=== PATIENT | female | born 1985 | race Caucasian/White ===

== ENCOUNTER 2021-09-19 12:59 | Outpatient (CLI) | payer BC, SELFPAY ==
--- NOTE | 2021-09-19 13:00 | CRLHL7_ITS ---
For Patients: As a result of the Century Cures Act, medical imaging exams and procedure reports are released immediately into your electronic medical record. You may view this report before your referring provider. If you have questions, please contact your health care provider. INDICATION: FOLLOW UP EFW, NOSE/LIPS/FACE COMPARISON: 07/27/2021 TECHNIQUE: Real time degroot scale imaging of the fetus was performed. FINDINGS: Sonographic imaging demonstrates a single living intrauterine gestation. Fetus demonstrates a regular cardiac rate of 144 beats per minute. Fetus has a vertex position. The placenta lies anteriorly. Amniotic fluid volume appears normal and there is a single deepest vertical pocket: 6.7 cm. The estimated weight is 1017gm which lies at the 28th %. On the prior OB ultrasound exam dated 07/27/2021 the estimated weight was at the 42nd%. BPD 38th percentile. HC 26th percentile. AC 32nd percentile. FL 26th percentile. The HC/AC ratio measures 1.12 Range (1.05-1.22). Normal nose, lips, face and profile. IMPRESSION: Normal nose, lips, face and profile. Sonographic gestational age 27 weeks 1 day and sonographic due date 12/18/2021. Good correlation with dates. Estimated weight 28th percentile. Abdominal circumference 32nd percentile. Dictated by Chago Gallardo MD @ 09/20/2021 11:08:44 AM (Electronically Signed)
== END 2021-09-19 13:00 | disposition home or self-care (01) ==
LOC: US 13:00
PROVIDERS: Visit Provider Obstetrics & Gynecology
DX: O35.8XX0 Maternal care for other (suspected) fetal abnormality and damage, not applicable or unspecified (principal); Z3A.27 27 weeks gestation of pregnancy
CPT/HCPCS: 76816

== ENCOUNTER 2021-09-19 13:53 | Outpatient (CLI) | payer BC, SELFPAY ==
[2021-09-21 20:11] LABS: Rapid Plasma Reagin (RPR) Non Reactive (Non Reactive)
== END 2021-09-19 13:54 | disposition home or self-care (01) ==
LOC: NFLDREF 13:54
PROVIDERS: Visit Provider Obstetrics & Gynecology
DX: O35.8XX0 Maternal care for other (suspected) fetal abnormality and damage, not applicable or unspecified (principal); Z3A.27 27 weeks gestation of pregnancy
CPT/HCPCS: 86592

== ENCOUNTER 2021-10-28 10:57 | Outpatient (CLI) | payer BC, SELFPAY ==
--- NOTE | 2021-10-28 11:00 | CRLHL7_ITS ---
For Patients: As a result of the Century Cures Act, medical imaging exams and procedure reports are released immediately into your electronic medical record. You may view this report before your referring provider. If you have questions, please contact your health care provider. INDICATION: Third trimester scan, evaluate growth. Chronic hypertension. COMPARISON: 09/19/2021 TECHNIQUE: Real time degroot scale imaging of the fetus was performed. FINDINGS: Sonographic imaging demonstrates a single living intrauterine gestation. Fetus demonstrates a regular cardiac rate of 141 beats per minute. Fetus has a vertex position. The placenta lies anteriorly. Amniotic fluid volume appears normal and there is a single deepest vertical pocket: 4.9 cm. The estimated weight is 2121gm which lies at the 49th %. On the prior OB ultrasound exam dated 09/19/2021 the estimated weight was at the 28th%. BPD 74th percentile. HC 46th percentile. AC 73rd percentile. FL 10th percentile. The HC/AC ratio measures 1.03 range (0.96-1.11). IMPRESSION: Sonographic gestational age 33 weeks 2 days and sonographic due date 12/14/2021. Good correlation with dates. Normal interval growth. Estimated weight 49th percentile. Abdominal circumference 73rd percentile. Dictated by Chago Gallardo MD @ 10/28/2021 1:13:19 PM (Electronically Signed)
--- OUTSIDE RECORDS SUMMARY | 2021-10-28 11:00 | XMS_ITS | Encounter Summary ---
:1985 Author Organization [facility] Address [address] [place] [address] Care Team Providers Name Role Phone Unavailable Primary Care Provider Unavailable Reason for Referral Outpatient (Routine) - Closed Specialty Diagnoses / Procedures Referred By Contact Refer red To Contact Otorhinolaryngology Daphne Tatum [place] M.D. [address] [place] [address] Referral ID Status Reason Start Date Expiration Date Visits Requ ested Visits Authorized [id number] Closed 01/06/2021 01/06/2022 1 1 Scheduling Instructions Oral covid same day, 930 override Reason for Visit Appointment Request (Routine) - Closed Specialty Diagnoses / Procedures Referred By Contact Refer sheri To Contact Otorhinolaryngology Diagnoses Polyp Nasal Referral ID Status Reason Start Date Expiration Date Visits Requ ested Visits Authorized [id number] Closed 12/12/2020 12/12/2021 1 1 Encounter Details Date Type Department Care Team Description 01/06/2021 Comprehensive Visit Department of Rebecca Tatumosi nusitis Chronic (Primary Dx); Otorhinolaryngology in [place]aphne Blair, Polyp Nasal; [place], [place] Sung Aspirin Reaction Nasal Polyps Asthma [address] [facility] [address] [place] [address] [place] [phone] Social History Tobacco Use Types Packs/Day Years Used Date Smoking Tobacco: Unknown Alcohol Habits Answer Date Recorded How often do you have a drink containing alcohol? Never 02/18/2021 How many drinks containing alcohol do you have on a typical Not asked day when you are drinking? How often do you have six or more drinks on one occasion? No t asked Comment: Not asked Social Isolation Answer Date Recorded In a typical week, how many times do you talk on Patient ref used 02/18/2021 the phone with family, friends, or neighbors? How often do you get together with friends or Twice a week 02/18/2021 relatives? How often do you attend restorationism or methodist Never 02/18/2021 services? Do you belong to any clubs or organizations such as No 02/18/2021 restorationism groups, unions, fraternal or athletic groups, or school groups? How often do you attend meetings of the clubs or Patient ref used 02/18/2021 organizations you belong to? Are you now , , , , Living wi partner 02/18/2021 never or living with a partner? Physical Activity Answer Date Recorded On average, how many days per week do you engage in moderate to 5 days 02/18/2021 strenuous exercise (like walking fast, running, jogging, dancing, swimming, biking, or other activities that cause a light or heavy sweat)? On average, how many minutes do you engage in exercise at is 60 min 02/18/2021 level? Stress Answer Date Recorded Do you feel stress - tense, restless, nervous, or anxious, N ot at all 02/18/2021 or unable to sleep at night because your mind is troubled all the time - these days? Financial Resource Strain Answer Date Recorded How hard is it for you to pay for the very basics like Not h janie at all 02/18/2021 food, housing, medical care, and heating? Intimate Partner Violence Answer Date Recorded Within the last year, have you been afraid of your partner o r No 02/18/2021 ex-partner? Within the last year, have you been humiliated or emotionall y No 02/18/2021 abused in other ways by your partner or ex-partner? Within the last year, have you been kicked, hit, slapped, or No 02/18/2021 otherwise physically hurt by your partner or ex-partner? Within the last year, have you been raped or forced to have any No 02/18/2021 kind of sexual activity by your partner or ex-partner? Food Insecurity Answer Date Recorded Within the past 12 months, you worried that your food would Never true 02/18/2021 run out before you got money to buy more. Within the past 12 months, the food you bought just didn't N ever true 02/18/2021 last and you didn't have money to get more. Transportation Needs Answer Date Recorded In the past 12 months, has lack of transportation kept you f rom No 02/18/2021 medical appointments or from getting medications? In the past 12 months, has lack of transportation kept you f rom No 02/18/2021 meetings, work, or getting things needed for daily living? Housing Stability Answer Date Recorded In the last 12 months, was there a time when you were not ab le No 02/18/2021 to pay the mortgage or rent on time? In the last 12 months, how many places have you lived? 1 02/18/2021 In the last 12 months, was there a time when you did not hav e a No 02/18/[address] or slept in a residential (including now)? Education Answer Date Recorded What is the highest level of school Associate degree: yanna babb, 01/06/2021 you have completed or the highest technical, or vocational p luke degree you have received? Sex Assigned at Date Recorded Female 01/06/2021 8:49 AM CDT documented as of this encounter Progress Daphne Daily M.D. - 01/06/2021 9:00 AM CDT SUBJECTIVE CHIEF COMPLAINT / REASON FOR VISIT Krystal Odonnell is a 35 y.o. female who presents for evaluation of No chief complaint on file.. HISTORY OF PRESENT ILLNESS 1. Chronic rhinosinusitis with polyps. 2. Asthma with AERD. 3. Desensitized from aspirin currently on 325 mg once a day. 4. Revision endoscopic sinus surgery done by Dr. Tatum in October of 2015 - She became more congested on Singulair and also had itchiness and insomnia and had to stop it. Ms. Odonnell presents today for follow up. Overall she is doing poorly and she is currently has not been using saline rinses. After her last surgery in 2015 she did undergo aspirin desensitization and used b.i.d. budesonide irrigations for many years. We last saw her on 06/11/17 when she had stopped her ASA after not being able to keep it down secondary to n/v and influenza. She was treated at that time with 80mg of IM Kenalog in addition to BID budesonide irrigations. She did not have any improvement. She will have increased nasal airway and sense of smell after high does prednisone, but the obstruction returns shortly after stopping the steroids. Her current symptoms include facial pressure, nasal bud inage, decreased nasal airway, and inability to irrigate due to polyp recurrence. She has taken Augmentin 2-3 times in the last year for presumed exacerbations without much improvement in her symptoms.She has not had prednisone in the last year. She will take Claritin occasionally and this will help significantly with the clear anterior nasal dripping. She also reports a worsening of her symptoms when she had her IUD removed in October. She reports to us that she is trying to become and would like to discuss options for improving her symptoms with that in mind. OBJECTIVE PHYSICAL EXAM Constitutional: Appears alert and well Head: Normal inspection and palpation Nose: The external nose is without significant lesions or masses Neck: No stridor is present Pulmonary/Chest: Respirations have grossly normal rate and effort No stridor Neurological: She is alert Skin: No facial rash noted Psychiatric: Affect appears appropriate ASSESSMENT / PLAN #1 Rhinosinusitis Chronic #2 Polyp Nasal #3 Aspirin Reaction Nasal Polyps Asthma She has an updated CT scan today that we reviewed together in the office. It shows severe polypoid disease down the floor nasal cavity. She has otherwise had good prior surgery with open maxillary antrostomies, total ethmoidectomy, and sphenoid sinusotomies. We discussed many options for her. She would not be able to take Dupixent, an anti leukotriene medication, or high-dose aspirin while being . She also would not be able to undergo surgery while, but could undergo revision sinus surgery in the near future with middle turbinate resections and draft IIb's/possible Draf III. We also discussed that it would be important for her to continue topical steroids in the postop timeframe and throughout her to help keep her symptoms from recurring. After she delivers and completes breast feeding she would then need to come in and discuss medical therapy or repeat asa desensitization with an it systems engineer as I am not optimistic that surgery and topical budesonide will control her long-term. She is concerned about olfactory loss with middle turbinate resections, but she is agreeable to me using clinical judgment at the time of surgery to try to optimize her olfactory cleft to received topical steroids while limiting injury to olfactory neuroepithelium on the middle turbinates. She is currently not taking any anticoagulants and she reports her asthma has been well controlled. We should start her on a prednisone burst and taper today that she can continue throughout the postoptimeframe. We will plan a postop debridement at 1 week. Daphne Tatum M.D. documented in this encounter Plan of Treatment Scheduled Referrals Name Type Priority Associated Order Schedule Diagnoses Otorhinolaryngology Post Op Outpatient Routine Expected: (clinic) Referral 01/20/2021 (Approximate), Expires: 01/07/2024 documented as of this encounter Visit Diagnoses Diagnosis Rhinosinusitis Chronic - Primary Polyp Nasal Aspirin Reaction Nasal Polyps Asthma documented in this encounter Additional Health Concerns Infection Onset Date Last Indicated Resolved Time COVID19 Pending 01/06/2021 01/06/2021 01/06/2021 9:43 AM CDT COVID19 Pending 01/06/2021 01/06/2021 01/06/2021 10:29 AM CDT documented as of this encounter
--- OUTSIDE RECORDS SUMMARY | 2021-10-28 11:00 | XMS_ITS | Encounter Summary ---
:1985 Author Organization [facility] Address [address] [place] [address] Care Team Providers Name Role Phone Unavailable Primary Care Provider Unavailable Encounter Details Date Type Department Care Team Description 06/11/2017 Telemedicine Department of Otorhinolaryngology Social History Tobacco Use Types Packs/Day Years Used Date Smoking Tobacco: Never Alcohol Habits Answer Date Recorded How often [...] 02/18/2021 relatives? How often do you attend jehovah's witness or mandaeism Never 02/18/2021 services? Do you belong to any clubs or organizations such as No 02/18/2021 jehovah's witness groups, unions, fraternal or athletic groups, or school groups? How often do you attend meetings of the clubs or Patient ref used 02/18/2021 organizations you belong to? Are you now , , , , Living wi th partner 02/18/2021 never or living with a partner? Physical Activity Answer Date Recorded On average, how many days per week do you engage in moderate to 5 days 02/18/2021 strenuous exercise (like walking fast, running, jogging, dancing, swimming, biking, or other activities that cause a light or heavy sweat)? On average, how many minutes do you engage in exercise at th is 60 min 02/18/2021 level? Stress Answer [...] place to sleep or slept in a [place] [facility] (including now)? Sex Assigned at Date Recorded Female 01/06/2021 8:49 AM CDT documented as of this encounter Plan of Treatment Not on filedocumented as of this encounter Procedures Procedure Name Priority Date/Time Associated Comments Diagnosis OTORHINOLARYNGOLOGY IMAGE Routine 06/11/2017 4:48 Results for this EXAM PM CDT procedure are i n the results section. documented in this encounter Results OTORHINOLARYNGOLOGY IMAGE EXAM (06/11/2017 4:48 PM CDT) Specimen (Source) Anatomical Collection Method Collection Time Re ceived Time Location / / Volume Laterality 06/11/2017 4:47 PM CDT Narrative [facility] - 06/11/2017 4:48 PM CDT This order has been created and auto-finalized to support the import of images acquired without order. The clini stephanie documentation to support these images can be found on the encounter rosalind t produced images. Provider Not In System IMG NON RAD IMAGING PROCEDUR ES Performing Organization Address City/State/ZIP Code Phon e Number [facility] NA documented in this encounter Visit Diagnoses Not on filedocumented in this encounter
--- OUTSIDE RECORDS SUMMARY | 2021-10-28 11:00 | XMS_ITS | Encounter Summary ---
:1985 Author Organization [facility] Address [address] [place] [address] Care Team Providers Name Role Phone Unavailable Primary Care Provider Unavailable Encounter Details Date Type Department Care Team Description 06/22/2017 Orders Only Department of Ashley Victor, Otorhinolaryngology in [facility], [facility], [place] M.S.N. [address] [place] [address] [address] [place] [address] [place], [place] [phone] Social History Tobacco Use Types Packs/Day Years [...] 02/18/2021 relatives? How often do you attend orthodox or bahai Never 02/18/2021 services? Do you belong to any clubs or organizations such as No 02/18/2021 orthodox groups, unions, fraternal or athletic groups, or [...] place to sleep or slept in a assisted (including now)? Sex Assigned at Date Recorded Female 01/06/2021 8:49 AM CDT documented as of this encounter Plan of Treatment Not on filedocumented as of this encounter Visit Diagnoses Not on filedocumented in this encounter
--- OUTSIDE RECORDS SUMMARY | 2021-10-28 11:00 | XMS_ITS | Encounter Summary ---
:1985 Author Organization [facility] Address [address] [place] [address] Care Team Providers Name Role Phone Unavailable Primary Care Provider Unavailable Reason for Visit Outpatient (Routine) - Closed Specialty Diagnoses / Procedures Referred By Contact Refer red To Contact Otorhinolaryngology Daphne Tatum [place] M.D. [address] [place] [address] Referral ID Status Reason Start Date Expiration Date Visits Requ ested Visits Authorized [id number] Closed 01/21/2021 01/21/2022 1 1 Encounter Details Date Type Department Care Team Description 02/18/2021 Office Visit Department of Rc, Rhinosinusitis Chronic (Primary Dx); Otorhinolaryngology in [place]aphne Blair, Polyp Nasal; [place], [place] Sung Aspirin Reaction Nasal Polyps Asthma [address] [facility] [address] [place] [address] [place], [place] [phone] Social History Tobacco Use Types Packs/Day Years Used Date Smoking Tobacco: Never Smokeless Tobacco: Never Alcohol Use Standard Drinks/Week Comments Never 0 (1 standard drink = 0.6 oz pure alcoho l) Alcohol Habits Answer Date Recorded How often [...] 02/18/2021 relatives? How often do you attend shinto or latter day Never 02/18/2021 services? Do you belong to any clubs or organizations such as No 02/18/2021 shinto groups, unions, fraternal or athletic groups, or [...] CDT documented as of this encounter Progress Notes Sanjeev Thakur, DALTON, C.N.P., M.S.N. - 02/18/2021 11:15 AM CST SUBJECTIVE CHIEF COMPLAINT / REASON FOR VISIT Krystal Odonnell is a 35 y.o. female who presents for follow up of AERD HISTORY OF PRESENT ILLNESS 1. ??Chronic rhinosinusitis with polyps. 2. ??Asthma with AERD. 3. ??Desensitized from aspirin but stopped after a bout of n/v from a viral illness, previously tolerated and was maintained on 325 mg once a day. 4. ??Revision endoscopic sinus surgery done by Dr. Tatum in October of 2015 - She became more congested on Singulair and also had itchiness and insomnia and had to stop it. 5. Revision ESS - all 4 sinuses with excision of the middle turbinates & draf 2b bilaterally with JKS on 01/11/21 Ms. Odonnell is a very pleasant 35 year old female with AERD who is trying to get and thus notable to take systemic therapy. She underwent revision polypectomy and ESS (Middle turbinate resection and Draf 2b) on 01/11/21. Following her first post op visit, she had notable mild frontal sinus edema and was healing well. This is her second post operative visit. Today, she is feeling well. Unfortunately, since putting a real pine tree up for B[place] she has noticed increased nasal blockage and is worried her polyps have returned. She has continued to feel improvement in her smell. She has continued with her twice daily rinses. OBJECTIVE PHYSICAL EXAM Constitutional: Voice is normal Appears alert and well Head: Normal inspection and palpation Otoscopic: Hearing is grossly normal Nose: The external nose is without significant lesions or masses Pulmonary/Chest: Respirations have grossly normal rate and effort Neurological: She is alert Facial strength is grossly normal and symmetric Psychiatric: Affect appears appropriate PROCEDURE NOTE: Procedure: Indication: CRS, postop, remove crusting, prevent scarring Informed Consent obtained: The risks, benefits, alternatives, and expectations were discussed with patient verbally and the patient wishes to proceed. Findings: After anesthesia and decongestion with topical lidocaine and afrin spray, the nasal cavities were examined with a 30 degree endoscope. Her bilateral maxillary, ethmoid, frontal, and sphenoid sinuses are patent. Her bilateral MT are resected. She has mild edema and mild clear drainage throughout sinuses. No polyp recurrence. The patient tolerated the procedure well and there were no complications. Cloquet-Woody Endoscopic Scoring System Right Side Left Side Polyp Absent = 0 Absent = 0 Edema Mild = 1 Mild = 1 Discharge Absent = 0 Absent = 0 Scarring Absent = 0 Absent = 0 Crusting Absent = 0 Absent = 0 Carole-Woody Endoscopy Score = 2 ASSESSMENT / PLAN It was a pleasure to see Ms. Odonnell for follow up today. She has continued to do well with improvement of her smell. She reports recently putting a real tree up for [place] and has noticed increasing nasal congestion. On exam she has mild edema with minimal clear drainage throughout. We are suspicious this is an allergic reaction to the pine tree. We will prescribe Astelin spray for her to use as needed. She will continue with the twice daily budesonide rinses. We will follow up with her in 6 months or sooner if needed. We will have her see allergy for repeat ASA desensitization vs biologic after she is no longer trying to become . Sanjeev Thakur APRN, C.N.P., M.S.N. ANICAL RESEARCH ENGINEER Associated attestation - Daphne Tatum M.D. - 02/20/2021 5:37 PM MECHANICAL RESEARCH ENGINEER I saw the patient with Sanjeev Thakur C.N.P. and agree with her findings, assessment, and plan. Daphne Tatum M.D. documented in this encounter Plan of Treatment Not on filedocumented as of this encounter Visit Diagnoses Diagnosis Rhinosinusitis Chronic - Primary Polyp Nasal Aspirin Reaction Nasal Polyps Asthma documented in this encounter
--- OUTSIDE RECORDS SUMMARY | 2021-10-28 11:00 | XMS_ITS | Encounter Summary ---
:1985 Author Organization [facility] Address [address] [place] [address] Care Team Providers Name Role Phone Unavailable Primary Care Provider Unavailable Encounter Details Date Type Department Care Team Description 12/04/2017 Orders Only Department of Ashley Victor, Otorhinolaryngology in [facility], C.N[facility]P.[place], [place] M.S.N. [address] [place] [address] [address] [place] [address] [place], [place] [phone] Social History Tobacco Use Types Packs/Day Years [...] 02/18/2021 relatives? How often do you attend mosque or temple Never 02/18/2021 services? Do you belong to any clubs or organizations such as No 02/18/2021 mosque groups, unions, fraternal or athletic groups, or [...] place to sleep or slept in a skilled nursing (including now)? Sex Assigned at Date Recorded Female 01/06/2021 8:49 AM CDT documented as of this encounter Plan of Treatment Not on filedocumented as of this encounter Visit Diagnoses Not on filedocumented in this encounter
--- OUTSIDE RECORDS SUMMARY | 2021-10-28 11:00 | XMS_ITS | Encounter Summary ---
:1985 Author Organization [facility] Address [address] [place] [address] Care Team Providers Name Role Phone Unavailable Primary Care Provider Unavailable Encounter Details Date Type Department Care Team Description 01/21/2021 Ancillary Procedure Department of Otorhinolaryngology Social History Tobacco Use [...] 02/18/2021 relatives? How often do you attend confucianism or latter day Never 02/18/2021 services? Do you belong to any clubs or organizations such as No 02/18/2021 confucianism groups, unions, fraternal or athletic groups, or [...] place to sleep or slept in a longterm (including now)? Education Answer Date Recorded What is the highest level of school Associate degree: occupa tional, 01/06/2021 you have completed or the highest technical, or vocational p rogram degree you have received? Sex Assigned at Date Recorded Female 01/06/2021 8:49 AM CDT documented as of this encounter Plan of Treatment Not on filedocumented as of this encounter Procedures Procedure Name Priority Date/Time Associated Comments Diagnosis OTORHINOLARYNGOLOGY IMAGE Routine 01/21/2021 2:48 Results for this EXAM PM RN TESTING procedure are i n the results section. documented in this encounter Results NASAL-Otorhinolaryngology Image Exam (01/21/2021 2:48 PM RN TESTING) Specimen (Source) Anatomical Collection Method Collection Time Re ceived Time Location / / Volume Laterality 01/21/2021 4:08 PM RN TESTING Narrative [facility] - 01/21/2021 2:48 PM RN TESTING This order has been created and auto-finalized [...]
--- OUTSIDE RECORDS SUMMARY | 2021-10-28 11:00 | XMS_ITS | Encounter Summary ---
:1985 Author Organization [facility] Address [address] [place] [address] Care Team Providers Name Role Phone Unavailable Primary Care Provider Unavailable Reason for Referral Outpatient (Routine) - Closed Specialty Diagnoses / Procedures Referred By Contact Refer red To Contact Otorhinolaryngology Daphne Tatum [place] M.D. [address] [place] [phone] Referral ID Status Reason Start Date Expiration Date Visits Requ ested Visits Authorized [id number] Closed 01/21/2021 01/21/2022 1 1 Scheduling Instructions - in afternoon, or 02/22 v ideo slot. EL APPLIER Reason for Visit Outpatient (Routine) - Closed Specialty Diagnoses / Procedures Referred By Contact Refer red To Contact Otorhinolaryngology Daphne Tatum [place] M.D. [address] [place] [phone] Referral ID Status Reason Start Date Expiration Date Visits Requ ested Visits Authorized [id number] Closed 01/06/2021 01/06/2022 1 1 Encounter Details Date Type Department Care Team Description 01/21/2021 Office Visit Department of Paola Tatum on Otorhinolaryngology in Daphne Blair M.D. Nasal Polyps Asthma [place], [place] [address] [place] [address] (Primary Dx) [address] [place] [phone] Social History Tobacco Use Types Packs/Day Years [...] 02/18/2021 relatives? How often do you attend synagogue or hinduism Never 02/18/2021 services? Do you belong to any clubs or organizations such as No 02/18/2021 synagogue groups, unions, fraternal or athletic groups, or [...] place to sleep or slept in a fci (including now)? Education Answer Date Recorded What is the highest level of school Associate degree: yanna babb, 01/06/2021 you have completed or the highest technical, or vocational p rogram degree you have received? Sex Assigned at Date Recorded Female 01/06/2021 8:49 AM CDT documented as of this encounter Progress Notes Mary Lema M.D. - 01/21/2021 2:30 PM CST SUBJECTIVE CHIEF COMPLAINT / REASON FOR VISIT Krystal Odonnell is a 35 y.o. female who presents for an evaluation of HISTORY OF PRESENT ILLNESS 1. ??Chronic rhinosinusitis with polyps. 2. ??Asthma with AERD. 3. ??Desensitized from aspirin currently on 325 mg once a day. 4. ??Revision endoscopic sinus surgery done by Dr. Tatum in October of 2015 - She became more congested on Singulair and also had itchiness and insomnia and had to stop it. 5. Revision FESS - all 4 sinuses with excision of the middle turbinates bilaterally with JKS on 01/11/21 Ms. Odonnell is a very pleasant 35 year old female with AERD who is trying to get and thus notable to tolerate systemic therapy. She underwent revision polypectomy and FESS for all 4 sinuses on 01/11/21. This is her first post- operative visit. She is feeling well. Last night she was actually able to smell something. She has had significant pain after surgery which has required another round of narcotic, but she is refraining from taking too many of these. The following portions of the patient's history were reviewed and updated as appropriate: allergies,current medications, family history, medical history, social history, surgical history and problem list. REVIEW OF SYSTEMS ENT: Positive for sinus congestion. Psychiatric/Behavioral: Positive for snores loudly. The following systems were negative: Constitutional, Skin, Eyes, CV, Respiratory, GI, , Hematologic, Musculoskeletal, Neuro OBJECTIVE PHYSICAL EXAM Constitutional: Voice is normal Appears alert and well Head: Normal inspection and palpation Otoscopic: Hearing is grossly normal Nose: The external nose is without significant lesions or masses Eyes: External ocular movements are symmetric and full Cardiovascular: Upper extremity displays normal capillary refill Upper extremities are well perfused Neurological: She is alert and oriented to person, place, and time III, IV, : EOM symmetric and full Facial strength is grossly normal and symmetric Psychiatric: Affect appears appropriate Behavior is oriented to person, place and time PROCEDURE NOTE: Procedure: POSTOP DEBRIDEMENT Indication: CRS, postop, remove crusting, prevent scarring Informed Consent obtained: The risks, benefits, alternatives, and expectations were discussed with patient verbally and the patient wishes to proceed. Findings: After anesthesia and decongestion with topical lidocaine and afrin spray, the nasal cavities were exmained and debrided with a 30 degree endoscope. Large crusts were taken down from the anterior nasal chambers with a suction and alligator forceps. The middle turbinates were resected. Crusts and dissolvable packing materials were removed from the middle meatus, maxillary sinus, sphenoid sinus, frontal recess, and ethmoid cavities bilaterally. A small crust was left on the middle turbinate stump on the left to prevent scarring.The maxillary and sphenoid sinuses are widely patent. The frontal recess is patent bilaterally as well. Minimal polypoid edema. There is no CSF leak. Things are healing well. The patient tolerated the procedure well and there were no complications. Right Side Left Side Polyp Absent = 0 Absent = 0 Edema Mild/moderate = 1 Mild/moderate = 1 Discharge Thin and clear = 1 Thin and clear = 1 Scarring Absent = 0 Absent = 0 Crusting Mild = 1 Mild = 1 [place] Endoscopy Score = 6 ASSESSMENT / PLAN #1 Aspirin Reaction Nasal Polyps Asthma It was a pleasure to see Ms. Odonnell back in clinic today. She looks really excellent from a healing perspective. She has mild edema and her frontals are very patent. We were glad to hear she is getting her sense of smell back. We will see her back in 3-4 weeks for another postoperative visit. She should continue to use her budesonide rinses but she can stop the mupirocin. Procedures EL APPLIER Associated attestation - Daphne Tatum M.D. - 01/21/2021 2:57 PM ENAMEL APPLIER I saw and evaluated the patient, participating in the brody portions of the service. I reviewed the resident/fellow???s note. I agree with the resident/fellow???s findings and plan. Daphne Tatum M.D. documented in this encounter Plan of Treatment Scheduled Referrals Name Type Priority Associated Order Schedule Diagnoses Otorhinolaryngology office Outpatient Routine E xpected: visit (clinic) Referral 02/18/2021, Expires: 04/23/2022 documented as of this encounter Visit Diagnoses Diagnosis Aspirin Reaction Nasal Polyps Asthma - P rimary documented in this encounter
--- OUTSIDE RECORDS SUMMARY | 2021-10-28 11:00 | XMS_ITS | Clinical Summary ---
:[address] [facility] Address [address] [place] [address] Care Team Providers Name Role Phone Unavailable Primary Care Provider Unavailable Source Comments Patient records contain information from all sites at [facility]. For routine questions regarding patient records, call [phone] during business hours, M-F 8:00 AM - 5:00 PM Central Time. Record requests for emergency care only can be directed to [phone] at any time.[facility] Allergies Active Allergy Reactions Severity Noted Date Comments Ibuprofen Other (see comments) Low 04/01/2010 Nsaids (Non-Steroidal Other (see comments) 01/06/2021 Anti-Inflammatory Drug) Montelukast Hives 01/06/2021 Medications Medication Sig Dispensed Refills Start Date End Date Status albuterol 90 0 10/19/2020 Active mcg/actuation inhaler Arnuity Ellipta 200 0 10/19/2020 Active mcg/actuation diskus inhaler labetaloL (NORMODYNE) 0 10/21/2020 Active 100 mg tablet NIFEdipine (ADALAT 0 10/21/2020 Active CC) 30 mg ER tablet budesonide Add 1 respule to 8 360 mL 3 01/06/2021 Active (PULMICORT) 0.5 mg/2 ounces saline and mL nebulizer solution irrigate each side of nose twice daily as directed. predniSONE Take 4 tabs for 3 30 tablet 0 01/06/2021 Active (DELTASONE) 10 mg days, then take 3 tablet tabs for 3 days, then take 2 tabs for 3 days. Continue to take 1 tab daily until gone. oxyCODONE Take 1 tablet (5 mg 10 tablet 0 01/17/2021 Active (ROXICODONE) 5 mg total) by mouth immediate release every 6 (six) hours tabletIndications: as needed for Acute Pain Exception severe pain or score 7-10 of 10 Indication: Acute Pain Exception. Additional Information Patient not taking. Reported on 02/18/2021 azelastine (ASTELIN) 137 Administer 2 sprays 30 mL 11 02/1802/18/2022 Active mcg/spray (0.1 %) nasal into each nostril 2 spray (two) times a day. Use in each nostril as directed Active Problems Problem Noted Date Rhinosinusitis Chronic 01/06/2021 Overview: Added automatically from request for chandler haskins [id number] Aspirin Reaction Nasal Polyps Asthma 09/24/2015 Asthma NOS 09/24/2015 Social History Tobacco Use Types Packs/Day Years [...] 02/18/2021 relatives? How often do you attend mandaeism or spiritism Never 02/18/2021 services? Do you belong to any clubs or organizations such as No 02/18/2021 mandaeism groups, unions, fraternal or athletic groups, or [...] place to sleep or slept in a snf (including now)? Education Answer Date Recorded What is the highest level of school Associate degree: yanna babb, 01/06/2021 you have completed or the highest technical, or vocational p rogram degree you have received? Sex Assigned at Date Recorded Female 01/06/2021 8:49 AM CDT Last Filed Vital Signs Vital Sign Reading Time Taken Comments Blood Pressure 130/89 01/11/2021 5:00 PM FAST FOOD SERVER Pulse 77 01/11/2021 5:05 PM FAST FOOD SERVER Temperature 36.8 ??C (98.2 ??F) 01/11/2021 5:00 PM FAST FOOD SERVER Respiratory Rate 16 01/11/2021 5:00 PM FAST FOOD SERVER Oxygen Saturation 95% 01/11/2021 5:05 PM FAST FOOD SERVER Inhaled Oxygen Concentration - - Weight 113 kg (248 lb 14.4 oz) 01/11/2021 10:10 AM FAST FOOD SERVER Height 167.6 cm (5' 6) 01/11/2021 10:10 AM FAST FOOD SERVER Body Mass Index 40.17 01/11/2021 10:10 AM FAST FOOD SERVER Plan of Treatment Health Maintenance Due Date Last Done Comments Cervical Cancer Screening 1985 HIV Screening 1985 Hepatitis B Vaccines (1 of 3 - 3-dose 1986 series) Hepatitis C Screening 1985 Lipid (Cholesterol) Screening 1985 Pneumococcal vaccine (0-64 years) (1 1992 - PCV) DTaP,Tdap,and Td Vaccines (1 - Tdap) 04/22/2012 04/21/2012 Asthma Action Plan 05/04/2017 Asthma Control Test Questionnaire 05/04/2017 Depression Screening (Annual PHQ-2) 03/05/2021 Influenza Vaccine (#1) 2022 COVID-19 Vaccine Completed 02/11/2021, 04/13/2020, 03/23/2020 Medical Devices Implanted Type Area Correspondence Analyst Device Shelf Model / Identifier Expiration Serial / Date Lot Stent Sinus Propel Regular - [id number] Stent Other/Legacy - Int ersect Ent Implanted: Qty: 1 on 10/14/2015 Other [employer] Description Description: Device Correspondence Analyst - Inter sect Ent. Body Location - Other. Left. Device Status Text - [id number]. Insurance Payer Benefit Plan Subscriber ID Effective Phone Address Typ e / Group Dates BLUE CROSS BCBS BLUE [id number] 2018-Prese ATTN: William gallardo HMO BLUE SHIELD PLUS HMO nt [facility] [address] [address] [place] [address]
--- OUTSIDE RECORDS SUMMARY | 2021-10-28 11:00 | XMS_ITS | Encounter Summary ---
:1985 Author Organization [facility] Address [address] [place] [address] Care Team Providers Name Role Phone Unavailable Primary Care Provider Unavailable Reason for Referral MRI/CAT/PET Scan (Routine) - Closed Specialty Diagnoses / Procedures Referred By Contact Refer red To Contact Radiology Diagnoses Aspirin Reaction Nasal Polyps Asthma Mary Lema M.D. [facility] Procedures CT Sinuses without IV Contrast [address] [place] [phone] Referral ID Status Reason Start Date Expiration Date Visits Requ ested Visits Authorized [id number] Closed 12/13/2020 12/13/2021 1 1 Reason for Visit MRI/CAT/PET Scan (Routine) - Closed Specialty Diagnoses / Procedures Referred By Contact Refer red To Contact Radiology Diagnoses Aspirin Reaction Nasal Polyps Asthma Mary Lema M.D. [facility] Procedures CT Sinuses without IV Contrast 200 [place] [phone] Referral ID Status Reason Start Date Expiration Date Visits Requ ested Visits Authorized [id number] Closed 12/13/2020 12/13/2021 1 1 Encounter Details Date Type Department Care Team Description 12/21/2020 Hospital Encounter Department of Mary Lema Aspirin Reaction RadiologyAndrade M.D. Nasal Polyps Asthma [facility], in [address] [place] [address] [place] [phone] [place], [place] [phone] (Work) [phone] Social History Tobacco Use Types Packs/Day Years [...] 02/18/2021 relatives? How often do you attend hoahaoism or church Never 02/18/2021 services? Do you belong to any clubs or organizations such as No 02/18/2021 hoahaoism groups, unions, fraternal or athletic groups, or [...] place to sleep or slept in a care home (including now)? Sex Assigned at Date Recorded Female 01/06/2021 8:49 AM CDT documented as of this encounter Medications at Time of Discharge Medication Sig Dispensed Refills Start Date End Date albuterol 90 mcg/actuation inhaler 0 0 10/19/2020 Arnuity Ellipta 200 mcg/actuation 0 diskus inhaler labetaloL (NORMODYNE) 100 mg tablet 0 10/21/2020 NIFEdipine (ADALAT CC) 30 mg ER tablet 0 10/21/2020 lisinopriL (PRINIVIL,ZESTRIL) 20 mg 0 10/02/2020 01/06/2021 tablet prednisoLONE acetate (PRED FORTE) 1 % Daily 0 11/14/2016 01/06/2021 ophthalmic suspension documented as of this encounter Plan of Treatment Not on filedocumented as of this encounter Procedures Procedure Name Priority Date/Time Associated Comments Diagnosis CT SINUSES RAD - Routine 12/21/2020 12:59 Aspirin Reaction Result s for this WITHOUT IV (most inpatients PM CDT Nasal Polyps procedure a re in CONTRAST and all Asthma the results outpatients) section. documented in this encounter Results CT Sinuses without IV Contrast (12/21/2020 12:59 PM CDT) Anatomical Region Laterality Modality Head, Neuroradiology RST LOS, N/A Computed T omography, Computed Neuroradiology ARZ LOS, Neuroradiology T omography FLA LOS Specimen (Source) Anatomical Collection Method Collection Time Re ceived Time Location / / Volume Laterality 12/21/2020 1:08 PM CDT Impressions 12/21/2020 1:15 PM CDT 1. Interval postoperative changes of repeat functional endoscopic sinus surgery, as described. 2. Overall mixed interval changes in par anasal sinus disease with progression of mucosal thickening within the bilateral maxillary sinuses and right frontal sinus but slightly improved aeration wit hin the left sphenoid sinus and bilateral ethmoid cavities. Narrative 12/21/2020 1:15 PM CDT EXAM: CT SINUSES WITHOUT IV CONTRAST COMPARISON: CT of the sinuses without IV contrast dated 09/24/2015. FINDINGS: Since the prior exam, interval postoperative changes of repeat bilateral maxillary antrostomies, total ethmoidectomies, as well as bilateral sphenoid and frontal sinusotomies. Inter hal progression of bilateral maxillary sinus mucosal thickening, now moderate b ilaterally with scattered bubbly secretions. Slight progression of right sphenoid sinus mucosal thickening. Slightly improved aeration of the left s phenoid sinus with persistent marked mucosal thickening. Slightly improved of the bilateral ethmoid cavities with persistent marked mucosal thickening. Pr ogression of mucosal thickening involving the right frontal sinus which is now completely opacified. Unchanged opacification of the left frontal sinus. Small amount of high attenuation material within the left maxillary sinus may represent inspissated secretions, however fungal sinus colonization can weaver ve a similar appearance. Similar wall thickening involving the bilateral maxil chemo and sphenoid sinuses, compatible with chronic osteitis. Rightward nasal s eptal deviation. Procedure Note Charan Murguia M.D. - 1 EXAM: CT SINUSES WITHOUT IV CONTRAST COMPARISON: CT of the sinuses without IV contrast dated 09/24/2015. FINDINGS: Since the prior exam, interval postoperative changes of repeat bilateral maxillary antrostomies, total ethmoidectomies, as well as bilateral sphenoid and frontal sinusotomies. Inter hal progression of bilateral maxillary sinus mucosal thickening, now moderate b ilaterally with scattered bubbly secretions. Slight progression of right sphenoid sinus mucosal thickening. Slightly improved aeration of the left s phenoid sinus with persistent marked mucosal thickening. Slightly improved of the bilateral ethmoid cavities with persistent marked mucosal thickening. Pr ogression of mucosal thickening involving the right frontal sinus which is now completely opacified. Unchanged opacification of the left frontal sinus. Small amount of high attenuation material within the left maxillary sinus may represent inspissated secretions, however fungal sinus colonization can weaver ve a similar appearance. Similar wall thickening involving the bilateral maxil chemo and sphenoid sinuses, compatible with chronic osteitis. Rightward nasal s eptal deviation. IMPRESSION: 1. Interval postoperative changes of rep eat functional endoscopic sinus surgery, as described. 2. Overall mixed interval changes in par anasal sinus disease with progression of mucosal thickening within the bilateral maxillary sinuses and right frontal sinus but slightly improved aeration wit hin the left sphenoid sinus and bilateral ethmoid cavities. Mary LAGUNA CT PROCEDURES documented in this encounter Visit Diagnoses Diagnosis Aspirin Reaction Nasal Polyps Asthma documented in this encounter
--- OUTSIDE RECORDS SUMMARY | 2021-10-28 11:00 | XMS_ITS | Encounter Summary ---
:1985 Author Organization [facility] Address [address] [place] [address] Care Team Providers Name Role Phone Unavailable Primary Care Provider Unavailable Reason for Visit Reason Comments Med Refill Encounter Details Date Type Department Care Team Description 12/03/2017 Refill Department of Otorhinolaryngology Ashley Victor, Med Refill in [facility] jorge HOFFMAN C.N.P., M.S.N. [address] [place] [address] [address] [place] [address] [place], [place] [phone] (Wo rk) Social History Tobacco Use Types Packs/Day Years [...] 02/18/2021 relatives? How often do you attend caodaism or adventist Never 02/18/2021 services? Do you belong to any clubs or organizations such as No 02/18/2021 caodaism groups, unions, fraternal or athletic groups, or [...] place to sleep or slept in a long-term (including now)? Sex Assigned at Date Recorded Female 01/06/2021 8:49 AM CDT documented as of this encounter Miscellaneous Notes Telephone Encounter - Janay San - 12/03/2017 4:00 PM CDT Last seen 06/11/17 #1 Chronic rhinosinusitis with polyps #2 Aspirin-exacerbated respiratory disease documented in this encounter Plan of Treatment Not on filedocumented as of this encounter Visit Diagnoses Not on filedocumented in this encounter
--- OUTSIDE RECORDS SUMMARY | 2021-10-28 11:00 | XMS_ITS | Encounter Summary ---
:1985 Author Organization [facility] Address [address] [place] [address] Care Team Providers Name Role Phone Unavailable Primary Care Provider Unavailable Reason for Visit Reason Comments Reschedule Post Op Appointment Encounter Details Date Type Department Care Team Description 01/19/2021 Clinical Department of Bety Tatum Pos t Communication Otorhinolaryngology in [place], [place] [address] [facility] [address] [place] [address] [place], [place] [phone] Social History Tobacco Use Types Packs/Day Years [...] 02/18/2021 relatives? How often do you attend nondenominational or mormonism Never 02/18/2021 services? Do you belong to any clubs or organizations such as No 02/18/2021 nondenominational groups, unions, fraternal or athletic groups, or [...] place to sleep or slept in a detention (including now)? Education Answer Date Recorded What is the highest level of school Associate degree: yanna babb, 01/06/2021 you have completed or the highest technical, or vocational p luke degree you have received? Sex Assigned at Date Recorded Female 01/06/2021 8:49 AM CDT documented as of this encounter Miscellaneous Notes Telephone Encounter - Maciel Watts - 01/19/2021 1:13 PM CST I had Esha call patient. She is checking with her dad for Sunday afternoon as he is driving her. SINE MACHINE TENDER Telephone Encounter - Xiomy Horner - 01/19/2021 12:22 PM CST Ms. Odonnell returned your call. You can reach her this afternoon at [phone]. SINE MACHINE TENDER Telephone Encounter - Maciel Watts - 01/19/2021 10:37 AM CST I called Ms. Odonnell today because Dr. Tatum has been called away unexpectedly. Dr. Tatum would like to see her on January 21 in the afternoon at the [facility] procedure room. Ms. Odonnell did not answer so I left a message for her to call me back. Thank you, Maciel SINE MACHINE TENDER documented in this encounter Plan of Treatment Not on filedocumented as of this encounter Visit Diagnoses Not on filedocumented in this encounter
--- OUTSIDE RECORDS SUMMARY | 2021-10-28 11:00 | XMS_ITS | Encounter Summary ---
:1985 Author Organization [facility] Address [address] [place] [address] Care Team Providers Name Role Phone Unavailable Primary Care Provider Unavailable Encounter Details Date Type Department Care Team Description 01/11/2021 Ancillary Procedure Department of Otorhinolaryngology Social History [...] 02/18/2021 relatives? How often do you attend yazidism or presybeterian Never 02/18/2021 services? Do you belong to any clubs or organizations such as No 02/18/2021 yazidism groups, unions, fraternal or athletic groups, or [...] place to sleep or slept in a group home (including now)? Education Answer Date Recorded What [...] Date/Time Associated Comments Diagnosis OTORHINOLARYNGOLOGY IMAGE Routine 01/11/2021 12:10 Results for this EXAM AM CADD DRAFTER procedure are i n the results section. documented in this encounter Results AIRWAY-Otorhinolaryngology Image Exam (01/11/2021 12:10 AM CADD DRAFTER) Specimen (Source) Anatomical Location Collection Method / Collectio n Time Received Time / Laterality Volume Narrative IIMS - 01/11/2021 2:55 PM CADD DRAFTER This order has been created and auto-finalized [...]
--- OUTSIDE RECORDS SUMMARY | 2021-10-28 11:00 | XMS_ITS | Encounter Summary ---
:1985 Author Organization [facility] Address [address] [place] [address] Care Team Providers Name Role Phone Unavailable Primary Care Provider Unavailable Reason for Referral MRI/CAT/PET Scan (Routine) - Closed Specialty Diagnoses / Procedures Referred By Contact Refer red To Contact Radiology Diagnoses Aspirin Reaction Nasal Polyps Asthma Mary Lema M.D. [facility] Procedures CT Sinuses without IV Contrast [address] [place] [address] Referral ID Status Reason Start Date Expiration Date Visits Requ ested Visits Authorized [id number] Closed 12/13/2020 12/13/2021 1 1 Encounter Details Date Type Department Care Team Description 12/13/2020 Orders Only Department of Mary Lema Aspirin React ion Otorhinolaryngology in [place] Nasal Polyps Asthma [place], [place] [address] [facility] (Primary Dx) [address] [place] [phone] Social History Tobacco Use Types Packs/Day Years [...] often do you attend jehovah's witness or sikhism Never 02/18/2021 services? Do you belong to [...] place to sleep or slept in a nursing home (including now)? Sex Assigned at Date Recorded Female 01/06/2021 8:49 AM CDT documented as of this encounter Plan of Treatment Not on filedocumented as of this encounter Results CT Sinuses without IV [...] Reaction Nasal Polyps Asthma - P rimary Aspirin Reaction Nasal Polyps Asthma documented in this encounter
--- OUTSIDE RECORDS SUMMARY | 2021-10-28 11:00 | XMS_ITS | Encounter Summary ---
:1985 Author Organization [facility] Address [address] [place] [id number] Care Team Providers Name Role Phone Unavailable Primary Care Provider Unavailable Encounter Details Date Type Department Care Team Description 10/06/2016 Telemedicine Department of Otorhinolaryngology Social History Tobacco Use Types Packs/Day Years Used Date Smoking Tobacco: Never Assessed Alcohol Habits Answer Date Recorded How often [...] 02/18/2021 relatives? How often do you attend hinduism or muslim Never 02/18/2021 services? Do you belong to any clubs or organizations such as No 02/18/2021 hinduism groups, unions, fraternal or athletic groups, or [...] place to sleep or slept in a [facility] (including now)? Sex Assigned at Date Recorded Female 01/06/2021 8:49 AM CDT documented as of this encounter Plan of Treatment Not on filedocumented as of this encounter Procedures Procedure Name Priority Date/Time Associated Comments Diagnosis OTORHINOLARYNGOLOGY IMAGE Routine 10/06/2016 2:20 Results for this EXAM PM CDT procedure are i n the results section. documented in this encounter Results OTORHINOLARYNGOLOGY IMAGE EXAM (10/06/2016 2:20 PM CDT) Specimen (Source) Anatomical Collection Method Collection Time Re ceived Time Location / / Volume Laterality 10/06/2016 2:19 PM CDT Narrative [facility] - 10/06/2016 2:23 PM CDT This order has been created [...]
--- OUTSIDE RECORDS SUMMARY | 2021-10-28 11:00 | XMS_ITS | Encounter Summary ---
:1985 Author Organization [facility] Address [address] [place] [id number] Care Team Providers Name Role Phone Unavailable Primary Care Provider Unavailable Encounter Details Date Type Department Care Team Description 02/18/2021 Ancillary Procedure Department of Otorhinolaryngology Social History [...] 02/18/2021 relatives? How often do you attend cheondoism or moravian Never 02/18/2021 services? Do you belong to any clubs or organizations such as No 02/18/2021 cheondoism groups, unions, fraternal or athletic groups, or [...] place to sleep or slept in a retirement (including now)? Education Answer Date Recorded What [...] Date/Time Associated Comments Diagnosis OTORHINOLARYNGOLOGY IMAGE Routine 02/18/2021 11:40 Results for this EXAM AM LDR RN procedure are i n the results section. documented in this encounter Results NOSE-Otorhinolaryngology Image Exam (02/18/2021 11:40 AM LDR RN) Specimen (Source) Anatomical Collection Method Collection Time Re ceived Time Location / / Volume Laterality 02/18/2021 11:36 AM LDR RN Narrative [facility] - 02/18/2021 11:40 AM LDR RN This order has been created and auto-finalized [...]
--- OUTSIDE RECORDS SUMMARY | 2021-10-28 11:00 | XMS_ITS | Encounter Summary ---
:1985 Author Organization [facility] Address [address] [place] [address] Care Team Providers Name Role Phone Unavailable Primary Care Provider Unavailable Encounter Details Date Type Department Care Team Description 12/13/2020 Clinical Department of Lázaro Sebastian Otorhinolaryngology in [place], [place] [phone] [address] [facility] (Work) [place] [phone] Social History Tobacco Use Types Packs/Day Years [...] 02/18/2021 relatives? How often do you attend religious or shinto Never 02/18/2021 services? Do you belong to any clubs or organizations such as No 02/18/2021 religious groups, unions, fraternal or athletic groups, or [...] place to sleep or slept in a prison (including now)? Sex Assigned at Date Recorded Female 01/06/2021 8:49 AM CDT documented as of this encounter Miscellaneous Notes Telephone Encounter - Mary Lema M.D. - 12/13/2020 9:45 PM CDT Ordered. New slot. Thank you Telephone Encounter - Setlla Sebastian - 12/13/2020 4:54 PM CDT This patient has been seen by Dr. Tatum and Zoë - although the last time was 06/2017 Krystal has had 3 sinus surgeries the last being 2016 ASPIRIN-EXACERBATED RESPIRATORY DISEASE. CHRONIC RHINOSINUSITIS WITH NASAL POLYPOSIS. She says she can get no air through her nose can not do rinses or anything. Atleast the last [address] Do you want this patient coming back as a return or a new case?? documented in this encounter Plan of Treatment Not on filedocumented as of this encounter Visit Diagnoses Not on filedocumented in this encounter
--- OUTSIDE RECORDS SUMMARY | 2021-10-28 11:00 | XMS_ITS | Encounter Summary ---
:1985 Author Organization [facility] Address [address] [place] [address] Care Team Providers Name Role Phone Unavailable Primary Care Provider Unavailable Reason for Visit Auth/Cert Specialty Diagnoses / Procedures Referred By Contact Refer red To Contact Diagnoses Rhinosinusitis Chronic Rhinosinusitis Chronic [J32.8] Procedures UT ENDO NSL MAX ANTROST W RMV TIS UT NSL/SINS NDSC SPHN TISS RMVL UT NSL/SINS NDSC TOTAL UT ENDO NSL/SNS W ETHMDCTOMY PRTL UT STRTCTC COMP-ASSIST CRNL EXTRA UT SUBMUC RSECT TURB PRTL/COMPLT ENDOSCOPIC MAXILLARY ANTROST CHARLIE WITH TISSUE REMOVAL ENDOSCOPIC SPHENOIDOTOMY WITHOUT TISSUE REMOVAL SINUSOTOMY ENDOSCOPY FRONTAL -draft iib, possible draft iii ETHMOIDECTOMY ENDOSCOPY EXTRADURAL COMPUTER NAVIGATION - Proceed as indicated REDUCTION TURBINATE - middle turbinates , procee d as indicated Referral ID Status Reason Start Date Expiration Date Visits Requ ested Visits Authorized [id number] 1 1 Encounter Details Date Type Department Care Team Description 01/11/2021 Surgery RST ROMB MAIN OR Daphne Tatum, ENDOSCOPIC MAXILLARY [address] [facility] M.DXavier ANTROSTOMY, TISSUE [place], [place] [address] [facility] REMOVAL. [address] [place], [place] [phone] (Wo rk) Social History Tobacco Use Types [...] 02/18/2021 relatives? How often do you attend restoration or rastafari Never 02/18/2021 services? Do you belong to any clubs or organizations such as No 02/18/2021 restoration groups, unions, fraternal or athletic groups, or [...] place to sleep or slept in a usp (including now)? Education Answer Date Recorded What is the highest level of school Associate degree: yanna babb, 01/06/2021 you have completed or the highest technical, or vocational [place] [facility] [place] degree you have received? Sex Assigned at Date Recorded Female 01/06/2021 8:49 AM CDT documented as of this encounter Last Filed Vital Signs Vital Sign Reading Time Taken Comments Blood Pressure 124/85 01/11/2021 3:30 PM [employer] Pulse 78 01/11/2021 3:55 PM [employer] Temperature 36.8 ??C (98.2 ??F) 01/11/2021 3:20 PM [employer] Respiratory Rate 14 01/11/2021 3:40 PM [employer] Oxygen Saturation 95% 01/11/2021 3:55 PM [employer] Inhaled Oxygen Concentration - - Weight 113 kg (248 lb 14.4 oz) 01/11/2021 10:10 AM [employer] Height 167.6 cm (5' 6) 01/11/2021 10:10 AM [employer] Body Mass Index 40.17 01/11/2021 10:10 AM [employer] documented in this encounter Discharge Instructions Discharge InstructionsTiffany Villalobos RXavierN. - 01/11/2021 3:33 PM CST Instructions After Sedation or Anesthesia After you have sedation or anesthesia, it is common to have lapses of memory, slowed reaction time and impaired judgment. Do not drive or operate motorized vehicles or equipment for the rest of the day. This is for your safety and the safety of others. Air travel by yourself on the day of your procedure is not advised. For the rest of the day: ??? Rest. ??? Do not return to work or school. ??? Do not take on responsibility for children or anyone who depends on your care. ??? Do not use exercise equipment or take part in rough play or sports. ??? Do not drink alcoholic beverages. Sedation or anesthesia medication also may increase your risk of falling. Use caution and ask for help when you walk or move around. You may want to have someone help you for the rest of the day. You may resume your usual diet when you feel able to do so, unless you are told otherwise. Contact your health care provider if you have: ??? The following side effects longer than 24 hours: - Ongoing dizziness. - Persistent nausea or repeated vomiting. ??? Signs of infection, which may include: - Temperature of 100.4 degrees Fahrenheit (38 degrees Celsius) or higher. - Chills. - Increase swelling, tenderness or redness at the IV insertion site. - Increased pain or pain not relieved by pain medication. [employer] documented in this encounter Medications at Time of Discharge Medication Sig Dispensed Refills Start Date End Date labetaloL (NORMODYNE) 0 10/21/2020 100 mg tablet NIFEdipine (ADALAT CC) 0 10/21/2020 30 mg ER tablet albuterol 90 0 10/19/2020 mcg/actuation inhaler Arnuity Ellipta 200 0 10/19/2020 mcg/actuation diskus inhaler budesonide (PULMICORT) Add 1 respule to 8 360 mL 3 01/06 0.5 mg/2 mL nebulizer ounces saline and solution irrigate each side of nose twice daily as directed. predniSONE (DELTASONE) Take 4 tabs for 3 30 tablet 0 2020 10 mg tablet days, then take 3 tabs for 3 days, then take 2 tabs for 3 days. Continue to take 1 tab daily until gone. oxyCODONE (ROXICODONE) 5 Take 1 tablet (5 mg 20 tablet 0 01/17/2021 mg immediate release total) by mouth every tabletIndications: Acute 6 (six) hours as Pain Exception needed for severe pain or score 7-10 of 10 Indication: Acute Pain Exception. documented as of this encounter OR Notes Op Note - Mary Lema M.D. 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 Complications None Description of Procedure The patient was brought into the operating room and laid in a supine position on the operating room table. The surgical team verified the patient and the procedure to be performed. General anesthesia was induced and the patient's airway was secured with an ET tube. A surgical pause was called. The nasal cavities were sprayed with 0.5% Afrin. The right and left nasal cavities were then injected with lidocaine 1% with 1:100,000 epinephrine. 4% cocaine pledgets were then placed into the nasal cavity. Next, CT image guidance was registered using skin surface matching. Electromagnetic trackers were attached to various surgical instruments. Once the image guidance was calibrated within 1-2 mm of known landmarks, the pledgets were removed and the nasal cavities were examined with a 0 degree endoscope. We started 1st with the left nasal cavity. Using a micro debrider, polyps along the nasal floor and within the middle meatus were clear. Working within the middle meatus, polyps were cleared off of thelateral surface of the middle turbinate. It became clear that the middle turbinate was in a very lateral position and that there were a significant amount of polyps in the olfactory cleft. Therefore, the microdebrider was also used to clear polyps in this area up to the skull base. We then turned our attention to the posterior ethmoids. The basal lamella was previously taken down. Polyps were clearedout of the posterior ethmoids. We then identified the sphenoid ostium, which was completely filled with polyps. Polyps were cleared out of the sphenoid sinus and out of the sphenoid ethmoid recess as well. At this point, it became clear that the middle turbinate was extremely degenerate with only a thin piece of bone left and therefore the decision was made to cut out the middle turbinate. Using turbi tereza scissors, the turbinate was severed below the axilla, ensuring preservation of the posterior superior portion of the vertical middle turbinate for maintenance of of action. The turbinate was then taken posteriorly to its attachment at the sphenoid. This stump was then cauterized using suction caut raquel. Next, we took down any residual septations along the skull base in the posterior ethmoids. The sphenoid antrostomy was further widened using a combination of Kerrison and Hosemann rongeurs. Any additional septations along the lamina were taken down using a Kerrison rongeur. Pledgets were then placed on this side for hemostasis. Of note, the case was very bloody and challenging given the distorted anatomy from previous surgeries as well as the high polyp burden. We then moved toward the right nasal cavity. Similarly, a microdebrider was used to clear polyps along the nasal floor as well as the middle meatus. On this side, polypoid disease had degenerated the middle turbinate at the horizontal portion of the basal lamella. There was only a small amount of turbinate left attached superiorly along the axilla. This was taken down, again preserving the more posterior superior portions of the turbinate for olfaction. There was some scarring in the posterior ethmoids here this was all taken down up to the skull base. The sphenoid ostium was also identified on this side was noted still to be quite small. We therefore widen the sphenoid antrostomy using a combination of Kerrison and Hosemann. Polyps were cleared out of the sphenoid sinus. The sphenoid was quite laterally pneumatized in this case and we thus took down the sphenoid face all the way laterally, withcare taken not to violate the posterior septal artery. We then took down additional septations alongthe skull base in the posterior and anterior ethmoids as well as any residual septations along the lamina. With pledgets on the right side for hemostasis, we turned our attention back to the left side. A 30 degree endoscope was used. The maxillary antrostomy was visualized. There were some polyps and scar bands covering the antrostomy, and all of this was cleared. The antrostomy was widened slightly posteriorly. We then turned our attention to the frontal outflow tract. We elected to perform a draft 2B procedure. The superior portion of the middle turbinate attachment to the axilla was taken down as far back posteriorly as the cribriform. The previously established frontal outflow tract was identified using a curved navigated suction. Polyps were cleared out of this area. The tract was then widened medially, laterally, anteriorly with a combination of frontal Kerrison, frontal Hosemann and side-cutting and front to back cutting instruments. The contents of the left frontal and ethmoid sinuses were then irrigated copiously, and again pledges were placed for hemostasis. We then turned our attention back to the right side. The maxillary antrostomy was examined. Again, there was some scarring anteriorly at the natural os that was taken down. Some polyps coming out of the posterior portion the sinus were taken down using a microdebrider. We then turned our attention to the frontal outflow tract on this side. Similarly, the middle turbinate superior attachment to the axilla were resected, thus completing a draft 2B procedure. All septations within the lamina and the septum were taken down in the anterior ethmoids. The frontal outflow tract was cannulated using a curved navigated suction. This was noted to be very narrow. Using combination of frontal Kerrison, Hosemann, and front to back and side to side cutting instruments, the frontal outflow tract was widened anteriorly, medially to the septum, and laterally to the lamina. We were also able to identify interseptal cell on this side. At this point, both nasal cavities were irrigated copiously. Hemostasis was achieved using suction cautery. PosiSept X was placed in the anterior ethmoids bilaterally. The contents of the nasal cavity,nasopharynx, esophagus, and stomach were suctioned. The patient was then turned over back to the care of anesthesia service. She was extubated without difficulty and transferred to the PACU in stable condition. Mary Lema M.D. [employer] documented in this encounter Miscellaneous Notes Result Encounter Note - Daphne Tatum M.D. - 01/21/2021 8:27 AM [employer] I have reviewed the final pathology report and the identified diagnosis is consistent with the patient's clinical presentation. [employer] Result Encounter Note - Mary Lema M.D. - 01/19/2021 10:38 PM CST I have reviewed the final pathology report and the identified diagnosis is consistent with the patient's clinical presentation. [employer] documented in this encounter Plan of Treatment Not on filedocumented as of this encounter Procedures Procedure Name Priority Date/Time Associated Diagnosis Comme nts SURGICAL PATHOLOGY, Routine 01/11/2021 12:45 Rhinosinusitis Ch ronic Results for this [facility] PM [employer] procedure are i n the results section. EXTRADURAL COMPUTER 01/11/2021 11:15 Rhinosinusitis Ch ronic NAVIGATION AM [employer] Case Notes [employer] 958 ETHMOIDECTOMY ENDOSCOPY 01/11/2021 11:15 AM [employer] Rhinos inusitis Chronic Case Notes [employer] 958 SINUSOTOMY ENDOSCOPY FRONTAL 01/11/2021 11:15 AM [employer] R hinosinusitis Chronic Case Notes [employer] 958 ENDOSCOPIC SPHENOIDOTOMY WITHOUT 01/11/2021 11:1 5 AM [employer] Rhinosinusitis Chronic TISSUE REMOVAL Case Notes [employer] 958 ENDOSCOPIC MAXILLARY ANTROSTOMY 01/11/2021 11:15 AM CS T Rhinosinusitis Chronic WITH TISSUE REMOVAL Case Notes [employer] 958 documented in this encounter Results Surgical Pathology, Frozen Lab (01/11/2021 12:45 PM [employer]) Component Value Ref Test Analysis Performed Pathologis t Range Method [facility] At [facility] Lavinia in [facility] [place] 01/18/2021 [facility] the M.D. -Pathology 5:37 AM [employer] Interpretation Resident Report Daniel Cuevas M.D. [id number] [facility] electronically 5:37 AM [employer] signed by I verify that I have examined all relevant slides/materials for the specimen(s) and rendered or confirmed the diagnosis. Gross Description A. ??Received fresh labeled left sinonasal vin nts is a 01/18/2021 [facility] 7.4 x 5.1 x 0.9 cm aggregate of rede-red soft tissue. ??All 5:37 AM [employer] submitted for permanent sections. ??Grossed by SSF. B. ??Received fresh labeled right sinonasal contents is a 3 x 2.3 x 1.2 cm aggregate of reed soft tissue fragments. ??All submitted for permanent sections. ??Grossed by PXB. C. ??Received fresh labeled bilateral sinonasal contents is a 3.1 x 2.1 x 1.8 cm fragment of red-reed soft tissue, bone and polypoid fragments. ??All submitted for permanent sections. ??Grossed by RXN. Block Summary A Left sinonasal contents 01/18/2021 [facility] A1 Left sinonasal contents 1 5:37 AM [employer] A2 Left sinonasal contents 2 A3 Left sinonasal contents 3 A4 Left sinonasal contents 4 A5 Left sinonasal contents 5 A6 Left sinonasal contents 6 A7 Left sinonasal contents 7 A8 Left sinonasal contents 8 B Right sinonasal contents B1 Right sinonasal contents-1 B2 Right sinonasal contents-2 C Bilateral sinonasal contents C1 Bilateral sinonasal contents-1 C2 Bilateral sinonasal contents-2 C3 Bilateral sinonasal contents-3 C4 Bilateral sinonasal contents-4 C5 Bilateral sinonasal contents-5 Addendum A histochemical stain for fungus (GMS) is negative (Block 01/19/2021 [facility] A3). 10:02 PM [employer] Signed by Daniel Cuevas M.D. [id number] 01/19/2021 10:02 PM Comment: REVISED RESULTS Interpretation FINAL DIAGNOSIS 01/19/2021 10:02 PM [employer] [facility] A. ??Sinonasal contents, left, excision: ??Sinonasal inflammatory polyps with acute and chronic inflammation, including severe eosinophils. ??Allergic mucin identified. B. ??Sinonasal contents, right, excision: ??Sinonasal inflammatory polyps with acute and chronic inflammation, including severe eosinophils. ??Allergic mucin identified. C. ??Sinonasal contents, bilateral, excision: ??Sinonasal inflammatory polyps with acute and chronic inflammation, including severe eosinophils. ??Allergic mucin identified. Specimen (Source) Anatomical Collection Method Collection Time Re ceived Time Location / / Volume Laterality Tissue (Nose) 01/11/2021 12:45 PM [employer] Tissue (Nose) 01/11/2021 12:53 PM [employer] Tissue (Nose) 01/11/2021 2:38 PM [employer] Narrative This result has an attachment that is no t available. Daphne Tatum M.D. LAB SURG PATH ORDERABLES Performing Organization Address City/State/ZIP Code Phon e Number [facility] - [address] [place], [place] [address] [place] [address] [facility] [address] documented in this encounter Visit Diagnoses Diagnosis Rhinosinusitis Chronic - Primary Rhinosinusitis Chronic documented in this encounter Admitting Diagnoses Diagnosis Rhinosinusitis Chronic documented in this encounter Administered Medications Inactive Administered Medications - up to 3 most recent administrations Medication Order MAR Action Action Date Dose Rate Site cocaine 4 % nasal Given 01/11/2021 12:25 1 application Bilateral Nares solution PM [employer] As needed, Starting on Sun01/11/21 at 1225, Intra-Op fentaNYL injection 25 mcg (SUBLIMAZE) Given 01/11/2021 3:28 PM [employer] 25 mcg 25 mcg, intravenous, Every 2 min PRN, moderate pain or score 4-6 of 10, severe pain or score 7-10 of 10, Starting on Sun01/11/21 at 1031, PACU (only), Up to maximum total dose of 100 mcg Given 01/11/2021 3:22 PM [employer] 25 mcg lidocaine-EPINEPHrine 1 Given 01/11/2021 12:24 PM 4 mL Bilateral Nares %-1:100,000 injection (XYLOCAINE [employer] W/EPI) As needed, Starting on Sun01/11/21 at 1224, Intra-Op metoprolol tablet 12.5 mg (LOPRESSOR) 12.5 mg, oral, Once as needed, if patien t did not take their last scheduled dose of beta oksana prior to arrival, Starting on Sun01/11/21 at 1034, For 1 dose, Pre-Op, Do not give if patient does not take scheduled beta bl ockers, if patient is receiving intravenous vasopressors or inotropes, if he art rate is less than 50 beats per minute, if systolic blood pres sure is less than 90 mmHg or if diastolic blood pressure is less than 40 mmHg, or if patient has an allergy to metoprolol. oxyCODONE IR tablet 10 mg (ROXICODONE) Given 01/11/2021 3:37 PM [employer] 10 mg 10 mg, oral, Every 4 hours PRN, severe pain or score 7-10 of 10, or pain greater than comfort goal, Starting on Sun01/11/21 at 1518 oxyCODONE IR tablet 5 mg (ROXICODONE) 5 mg, oral, Every 4 hours PRN, moderate pain or score 4-6 of 10, Starting on Sun01/11/21 at 1518 oxymetazoline 0.05 % Given 01/11/2021 12:10 PM 1 application Bilateral Nares nasal spray (AFRIN) [employer] As needed, Starting on Sun01/11/21 at 1210, Intra-Op sodium chloride 0.9 % injection 10 mL 10 mL, intravenous, As needed, line care , Starting on Sun01/11/21 at 1034, Pre-Op, Peripheral Intravenous Catheter and Rapid Infusion Cat heter, prior to blood sampling, post blood transfusion or post blood samplin g sodium chloride 0.9 % injection 3 mL 3 mL, intravenous, As needed, line care, Starting on Sun01/11/21 at 1034, Pre-Op, Prior to and following infusion and betw een multiple consecutive infusions: sodium chloride 0.9 % injection sodium chloride 0.9 % injection 3 mL 3 mL, intravenous, Every 12 hours scheduled, First dos e on Sun01/11/21 at 2100, Pre-Op, Peripheral Intravenous Catheter and Rapid Infu juliana Catheter, when no infusion to maintain patency documented in this encounter Active and Recently Administered Medications Due to Daylight Saving Time, this section may contain times in both CDT and [employer]. Scheduled Medication Order 01/09/2021 01/10/2021 01/11/2021 acetaminophen injection 1,000 mg 1045 (Due) 1,000 mg, intravenous, at 400 mL/hr, Adm inister over 15 Minutes, Once, On Sun01/11/21 at 1045, For 1 dose, PACU (only), Oral unless RASS less than -1 or nausea/vomiting. Do not use if given in last 6 ho urs, Restriction Criteria (Pharmacy will review and approve if criteria met): Unable to take or tolerate medications administered via the enteral route or orally (not just NPO) acetaminophen tablet 1,000 mg (TYLENOL) 1045 (Due) 1,000 mg, oral, Once, On Sun01/11/21 at 1045, For 1 dose, PACU (only), Oral unless RASS less than -1 or nausea/vomiting. Do not use if given in last 6 hours acetaminophen tablet 1,000 mg (TYLENOL) 1045 (Due) 1,000 mg, oral, Once, On Sun01/11/21 at 1045, For 1 dose, Pre-Op acetaminophen tablet 1,000 mg (TYLENOL) 1530 (Due) 1,000 mg, oral, Every 6 hours, First dos e on Sun01/11/21 at 1530, Orally or per feeding tube. lidocaine 10 mg/mL (1 %) injection 1 mL (XYLOCAINE) 1045 (Due) 1 mL, infiltration, Once, On Sun01/11/21 at 1045, For 1 dose, Pre-Op, May admin up to 1 mL at the site of IV site if not allergic to lidocaine sodium chloride 0.9 % injection 3 mL 3 mL, intravenous, Every 12 hours schedu led, First dose on Sun01/11/21 at 2100, Pre-Op, Peripheral Intravenous Catheter and Rapid Infusion Catheter, when no infusion to maintain patency Continuous Medication Order 01/09/2021 01/10/2021 01/11/2021 lactated ringers 1315 (Due) 20 mL/hr, intravenous, Continuous, Start ing on Sun01/11/21 at 1315, PACU & Post-Op PRN Medication Order 01/09/2021 01/10/2021 01/11/2021 cocaine 4 % nasal solution (CANCELED) 1225 (Given - Provider: Mary Lema M.D.) As needed, Starting on Sun01/11/21 at 1225, Intra-Op dexAMETHasone injection 4 mg (DECADRON) 4 mg, intravenous, Once as needed, nause a, vomiting, Starting on Sun01/11/21 at 1518, For 1 dose, Give only if NOT given during the pre or intraoperative period. If ondansetron ordered, give dexamethasone with first dose of ondansetron. fentaNYL injection 25 mcg (SUBLIMAZE) 1522 (Given - Provider: Tiffany Villalobos RZander)1528 (Given - Provider: Tiffany Villalobos R.N.) 25 mcg, intravenous, Every 2 min PRN, mo derate pain or score 4-6 of 10, severe pain or score 7-10 of 10, Starting on Sun01/11/21 at 1031, PACU (only), Up to maximum total dose of 100 mcg haloperidol lactate injection 1 mg (HALDOL) 1 mg, intravenous, Every 6 hours PRN, na usea, vomiting, Starting on Sun01/11/21 at 1032, For 48 hours, PACU (only), Total of 3 doses in 24 hour period. RASS must be -2 or higher to administer. If nausea and vomiting persists, move to jose chavez (order of antiemetic administration - ondansetron then haloperidol then granisetron) lidocaine-EPINEPHrine 1 %-1:100,000 injection (XYLOCAINE W/EPI) (CANCELED) 1224 (Given - Provider: Mary Leam M.D.) As needed, Starting on Sun01/11/21 at 1224, Intra-Op metoprolol tablet 12.5 mg (LOPRESSOR) 12.5 mg, oral, Once as needed, if patien t did not take their last scheduled dose of beta oksana prior to arrival, Starting on Sun01/11/21 at 1034, For 1 dose, Pre-Op, Do not give if patient does not ta ke scheduled beta blockers, if patient i s receiving intravenous vasopressors or inotropes, if heart rate is less than 50 beats per minute, if systolic blood pressure is less than 90 mmHg or if diastolic blood pressure is less than 40 mmHg, or if patient has an allergy to metoprolol. naloxone injection 0.2 mg (NARCAN) 0.2 mg, intravenous, Once as needed, res piratory depression, Starting on Sun01/11/21 at 1518, For 1 dose, For RASS Score -4 or less, respiratory rate of less than 8 breaths/min. Notify provider/service and rapid response team (if available at institution). ondansetron (PF) injection 4 mg (ZOFRAN) 4 mg, intravenous, Once as needed, nause a, vomiting, (check to see if given intra-op), Starting on Sun01/11/21 at 1032, For 1 dose, PACU (only), Administer first. If nausea and vomiting persists, move t o droperidol. (order of antiemetic admin istration - ondansetron then droperidol then granisetron) ondansetron (PF) injection 4 mg (ZOFRAN) 4 mg, intravenous, Every 6 hours PRN, na usea, vomiting, Starting on Sun01/11/21 at 1518, For 48 hours, Reassess for nausea or vomiting after at least 10 minutes. If nausea or vomiting persists administe r next ordered antiemetic medications (o rder for antiemetic medication administration ondansetron then haloperidol then promethazine). oxyCODONE IR tablet 10 mg (ROXICODONE)(Linked Group 1) 1537 (Given - Provider: Tiffany Villalobos RZander) 10 mg, oral, Every 4 hours PRN, severe p ain or score 7-10 of 10, or pain greater than comfort goal, Starting on Sun01/11/21 at 1518 oxyCODONE IR tablet 5 mg (ROXICODONE)(Linked Group 1) 1537 (See Alternative - Provider: Tiffany Villalobos R.N.) 5 mg, oral, Every 4 hours PRN, moderate pain or score 4-6 of 10, Starting on Sun01/11/21 at 1518 oxymetazoline 0.05 % nasal spray (AFRIN) (CANCELED) 1210 (Given - Provider: Mary Lema M.D.) As needed, Starting on Sun01/11/21 at 1210, Intra-Op promethazine injection 6.25 mg (PHENERGAN) 6.25 mg, intravenous, Every 6 hours PRN, nausea, vomiting, Starting on Sun01/11/21 at 1518, For 48 hours, RASS must be -2 or higher to administer. Reassess for nausea or vomiting after at least 10 minut es. If nausea or vomiting persists admin ister next ordered antiemetic medications (order for antiemetic medication administration ondansetron then haloperidol then promethazine) sodium chloride 0.9 % injection 10 mL 10 mL, intravenous, As needed, line care , Starting on Sun01/11/21 at 1034, Pre- Op, Peripheral Intravenous Catheter and Rapid Infusion Catheter, prior to blood sampling, post blood transfusion or post blood sampling sodium chloride 0.9 % injection 3 mL 3 mL, intravenous, As needed, line care, Starting on Sun01/11/21 at 1034, Pre- Op, Prior to and following infusion and between multiple consecutive infusions: sodium chloride 0.9 % injection Linked Groups Order Group 1: oxyCODONE IR tablet 5 mg (ROXICODONE)Jump to med 5 mg, oral, Every 4 hours PRN, moderate pain or score 4-6 of 10, Starting on Sun01/11/21 at 1518 Or oxyCODONE IR tablet 10 mg (ROXICODONE)Jump to med 10 mg, oral, Every 4 hours PRN, severe p ain or score 7-10 of 10, or pain greater than comfort goal, Starting on Sun01/11/21 at 1518 documented in this encounter
--- OUTSIDE RECORDS SUMMARY | 2021-10-28 11:00 | XMS_ITS | Encounter Summary ---
:1985 Author Organization [facility] Address [address] [place] [address] Care Team Providers Name Role Phone Unavailable Primary Care Provider Unavailable Encounter Details Date Type Department Care Team Description 01/17/2021 Orders Only Department of [facility], Teresita Tena Otorhinolaryngology in [address] [place] [address] [place] [phone] [place] [address] [phone] Social History Tobacco Use Types Packs/Day Years [...] 02/18/2021 relatives? How often do you attend protestant or jainism Never 02/18/2021 services? Do you belong to any clubs or organizations such as No 02/18/2021 protestant groups, unions, fraternal or athletic groups, or [...] place to sleep or slept in a halfway (including now)? Education Answer Date Recorded What is the highest level of school Associate degree: yanna babb, 01/06/2021 you have completed or the highest technical, or vocational ingris butler degree you have received? Sex Assigned at Date Recorded Female 01/06/2021 8:49 AM CDT documented as of this encounter Plan of Treatment Not on filedocumented as of this encounter Visit Diagnoses Not on filedocumented in this encounter
--- OUTSIDE RECORDS SUMMARY | 2021-10-28 11:00 | XMS_ITS | Encounter Summary ---
:1985 Author Organization [facility] Address [address] [place] [address] Care Team Providers Name Role Phone Unavailable Primary Care Provider Unavailable Encounter Details Date Type Department Care Team Description 06/28/2017 Orders Only Department of Ashley Victor Otorhinolaryngology in [place], ROENTGENOLOGY TEACHER, Nasal Polyps Asthma [place], [place] C.N.P., M.S.N. (Primary Dx) [address] [place] [address] [place] [phone] [place], [place] [phone] Social History Tobacco Use Types Packs/Day Years [...] 02/18/2021 relatives? How often do you attend lutheran or confucianist Never 02/18/2021 services? Do you belong to any clubs or organizations such as No 02/18/2021 lutheran groups, unions, fraternal or athletic groups, or [...]
--- OUTSIDE RECORDS SUMMARY | 2021-10-28 11:00 | XMS_ITS | Encounter Summary ---
:1985 Author Organization [facility] Address [address] [place] [address] Care Team Providers Name Role Phone Unavailable Primary Care Provider Unavailable Reason for Visit Auth/Cert Specialty Diagnoses / Procedures Referred By Contact Refer red To Contact Diagnoses Rhinosinusitis Chronic Rhinosinusitis Chronic [J32.8] Procedures [place] ENDO NSL MAX ANTROST W RMV TIS [place] NSL/SINS NDSC SPHN TISS RMVL [place] NSL/SINS NDSC TOTAL [place] ENDO NSL/SNS W ETHMDCTOMY PRTL [place] STRTCTC COMP-ASSIST CRNL EXTRA [place] SUBMUC RSECT TURB PRTL/COMPLT ENDOSCOPIC MAXILLARY ANTROST CHARLIE WITH TISSUE REMOVAL ENDOSCOPIC SPHENOIDOTOMY WITHOUT TISSUE REMOVAL SINUSOTOMY ENDOSCOPY FRONTAL -draft iib, possible draft iii ETHMOIDECTOMY ENDOSCOPY EXTRADURAL COMPUTER NAVIGATION - Proceed as indicated REDUCTION TURBINATE - middle turbinates , procee d as indicated Referral ID Status Reason Start Date Expiration Date Visits Requ ested Visits Authorized [id number] 1 1 Encounter Details Date Type Department Care Team Description 01/11/2021 Anesthesia Event RST ROMB MAIN OR Laz Young, [address] [place] [address] Sung [phone] [place] [address] [place] [address] (Wo rk) Anesthesia Record Procedure Summary Procedure Name Responsible Anesthesia Start Anesthesia Stop Anesthesiologist Time Time ENDOSCOPIC MAXILLARY Laz Young M.D. 01/11/21 1137 11/23 1520 ANTROSTOMY, TISSUE REMOVAL. (Bilateral) Events Date Time Event Comment 01/11/2021 1112 1137 An Start Machine/Equipmen t Checked Infection Precautions Foll owed Procedure/Site Verified NPO Sta tus Verified Supine Standard ASA Mon itors Applied 1144 An Induction 1145 An Intubation 1201 Turnover to Proceduralist 1222 Proc Start 1452 Proc Fin 1457 Turnover to ANE Staff 1503 Airway Removal Criteria Met 1503 Extubation/Airway Removed 1505 an stop data 1520 An End I completed my h andoff to the receiving staff during [facility] we 1. Identified the patient 2. Ident ified the responsible provider 3. Revi ewed the pertinent medical history 4. Discussed the surgical course 5. Review ed intra-op anesthesia management and i ssues during anesthesia 6. Set expectati ons for post-procedure period 7. Allowe d opportunity for questions and ac knowledgement of understanding. Name Total fentanyl injection 50 mcg/mL 200 mcg lidocaine 2% (mg) injection 60 mg propofol 10 mg/mL 250 mg propofol 10 mg/mL infusion 3,284.83 mg succinylcholine 20 mg/mL injection 100 mg ondansetron 4 mg/2 mL injection 4 mg remifentaniL 20 mcg/mL in NaCl 0.9% 100 mL infusion (U LTIVA) 3.57 mg dexamethasone 4 mg/mL injection 10 mg ceFAZolin 2 g scopolamine 1.5mg (1 mg/72) hr patch 1 patch labetalol 5 mg/mL injection 15 mg acetaminophen 1,000 mg/100 mL injection 1,000 mg Lactated Ringers Free Drip 700 mL lactated ringers free drip 700 mL Agents No agents on file. Blood No blood administrations on file. Lines, Drains, and Airways Type Details Placement Removal Peripheral IV Placement Date: 01/11/21; 01/11/21 1047 by 01/11 1706 by Placement Time: 1047; Avtar Barrett Mikaela A, Catheter Size: 20 G; R.N. Orientation: Anterior, Lower, Proximal, Right; Location: Forearm; Site Prep: Chlorhexidine (Preferred); Technique: (vcb); Inserted by: natalio; Insertion Attempts: 1; Removal Date: 01/11/21; Removal Time: 1706; Removal Reason: Patient discharged ETT Placement Date: 01/11/21; 01/11/21 1145 by 01/11 1503 by Placement Time: 1145 Sirena Montejo APRN, Schaffer, Jordan A, (created via procedure EFFICIENCY MANAGER R.N. documentation); Mask Ventilation: Easy mask; Type: Standard ETT; Single Lumen Tube Size: 7 mm; Cuffed: Yes; Blade Size: MAC 3; Location: Oral; Grade View: Grade 1; Placement Verification: Bilateral breath sounds, Positive ETCO2, Symmetrical chest wall movement; Removal Date: 01/11/21; Removal Time: 1503 Peripheral IV Placement Date: 01/11/21; 01/11/21 1147 by 01/11 1705 by Placement Time: 1147; Sirena Montejo APRN, Norton, M ikaela A, Catheter Size: 20 G; EFFICIENCY MANAGER R.NXavier Orientation: Left; Location: Hand; Technique: Transillumination; Removal Date: 01/11/21; Removal Time: 1705; Removal Reason: Patient discharged (RETIRED) Incision 01/11/21; 1446; No; Nose; 01/11/21 1446 by 1223 by Bilateral; FESS; 02/04/21 Rula Bradley, [facility] (removed by background R.N. d, Edwige ling process); 1223 (removed Automate d Batch Job by background process) documented in this encounter Social History Tobacco Use Types Packs/Day Years [...] 02/18/2021 relatives? How often do you attend oriental orthodox or denominational Never 02/18/2021 services? Do you belong to any clubs or organizations such as No 02/18/2021 oriental orthodox groups, unions, fraternal or athletic groups, [...] AM CDT documented as of this encounter OR Notes Anesthesia Postprocedure Evaluation - David Barbosa, DALTON, COCO, DNAP - 01/11/2021 3:22 PM CST Patient: Krystal Odonnell Procedure Summary Date: 01/11/21 Room / Location: [place] [address] / [facility] in [place], [place] Anesthesia Start: 1137 Anesthesia Stop: 1520 Procedures: ENDOSCOPIC MAXILLARY ANTROSTOMY, TISSUE REMOVAL. (Bilateral ) ENDOSCOPIC SPHENOIDOTOMY WITHOUT TISSUE REMOVAL. (Bilateral Nose) SINUSOTOMY ENDOSCOPY FRONTAL Draf IIb (Bilateral Nose) ETHMOIDECTOMY ENDOSCOPY. (Bilateral Nose) EXTRADURAL COMPUTER NAVIGATION, Proceed as indicated. (N/A ) Diagnosis: Rhinosinusitis Chronic (Rhinosinusitis Chronic [J32.8].) Providers: Daphne Tatum M.D. Responsible Provider: Laz Young M.D. Anesthesia Type: general ASA Status: 2 Anesthesia Type: general Last vitals Vitals Value Taken Time BP Temp Pulse 86 01/11/21 1522 Resp 12 01/11/21 1522 SpO2 91 % 01/11/21 1522 Vitals shown include unvalidated device data. Please reference Vitals flowsheet for most recent vital signs. Anesthesia Post Evaluation Patient Disposition: dismissal Cardiovascular status: hemodynamics (HR & BP) acceptable Respiratory status: patent airway with spontaneous effort Temperature: normothermic Oxygen requirements: room air Level of consciousness: awake Pain score: pain adequately controlled and/or at baseline Post Op nausea/vomiting: none Hydration status: euvolemic UP OPERATOR Anesthesia Procedure Notes - Sirena Montejo APRN, CRNA - 01/11/2021 12:30 PM TAKE UP OPERATOR Associated Order(s): Airway Airway Date/Time: 01/11/2021 11:45 AM Performed by: Sirena Montejo APRN, CRNA Authorized by: Laz Young M.D. Patient location during procedure: OR / Procedure Area PROCEDURE DETAILS: Mask difficulty assessment: easy mask Final airway type: direct laryngoscopy with intubation stylet Laryngeal Manipulation: no Final airway difficulty of direct laryngoscopy (DL): 0-easy Final best view of glottic structures - Cormack/Lehane Score: grade 1 ETT location: oral Adult blade type: MAC 3 Adult tube size: 7 Adult ETT distance at teeth/gum: 22 Oral tube type: standard ETT Cuffed: yes Airway confirmation: bilateral breath sounds, positive ETCO2 and bilateral chest rise Other previous techniques attempted: none PRE PROCEDURE DETAILS: Pre evaluation for airway management: procedure Urgency: elective Preoxygenation: bag valve mask SEDATION / ANESTHESIA Anesthesia method: anesthesia POST PROCEDURE DETAILS: Procedure outcome: successful Airway event: no complications ATTESTATION STATEMENT UP OPERATOR Anesthesia Preprocedure Evaluation - Laz Young M.D. - 01/11/2021 11:12 AM CST Preprocedure Anesthesia & H&P Assessment Procedure Summary Date/Time: 01/11/21 1216 Procedures: ENDOSCOPIC MAXILLARY ANTROSTOMY, TISSUE REMOVAL. (Bilateral ) ENDOSCOPIC SPHENOIDOTOMY WITHOUT TISSUE REMOVAL. (Bilateral Nose) SINUSOTOMY ENDOSCOPY FRONTAL draft iib, possible draft iii. (Bilateral Nose) ETHMOIDECTOMY ENDOSCOPY. (Bilateral Nose) EXTRADURAL COMPUTER NAVIGATION, Proceed as indicated. (N/A ) REDUCTION TURBINATE middle turbinates, proceed as indicated. (Bilateral ) Diagnosis: Rhinosinusitis Chronic [J32.8] Pre-op diagnosis: Rhinosinusitis Chronic [J32.8]. Location: [address] / [facility] in [place], [place] Providers: Daphne Tatum M.D. Pertinent components of the patient's history including current problem list, medical history, surgical history, family history, social history, medications and allergies were reviewed. Present illnessand pre-op diagnosis were confirmed. The planned surgery / procedure was verified with the patient /legal guardian. The patient's general health condition remains unchanged RELEVANT COMORBID CONDITIONS RESP (+) Aspirin Reaction Nasal Polyps Asthma (+) Asthma NOS Other (+) Aspirin Reaction Nasal Polyps Asthma OBJECTIVE PHYSICAL EXAMINATION Airway (HEENT) Mallampati: II TM Distance: >3 FB Neck ROM: Full Mouth Opening: >3 cm Upper Lip Bite Test Class: I Cardiovascular Rhythm: Regular Rate: Normal Cardiovascular Assessment: cardiovascular normal Functional Capacity: >4 METS Pulmonary Pulmonary Assessment: Clear General / Constitutional Constitutional Assessment: Normal General State of Health:: healthy appearing and calm ASSESSMENT / PLAN ANESTHESIA PLAN ASA: 2 Anesthesia Plan: general Patient seen and allergies reviewed, anesthesia plan and risks discussed directly with patient /legal guardian or through an diplomatic interpreter/translator. The use of blood products not discussed Approval to Proceed: approved for anesthesia UP OPERATOR documented in this encounter Plan of Treatment Not on filedocumented as of this encounter Procedures Procedure Name Priority Date/Time Associated Comments Diagnosis LDA ANE ENDOTRACHEAL Routine 01/11/2021 11:45 Res ults for this AIRWAY AM TAKE UP OPERATOR procedure are i n the results section. documented in this encounter Results LDA ANE ENDOTRACHEAL AIRWAY (01/11/2021 11:45 AM TAKE UP OPERATOR) Narrative Sirena Montejo APRN, CRNA - 01/11/2021 11:45 AM TAKE UP OPERATOR Sirena Montejo APRN, CRNA ? 01/11/2021 12:31 PM Airway Date/Time: 01/11/2021 11:45 AM Performed by: Sirena Montejo APRN, CRNA Authorized by: Laz Young M.D. Patient location during procedure: OR / Procedure Area PROCEDURE DETAILS: Mask difficulty assessment: easy mask Final airway type: direct laryngoscopy w ith intubation stylet Laryngeal Manipulation: no ?? Final airway difficulty of direct laryng oscopy (DL): 0-easy Final best view of glottic structures - Cormack/Lehane Score: grade 1 ETT location: oral Adult blade type: MAC 3 Adult tube size: 7 Adult ETT distance at teeth/gum: 22 Oral tube type: standard ETT Cuffed: yes Airway confirmation: bilateral breath so unds, positive ETCO2 and bilateral chest rise Other previous techniques attempted: non e PRE PROCEDURE DETAILS: Pre evaluation for airway management: pr ocedure Urgency: elective Preoxygenation: bag valve mask SEDATION / ANESTHESIA Anesthesia method: anesthesia POST PROCEDURE DETAILS: ? Procedure outcome: successful ?? Airway event: no complications ATTESTATION STATEMENT Laz Young M.D. ANESTHESIA ORDERABLES documented in this encounter Visit Diagnoses Not on filedocumented in this encounter Administered Medications Inactive Administered Medications - up to 3 most recent administrations Medication Order MAR Action Action Date Dose Rate Site acetaminophen injection Given 01/11/2021 2:16 PM TAKE UP OPERATOR 1,000 mg intravenous, Administer over 15 Minutes, As needed, Starting on Sun01/11/21 at 1416, Anesthesia Intra-op ceFAZolin injection (ANCEF) Given 01/11/2021 12:21 PM TAKE UP OPERATOR 2 g intravenous, As needed, Starting on Sun01/11/21 at 1221, Anesthesia Intra-op dexAMETHasone injection (DECADRON) Given 01/11/2021 11:49 AM TAKE UP OPERATOR 10 mg intravenous, As needed, Starting on Sun01/11/21 at 1149, Anesthesia Intra-op fentaNYL injection (SUBLIMAZE) Given 01/11/2021 1:56 PM TAKE UP OPERATOR 50 mcg intravenous, As needed, Starting on Sun01/11/21 at 1144, Anesthesia Intra-op Given 01/11/2021 1:41 PM TAKE UP OPERATOR 50 mcg Given 01/11/2021 1:01 PM TAKE UP OPERATOR 50 mcg labetalol injection (NORMODYNE,TRANDATE) Given 01/11/2021 2:27 PM TAKE UP OPERATOR 5 mg intravenous, As needed, Starting on Sun01/11/21 at 1359, Anesthesia Intra-op Given 01/11/2021 2:02 PM TAKE UP OPERATOR 5 mg Given 01/11/2021 1:59 PM TAKE UP OPERATOR 5 mg lactated ringers New Bag 01/11/2021 11:37 AM TAKE UP OPERATOR intravenous, Continuous Infusion: Per Instructions PRN, Starting on Sun01/11/21 at 1137, Anesthesia Intra-op lactated ringers New Bag 01/11/2021 11:47 AM TAKE UP OPERATOR intravenous, Continuous Infusion: Per Instructions PRN, Starting on Sun01/11/21 at 1147, Anesthesia Intra-op lidocaine (PF) (cardiac) injection Given 01/11/2021 11:44 AM TAKE UP OPERATOR 60 mg intravenous, As needed, Starting on Sun01/11/21 at 1144, Anesthesia Intra-op ondansetron (PF) injection (ZOFRAN) Given 01/11/2021 2:40 PM TAKE UP OPERATOR 4 mg intravenous, As needed, Starting on Sun01/11/21 at 1440, Anesthesia Intra-op propofol 10 mg/mL infusion Rate/Dose 01/11/2021 2:43 110 mcg/kg/min 74.514 (DIPRIVAN) Change PM TAKE UP OPERATOR mL/hr intravenous, Continuous Infusion: Per Instructions PRN, Starting on Sun01/11/21 at 1144, Anesthesia Intra-op Rate/Dose Change 01/11/2021 2:39 PM TAKE UP OPERATOR 125 mcg/kg/min 84.675 mL/hr New Bag 01/11/2021 2:27 PM TAKE UP OPERATOR 150 mcg/kg/min 101.61 mL/hr propofoL injection (DIPRIVAN) Given 01/11/2021 11:56 AM TAKE UP OPERATOR 50 mg intravenous, As needed, Starting on Sun01/11/21 at 1144, Anesthesia Intra-op Given 01/11/2021 11:44 AM TAKE UP OPERATOR 200 mg remifentaniL 20 mcg/mL in Rate/Dose 01/11/2021 2:10 0.1 mcg/kg/min 3 3.87 NaCl 0.9% 100 mL infusion Change PM TAKE UP OPERATOR mL/hr (ULTIVA) intravenous, Continuous Infusion: Per Instructions PRN, Starting on Sun01/11/21 at 1144, Anesthesia Intra-op Rate/Dose Change 01/11/2021 1:53 PM TAKE UP OPERATOR 0.1 mcg/kg/min 33.87 mL/hr Rate/Dose Change 01/11/2021 12:03 PM TAKE UP OPERATOR 0.2 mcg/kg/min 67.74 mL/hr scopolamine base 1 mg over 3 days Given 01/11/2021 12:00 PM TAKE UP OPERATOR 1 patch (TRANSDERM SCOP) transdermal, Administer over 72 Hours, As needed, Starting on Sun01/11/21 at 1200, Anesthesia Intra-op succinylcholine (PF) injection (ANECTINE ) Given 01/11/2021 11:44 AM TAKE UP OPERATOR 100 mg intravenous, As needed, Starting on Sun01/11/21 at 1144, Anesthesia Intra-op documented in this encounter
--- OUTSIDE RECORDS SUMMARY | 2021-10-28 11:00 | XMS_ITS | Encounter Summary ---
:1985 Author Organization [facility] Address [address] [place] [address] Care Team Providers Name Role Phone Unavailable Primary Care Provider Unavailable Encounter Details Date Type Department Care Team Description 01/06/2021 Ancillary Procedure Department of Otorhinolaryngology Social History [...] 02/18/2021 relatives? How often do you attend tenriism or amish Never 02/18/2021 services? Do you belong to any clubs or organizations such as No 02/18/2021 tenriism groups, unions, fraternal or athletic groups, or [...] Diagnoses Not on filedocumented in this encounter Additional Health Concerns Infection Onset Date Last Indicated Resolved Time COVID19 Pending 01/06/2021 01/06/2021 01/06/2021 10:29 AM CDT documented as of this encounter
--- OUTSIDE RECORDS SUMMARY | 2021-10-28 11:00 | XMS_ITS | Encounter Summary ---
:1985 Author Organization [facility] Address [address] [place] [address] Care Team Providers Name Role Phone Unavailable Primary Care Provider Unavailable Encounter Details Date Type Department Care Team Description 01/08/2021 Hospital Encounter Department of Daphne Tatum Cont act With And (Suspected) Exposure To COVID-19; Laboratory Medicine [facility] Preprocedural Lab Exam in [place], [address] [place] [address] [place] [address] [place], [place] [phone] (Work) [phone] Social History Tobacco Use Types Packs/Day Years [...] 02/18/2021 relatives? How often do you attend jain or christian Never 02/18/2021 services? Do you belong to any clubs or organizations such as No 02/18/2021 jain groups, unions, fraternal or athletic groups, or [...] Refills Start Date End Date albuterol 90 0 10/19/2020 mcg/actuation inhaler Arnuity Ellipta 200 0 10/19/2020 mcg/actuation diskus inhaler budesonide (PULMICORT) Add 1 respule to 8 360 mL 3 01/06 0.5 mg/2 mL nebulizer ounces saline and solution irrigate each side of nose twice daily as directed. labetaloL (NORMODYNE) 0 10/21/2020 100 mg tablet NIFEdipine (ADALAT CC) 0 10/21/2020 30 mg ER tablet predniSONE (DELTASONE) Take 4 tabs for 3 [...] Pain Exception. documented as of this encounter Plan of Treatment Not on filedocumented as of this encounter Procedures Procedure Name Priority Date/Time Associated Diagnosis Comme nts SARS CORONAVIRUS-2 Routine 01/08/2021 10:58 AM Contact With An d Results for this RNA, V CDT (Suspected) Exposure procedu re are in To COVID-19 the results Preprocedural Lab section. Exam documented in this encounter Results SARS Coronavirus-2 RNA, V Asymptomatic (01/08/2021 10:58 AM CDT) [facility] Method Time Signature SARS-CoV-2 Swab, 01/08/2021 MKTO Specimen Nasopharynx 11:18 PM Source CDT SARS CoV-2 Undetected Undetected 01/08/2021 MKTO RNA, TMA 11:18 PM CDT Comment: SARS-CoV-2 RNA absent. This result does not rule out COVID-19 in the patient, as the sensitivity of the test depends o n the timing of the specimen collection and the quality of the specim en. Result should be correlated with patient's history and clinical presentat ion. ----ADDITIONAL INFORMATION---- This molecular amplification test was pe rformed using the Aptima SARS-CoV-2 assay ([employer] on the [employer] tem under emergency use authorization (EUA) by the U.S. Food and Drug Administ ration. Fact sheets for this EUA assay can be fo und at the following links: For Healthcare Providers: https://www.fd a.gov/media/143945/download For Patients: https://www.fda.gov/media/ 278242/download Specimen Anatomical Collection Method Collection Time Receive d Time (Source) Location / / Volume Laterality Varies 01/08/2021 10:58 01/08/2021 5:03 (Nasopharynx) AM CDT PM CDT Daphne Tatum M.D. LAB MICROBIOLOGY - GENERAL O RDERABLES Performing Organization Address City/State/ZIP Code Phon e Number [facility]- [address] [place] [id number] [place] [address] [place] [address] System [address] documented in this encounter Visit Diagnoses Diagnosis Contact With And (Suspected) Exposure To COVID-19 Preprocedural Lab Exam documented in this encounter Additional Health Concerns Infection Onset Date Last Indicated Resolved Time COVID19 Pending 01/08/2021 01/08/2021 01/08/2021 11:18 PM CDT documented as of this encounter
--- OUTSIDE RECORDS SUMMARY | 2021-10-28 11:00 | XMS_ITS | Encounter Summary ---
:1985 Author Organization [facility] Address [address] [place] [address] Care Team Providers Name Role Phone Unavailable Primary Care Provider Unavailable Reason for Visit Auth/Cert Specialty Diagnoses / Procedures Referred By Contact Refer red To Contact Diagnoses Rhinosinusitis Chronic Rhinosinusitis Chronic [J32.8] Procedures MI ENDO NSL MAX ANTROST W RMV TIS MI NSL/SINS NDSC SPHN TISS RMVL MI NSL/SINS NDSC TOTAL MI ENDO NSL/SNS W ETHMDCTOMY PRTL MI STRTCTC COMP-ASSIST CRNL EXTRA MI SUBMUC RSECT TURB PRTL/COMPLT ENDOSCOPIC MAXILLARY ANTROST CHARLIE WITH TISSUE REMOVAL ENDOSCOPIC SPHENOIDOTOMY WITHOUT TISSUE REMOVAL SINUSOTOMY ENDOSCOPY FRONTAL -draft iib, possible draft iii ETHMOIDECTOMY ENDOSCOPY EXTRADURAL COMPUTER NAVIGATION - Proceed as indicated REDUCTION TURBINATE - middle turbinates , procee d as indicated Referral ID Status Reason Start Date Expiration Date Visits Requ ested Visits Authorized [id number] 1 1 Encounter Details Date Type Department Care Team Description 01/11/2021 Hospital Encounter RST ROMB MAIN OR Rc, Rhinosinusitis Chronic [address] [facility] Daphne Blair M.D. [place], [place] [address] [place] [phone] [place], [place] [phone] Social History Tobacco Use Types Packs/Day Years [...] 02/18/2021 relatives? How often do you attend scientologist or yazdanism Never 02/18/2021 services? Do you belong to any clubs or organizations such as No 02/18/2021 scientologist groups, unions, fraternal or athletic groups, or [...] slept in a nursing home (including now)? Education Answer Date Recorded [...] Comments Blood Pressure 130/89 01/11/2021 5:00 PM SENIOR PYTHON DEVELOPER Pulse 77 01/11/2021 5:05 PM SENIOR PYTHON DEVELOPER Temperature 36.8 ??C (98.2 ??F) 01/11/2021 5:00 PM SENIOR PYTHON DEVELOPER Respiratory Rate 16 01/11/2021 5:00 PM SENIOR PYTHON DEVELOPER Oxygen Saturation 95% 01/11/2021 5:05 PM SENIOR PYTHON DEVELOPER Inhaled Oxygen Concentration - - Weight 113 kg (248 lb 14.4 oz) 01/11/2021 10:10 AM SENIOR PYTHON DEVELOPER Height 167.6 cm (5' 6) 01/11/2021 10:10 AM SENIOR PYTHON DEVELOPER Body Mass Index 40.17 01/11/2021 10:10 AM SENIOR PYTHON DEVELOPER documented in this encounter Discharge Instructions Discharge InstructionsNoTiffany skinner RXavierN. - 01/11/2021 3:33 PM CST Instructions [...] or pain not relieved by pain medication. OR PYTHON DEVELOPER documented in this encounter Medications at Time [...] PACU in stable condition. Mary Lema M.D. OR PYTHON DEVELOPER documented in this encounter Miscellaneous Notes Result Encounter Note - Daphne Tatum M.D. - 01/21/2021 8:27 AM SENIOR PYTHON DEVELOPER I have reviewed the final pathology report and the identified diagnosis is consistent with the patient's clinical presentation. OR PYTHON DEVELOPER Result Encounter Note - Mary Lema M.D. - 01/19/2021 10:38 PM CST I have reviewed the final pathology report and the identified diagnosis is consistent with the patient's clinical presentation. OR PYTHON DEVELOPER documented in this encounter Plan of Treatment Not on filedocumented as of this encounter Procedures Procedure Name Priority Date/Time Associated Diagnosis Comme nts SURGICAL PATHOLOGY, Routine 01/11/2021 12:45 Rhinosinusitis Ch ronic Results for this [facility] LAB PM SENIOR PYTHON DEVELOPER procedure are i n the results section. EXTRADURAL COMPUTER 01/11/2021 11:15 Rhinosinusitis Ch ronic NAVIGATION AM SENIOR PYTHON DEVELOPER Case Notes LEGAL ASSISTANT 958 ETHMOIDECTOMY ENDOSCOPY 01/11/2021 11:15 AM SENIOR PYTHON DEVELOPER Rhinos inusitis Chronic Case Notes LEGAL ASSISTANT 958 SINUSOTOMY ENDOSCOPY FRONTAL 01/11/2021 11:15 AM SENIOR PYTHON DEVELOPER R hinosinusitis Chronic Case Notes LEGAL ASSISTANT 958 ENDOSCOPIC SPHENOIDOTOMY WITHOUT 01/11/2021 11:1 5 AM SENIOR PYTHON DEVELOPER Rhinosinusitis Chronic TISSUE REMOVAL Case Notes LEGAL ASSISTANT 958 ENDOSCOPIC MAXILLARY ANTROSTOMY 01/11/2021 11:15 AM CS T Rhinosinusitis Chronic WITH TISSUE REMOVAL Case Notes LEGAL ASSISTANT 958 documented in this encounter Results Surgical Pathology, Frozen Lab (01/11/2021 12:45 PM SENIOR PYTHON DEVELOPER) Component Value Ref Test Analysis Performed Pathologis t Range Method Time At Signature 01/18/2021 STMA 5:37 AM SENIOR PYTHON DEVELOPER Participated in Grant Jones 01/18/2021 Jen -Pathology 5:37 AM SENIOR PYTHON DEVELOPER Interpretation Resident Report Daniel Cuevas M.D. [id number] STMA electronically 5:37 AM SENIOR PYTHON DEVELOPER signed by I verify that I have examined all relevant slides/materials for the specimen(s) and rendered or confirmed the diagnosis. Gross Description A. ??Received fresh labeled left sinonasal ivn nts is a 01/18/2021 STMA 7.4 x 5.1 x 0.9 cm aggregate of reed-red soft tissue. ??All 5:37 AM SENIOR PYTHON DEVELOPER submitted for permanent sections. ??Grossed by SSF. [...] A1 Left sinonasal contents 1 5:37 AM SENIOR PYTHON DEVELOPER A2 Left sinonasal contents 2 A3 Left [...] negative (Block 01/19/2021 STMA A3). 10:02 PM SENIOR PYTHON DEVELOPER Signed by Daniel Cuevas M.D. [id number] 01/19/2021 10:02 PM Comment: REVISED RESULTS Interpretation FINAL DIAGNOSIS 01/19/2021 10:02 PM SENIOR PYTHON DEVELOPER STMA A. ??Sinonasal contents, left, excision: ??Sinonasal [...] Volume Laterality Tissue (Nose) 01/11/2021 12:45 PM SENIOR PYTHON DEVELOPER Tissue (Nose) 01/11/2021 12:53 PM SENIOR PYTHON DEVELOPER Tissue (Nose) 01/11/2021 2:38 PM SENIOR PYTHON DEVELOPER Narrative This result has an attachment that is no t available. Daphne Tatum M.D. LAB SURG PATH ORDERABLES Performing Organization Address City/State/ZIP Code Phon e Number [facility] - [address] [place], [place] [address] [place] [address] [facility] [address] documented in this encounter Visit Diagnoses Diagnosis Rhinosinusitis Chronic - Primary documented in this encounter Admitting Diagnoses Diagnosis Rhinosinusitis Chronic documented in this encounter Administered Medications Inactive Administered Medications - up to 3 most recent administrations Medication Order MAR Action Action Date Dose Rate Site fentaNYL injection 25 mcg Given 01/11/2021 3:28 PM SENIOR PYTHON DEVELOPER 25 mcg (SUBLIMAZE) 25 mcg, intravenous, Every 2 min PRN, moderate pain or score 4-6 of 10, severe pain or score 7-10 of 10, Starting on Sun01/11/21 at 1031, PACU (only), Up to maximum total dose of 100 mcg Given 01/11/2021 3:22 PM SENIOR PYTHON DEVELOPER 25 mcg metoprolol tablet 12.5 mg (LOPRESSOR) 12.5 mg, [...] 10 mg (ROXICODONE) Given 01/11/2021 3:37 PM SENIOR PYTHON DEVELOPER 10 mg 10 mg, oral, Every 4 hours PRN, severe pain or score 7-10 of 10, or pain greater than comfort goal, Starting on Sun01/11/21 at 1518 oxyCODONE IR tablet 5 mg (ROXICODONE) 5 mg, oral, Every 4 hours PRN, moderate pain or score 4-6 of 10, Starting on Sun01/11/21 at 1518 sodium chloride 0.9 % injection 10 mL [...] may contain times in both CDT and SENIOR PYTHON DEVELOPER. Scheduled Medication Order 01/09/2021 01/10/2021 01/11/2021 acetaminophen [...] (SUBLIMAZE) 1522 (Given - Provider: Tiffany Villalobos R.N.)1528 (Given - Provider: Tiffany Villalobos R.N.) 25 [...] If nausea and vomiting persists, move to rejie alicia. (order of antiemetic administration - ondansetron then haloperidol then granisetron) lidocaine-EPINEPHrine 1 %-1:100,000 injection (XYLOCAINE W/EPI) (CANCELED) 1224 (Given - Provider: Mary Lema M.D.) As [...] 1) 1537 (Given - Provider: Tiffany Villalobos R.N.) 10 mg, oral, Every 4 hours PRN, [...]
--- OUTSIDE RECORDS SUMMARY | 2021-10-28 11:01 | XMS_ITS | Encounter Summary ---
:1985 Author Organization [facility] Address [address] [place] [address] Care Team Providers Name Role Phone Unavailable Primary Care Provider Unavailable Encounter Details Date Type Department Care Team Description 10/14/2015 Hospital Encounter HX NO MAPPING Social History Tobacco Use Types Packs/Day Years [...] How often do you attend religious or druze Never 02/18/2021 services? Do you belong to [...]
--- OUTSIDE RECORDS SUMMARY | 2021-10-28 11:01 | XMS_ITS | Encounter Summary ---
:1985 Author Organization [facility] Address [address] [place] [address] Care Team Providers Name Role Phone Unavailable Primary Care Provider Unavailable Encounter Details Date Type Department Care Team Description 04/05/2010 Hospital Encounter HX NO MAPPING Social History [...] 02/18/2021 relatives? How often do you attend taoism or confucianist Never 02/18/2021 services? Do you belong to any clubs or organizations such as No 02/18/2021 taoism groups, unions, fraternal or athletic groups, or [...] place to sleep or slept in a senior care (including now)? Sex Assigned at Date Recorded Female 01/06/2021 8:49 AM CDT documented as of this encounter Plan of Treatment Not on filedocumented as of this encounter Visit Diagnoses Not on filedocumented in this encounter
--- OUTSIDE RECORDS SUMMARY | 2021-10-28 11:01 | XMS_ITS | Encounter Summary ---
:[address] [facility] Address [address] [place] [address] Care Team Providers Name Role Phone Unavailable Primary Care Provider Unavailable Encounter Details Date Type Department Care Team Description 10/14/2015 - 10/15/2015 Hospital Encounter HX RST MEGHANN 6C Social History Tobacco Use Types Packs/Day Years [...] How often do you attend nondenominational or buddhist Never 02/18/2021 services? Do you belong to [...] place to sleep or slept in a long term (including now)? Sex Assigned at Date Recorded Female 01/06/2021 8:49 AM CDT documented as of this encounter Last Filed Vital Signs Vital Sign Reading Time Taken Comments Blood Pressure 129/87 10/15/2015 10:30 NIBP - Value fr om AM CDT [employer]. Pulse 65 10/15/2015 10:30 Value from Joselyn tplus. AM CDT Temperature - - Respiratory Rate 16 10/15/2015 10:30 Value from Cathleen rtplus. AM CDT Oxygen Saturation - - Inhaled Oxygen - - Concentration Weight 124 kg (272 lb 7.8 10/15/2015 9:07 AM oz) CDT Height - - Body Mass Index 44.05 10/14/2015 4:52 PM CDT documented in this encounter Plan of Treatment Not on filedocumented as of this encounter Procedures Procedure Name Priority Date/Time Associated Comments Diagnosis TRYPTASE, S Routine 10/15/2015 4:26 AM Results f or this CDT procedure are i n the results section. HXGENERAL PATHOLOGY Routine 10/14/2015 8:06 PM Re sults for this REPORT CDT procedure are i n the results section. LEUKOTRIENE E4, U Routine 10/14/2015 10:00 Result s for this AM CDT procedure are i n the results section. documented in this encounter Results Tryptase (10/15/2015 4:26 AM CDT) P athologist Signature Tryptase, S 3.0 <11.5 [facility] NG/ML [facility] Specimen Anatomical Collection Method Collection Time Receive d Time (Source) Location / / Volume Laterality 10/15/2015 4:26 AM 6 4:26 CDT AM CDT Onofre Brown M.D. LAB BLOOD ADD-ON Performing Organization Address City/State/ZIP Code Phon e Number [facility] - [address] [place], [place] [address] [facility] Hx general Pathology Report (10/14/2015 8:06 PM CDT) Specimen Anatomical Collection Method Collection Time Receive d Time (Source) Location / / Volume Laterality 10/14/2015 8:06 PM 6 8:06 CDT PM CDT Narrative [facility] - 10/14/2015 8:06 PM CDT ??10/14/2015 General Biopsy ? ([id number]) ? Requested By: Daphne Tatum M.D. ??[phone] ? SLIDE DISPOSITION: ? DIAGNOSIS: ?? A. Sinonasal cavity, bilateral contents , excision: Respiratory mucosa with chronic inflammation and nu merous eosinophils. ?? Participated in interpretation: Dr. Newberry. Pager: [phone]. ?? As the signing pathologist, I verify th at I have examined all relevant slides/materials for the speci men(s) and rendered or confirmed the diagnosis. ? 10/19/2015 11:59 Interpreted by: Darcy Steen M.D. [id number] Report electronically signed by Darcy Steen M.D. Transcribed by: [facility] 10/18/2015 16:09:23 ? TISSUE DESCRIPTION: [id number] A. ??Received fresh labeled bilateral sinus contents is an 8 x 7 x 2.5 cm aggregate of red soft tissue and cartilage. ??All soft tissue is submitted. ??Chef De Partie sections are submitted for permanent sections only. ??Grossed by CDP. ? Part A: ??Bilateral sinus contents ?1 Bilateral sinus contents 1 ?2 Bilateral sinus contents 2 ?3 Bilateral sinus contents 3 ?4 Bilateral sinus contents 4 ?5 Bilateral sinus contents 5 ?6 Bilateral sinus contents 6 ?? XRSR Path ? Procedure Note 05/26/2017 10/14/2015 General Biopsy ([id number]) Requested By: Daphne Tatum M.D. [phone] SLIDE DISPOSITION: DIAGNOSIS: A. Sinonasal cavity, bilateral contents , excision: Respiratory mucosa with chronic inflammation and nu merous eosinophils. Participated in interpretation: Dr. Newberry. Pager: [phone]. As the signing pathologist, I verify th at I have examined all relevant slides/materials for the speci men(s) and rendered or confirmed the diagnosis. 10/19/2015 11:59 Interpreted by: Darcy Steen M.D. [id number] Report electronically signed by Darcy Steen M.D. Transcribed by: latricia 10/18/2015 16:09:23 TISSUE DESCRIPTION: [id number] A. Received fresh labeled bilateral si nus contents is an 8 x 7 x 2.5 cm aggregate of red soft tissue and cartilage. All soft tissue is submitted. Chef De Partie sections a re submitted for permanent sections only. Grossed by CDP. Part A: Bilateral sinus contents 1 Bilateral sinus contents 1 2 Bilateral sinus contents 2 3 Bilateral sinus contents 3 4 Bilateral sinus contents 4 5 Bilateral sinus contents 5 6 Bilateral sinus contents 6 XRSR Path Daphne Tatum M.D. LAB PATHOLOGY/CYTOLOGY ORDER MIGUEL Performing Organization Address City/State/ZIP Code Phon e Number [facility] - [address] [place], [place] [address] [facility] (ABNORMAL) Leukotriene E4, Urine (10/14/2015 10:00 AM CDT) [facility] gist Method Time Signature Leukotriene E4, 281 (H) <=104 [facility] U PG/MG CR [facility] - [facility] Comment: Mailed In Specimen ? Leukotriene E(4) (LTE4) > 104 pg/mg crea tinine is consistent with the ? diagnosis of systemic mast cell disease, in adults. ??The clinical sensitivity ? of LTE4 is 48% in patients with systemic mastocytosis. ??When LTE4 ? concentrations are combined with other b iochemical markers of mast cell ? activation, N-methyl histamine (NMH) and 2,3-dinor 11-Beta Prostaglandin F(2) ? Alpha (2,3BPG), the clinical sensitivity increases to 92%. ??Results should be ? interpreted in the context of the patien t's clinical condition. ? Specimen Anatomical Collection Method Collection Time Receive d Time (Source) Location / / Volume Laterality 10/14/2015 10:00 10/14/2015 AM CDT 10:00 AM CDT Narrative [facility] - [facility] - 10/20/2015 9:04 AM CDT Mailed In Specimen Alber Chapa M.D., Ph.D. LAB URINE ORDERABLES Performing Organization Address City/State/ZIP Code Phon e Number [facility] - [address] [place], [place] [address] [facility] documented in this encounter Visit Diagnoses Not on filedocumented in this encounter
== END 2021-10-28 10:58 | disposition home or self-care (01) ==
LOC: US 10:58
PROVIDERS: Visit Provider Obstetrics & Gynecology
DX: O10.913 Unspecified pre-existing hypertension complicating pregnancy, third trimester (principal); Z3A.33 33 weeks gestation of pregnancy
CPT/HCPCS: 76816; 76819

== ENCOUNTER 2021-11-02 10:51 | Outpatient (CLI) | payer BC, SELFPAY ==
--- OUTSIDE RECORDS SUMMARY | 2021-11-02 10:54 | XMS_ITS | Encounter Summary ---
:1985 Author Organization [facility] Address [address] [place] [address] Care Team Providers Name Role Phone Unavailable [...] 02/18/2021 relatives? How often do you attend restorationist or jain Never 02/18/2021 services? Do you belong to any clubs or organizations such as No 02/18/2021 restorationist groups, unions, fraternal or athletic groups, or [...] or slept in a assisted (including now)? Education Answer Date Recorded What [...]
--- OUTSIDE RECORDS SUMMARY | 2021-11-02 10:54 | XMS_ITS | Encounter Summary ---
:1985 Author Organization [facility] Address [address] [place] [address] Care Team Providers Name Role Phone Unavailable [...] How often do you attend restoration or taoist Never 02/18/2021 services? Do you belong to [...] 01/11/2021 12:10 Results for this EXAM AM INSTRUCTOR EXTENSION WORK procedure are i n the results section. documented in this encounter Results AIRWAY-Otorhinolaryngology Image Exam (01/11/2021 12:10 AM INSTRUCTOR EXTENSION WORK) Specimen (Source) Anatomical Location Collection Method / Collectio n Time Received Time / Laterality Volume Narrative [facility] - 01/11/2021 2:55 PM INSTRUCTOR EXTENSION WORK This order has been created and auto-finalized [...]
--- OUTSIDE RECORDS SUMMARY | 2021-11-02 10:54 | XMS_ITS | Encounter Summary ---
:[address] [facility] Address [address] [place] [address] Care Team Providers Name Role Phone Unavailable Primary Care Provider Unavailable Reason for Referral Outpatient (Routine) - Closed Specialty Diagnoses / Procedures Referred By Contact Refer red To Contact Otorhinolaryngology Daphne Tatum [place] M.D. [address] [place] [phone] Referral ID Status Reason Start Date Expiration Date Visits Requ ested Visits Authorized [id number] Closed 01/21/2021 01/21/2022 1 1 Scheduling Instructions - in afternoon, or 02/22 v ideo slot. WORKER Reason for Visit Outpatient (Routine) - Closed Specialty Diagnoses / Procedures Referred By Contact Refer red To Contact Otorhinolaryngology Daphne Tatum [place] M.D. [address] [place] [phone] Referral ID Status Reason Start Date Expiration Date Visits Requ ested Visits Authorized [id number] Closed 01/06/2021 01/06/2022 1 1 Encounter Details Date Type Department Care Team Description 01/21/2021 Office Visit Department of Paola Tatum on Otorhinolaryngology in Daphne Blair M.D. Nasal Polyps Asthma [place], [place] [address] [place] [address] (Primary Dx) [address] [place] [phone] Social History Tobacco Use Types Packs/Day Years [...] 02/18/2021 relatives? How often do you attend latter day or restorationist Never 02/18/2021 services? Do you belong to any clubs or organizations such as No 02/18/2021 latter day groups, unions, fraternal or athletic groups, or [...] Crusting Mild = 1 Mild = 1 Remington-Woody Endoscopy Score = 6 ASSESSMENT / PLAN [...] but she can stop the mupirocin. Procedures WORKER Associated attestation - Daphne Tatum M.D. - 01/21/2021 2:57 PM KEY WORKER I saw and evaluated the patient, participating [...]
--- OUTSIDE RECORDS SUMMARY | 2021-11-02 10:54 | XMS_ITS | Clinical Summary ---
:1985 Author Organization [facility] Address [address] [place] [address] Care Team Providers Name Role Phone Unavailable Primary Care Provider Unavailable Source Comments Patient records contain information from all sites at [facility]. For routine questions regarding patient records, call [phone] during business hours, M-F 8:00 AM - 5:00 PM Central Time. Record requests for emergency care only can be directed to [phone] at any time.[facility] Allergies Active Allergy Reactions Severity Noted Date [...] Added automatically from request for chandler haskins [id number] Aspirin Reaction Nasal Polyps Asthma 09/24/2015 Asthma [...] 02/18/2021 relatives? How often do you attend denominational or scientology Never 02/18/2021 services? Do you belong to any clubs or organizations such as No 02/18/2021 denominational groups, unions, fraternal or athletic groups, or [...] highest level of school Associate degree: yanna bbab, 01/06/2021 you have completed or the highest technical, or vocational p rogram degree you have received? Sex Assigned at Date Recorded Female 01/06/2021 8:49 AM CDT Last Filed Vital Signs Vital Sign Reading Time Taken Comments Blood Pressure 130/89 01/11/2021 5:00 PM CAMERA MACHINIST Pulse 77 01/11/2021 5:05 PM CAMERA MACHINIST Temperature 36.8 ??C (98.2 ??F) 01/11/2021 5:00 PM CAMERA MACHINIST Respiratory Rate 16 01/11/2021 5:00 PM CAMERA MACHINIST Oxygen Saturation 95% 01/11/2021 5:05 PM CAMERA MACHINIST Inhaled Oxygen Concentration - - Weight 113 kg (248 lb 14.4 oz) 01/11/2021 10:10 AM CAMERA MACHINIST Height 167.6 cm (5' 6) 01/11/2021 10:10 AM CAMERA MACHINIST Body Mass Index 40.17 01/11/2021 10:10 AM CAMERA MACHINIST Plan of Treatment Health Maintenance Due Date [...] 04/13/2020, 03/23/2020 Medical Devices Implanted Type Area Wellness Spa Manager Device Shelf Model / Identifier Expiration Serial / Date Lot Stent Sinus Propel Regular - [id number] Stent Other/Legacy - Int ersect Ent Implanted: Qty: 1 on 10/14/2015 Other [employer] Description Description: Device Wellness Spa Manager - Inter sect Ent. Body Location - Other. Left. Device Status Text - [id number]. Insurance Payer Benefit Plan Subscriber ID Effective Phone Address Typ e / Group Dates BLUE CROSS BCBS BLUE [id number] 2018-Prese ATTN: William gallardo HMO BLUE SHIELD PLUS HMO nt [facility] [address] [address] [place] [address]
--- OUTSIDE RECORDS SUMMARY | 2021-11-02 10:54 | XMS_ITS | Encounter Summary ---
:1985 Author Organization [facility] Address [address] [place] [address] Care Team Providers Name Role Phone Unavailable Primary Care Provider Unavailable Reason for Visit Reason Comments Reschedule Post Op Appointment Encounter Details Date Type Department Care Team Description 01/19/2021 Clinical Department of Bety Tatum Pos t Communication Otorhinolaryngology in [place], [place] Sung [address] [facility] [address] [place] [address] [place], [place] [phone] Social History Tobacco Use Types Packs/Day Years [...] 02/18/2021 relatives? How often do you attend bahai or advent Never 02/18/2021 services? Do you belong to any clubs or organizations such as No 02/18/2021 bahai groups, unions, fraternal or athletic groups, or [...] Sunday afternoon as he is driving her. XML DEVELOPER Telephone Encounter - Xiomy Horner - 01/19/2021 12:22 PM CST Ms. Odonnell returned your call. You can reach her this afternoon at [phone]. XML DEVELOPER Telephone Encounter - Maciel Watts - 01/19/2021 10:37 AM CST I called Ms. Odonnell today because Dr. Tatum has been called away unexpectedly. Dr. Tatum would like to see her on January 21 in the afternoon at the [facility] procedure room. Ms. Odonnell did not answer so I left a message for her to call me back. Thank you, Maciel XML DEVELOPER documented in this encounter Plan of Treatment Not on filedocumented as of this encounter Visit Diagnoses Not on filedocumented in this encounter
--- OUTSIDE RECORDS SUMMARY | 2021-11-02 10:54 | XMS_ITS | Encounter Summary ---
:1985 Author Organization [facility] Address [address] [place] [address] Care Team Providers Name Role Phone Unavailable Primary Care Provider Unavailable Reason for Visit Outpatient (Routine) - Closed Specialty Diagnoses / Procedures Referred By Contact Refer red To Contact Otorhinolaryngology Daphne Tatum [place] M.D. [address] [place] [address] Referral ID Status Reason Start Date Expiration Date Visits Requ ested Visits Authorized [id number] Closed 01/21/2021 01/21/2022 1 1 Encounter Details Date Type Department Care Team Description 02/18/2021 Office Visit Department of Rc, Rhinosinusitis Chronic (Primary Dx); Otorhinolaryngology in Daphne Blair, Polyp Nasal; [place], [place] Sung Aspirin Reaction Nasal Polyps Asthma [address] [facility] [address] [place] [address] [place], [place] [phone] Social History Tobacco Use Types Packs/Day Years [...] 02/18/2021 relatives? How often do you attend episcopal or orthodoxy Never 02/18/2021 services? Do you belong to any clubs or organizations such as No 02/18/2021 episcopal groups, unions, fraternal or athletic groups, or [...] procedure well and there were no complications. [place] Endoscopic Scoring System Right Side Left Side [...] recently putting a real tree up for [place] and has noticed increasing nasal congestion. On [...] become . Sanjeev Thakur APRN, C.N.P., M.S.N. ESTATE LEASING MANAGER Associated attestation - Daphne Tatum M.D. - 02/20/2021 5:37 PM REAL ESTATE LEASING MANAGER I saw the patient with Sanjeev Thakur C.N.P. and agree with her findings, assessment, and plan. Daphne Tatum M.D. documented in this encounter Plan of Treatment Not on filedocumented as of this encounter Visit Diagnoses Diagnosis Rhinosinusitis Chronic - Primary Polyp Nasal Aspirin Reaction Nasal Polyps Asthma documented in this encounter
--- OUTSIDE RECORDS SUMMARY | 2021-11-02 10:54 | XMS_ITS | Encounter Summary ---
:1985 Author Organization [facility] Address [address] [place] [address] Care Team Providers Name Role Phone Unavailable Primary Care Provider Unavailable Encounter Details Date Type Department Care Team Description 01/17/2021 Orders Only Department of [facility], Teresita Tena Otorhinolaryngology in [address] [place] [address] [place] [phone] [place] [address] [phone] Social History Tobacco Use Types Packs/Day Years [...] 02/18/2021 relatives? How often do you attend faith or tenriism Never 02/18/2021 services? Do you belong to any clubs or organizations such as No 02/18/2021 faith groups, unions, fraternal or athletic groups, or [...]
--- OUTSIDE RECORDS SUMMARY | 2021-11-02 10:54 | XMS_ITS | Encounter Summary ---
:1985 Author Organization [facility] Address [address] [place] [address] Care Team Providers Name Role Phone Unavailable Primary Care Provider Unavailable Reason for Visit Auth/Cert Specialty Diagnoses / Procedures Referred By Contact Refer red To Contact Diagnoses Rhinosinusitis Chronic Rhinosinusitis Chronic [J32.8] Procedures [place] ENDO NSL MAX ANTROST W RMV TIS [place] NSL/SINS NDSC SPHN TISS RMVL [place] NSL/SINS NDSC TOTAL [place] ENDO NSL/SNS W ETHMDCTOMY PRTL [place] STRTCTC COMP-ASSIST CRNL EXTRA [place] SUBMUC RSECT TURB PRTL/COMPLT ENDOSCOPIC MAXILLARY ANTROST CHARLIE WITH TISSUE REMOVAL ENDOSCOPIC SPHENOIDOTOMY WITHOUT TISSUE REMOVAL SINUSOTOMY ENDOSCOPY FRONTAL -draft iib, possible draft iii ETHMOIDECTOMY ENDOSCOPY EXTRADURAL COMPUTER NAVIGATION - Proceed as indicated REDUCTION TURBINATE - middle turbinates , procee d as indicated Referral ID Status Reason Start Date Expiration Date Visits Requ ested Visits Authorized [id number] 1 1 Encounter Details Date Type Department Care Team Description 01/11/2021 Hospital Encounter RST ROMB MAIN OR Rc, Rhinosinusitis Chronic [address] [facility] Daphne Blair M.D. [place], [place] [address] [place] [phone] [place], [place] [phone] Social History Tobacco Use Types Packs/Day Years [...] How often do you attend tenriism or tenriism Never 02/18/2021 services? Do you [...] place to sleep or slept in a jail (including now)? Education Answer Date Recorded What [...] Comments Blood Pressure 130/89 01/11/2021 5:00 PM CORPORATE SECURITY OFFICER Pulse 77 01/11/2021 5:05 PM CORPORATE SECURITY OFFICER Temperature 36.8 ??C (98.2 ??F) 01/11/2021 5:00 PM CORPORATE SECURITY OFFICER Respiratory Rate 16 01/11/2021 5:00 PM CORPORATE SECURITY OFFICER Oxygen Saturation 95% 01/11/2021 5:05 PM CORPORATE SECURITY OFFICER Inhaled Oxygen Concentration - - Weight 113 kg (248 lb 14.4 oz) 01/11/2021 10:10 AM CORPORATE SECURITY OFFICER Height 167.6 cm (5' 6) 01/11/2021 10:10 AM CORPORATE SECURITY OFFICER Body Mass Index 40.17 01/11/2021 10:10 AM CORPORATE SECURITY OFFICER documented in this encounter Discharge Instructions Discharge [...] or pain not relieved by pain medication. ORATE SECURITY OFFICER documented in this encounter Medications at Time [...] PACU in stable condition. Mary Lema M.D. ORATE SECURITY OFFICER documented in this encounter Miscellaneous Notes Result Encounter Note - Daphne Tatum M.D. - 01/21/2021 8:27 AM CORPORATE SECURITY OFFICER I have reviewed the final pathology report and the identified diagnosis is consistent with the patient's clinical presentation. ORATE SECURITY OFFICER Result Encounter Note - Mary Lema M.D. - 01/19/2021 10:38 PM CST I have reviewed the final pathology report and the identified diagnosis is consistent with the patient's clinical presentation. ORATE SECURITY OFFICER documented in this encounter Plan of Treatment Not on filedocumented as of this encounter Procedures Procedure Name Priority Date/Time Associated Diagnosis Comme nts SURGICAL PATHOLOGY, Routine 01/11/2021 12:45 Rhinosinusitis Ch ronic Results for this [facility]OZEN LAB PM CORPORATE SECURITY OFFICER procedure are i n the results section. EXTRADURAL COMPUTER 01/11/2021 11:15 Rhinosinusitis Ch ronic NAVIGATION AM CORPORATE SECURITY OFFICER Case Notes CASING FINISHER AND STUFFER 958 ETHMOIDECTOMY ENDOSCOPY 01/11/2021 11:15 AM CORPORATE SECURITY OFFICER Rhinos inusitis Chronic Case Notes CASING FINISHER AND STUFFER 958 SINUSOTOMY ENDOSCOPY FRONTAL 01/11/2021 11:15 AM CORPORATE SECURITY OFFICER R hinosinusitis Chronic Case Notes CASING FINISHER AND STUFFER 958 ENDOSCOPIC SPHENOIDOTOMY WITHOUT 01/11/2021 11:1 5 AM CORPORATE SECURITY OFFICER Rhinosinusitis Chronic TISSUE REMOVAL Case Notes CASING FINISHER AND STUFFER 958 ENDOSCOPIC MAXILLARY ANTROSTOMY 01/11/2021 11:15 AM CS T Rhinosinusitis Chronic WITH TISSUE REMOVAL Case Notes CASING FINISHER AND STUFFER 958 documented in this encounter Results Surgical Pathology, Frozen Lab (01/11/2021 12:45 PM CORPORATE SECURITY OFFICER) Component Value Ref Test Analysis Performed Pathologis t Range Method Time At Signature 01/18/2021 [facility] 5:37 AM CORPORATE SECURITY OFFICER Participated in [facility] Jones 01/18/2021 Jen -Pathology 5:37 AM CORPORATE SECURITY OFFICER Interpretation Resident Report Daniel Cuevas M.D. [id number] ST[facility] electronically 5:37 AM CORPORATE SECURITY OFFICER signed by I verify that I have examined all relevant slides/materials for the specimen(s) and rendered or confirmed the diagnosis. Gross Description A. ??Received fresh labeled left sinonasal vin nts is a 01/18/2021 ST[facility] 7.4 x 5.1 x 0.9 cm aggregate of reed-red soft tissue. ??All 5:37 AM CORPORATE SECURITY OFFICER submitted for permanent sections. ??Grossed by SSF. [...] A1 Left sinonasal contents 1 5:37 AM CORPORATE SECURITY OFFICER A2 Left sinonasal contents 2 A3 Left [...] negative (Block 01/19/2021 ST[facility] A3). 10:02 PM CORPORATE SECURITY OFFICER Signed by Daniel Cuevas M.D. [id number] 01/19/2021 10:02 PM Comment: REVISED RESULTS Interpretation FINAL DIAGNOSIS 01/19/2021 10:02 PM CORPORATE SECURITY OFFICER ST[facility] A. ??Sinonasal contents, left, excision: ??Sinonasal [...] Volume Laterality Tissue (Nose) 01/11/2021 12:45 PM CORPORATE SECURITY OFFICER Tissue (Nose) 01/11/2021 12:53 PM CORPORATE SECURITY OFFICER Tissue (Nose) 01/11/2021 2:38 PM CORPORATE SECURITY OFFICER Narrative This result has an attachment that is no t available. Daphne Tatum M.D. LAB SURG PATH ORDERABLES Performing Organization Address City/State/ZIP Code Phon e Number [facility] - [address] [place], [place] [address] [place] [address] [facility] [address] documented in this encounter Visit Diagnoses Diagnosis Rhinosinusitis Chronic - Primary documented in this encounter Admitting Diagnoses Diagnosis Rhinosinusitis Chronic documented in this encounter Administered Medications Inactive Administered Medications - up to 3 most recent administrations Medication Order MAR Action Action Date Dose Rate Site fentaNYL injection 25 mcg Given 01/11/2021 3:28 PM CORPORATE SECURITY OFFICER 25 mcg (SUBLIMAZE) 25 mcg, intravenous, Every 2 min PRN, moderate pain or score 4-6 of 10, severe pain or score 7-10 of 10, Starting on Sun01/11/21 at 1031, PACU (only), Up to maximum total dose of 100 mcg Given 01/11/2021 3:22 PM CORPORATE SECURITY OFFICER 25 mcg metoprolol tablet 12.5 mg (LOPRESSOR) [...] 10 mg (ROXICODONE) Given 01/11/2021 3:37 PM CORPORATE SECURITY OFFICER 10 mg 10 mg, oral, Every 4 [...] may contain times in both CDT and CORPORATE SECURITY OFFICER. Scheduled Medication Order 01/09/2021 01/10/2021 01/11/2021 acetaminophen [...]
--- OUTSIDE RECORDS SUMMARY | 2021-11-02 10:54 | XMS_ITS | Encounter Summary ---
:1985 Author Organization [facility] Address [address] [place] [address] Care Team Providers Name Role Phone Unavailable [...] 02/18/2021 relatives? How often do you attend congregation or yarsanism Never 02/18/2021 services? Do you belong to any clubs or organizations such as No 02/18/2021 congregation groups, unions, fraternal or athletic groups, or [...] or slept in a chcf (including now)? Education Answer Date Recorded What [...] 01/21/2021 2:48 Results for this EXAM PM DELIVERY MOTORCYCLE DRIVER procedure are i n the results section. documented in this encounter Results NASAL-Otorhinolaryngology Image Exam (01/21/2021 2:48 PM DELIVERY MOTORCYCLE DRIVER) Specimen (Source) Anatomical Collection Method Collection Time Re ceived Time Location / / Volume Laterality 01/21/2021 4:08 PM DELIVERY MOTORCYCLE DRIVER Narrative IIMS - 01/21/2021 2:48 PM DELIVERY MOTORCYCLE DRIVER This order has been created and auto-finalized [...]
--- OUTSIDE RECORDS SUMMARY | 2021-11-02 10:54 | XMS_ITS | Encounter Summary ---
:1985 Author Organization [facility] Address 200 [place] [address] Care Team Providers Name Role Phone Unavailable Primary Care Provider Unavailable Reason for Visit Auth/Cert Specialty Diagnoses / Procedures Referred By Contact Refer red To Contact Diagnoses Rhinosinusitis Chronic Rhinosinusitis Chronic [J32.8] Procedures [place] ENDO NSL MAX ANTROST W RMV TIS RI NSL/SINS NDSC SPHN TISS RMVL RI NSL/SINS NDSC TOTAL RI ENDO NSL/SNS W ETHMDCTOMY PRTL RI STRTCTC COMP-ASSIST CRNL EXTRA RI SUBMUC RSECT TURB PRTL/COMPLT ENDOSCOPIC MAXILLARY ANTROST CHARLIE WITH TISSUE REMOVAL ENDOSCOPIC SPHENOIDOTOMY WITHOUT TISSUE REMOVAL SINUSOTOMY ENDOSCOPY FRONTAL -draft iib, possible draft iii ETHMOIDECTOMY ENDOSCOPY EXTRADURAL COMPUTER NAVIGATION - Proceed as indicated REDUCTION TURBINATE - middle turbinates , procee d as indicated Referral ID Status Reason Start Date Expiration Date Visits Requ ested Visits Authorized [id number] 1 1 Encounter Details Date Type Department Care Team Description 01/11/2021 Surgery RST ROMB MAIN OR Daphne Tatum, ENDOSCOPIC MAXILLARY 1216 [facility] M.DXavier ANTROSTOMY, TISS[place], [place] [address] [facility] REMOVAL. [address] [place], [place] [phone] (Wo rk) Social History Tobacco Use Types [...] 02/18/2021 relatives? How often do you attend scientology or sikh Never 02/18/2021 services? Do you belong to any clubs or organizations such as No 02/18/2021 scientology groups, unions, fraternal or athletic groups, or [...] or the highest technical, or vocational p [facility] degree you have received? Sex Assigned at Date Recorded Female 01/06/2021 8:49 AM CDT documented as of this encounter Last Filed Vital Signs Vital Sign Reading Time Taken Comments Blood Pressure 124/85 01/11/2021 3:30 PM DISPUTE COORDINATOR Pulse 78 01/11/2021 3:55 PM DISPUTE COORDINATOR Temperature 36.8 ??C (98.2 ??F) 01/11/2021 3:20 PM DISPUTE COORDINATOR Respiratory Rate 14 01/11/2021 3:40 PM DISPUTE COORDINATOR Oxygen Saturation 95% 01/11/2021 3:55 PM DISPUTE COORDINATOR Inhaled Oxygen Concentration - - Weight 113 kg (248 lb 14.4 oz) 01/11/2021 10:10 AM DISPUTE COORDINATOR Height 167.6 cm (5' 6) 01/11/2021 10:10 AM DISPUTE COORDINATOR Body Mass Index 40.17 01/11/2021 10:10 AM DISPUTE COORDINATOR documented in this encounter Discharge Instructions Discharge [...] or pain not relieved by pain medication. UTE COORDINATOR documented in this encounter Medications at Time [...] PACU in stable condition. Mary Lema M.D. UTE COORDINATOR documented in this encounter Miscellaneous Notes Result Encounter Note - Daphne Tatum M.D. - 01/21/2021 8:27 AM DISPUTE COORDINATOR I have reviewed the final pathology report and the identified diagnosis is consistent with the patient's clinical presentation. UTE COORDINATOR Result Encounter Note - Mary Lema M.D. - 01/19/2021 10:38 PM CST I have reviewed the final pathology report and the identified diagnosis is consistent with the patient's clinical presentation. UTE COORDINATOR documented in this encounter Plan of Treatment Not on filedocumented as of this encounter Procedures Procedure Name Priority Date/Time Associated Diagnosis Comme nts SURGICAL PATHOLOGY, Routine 01/11/2021 12:45 Rhinosinusitis Ch ronic Results for this [facility]EN LAB PM DISPUTE COORDINATOR procedure are i n the results section. EXTRADURAL COMPUTER 01/11/2021 11:15 Rhinosinusitis Ch ronic NAVIGATION AM DISPUTE COORDINATOR Case Notes SENIOR REVENUE ACCOUNTANT 958 ETHMOIDECTOMY ENDOSCOPY 01/11/2021 11:15 AM DISPUTE COORDINATOR Rhinos inusitis Chronic Case Notes SENIOR REVENUE ACCOUNTANT 958 SINUSOTOMY ENDOSCOPY FRONTAL 01/11/2021 11:15 AM DISPUTE COORDINATOR R hinosinusitis Chronic Case Notes SENIOR REVENUE ACCOUNTANT 958 ENDOSCOPIC SPHENOIDOTOMY WITHOUT 01/11/2021 11:1 5 AM DISPUTE COORDINATOR Rhinosinusitis Chronic TISSUE REMOVAL Case Notes SENIOR REVENUE ACCOUNTANT 958 ENDOSCOPIC MAXILLARY ANTROSTOMY 01/11/2021 11:15 AM CS T Rhinosinusitis Chronic WITH TISSUE REMOVAL Case Notes SENIOR REVENUE ACCOUNTANT 958 documented in this encounter Results Surgical Pathology, Frozen Lab (01/11/2021 12:45 PM DISPUTE COORDINATOR) Component Value Ref Test Analysis Performed Pathologis t Range Method Time At [facility] DISPUTE COORDINATOR Lavinia in [facility] Jones 01/18/2021 [facility] the M.D. -Pathology 5:37 AM DISPUTE COORDINATOR Interpretation Resident Report Daniel Cuevas M.D. [id number] [facility] electronically 5:37 AM DISPUTE COORDINATOR signed by I verify that I have examined all relevant slides/materials for the specimen(s) and rendered or confirmed the diagnosis. Gross Description A. ??Received fresh labeled left sinonasal vin nts is a 01/18/2021 [facility] 7.4 x 5.1 x 0.9 cm aggregate of reed-red soft tissue. ??All 5:37 AM DISPUTE COORDINATOR submitted for permanent sections. ??Grossed by SSF. [...] A1 Left sinonasal contents 1 5:37 AM DISPUTE COORDINATOR A2 Left sinonasal contents 2 A3 Left [...] negative (Block 01/19/2021 [facility] A3). 10:02 PM DISPUTE COORDINATOR Signed by Daniel Cuevas M.D. [id number] 01/19/2021 10:02 PM Comment: REVISED RESULTS Interpretation FINAL DIAGNOSIS 01/19/2021 10:02 PM DISPUTE COORDINATOR STMA A. ??Sinonasal contents, left, excision: ??Sinonasal [...] Volume Laterality Tissue (Nose) 01/11/2021 12:45 PM DISPUTE COORDINATOR Tissue (Nose) 01/11/2021 12:53 PM DISPUTE COORDINATOR Tissue (Nose) 01/11/2021 2:38 PM DISPUTE COORDINATOR Narrative This result has an attachment that is no t available. Daphne Tatum M.D. LAB SURG PATH ORDERABLES Performing Organization Address City/State/ZIP Code Phon e Number [facility] - [address] [place], [place] [address] [place] [address] [facility] [address] documented in this encounter Visit Diagnoses Diagnosis Rhinosinusitis Chronic - Primary Rhinosinusitis Chronic documented in this encounter Admitting Diagnoses Diagnosis Rhinosinusitis Chronic documented in this encounter Administered Medications Inactive Administered Medications - up to 3 most recent administrations Medication Order MAR Action Action Date Dose Rate Site cocaine 4 % nasal Given 01/11/2021 12:25 1 application Bilateral Nares solution PM DISPUTE COORDINATOR As needed, Starting on Sun01/11/21 at 1225, Intra-Op fentaNYL injection 25 mcg (SUBLIMAZE) Given 01/11/2021 3:28 PM DISPUTE COORDINATOR 25 mcg 25 mcg, intravenous, Every 2 min PRN, moderate pain or score 4-6 of 10, severe pain or score 7-10 of 10, Starting on Sun01/11/21 at 1031, PACU (only), Up to maximum total dose of 100 mcg Given 01/11/2021 3:22 PM DISPUTE COORDINATOR 25 mcg lidocaine-EPINEPHrine 1 Given 01/11/2021 12:24 PM 4 mL Bilateral Nares %-1:100,000 injection (XYLOCAINE DISPUTE COORDINATOR W/EPI) As needed, Starting on Sun01/11/21 at [...] 10 mg (ROXICODONE) Given 01/11/2021 3:37 PM DISPUTE COORDINATOR 10 mg 10 mg, oral, Every 4 [...] 1 application Bilateral Nares nasal spray (AFRIN) DISPUTE COORDINATOR As needed, Starting on Sun01/11/21 at 1210, [...] may contain times in both CDT and DISPUTE COORDINATOR. Scheduled Medication Order 01/09/2021 01/10/2021 01/11/2021 acetaminophen [...]
--- OUTSIDE RECORDS SUMMARY | 2021-11-02 10:54 | XMS_ITS | Encounter Summary ---
:1985 Author Organization [facility] Address [address] [place] [address] Care Team Providers Name Role Phone Unavailable Primary Care Provider Unavailable Encounter Details Date Type Department Care Team Description 01/08/2021 Hospital Encounter Department of Daphne Tatum Cont act With And (Suspected) Exposure To COVID-19; Laboratory Medicine Sung Blair Preprocedural Lab Exam in [place], [address] [place] [address] [place] [address] [place], [place] [phone] (Work) [phone] Social History Tobacco Use Types Packs/Day Years [...] 02/18/2021 relatives? How often do you attend pentecostal or restorationism Never 02/18/2021 services? Do you belong to any clubs or organizations such as No 02/18/2021 pentecostal groups, unions, fraternal or athletic groups, or [...] RNA, V Asymptomatic (01/08/2021 10:58 AM CDT) [facility] Method Time Signature SARS-CoV-2 Swab, 01/08/2021 MKTO [...] pe rformed using the Aptima SARS-CoV-2 assay ([employer] system[employer] on the [employer] tem under emergency use authorization (EUA) by the U.S. Food and Drug Administ ration. Fact sheets for this EUA assay can be fo und at the following links: For Healthcare Providers: https://www.fd a.gov/media/919237/download For Patients: https://www.fda.gov/media/ 683257/download Specimen Anatomical Collection Method Collection Time Receive d Time (Source) Location / / Volume Laterality Varies 01/08/2021 10:58 01/08/2021 5:03 (Nasopharynx) AM CDT PM CDT Daphne Tatum M.D. LAB MICROBIOLOGY - GENERAL O RDERABLES Performing Organization Address City/State/ZIP Code Phon e Number [facility]- [address] [place] [phone] [place] [address] [place] [address] [address] documented in this encounter Visit Diagnoses Diagnosis Contact With And (Suspected) Exposure To COVID-19 Preprocedural Lab Exam documented in this encounter Additional Health Concerns Infection Onset Date Last Indicated Resolved Time COVID19 Pending 01/08/2021 01/08/2021 01/08/2021 11:18 PM CDT documented as of this encounter
--- OUTSIDE RECORDS SUMMARY | 2021-11-02 10:54 | XMS_ITS | Encounter Summary ---
:1985 Author Organization [facility] Address [address] [place] [address] Care Team Providers Name Role Phone Unavailable Primary Care Provider Unavailable Reason for Visit Auth/Cert Specialty Diagnoses / Procedures Referred By Contact Refer red To Contact Diagnoses Rhinosinusitis Chronic Rhinosinusitis Chronic [J32.8] Procedures CA ENDO NSL MAX ANTROST W RMV TIS CA NSL/SINS NDSC SPHN TISS RMVL CA NSL/SINS NDSC TOTAL CA ENDO NSL/SNS W ETHMDCTOMY PRTL CA STRTCTC COMP-ASSIST CRNL EXTRA CA SUBMUC RSECT TURB PRTL/COMPLT ENDOSCOPIC MAXILLARY ANTROST CHARLIE WITH TISSUE REMOVAL ENDOSCOPIC SPHENOIDOTOMY WITHOUT TISSUE REMOVAL SINUSOTOMY ENDOSCOPY FRONTAL -draft iib, possible draft iii ETHMOIDECTOMY ENDOSCOPY EXTRADURAL COMPUTER NAVIGATION - Proceed as indicated REDUCTION TURBINATE - middle turbinates , procee d as indicated Referral ID Status Reason Start Date Expiration Date Visits Requ ested Visits Authorized [id number] 1 1 Encounter Details Date Type Department Care Team Description 01/11/2021 Anesthesia Event RST ROMB MAIN OR Laz Young, [address] [place] [address] [place], [place] [phone] [place] [address] [place] [address] (Wo rk) Anesthesia Record Procedure Summary Procedure [...] h andoff to the receiving staff during [facility] we 1. Identified the patient 2. [...] APRN, Schaffer, Jordan A, (created via procedure AUTOMOBILE MECHANIC RADIATOR R.N. documentation); Mask Ventilation: Easy mask; Type: [...] M ikaela A, Catheter Size: 20 G; AUTOMOBILE MECHANIC RADIATOR R.NXavier Orientation: Left; Location: Hand; Technique: Transillumination; Removal Date: 01/11/21; Removal Time: 1705; Removal Reason: Patient discharged (RETIRED) Incision 01/11/21; 1446; No; Nose; 01/11/21 1446 by 1223 by Bilateral; FESS; 02/04/21 Rula Bradley, [facility] (removed by background R.N. d, Edwige [...] 02/18/2021 relatives? How often do you attend yazidi or taoism Never 02/18/2021 services? Do you belong to any clubs or organizations such as No 02/18/2021 yazidi groups, unions, fraternal or athletic groups, or [...] place to sleep or slept in a correction (including now)? Education Answer Date Recorded What [...] Procedure Summary Date: 01/11/21 Room / Location: [place] [address] / [facility] in [place], [place] Anesthesia Start: 1137 Anesthesia Stop: 1520 [...] Post Op nausea/vomiting: none Hydration status: euvolemic TRONIC DATA PROCESSING AUDITOR Anesthesia Procedure Notes - Sirena Montejo APRN, CRNA - 01/11/2021 12:30 PM ELECTRONIC DATA PROCESSING AUDITOR Associated Order(s): Airway Airway Date/Time: 01/11/2021 11:45 [...] successful Airway event: no complications ATTESTATION STATEMENT TRONIC DATA PROCESSING AUDITOR Anesthesia Preprocedure Evaluation - Laz Young M.D. [...] [J32.8] Pre-op diagnosis: Rhinosinusitis Chronic [J32.8]. Location: [address] / [facility] in [place], [place] Providers: Daphne Tatum M.D. Pertinent components [...] with patient /legal guardian or through an lang interpreter. The use of blood products not discussed Approval to Proceed: approved for anesthesia TRONIC DATA PROCESSING AUDITOR documented in this encounter Plan of Treatment Not on filedocumented as of this encounter Procedures Procedure Name Priority Date/Time Associated Comments Diagnosis LDA ANE ENDOTRACHEAL Routine 01/11/2021 11:45 Res ults for this AIRWAY AM ELECTRONIC DATA PROCESSING AUDITOR procedure are i n the results section. documented in this encounter Results LDA ANE ENDOTRACHEAL AIRWAY (01/11/2021 11:45 AM ELECTRONIC DATA PROCESSING AUDITOR) Narrative Sirena Montejo APRN, CRNA - 01/11/2021 11:45 AM ELECTRONIC DATA PROCESSING AUDITOR Sirena Montejo APRN, CRNA ? 01/11/2021 12:31 [...] Airway event: no complications ATTESTATION STATEMENT Laz Yuong M.D. ANESTHESIA ORDERABLES documented in this encounter Visit Diagnoses Not on filedocumented in this encounter Administered Medications Inactive Administered Medications - up to 3 most recent administrations Medication Order MAR Action Action Date Dose Rate Site acetaminophen injection Given 01/11/2021 2:16 PM ELECTRONIC DATA PROCESSING AUDITOR 1,000 mg intravenous, Administer over 15 Minutes, As needed, Starting on Sun01/11/21 at 1416, Anesthesia Intra-op ceFAZolin injection (ANCEF) Given 01/11/2021 12:21 PM ELECTRONIC DATA PROCESSING AUDITOR 2 g intravenous, As needed, Starting on Sun01/11/21 at 1221, Anesthesia Intra-op dexAMETHasone injection (DECADRON) Given 01/11/2021 11:49 AM ELECTRONIC DATA PROCESSING AUDITOR 10 mg intravenous, As needed, Starting on Sun01/11/21 at 1149, Anesthesia Intra-op fentaNYL injection (SUBLIMAZE) Given 01/11/2021 1:56 PM ELECTRONIC DATA PROCESSING AUDITOR 50 mcg intravenous, As needed, Starting on Sun01/11/21 at 1144, Anesthesia Intra-op Given 01/11/2021 1:41 PM ELECTRONIC DATA PROCESSING AUDITOR 50 mcg Given 01/11/2021 1:01 PM ELECTRONIC DATA PROCESSING AUDITOR 50 mcg labetalol injection (NORMODYNE,TRANDATE) Given 01/11/2021 2:27 PM ELECTRONIC DATA PROCESSING AUDITOR 5 mg intravenous, As needed, Starting on Sun01/11/21 at 1359, Anesthesia Intra-op Given 01/11/2021 2:02 PM ELECTRONIC DATA PROCESSING AUDITOR 5 mg Given 01/11/2021 1:59 PM ELECTRONIC DATA PROCESSING AUDITOR 5 mg lactated ringers New Bag 01/11/2021 11:37 AM ELECTRONIC DATA PROCESSING AUDITOR intravenous, Continuous Infusion: Per Instructions PRN, Starting on Sun01/11/21 at 1137, Anesthesia Intra-op lactated ringers New Bag 01/11/2021 11:47 AM ELECTRONIC DATA PROCESSING AUDITOR intravenous, Continuous Infusion: Per Instructions PRN, Starting on Sun01/11/21 at 1147, Anesthesia Intra-op lidocaine (PF) (cardiac) injection Given 01/11/2021 11:44 AM ELECTRONIC DATA PROCESSING AUDITOR 60 mg intravenous, As needed, Starting on Sun01/11/21 at 1144, Anesthesia Intra-op ondansetron (PF) injection (ZOFRAN) Given 01/11/2021 2:40 PM ELECTRONIC DATA PROCESSING AUDITOR 4 mg intravenous, As needed, Starting on Sun01/11/21 at 1440, Anesthesia Intra-op propofol 10 mg/mL infusion Rate/Dose 01/11/2021 2:43 110 mcg/kg/min 74.514 (DIPRIVAN) Change PM ELECTRONIC DATA PROCESSING AUDITOR mL/hr intravenous, Continuous Infusion: Per Instructions PRN, Starting on Sun01/11/21 at 1144, Anesthesia Intra-op Rate/Dose Change 01/11/2021 2:39 PM ELECTRONIC DATA PROCESSING AUDITOR 125 mcg/kg/min 84.675 mL/hr New Bag 01/11/2021 2:27 PM ELECTRONIC DATA PROCESSING AUDITOR 150 mcg/kg/min 101.61 mL/hr propofoL injection (DIPRIVAN) Given 01/11/2021 11:56 AM ELECTRONIC DATA PROCESSING AUDITOR 50 mg intravenous, As needed, Starting on Sun01/11/21 at 1144, Anesthesia Intra-op Given 01/11/2021 11:44 AM ELECTRONIC DATA PROCESSING AUDITOR 200 mg remifentaniL 20 mcg/mL in Rate/Dose 01/11/2021 2:10 0.1 mcg/kg/min 3 3.87 NaCl 0.9% 100 mL infusion Change PM ELECTRONIC DATA PROCESSING AUDITOR mL/hr (ULTIVA) intravenous, Continuous Infusion: Per Instructions PRN, Starting on Sun01/11/21 at 1144, Anesthesia Intra-op Rate/Dose Change 01/11/2021 1:53 PM ELECTRONIC DATA PROCESSING AUDITOR 0.1 mcg/kg/min 33.87 mL/hr Rate/Dose Change 01/11/2021 12:03 PM ELECTRONIC DATA PROCESSING AUDITOR 0.2 mcg/kg/min 67.74 mL/hr scopolamine base 1 mg over 3 days Given 01/11/2021 12:00 PM ELECTRONIC DATA PROCESSING AUDITOR 1 patch (TRANSDERM SCOP) transdermal, Administer over 72 Hours, As needed, Starting on Sun01/11/21 at 1200, Anesthesia Intra-op succinylcholine (PF) injection (ANECTINE ) Given 01/11/2021 11:44 AM ELECTRONIC DATA PROCESSING AUDITOR 100 mg intravenous, As needed, Starting on Sun01/11/21 at 1144, Anesthesia Intra-op documented in this encounter
--- OUTSIDE RECORDS SUMMARY | 2021-11-02 10:54 | XMS_ITS | Encounter Summary ---
:1985 Author Organization [facility] Address [address] [place] [address] Care Team Providers Name Role Phone Unavailable [...] 02/18/2021 relatives? How often do you attend mormonism or hindu Never 02/18/2021 services? Do you belong to any clubs or organizations such as No 02/18/2021 mormonism groups, unions, fraternal or athletic groups, or [...] place to sleep or slept in a intermediate (including now)? Education Answer Date Recorded What [...] 02/18/2021 11:40 Results for this EXAM AM STAFFING MANAGER procedure are i n the results section. documented in this encounter Results NOSE-Otorhinolaryngology Image Exam (02/18/2021 11:40 AM STAFFING MANAGER) Specimen (Source) Anatomical Collection Method Collection Time Re ceived Time Location / / Volume Laterality 02/18/2021 11:36 AM STAFFING MANAGER Narrative [facility] - 02/18/2021 11:40 AM STAFFING MANAGER This order has been created and auto-finalized [...]
--- OUTSIDE RECORDS SUMMARY | 2021-11-02 10:54 | XMS_ITS | Encounter Summary ---
:1985 Author Organization [facility] Address [address] [place] [address] Care Team Providers Name Role Phone Unavailable Primary Care Provider Unavailable Reason for Referral Outpatient (Routine) - Closed Specialty Diagnoses / Procedures Referred By Contact Refer red To Contact Otorhinolaryngology Daphne Tatum [place] M.D. [address] [place] [address] Referral ID Status Reason Start Date Expiration Date Visits Requ ested Visits Authorized [id number] Closed 01/06/2021 01/06/2022 1 1 Scheduling Instructions Oral covid same day, 930 override Reason for Visit Appointment Request (Routine) - Closed Specialty Diagnoses / Procedures Referred By Contact Refer sheri To Contact Otorhinolaryngology Diagnoses Polyp Nasal Referral ID Status Reason Start Date Expiration Date Visits Requ ested Visits Authorized [id number] Closed 12/12/2020 12/12/2021 1 1 Encounter Details Date Type Department Care Team Description 01/06/2021 Comprehensive Visit Department of Rebecca Tatumosi nusitis Chronic (Primary Dx); Otorhinolaryngology in Daphne Blair, Polyp Nasal; [place], [place] Sung Aspirin Reaction Nasal Polyps Asthma [address] [facility] [address] [place] [address] [place] [phone] Social History Tobacco Use Types Packs/Day Years [...] 02/18/2021 relatives? How often do you attend pentecostalism or episcopalian Never 02/18/2021 services? Do you belong to any clubs or organizations such as No 02/18/2021 pentecostalism groups, unions, fraternal or athletic groups, or [...] place to sleep or slept in a custodial (including now)? Education Answer Date Recorded What [...] therapy or repeat asa desensitization with an bale tie machine operator as I am not optimistic that surgery [...]
--- OUTSIDE RECORDS SUMMARY | 2021-11-02 10:55 | XMS_ITS | Encounter Summary ---
:1985 Author Organization [facility] Address [address] [place] [address] Care Team Providers Name Role Phone Unavailable Primary Care Provider Unavailable Encounter Details Date Type Department Care Team Description 06/28/2017 Orders Only Department of Ashley Victor Otorhinolaryngology in [place], TRAINING AND DEVELOPMENT PROFESSIONAL, Nasal Polyps Asthma [place], [place] C.N.P., M.S.N. (Primary Dx) [address] [place] [address] [place] [phone] [place], [place] [phone] Social History Tobacco Use Types Packs/Day Years [...] 02/18/2021 relatives? How often do you attend christian or yazdanism Never 02/18/2021 services? Do you belong to any clubs or organizations such as No 02/18/2021 christian groups, unions, fraternal or athletic groups, or [...]
--- OUTSIDE RECORDS SUMMARY | 2021-11-02 10:55 | XMS_ITS | Encounter Summary ---
:1985 Author Organization [facility] Address [address] [place] [address] Care Team Providers Name Role Phone Unavailable Primary Care Provider Unavailable Reason for Visit Reason Comments Med Refill Encounter Details Date Type Department Care Team Description 12/03/2017 Refill Department of Otorhinolaryngology Ashley Victor, Med Refill in [facility] jorge HOFFMAN C.N.P., M.S.N. [address] [place] [address] [address] [place] [address] [place], [place] [phone] (Wo rk) Social History Tobacco Use Types [...] 02/18/2021 relatives? How often do you attend islam or anglican Never 02/18/2021 services? Do you belong to any clubs or organizations such as No 02/18/2021 islam groups, unions, fraternal or athletic groups, or [...] place to sleep or slept in a mcc (including now)? Sex Assigned at Date Recorded [...]
--- OUTSIDE RECORDS SUMMARY | 2021-11-02 10:55 | XMS_ITS | Encounter Summary ---
:1985 Author Organization [facility] Address [address] [place] [address] Care Team Providers Name Role Phone Unavailable [...] 02/18/2021 relatives? How often do you attend worship or jainism Never 02/18/2021 services? Do you belong to any clubs or organizations such as No 02/18/2021 worship groups, unions, fraternal or athletic groups, or [...] or slept in a jail (including now)? Sex Assigned at Date Recorded [...]
--- OUTSIDE RECORDS SUMMARY | 2021-11-02 10:55 | XMS_ITS | Encounter Summary ---
:1985 Author Organization [facility] Address [address] [place] [address] Care Team Providers Name Role Phone Unavailable Primary Care Provider Unavailable Encounter Details Date Type Department Care Team Description 12/04/2017 Orders Only Department of Ashley Victor, Otorhinolaryngology in [facility], C.N.P.[place], [place] M.S.N. [address] [place] [address] [address] [place] [address] [place], [place] [phone] Social History Tobacco Use Types Packs/Day Years [...] How often do you attend confucianism or bahai Never 02/18/2021 services? Do you [...] to sleep or slept in a senior living (including now)? Sex Assigned at Date Recorded Female 01/06/2021 8:49 AM CDT documented as of this encounter Plan of Treatment Not on filedocumented as of this encounter Visit Diagnoses Not on filedocumented in this encounter
--- OUTSIDE RECORDS SUMMARY | 2021-11-02 10:55 | XMS_ITS | Encounter Summary ---
:1985 Author Organization [facility] Address [address] [place] [address] Care Team Providers Name Role Phone Unavailable Primary Care Provider Unavailable Encounter Details Date Type Department Care Team Description 06/22/2017 Orders Only Department of Ashley Victor, Otorhinolaryngology in [facility], C.N.P.[place], [place] M.S.N. [address] [place] [address] [address] [place] [address] [place], [place] [phone] Social History Tobacco Use Types Packs/Day Years [...] How often do you attend worship or zoroastrianism Never 02/18/2021 services? Do you belong to [...]
--- OUTSIDE RECORDS SUMMARY | 2021-11-02 10:55 | XMS_ITS | Encounter Summary ---
:1985 Author Organization [facility] Address [address] [place] [address] Care Team Providers Name Role Phone Unavailable Primary Care Provider Unavailable Reason for Referral MRI/CAT/PET Scan (Routine) - Closed Specialty Diagnoses / Procedures Referred By Contact Refer red To Contact Radiology Diagnoses Aspirin Reaction Nasal Polyps Asthma Mary Lema M.D. [facility] Procedures CT Sinuses without IV Contrast [address] [place] [phone] Referral ID Status Reason Start Date Expiration Date Visits Requ ested Visits Authorized [id number] Closed 12/13/2020 12/13/2021 1 1 Reason for Visit MRI/CAT/PET Scan (Routine) - Closed Specialty Diagnoses / Procedures Referred By Contact Refer red To Contact Radiology Diagnoses Aspirin Reaction Nasal Polyps Asthma Mary Lema M.D. [facility] Procedures CT Sinuses without IV Contrast 200 [place] [address] Referral ID Status Reason Start Date Expiration Date Visits Requ ested Visits Authorized [id number] Closed 12/13/2020 12/13/2021 1 1 Encounter Details Date Type Department Care Team Description 12/21/2020 Hospital Encounter Department of Mary Lema Aspirin Reaction RadiologyAndrade M.D. Nasal Polyps Asthma [facility], in [address] [place] [address] [place] [address] [place], [place] [phone] (Work) [phone] Social History Tobacco Use Types Packs/Day Years [...] 02/18/2021 relatives? How often do you attend advent or spiritism Never 02/18/2021 services? Do you belong to any clubs or organizations such as No 02/18/2021 advent groups, unions, fraternal or athletic groups, or [...]
--- OUTSIDE RECORDS SUMMARY | 2021-11-02 10:55 | XMS_ITS | Encounter Summary ---
:1985 Author Organization [facility] Address [address] [place] [address] Care Team Providers Name Role Phone Unavailable Primary Care Provider Unavailable Reason for Referral MRI/CAT/PET Scan (Routine) - Closed Specialty Diagnoses / Procedures Referred By Contact Refer red To Contact Radiology Diagnoses Aspirin Reaction Nasal Polyps Asthma Mary Lema M.D. [facility] Procedures CT Sinuses without IV Contrast [address] [place] [address] Referral ID Status Reason Start Date Expiration Date Visits Requ ested Visits Authorized [id number] Closed 12/13/2020 12/13/2021 1 1 Encounter Details Date Type Department Care Team Description 12/13/2020 Orders Only Department of Mary Lema Aspirin React ion Otorhinolaryngology in [place] Nasal Polyps Asthma [place], [place] [address] [facility] (Primary Dx) [address] [place] [phone] Social History Tobacco Use Types Packs/Day Years [...] 02/18/2021 relatives? How often do you attend sikh or latter-day Never 02/18/2021 services? Do you belong to any clubs or organizations such as No 02/18/2021 sikh groups, unions, fraternal or athletic groups, or [...]
--- OUTSIDE RECORDS SUMMARY | 2021-11-02 10:55 | XMS_ITS | Encounter Summary ---
:[address] [facility] Address [address] [place] [address] Care Team Providers Name Role Phone Unavailable [...] How often do you attend worship or christianity Never 02/18/2021 services? Do you belong to [...] or slept in a custodial (including now)? Sex Assigned at Date Recorded [...]
--- OUTSIDE RECORDS SUMMARY | 2021-11-02 10:55 | XMS_ITS | Encounter Summary ---
:1985 Author Organization [facility] Address [address] [place] [address] Care Team Providers Name Role Phone Unavailable [...] 02/18/2021 relatives? How often do you attend adventist or samaritan Never 02/18/2021 services? Do you belong to any clubs or organizations such as No 02/18/2021 adventist groups, unions, fraternal or athletic groups, or [...] or slept in a fci (including now)? Sex Assigned at Date Recorded Female 01/06/2021 8:49 AM CDT documented as of this encounter Plan of Treatment Not on filedocumented as of this encounter Visit Diagnoses Not on filedocumented in this encounter
--- OUTSIDE RECORDS SUMMARY | 2021-11-02 10:55 | XMS_ITS | Encounter Summary ---
:1985 Author Organization [facility] Address [address] [place] [address] Care Team Providers Name Role Phone Unavailable [...] often do you attend jehovah's witness or moravian Never 02/18/2021 services? Do you [...]
--- OUTSIDE RECORDS SUMMARY | 2021-11-02 10:55 | XMS_ITS | Encounter Summary ---
:1985 Author Organization [facility] Address [address] [place] [address] Care Team Providers Name Role Phone Unavailable [...] How often do you attend scientologist or restorationist Never 02/18/2021 services? Do you [...] place to sleep or slept in a fdc (including now)? Sex Assigned at Date Recorded [...] P athologist Signature Tryptase, S 3.0 <11.5 [facility] NG/ML [facility] Specimen Anatomical Collection Method Collection Time Receive d Time (Source) Location / / Volume Laterality 10/15/2015 4:26 AM 6 4:26 CDT AM CDT Onofre Brown M.D. LAB BLOOD ADD-ON Performing Organization Address City/State/ZIP Code Phon e Number [facility] - 200 [place], [place] [address] [facility] Hx general Pathology Report (10/14/2015 8:06 PM CDT) Specimen Anatomical Collection Method Collection Time Receive d Time (Source) Location / / Volume Laterality 10/14/2015 8:06 PM 6 8:06 CDT PM CDT Narrative [facility] - 10/14/2015 8:06 PM CDT ??10/14/2015 General Biopsy ? ([id number]) ? Requested By: Daphne Tatum M.D. ??[phone] ? SLIDE DISPOSITION: ? DIAGNOSIS: ?? A. Sinonasal cavity, bilateral contents , excision: Respiratory mucosa with chronic inflammation and nu merous eosinophils. ?? Participated in interpretation: Dr. Newberry. Pager: [phone]. ?? As the signing pathologist, I verify th at I have examined all relevant slides/materials for the speci men(s) and rendered or confirmed the diagnosis. ? 10/19/2015 11:59 Interpreted by: Darcy Steen M.D. [id number] Report electronically signed by Darcy Steen M.D. Transcribed by: [facility] 10/18/2015 16:09:23 ? TISSUE DESCRIPTION: [id number] A. ??Received fresh labeled bilateral sinus contents is an 8 x 7 x 2.5 cm aggregate of red soft tissue and cartilage. ??All soft tissue is submitted. ??Founder / Ceo sections are submitted for permanent sections only. ??Grossed by CDP. ? Part A: ??Bilateral sinus contents ?1 Bilateral sinus contents 1 ?2 Bilateral sinus contents 2 ?3 Bilateral sinus contents 3 ?4 Bilateral sinus contents 4 ?5 Bilateral sinus contents 5 ?6 Bilateral sinus contents 6 ?? XRSR Path ? Procedure Note 05/26/2017 10/14/2015 General Biopsy ([id number]) Requested By: Daphne Tatum M.D. [phone] SLIDE DISPOSITION: DIAGNOSIS: A. Sinonasal cavity, bilateral contents , excision: Respiratory mucosa with chronic inflammation and nu merous eosinophils. Participated in interpretation: Dr. Newberry. Pager: [phone]. As the signing pathologist, I verify th at I have examined all relevant slides/materials for the speci men(s) and rendered or confirmed the diagnosis. 10/19/2015 11:59 Interpreted by: Darcy Steen M.D. [id number] Report electronically signed by Darcy Steen M.D. Transcribed by: latricia 10/18/2015 16:09:23 TISSUE DESCRIPTION: [id number] A. Received fresh labeled bilateral si nus contents is an 8 x 7 x 2.5 cm aggregate of red soft tissue and cartilage. All soft tissue is submitted. Founder / Ceo sections a re submitted for permanent sections only. Grossed by CDP. Part A: Bilateral sinus contents 1 Bilateral sinus contents 1 2 Bilateral sinus contents 2 3 Bilateral sinus contents 3 4 Bilateral sinus contents 4 5 Bilateral sinus contents 5 6 Bilateral sinus contents 6 XRSR Path Daphne Tatum M.D. LAB PATHOLOGY/CYTOLOGY ORDER MIGUEL Performing Organization Address City/State/ZIP Code Phon e Number [facility] - [address] [place], [place] [address] [facility] (ABNORMAL) Leukotriene E4, Urine (10/14/2015 10:00 AM CDT) [facility] gist Method Time Signature Leukotriene E4, 281 (H) <=104 [facility] U PG/MG CR [facility] - [facility] Comment: Mailed In Specimen ? Leukotriene E(4) [...] CDT 10:00 AM CDT Narrative [facility] - [facility] - 10/20/2015 9:04 AM CDT Mailed In Specimen Alber Chapa M.D., Ph.D. LAB URINE ORDERABLES Performing Organization Address City/State/ZIP Code Phon e Number [facility] - [address] [place], [place] [address] [facility] documented in this encounter Visit Diagnoses Not on filedocumented in this encounter
--- OUTSIDE RECORDS SUMMARY | 2021-11-02 10:55 | XMS_ITS | Encounter Summary ---
:1985 Author Organization [facility] Address [address] [place] [address] Care Team Providers Name Role Phone Unavailable Primary Care Provider Unavailable Encounter Details Date Type Department Care Team Description 12/13/2020 Clinical Department of Lázaro Sebastian Otorhinolaryngology in [place], [place] [phone] [address] [facility] (Work) [place] [address] Social History Tobacco Use Types Packs/Day [...] 02/18/2021 relatives? How often do you attend episcopalian or anabaptism Never 02/18/2021 services? Do you belong to any clubs or organizations such as No 02/18/2021 episcopalian groups, unions, fraternal or athletic groups, or [...] New slot. Thank you Telephone Encounter - Stella Sebastian - 12/13/2020 4:54 PM CDT This [...]
--- NOTE | 2021-11-02 11:00 | CRLHL7_ITS ---
For Patients: As a result of the Century Cures Act, medical imaging exams and procedure reports are released immediately into your electronic medical record. You may view this report before your referring provider. If you have questions, please contact your health care provider. INDICATION: Chronic hypertension. COMPARISON: OB ultrasound 10/28/2021. TECHNIQUE: Real time degroot scale imaging of the fetus was performed without non-stress testing. FINDINGS: Sonographic imaging demonstrates a single living intrauterine gestation. The fetus demonstrates a regular cardiac rate of 163 beats per minute. The fetus has a cephalic orientation. The placenta lies anteriorly. Amniotic fluid volume appears normal with single deepest pocket measuring 6.3 cm (2/2). The fetus was active (2/2). The fetus demonstrated normal breathing movements (2/2). There was normal flexion and extension of the trunk and extremities (2/2). IMPRESSION: Normal biophysical profile score 8 out of 8. Dictated by Florida Arellano MD @ 11/03/2021 1:42:13 AM (Electronically Signed)
== END 2021-11-02 10:52 | disposition home or self-care (01) ==
PROVIDERS: Visit Provider Obstetrics & Gynecology
DX: O10.919 Unspecified pre-existing hypertension complicating pregnancy, unspecified trimester (principal)
CPT/HCPCS: 76819

== ENCOUNTER 2021-11-09 12:13 | Outpatient (CLI) | payer BC, SELFPAY ==
--- NOTE | 2021-11-09 12:15 | CRLHL7_ITS ---
For Patients: As a result of the Century Cures Act, medical imaging exams and procedure reports are released immediately into your electronic medical record. You may view this report before your referring provider. If you have questions, please contact your health care provider. INDICATION: CHRONIC HYPERTENSION COMPARISON: 11/02/2021 TECHNIQUE: Real time degroot scale imaging of the fetus was performed. Without non-stress testing. FINDINGS: Sonographic imaging demonstrates a single living intrauterine gestation. Fetus demonstrates a regular cardiac rate of 131 beats per minute. Fetus has a vertex position. The amniotic fluid volume appears normal and there is a single deepest pocket measurement of 7.1 cm. The fetus was active and demonstrated normal breathing movements. There was normal flexion and extension of the trunk and extremities. IMPRESSION: Normal biophysical profile score of 8 out of 8. Dictated by Chago Gallardo MD @ 11/09/2021 1:30:31 PM (Electronically Signed)
--- OUTSIDE RECORDS SUMMARY | 2021-11-09 12:15 | XMS_ITS | Encounter Summary ---
:1985 Author Organization [facility] Address [address] [place] [address] Care Team Providers Name Role Phone Unavailable Primary Care Provider Unavailable Encounter Details Date Type Department Care Team Description 01/17/2021 Orders Only Department of [facility], Teresita Tena Otorhinolaryngology in [address] [place] [address] [place] [address] [place] [address] [phone] Social History Tobacco Use Types Packs/Day Years [...] How often do you attend cheondoism or cheondoism Never 02/18/2021 services? Do you belong to [...] or slept in a [facility] (including now)? Education Answer Date Recorded What is the highest level of school Associate degree: yanna abbb, 01/06/2021 you have completed or the highest technical, or vocational ingris butler degree you have received? Sex Assigned at Date Recorded Female 01/06/2021 8:49 AM CDT documented as of this encounter Plan of Treatment Not on filedocumented as of this encounter Visit Diagnoses Not on filedocumented in this encounter
--- OUTSIDE RECORDS SUMMARY | 2021-11-09 12:15 | XMS_ITS | Encounter Summary ---
:1985 Author Organization [facility] Address [address] [place] [address] Care Team Providers Name Role Phone Unavailable [...] How often do you attend taoism or sabianism Never 02/18/2021 services? Do you belong to [...]
--- OUTSIDE RECORDS SUMMARY | 2021-11-09 12:15 | XMS_ITS | Encounter Summary ---
:1985 Author Organization [facility] Address [address] [place] [address] Care Team Providers Name Role Phone Unavailable Primary Care Provider Unavailable Reason for Visit Auth/Cert Specialty Diagnoses / Procedures Referred By Contact Refer red To Contact Diagnoses Rhinosinusitis Chronic Rhinosinusitis Chronic [J32.8] Procedures PA ENDO NSL MAX ANTROST W RMV TIS PA NSL/SINS NDSC SPHN TISS RMVL PA NSL/SINS NDSC TOTAL PA ENDO NSL/SNS W ETHMDCTOMY PRTL PA STRTCTC COMP-ASSIST CRNL EXTRA PA SUBMUC RSECT TURB PRTL/COMPLT ENDOSCOPIC MAXILLARY ANTROST CHARLIE WITH TISSUE REMOVAL ENDOSCOPIC SPHENOIDOTOMY WITHOUT TISSUE REMOVAL SINUSOTOMY ENDOSCOPY FRONTAL -draft iib, possible draft iii ETHMOIDECTOMY ENDOSCOPY EXTRADURAL COMPUTER NAVIGATION - Proceed as indicated REDUCTION TURBINATE - middle turbinates , procee d as indicated Referral ID Status Reason Start Date Expiration Date Visits Requ ested Visits Authorized [id number] 1 1 Encounter Details Date Type Department Care Team Description 01/11/2021 Anesthesia Event RST ROMB MAIN OR Laz Young, [address] [place] [address] S[place], [place] [address] [address] [place] [address] [place] [address] (Wo rk) Anesthesia Record Procedure Summary Procedure [...] h andoff to the receiving staff during [facility] we 1. Identified the patient 2. [...] APRN, Schaffer, Jordan A, (created via procedure PIPE BUFFER R.N. documentation); Mask Ventilation: Easy mask; Type: [...] M ikaela A, Catheter Size: 20 G; PIPE BUFFER R.NXavier Orientation: Left; Location: Hand; Technique: Transillumination; Removal Date: 01/11/21; Removal Time: 1705; Removal Reason: Patient discharged (RETIRED) Incision 01/11/21; 1446; No; Nose; 01/11/21 1446 by 1223 by Bilateral; FESS; 02/04/21 Rula Bradley, [facility] (removed by background R.N. d, Edwige [...] How often do you attend protestant or confucianism Never 02/18/2021 services? Do you belong to [...] Procedure Summary Date: 01/11/21 Room / Location: [place] [address] / [facility] in [place], [place] Anesthesia Start: 1137 Anesthesia Stop: 1520 Procedures: ENDOSCOPIC MAXILLARY ANTROSTOMY, TISSUE REMOVAL. (Bilateral ) ENDOSCOPIC SPHENOIDOTOMY WITHOUT TISSUE REMOVAL. (Bilateral Nose) SINUSOTOMY ENDOSCOPY FRONTAL Draf IIb (Bilateral Nose) ETHMOIDECTOMY ENDOSCOPY. (Bilateral Nose) EXTRADURAL COMPUTER NAVIGATION, Proceed as indicated. (N/A ) Diagnosis: Rhinosinusitis Chronic (Rhinosinusitis Chronic [J32.8].) Providers: Dpahne Tatum M.D. Responsible Provider: Laz Young M.D. [...] Post Op nausea/vomiting: none Hydration status: euvolemic OR FINANCIAL REPORTING ANALYST Anesthesia Procedure Notes - Sirena Montejo APRN, CRNA - 01/11/2021 12:30 PM SENIOR FINANCIAL REPORTING ANALYST Associated Order(s): Airway Airway Date/Time: 01/11/2021 11:45 [...] successful Airway event: no complications ATTESTATION STATEMENT OR FINANCIAL REPORTING ANALYST Anesthesia Preprocedure Evaluation - Laz Young M.D. [...] [J32.8] Pre-op diagnosis: Rhinosinusitis Chronic [J32.8]. Location: [address] / [facility] in [place], [place] Providers: Daphne Tatum M.D. Pertinent components [...] with patient /legal guardian or through an rail car maintenance mechanic. The use of blood products not discussed Approval to Proceed: approved for anesthesia OR FINANCIAL REPORTING ANALYST documented in this encounter Plan of Treatment Not on filedocumented as of this encounter Procedures Procedure Name Priority Date/Time Associated Comments Diagnosis LDA ANE ENDOTRACHEAL Routine 01/11/2021 11:45 Res ults for this AIRWAY AM SENIOR FINANCIAL REPORTING ANALYST procedure are i n the results section. documented in this encounter Results LDA ANE ENDOTRACHEAL AIRWAY (01/11/2021 11:45 AM SENIOR FINANCIAL REPORTING ANALYST) Narrative Sirena Montejo APRN, CRNA - 01/11/2021 11:45 AM SENIOR FINANCIAL REPORTING ANALYST Sirena Montejo APRN, CRNA ? 01/11/2021 12:31 [...] Site acetaminophen injection Given 01/11/2021 2:16 PM SENIOR FINANCIAL REPORTING ANALYST 1,000 mg intravenous, Administer over 15 Minutes, As needed, Starting on Sun01/11/21 at 1416, Anesthesia Intra-op ceFAZolin injection (ANCEF) Given 01/11/2021 12:21 PM SENIOR FINANCIAL REPORTING ANALYST 2 g intravenous, As needed, Starting on Sun01/11/21 at 1221, Anesthesia Intra-op dexAMETHasone injection (DECADRON) Given 01/11/2021 11:49 AM SENIOR FINANCIAL REPORTING ANALYST 10 mg intravenous, As needed, Starting on Sun01/11/21 at 1149, Anesthesia Intra-op fentaNYL injection (SUBLIMAZE) Given 01/11/2021 1:56 PM SENIOR FINANCIAL REPORTING ANALYST 50 mcg intravenous, As needed, Starting on Sun01/11/21 at 1144, Anesthesia Intra-op Given 01/11/2021 1:41 PM SENIOR FINANCIAL REPORTING ANALYST 50 mcg Given 01/11/2021 1:01 PM SENIOR FINANCIAL REPORTING ANALYST 50 mcg labetalol injection (NORMODYNE,TRANDATE) Given 01/11/2021 2:27 PM SENIOR FINANCIAL REPORTING ANALYST 5 mg intravenous, As needed, Starting on Sun01/11/21 at 1359, Anesthesia Intra-op Given 01/11/2021 2:02 PM SENIOR FINANCIAL REPORTING ANALYST 5 mg Given 01/11/2021 1:59 PM SENIOR FINANCIAL REPORTING ANALYST 5 mg lactated ringers New Bag 01/11/2021 11:37 AM SENIOR FINANCIAL REPORTING ANALYST intravenous, Continuous Infusion: Per Instructions PRN, Starting on Sun01/11/21 at 1137, Anesthesia Intra-op lactated ringers New Bag 01/11/2021 11:47 AM SENIOR FINANCIAL REPORTING ANALYST intravenous, Continuous Infusion: Per Instructions PRN, Starting on Sun01/11/21 at 1147, Anesthesia Intra-op lidocaine (PF) (cardiac) injection Given 01/11/2021 11:44 AM SENIOR FINANCIAL REPORTING ANALYST 60 mg intravenous, As needed, Starting on Sun01/11/21 at 1144, Anesthesia Intra-op ondansetron (PF) injection (ZOFRAN) Given 01/11/2021 2:40 PM SENIOR FINANCIAL REPORTING ANALYST 4 mg intravenous, As needed, Starting on Sun01/11/21 at 1440, Anesthesia Intra-op propofol 10 mg/mL infusion Rate/Dose 01/11/2021 2:43 110 mcg/kg/min 74.514 (DIPRIVAN) Change PM SENIOR FINANCIAL REPORTING ANALYST mL/hr intravenous, Continuous Infusion: Per Instructions PRN, Starting on Sun01/11/21 at 1144, Anesthesia Intra-op Rate/Dose Change 01/11/2021 2:39 PM SENIOR FINANCIAL REPORTING ANALYST 125 mcg/kg/min 84.675 mL/hr New Bag 01/11/2021 2:27 PM SENIOR FINANCIAL REPORTING ANALYST 150 mcg/kg/min 101.61 mL/hr propofoL injection (DIPRIVAN) Given 01/11/2021 11:56 AM SENIOR FINANCIAL REPORTING ANALYST 50 mg intravenous, As needed, Starting on Sun01/11/21 at 1144, Anesthesia Intra-op Given 01/11/2021 11:44 AM SENIOR FINANCIAL REPORTING ANALYST 200 mg remifentaniL 20 mcg/mL in Rate/Dose 01/11/2021 2:10 0.1 mcg/kg/min 3 3.87 NaCl 0.9% 100 mL infusion Change PM SENIOR FINANCIAL REPORTING ANALYST mL/hr (ULTIVA) intravenous, Continuous Infusion: Per Instructions PRN, Starting on Sun01/11/21 at 1144, Anesthesia Intra-op Rate/Dose Change 01/11/2021 1:53 PM SENIOR FINANCIAL REPORTING ANALYST 0.1 mcg/kg/min 33.87 mL/hr Rate/Dose Change 01/11/2021 12:03 PM SENIOR FINANCIAL REPORTING ANALYST 0.2 mcg/kg/min 67.74 mL/hr scopolamine base 1 mg over 3 days Given 01/11/2021 12:00 PM SENIOR FINANCIAL REPORTING ANALYST 1 patch (TRANSDERM SCOP) transdermal, Administer over 72 Hours, As needed, Starting on Sun01/11/21 at 1200, Anesthesia Intra-op succinylcholine (PF) injection (ANECTINE ) Given 01/11/2021 11:44 AM SENIOR FINANCIAL REPORTING ANALYST 100 mg intravenous, As needed, Starting on Sun01/11/21 at 1144, Anesthesia Intra-op documented in this encounter
--- OUTSIDE RECORDS SUMMARY | 2021-11-09 12:15 | XMS_ITS | Encounter Summary ---
:1985 Author Organization [facility] Address [address] [place] [address] Care Team Providers Name Role Phone Unavailable [...] How often do you attend mormonism or religion Never 02/18/2021 services? Do you belong to [...] or slept in a long-term (including now)? Education Answer Date Recorded What [...] 02/18/2021 11:40 Results for this EXAM AM COMPUTER FORWARDING SYSTEM MARKUP CLERK procedure are i n the results section. documented in this encounter Results NOSE-Otorhinolaryngology Image Exam (02/18/2021 11:40 AM COMPUTER FORWARDING SYSTEM MARKUP CLERK) Specimen (Source) Anatomical Collection Method Collection Time Re ceived Time Location / / Volume Laterality 02/18/2021 11:36 AM COMPUTER FORWARDING SYSTEM MARKUP CLERK Narrative [facility] - 02/18/2021 11:40 AM COMPUTER FORWARDING SYSTEM MARKUP CLERK This order has been created and auto-finalized [...]
--- OUTSIDE RECORDS SUMMARY | 2021-11-09 12:15 | XMS_ITS | Encounter Summary ---
:1985 Author Organization [facility] Address [address] [place] [address] Care Team Providers Name Role Phone Unavailable Primary Care Provider Unavailable Reason for Visit Outpatient (Routine) - Closed Specialty Diagnoses / Procedures Referred By Contact Refer red To Contact Otorhinolaryngology Daphne Tatum [place] M.D. [address] [place] [address] Referral ID Status Reason Start Date Expiration Date Visits Requ ested Visits Authorized [id number] Closed 01/21/2021 01/21/2022 1 1 Encounter Details Date Type Department Care Team Description 02/18/2021 Office Visit Department of Rc, Rhinosinusitis Chronic (Primary Dx); Otorhinolaryngology in [place]aphne Blair, Polyp Nasal; [place], [place] Sung Aspirin Reaction Nasal Polyps Asthma [address] [facility] [address] [place] [address] [place], [place] [phone] [address] Social History Tobacco Use Types Packs/Day Years [...] How often do you attend islam or mu-ism Never 02/18/2021 services? Do you belong to [...] a [place] [facility] (including now)? Education Answer Date Recorded What [...] procedure well and there were no complications. [place]-[facility] Endoscopic Scoring System Right Side Left Side [...] recently putting a real tree up for [place] and has noticed increasing nasal congestion. On [...] become . Sanjeev Thakur APRN, C.N.P., M.S.N. O ADMINISTRATOR Associated attestation - Daphne Tatum M.D. - 02/20/2021 5:37 PM CISCO ADMINISTRATOR I saw the patient with Sanjeev Thakur C.N.P. and agree with her findings, assessment, and plan. Daphne Tatum M.D. documented in this encounter Plan of Treatment Not on filedocumented as of this encounter Visit Diagnoses Diagnosis Rhinosinusitis Chronic - Primary Polyp Nasal Aspirin Reaction Nasal Polyps Asthma documented in this encounter
--- OUTSIDE RECORDS SUMMARY | 2021-11-09 12:15 | XMS_ITS | Encounter Summary ---
:1985 Author Organization [facility] Address [address] [place] [address] Care Team Providers Name Role Phone Unavailable [...] How often do you attend religious or advent Never 02/18/2021 services? Do you [...] place to sleep or slept in a [facility] (including now)? Education Answer Date Recorded What [...] 01/11/2021 12:10 Results for this EXAM AM HARDWARE TECHNICIAN procedure are i n the results section. documented in this encounter Results AIRWAY-Otorhinolaryngology Image Exam (01/11/2021 12:10 AM HARDWARE TECHNICIAN) Specimen (Source) Anatomical Location Collection Method / Collectio n Time Received Time / Laterality Volume Narrative [facility]IMS - 01/11/2021 2:55 PM HARDWARE TECHNICIAN This order has been created and auto-finalized [...]
--- OUTSIDE RECORDS SUMMARY | 2021-11-09 12:15 | XMS_ITS | Encounter Summary ---
:1985 Author Organization [facility] Address [address] [place] [address] Care Team Providers Name Role Phone Unavailable Primary Care Provider Unavailable Reason for Visit Auth/Cert Specialty Diagnoses / Procedures Referred By Contact Refer red To Contact Diagnoses Rhinosinusitis Chronic Rhinosinusitis Chronic [J32.8] Procedures AZ ENDO NSL MAX ANTROST W RMV TIS AZ NSL/SINS NDSC SPHN TISS RMVL AZ NSL/SINS NDSC TOTAL AZ ENDO NSL/SNS W ETHMDCTOMY PRTL AZ STRTCTC COMP-ASSIST CRNL EXTRA AZ SUBMUC RSECT TURB PRTL/COMPLT ENDOSCOPIC MAXILLARY ANTROST CHARLIE WITH TISSUE REMOVAL ENDOSCOPIC SPHENOIDOTOMY WITHOUT TISSUE REMOVAL SINUSOTOMY ENDOSCOPY FRONTAL -draft iib, possible draft iii ETHMOIDECTOMY ENDOSCOPY EXTRADURAL COMPUTER NAVIGATION - Proceed as indicated REDUCTION TURBINATE - middle turbinates , procee d as indicated Referral ID Status Reason Start Date Expiration Date Visits Requ ested Visits Authorized [id number] 1 1 Encounter Details Date Type Department Care Team Description 01/11/2021 Hospital Encounter RST ROMB MAIN OR Rc, Rhinosinusitis Chronic [address] [facility] Daphne Blair M.D. [place], [place] [address] [place] [address] [place], [place] [phone] Social History Tobacco Use Types Packs/Day Years [...] 02/18/2021 relatives? How often do you attend baptism or mormon Never 02/18/2021 services? Do you belong to any clubs or organizations such as No 02/18/2021 baptism groups, unions, fraternal or athletic groups, or [...] Comments Blood Pressure 130/89 01/11/2021 5:00 PM MAGAZINE SUPERVISOR Pulse 77 01/11/2021 5:05 PM MAGAZINE SUPERVISOR Temperature 36.8 ??C (98.2 ??F) 01/11/2021 5:00 PM MAGAZINE SUPERVISOR Respiratory Rate 16 01/11/2021 5:00 PM MAGAZINE SUPERVISOR Oxygen Saturation 95% 01/11/2021 5:05 PM MAGAZINE SUPERVISOR Inhaled Oxygen Concentration - - Weight 113 kg (248 lb 14.4 oz) 01/11/2021 10:10 AM MAGAZINE SUPERVISOR Height 167.6 cm (5' 6) 01/11/2021 10:10 AM MAGAZINE SUPERVISOR Body Mass Index 40.17 01/11/2021 10:10 AM MAGAZINE SUPERVISOR documented in this encounter Discharge Instructions Discharge [...] or pain not relieved by pain medication. ZINE SUPERVISOR documented in this encounter Medications at Time [...] PACU in stable condition. Mary Lema M.D. ZINE SUPERVISOR documented in this encounter Miscellaneous Notes Result Encounter Note - Daphne Tatum M.D. - 01/21/2021 8:27 AM MAGAZINE SUPERVISOR I have reviewed the final pathology report and the identified diagnosis is consistent with the patient's clinical presentation. ZINE SUPERVISOR Result Encounter Note - Mary Lema M.D. - 01/19/2021 10:38 PM CST I have reviewed the final pathology report and the identified diagnosis is consistent with the patient's clinical presentation. ZINE SUPERVISOR documented in this encounter Plan of Treatment Not on filedocumented as of this encounter Procedures Procedure Name Priority Date/Time Associated Diagnosis Comme nts SURGICAL PATHOLOGY, Routine 01/11/2021 12:45 Rhinosinusitis Ch ronic Results for this [facility] PM MAGAZINE SUPERVISOR procedure are i n the results section. EXTRADURAL COMPUTER 01/11/2021 11:15 Rhinosinusitis Ch ronic NAVIGATION AM MAGAZINE SUPERVISOR Case Notes VETERINARY SURGEON 958 ETHMOIDECTOMY ENDOSCOPY 01/11/2021 11:15 AM MAGAZINE SUPERVISOR Rhinos inusitis Chronic Case Notes VETERINARY SURGEON 958 SINUSOTOMY ENDOSCOPY FRONTAL 01/11/2021 11:15 AM MAGAZINE SUPERVISOR R hinosinusitis Chronic Case Notes VETERINARY SURGEON 958 ENDOSCOPIC SPHENOIDOTOMY WITHOUT 01/11/2021 11:1 5 AM MAGAZINE SUPERVISOR Rhinosinusitis Chronic TISSUE REMOVAL Case Notes VETERINARY SURGEON 958 ENDOSCOPIC MAXILLARY ANTROSTOMY 01/11/2021 11:15 AM CS T Rhinosinusitis Chronic WITH TISSUE REMOVAL Case Notes VETERINARY SURGEON 958 documented in this encounter Results Surgical Pathology, Frozen Lab (01/11/2021 12:45 PM MAGAZINE SUPERVISOR) Component Value Ref Test Analysis Performed Pathologis t Range Method Time At Signature 01/18/2021 STMA 5:37 AM MAGAZINE SUPERVISOR Participated in Grant Jones 01/18/2021 Jen -Pathology 5:37 AM MAGAZINE SUPERVISOR Interpretation Resident Report Daniel Cuevas M.D. [id number] STMA electronically 5:37 AM MAGAZINE SUPERVISOR signed by I verify that I have examined all relevant slides/materials for the specimen(s) and rendered or confirmed the diagnosis. Gross Description A. ??Received fresh labeled left sinonasal vin nts is a 01/18/2021 STMA 7.4 x 5.1 x 0.9 cm aggregate of reed-red soft tissue. ??All 5:37 AM MAGAZINE SUPERVISOR submitted for permanent sections. ??Grossed by SSF. [...] A1 Left sinonasal contents 1 5:37 AM MAGAZINE SUPERVISOR A2 Left sinonasal contents 2 A3 Left [...] negative (Block 01/19/2021 STMA A3). 10:02 PM MAGAZINE SUPERVISOR Signed by Daniel Cuevas M.D. [id number] 01/19/2021 10:02 PM Comment: REVISED RESULTS Interpretation FINAL DIAGNOSIS 01/19/2021 10:02 PM MAGAZINE SUPERVISOR STMA A. ??Sinonasal contents, left, excision: ??Sinonasal [...] Volume Laterality Tissue (Nose) 01/11/2021 12:45 PM MAGAZINE SUPERVISOR Tissue (Nose) 01/11/2021 12:53 PM MAGAZINE SUPERVISOR Tissue (Nose) 01/11/2021 2:38 PM MAGAZINE SUPERVISOR Narrative This result has an attachment that is no t available. Daphne Tatum M.D. LAB SURG PATH ORDERABLES Performing Organization Address City/State/ZIP Code Phon e Number [facility] [address] [place], [place] [address] [place] [address] [facility] [address] documented in this encounter Visit Diagnoses Diagnosis Rhinosinusitis Chronic - Primary documented in this encounter Admitting Diagnoses Diagnosis Rhinosinusitis Chronic documented in this encounter Administered Medications Inactive Administered Medications - up to 3 most recent administrations Medication Order MAR Action Action Date Dose Rate Site fentaNYL injection 25 mcg Given 01/11/2021 3:28 PM MAGAZINE SUPERVISOR 25 mcg (SUBLIMAZE) 25 mcg, intravenous, Every 2 min PRN, moderate pain or score 4-6 of 10, severe pain or score 7-10 of 10, Starting on Sun01/11/21 at 1031, PACU (only), Up to maximum total dose of 100 mcg Given 01/11/2021 3:22 PM MAGAZINE SUPERVISOR 25 mcg metoprolol tablet 12.5 mg (LOPRESSOR) [...] 10 mg (ROXICODONE) Given 01/11/2021 3:37 PM MAGAZINE SUPERVISOR 10 mg 10 mg, oral, Every 4 [...] may contain times in both CDT and MAGAZINE SUPERVISOR. Scheduled Medication Order 01/09/2021 01/10/2021 01/11/2021 acetaminophen [...]
--- OUTSIDE RECORDS SUMMARY | 2021-11-09 12:15 | XMS_ITS | Encounter Summary ---
:1985 Author Organization [facility] Address [address] [place] [address] Care Team Providers Name Role Phone Unavailable Primary Care Provider Unavailable Encounter Details Date Type Department Care Team Description 01/08/2021 Hospital Encounter Department of Daphne Tatum Cont act With And (Suspected) Exposure To COVID-19; Laboratory Medicine Sung Blair Preprocedural Lab Exam in [place], [address] [place] [address] [place] [address] [place], [place] [phone] (Work) [phone] Social History Tobacco Use Types Packs/Day Years [...] 02/18/2021 relatives? How often do you attend orthodoxy or amish Never 02/18/2021 services? Do you belong to any clubs or organizations such as No 02/18/2021 orthodoxy groups, unions, fraternal or athletic groups, or [...] or the highest technical, or vocational p luek degree you have received? Sex Assigned at [...] RNA, V Asymptomatic (01/08/2021 10:58 AM CDT) [facility] Method Time Signature SARS-CoV-2 Swab, 01/08/2021 MKTO [...] pe rformed using the Aptima SARS-CoV-2 assay ([employer] on the Benesights tem under emergency use authorization (EUA) by the U.S. Food and Drug Administ ration. Fact sheets for this EUA assay can be fo und at the following links: For Healthcare Providers: https://www.fd a.gov/media/589351/download For Patients: https://www.fda.gov/media/ 277219/download Specimen Anatomical Collection Method Collection Time Receive d Time (Source) Location / / Volume Laterality Varies 01/08/2021 10:58 01/08/2021 5:03 (Nasopharynx) AM CDT PM CDT Daphne Tatum M.D. LAB MICROBIOLOGY - GENERAL O RDERABLES Performing Organization Address City/State/ZIP Code Phon e Number [facility]- [address] [place] [phone] [place] [address] [place] [address] System [address] documented in this encounter Visit Diagnoses Diagnosis Contact With And (Suspected) Exposure To COVID-19 Preprocedural Lab Exam documented in this encounter Additional Health Concerns Infection Onset Date Last Indicated Resolved Time COVID19 Pending 01/08/2021 01/08/2021 01/08/2021 11:18 PM CDT documented as of this encounter
--- OUTSIDE RECORDS SUMMARY | 2021-11-09 12:15 | XMS_ITS | Encounter Summary ---
:1985 Author Organization [facility] Address [address] [place] [address] Care Team Providers Name Role Phone Unavailable Primary Care Provider Unavailable Reason for Visit Auth/Cert Specialty Diagnoses / Procedures Referred By Contact Refer red To Contact Diagnoses Rhinosinusitis Chronic Rhinosinusitis Chronic [J32.8] Procedures NC ENDO NSL MAX ANTROST W RMV TIS NC NSL/SINS NDSC SPHN TISS RMVL NC NSL/SINS NDSC TOTAL NC ENDO NSL/SNS W ETHMDCTOMY PRTL NC STRTCTC COMP-ASSIST CRNL EXTRA NC SUBMUC RSECT TURB PRTL/COMPLT ENDOSCOPIC MAXILLARY ANTROST CHARLIE WITH TISSUE REMOVAL ENDOSCOPIC SPHENOIDOTOMY WITHOUT TISSUE REMOVAL SINUSOTOMY ENDOSCOPY FRONTAL -draft iib, possible draft iii ETHMOIDECTOMY ENDOSCOPY EXTRADURAL COMPUTER NAVIGATION - Proceed as indicated REDUCTION TURBINATE - middle turbinates , procee d as indicated Referral ID Status Reason Start Date Expiration Date Visits Requ ested Visits Authorized [id number] 1 1 Encounter Details Date Type Department Care Team Description 01/11/2021 Surgery RST ROMB MAIN OR Daphne Tatum, ENDOSCOPIC MAXILLARY 1216 [facility] M.DXavier ANTROSTOMY, TISSUE [place], [place] 200 [facility] REMOVAL. [address] [place], [place] [phone] (Wo rk) Social History Tobacco Use Types [...] How often do you attend denominational or mosque Never 02/18/2021 services? Do you belong to [...] or the highest technical, or vocational p [facility] degree you have received? Sex Assigned at Date Recorded Female 01/06/2021 8:49 AM CDT documented as of this encounter Last Filed Vital Signs Vital Sign Reading Time Taken Comments Blood Pressure 124/85 01/11/2021 3:30 PM PROCESS SAFETY ENGINEERING TECHNOLOGIST Pulse 78 01/11/2021 3:55 PM PROCESS SAFETY ENGINEERING TECHNOLOGIST Temperature 36.8 ??C (98.2 ??F) 01/11/2021 3:20 PM PROCESS SAFETY ENGINEERING TECHNOLOGIST Respiratory Rate 14 01/11/2021 3:40 PM PROCESS SAFETY ENGINEERING TECHNOLOGIST Oxygen Saturation 95% 01/11/2021 3:55 PM PROCESS SAFETY ENGINEERING TECHNOLOGIST Inhaled Oxygen Concentration - - Weight 113 kg (248 lb 14.4 oz) 01/11/2021 10:10 AM PROCESS SAFETY ENGINEERING TECHNOLOGIST Height 167.6 cm (5' 6) 01/11/2021 10:10 AM PROCESS SAFETY ENGINEERING TECHNOLOGIST Body Mass Index 40.17 01/11/2021 10:10 AM PROCESS SAFETY ENGINEERING TECHNOLOGIST documented in this encounter Discharge Instructions Discharge [...] or pain not relieved by pain medication. ESS SAFETY ENGINEERING TECHNOLOGIST documented in this encounter Medications at Time [...] PACU in stable condition. Mary Lema M.D. ESS SAFETY ENGINEERING TECHNOLOGIST documented in this encounter Miscellaneous Notes Result Encounter Note - Daphne Tatum M.D. - 01/21/2021 8:27 AM PROCESS SAFETY ENGINEERING TECHNOLOGIST I have reviewed the final pathology report and the identified diagnosis is consistent with the patient's clinical presentation. ESS SAFETY ENGINEERING TECHNOLOGIST Result Encounter Note - Mary Lema M.D. - 01/19/2021 10:38 PM CST I have reviewed the final pathology report and the identified diagnosis is consistent with the patient's clinical presentation. ESS SAFETY ENGINEERING TECHNOLOGIST documented in this encounter Plan of Treatment Not on filedocumented as of this encounter Procedures Procedure Name Priority Date/Time Associated Diagnosis Comme nts SURGICAL PATHOLOGY, Routine 01/11/2021 12:45 Rhinosinusitis Ch ronic Results for this [facility] PM PROCESS SAFETY ENGINEERING TECHNOLOGIST procedure are i n the results section. EXTRADURAL COMPUTER 01/11/2021 11:15 Rhinosinusitis Ch ronic NAVIGATION AM PROCESS SAFETY ENGINEERING TECHNOLOGIST Case Notes GLASS BLOCK BENDER 958 ETHMOIDECTOMY ENDOSCOPY 01/11/2021 11:15 AM PROCESS SAFETY ENGINEERING TECHNOLOGIST Rhinos inusitis Chronic Case Notes GLASS BLOCK BENDER 958 SINUSOTOMY ENDOSCOPY FRONTAL 01/11/2021 11:15 AM PROCESS SAFETY ENGINEERING TECHNOLOGIST R hinosinusitis Chronic Case Notes GLASS BLOCK BENDER 958 ENDOSCOPIC SPHENOIDOTOMY WITHOUT 01/11/2021 11:1 5 AM PROCESS SAFETY ENGINEERING TECHNOLOGIST Rhinosinusitis Chronic TISSUE REMOVAL Case Notes GLASS BLOCK BENDER 958 ENDOSCOPIC MAXILLARY ANTROSTOMY 01/11/2021 11:15 AM CS T Rhinosinusitis Chronic WITH TISSUE REMOVAL Case Notes GLASS BLOCK BENDER 958 documented in this encounter Results Surgical Pathology, Frozen Lab (01/11/2021 12:45 PM PROCESS SAFETY ENGINEERING TECHNOLOGIST) Component Value Ref Test Analysis Performed Pathologis t Range Method Time At [facility] PROCESS SAFETY ENGINEERING TECHNOLOGIST Lavinia in [place] 01/18/2021 [facility] the M.D. -Pathology 5:37 AM PROCESS SAFETY ENGINEERING TECHNOLOGIST Interpretation Resident Report Daniel Cuevas M.D. [id number] [facility] electronically 5:37 AM PROCESS SAFETY ENGINEERING TECHNOLOGIST signed by I verify that I have examined all relevant slides/materials for the specimen(s) and rendered or confirmed the diagnosis. Gross Description A. ??Received fresh labeled left sinonasal vin nts is a 01/18/2021 [facility] 7.4 x 5.1 x 0.9 cm aggregate of reed-red soft tissue. ??All 5:37 AM PROCESS SAFETY ENGINEERING TECHNOLOGIST submitted for permanent sections. ??Grossed by SSF. [...] A1 Left sinonasal contents 1 5:37 AM PROCESS SAFETY ENGINEERING TECHNOLOGIST A2 Left sinonasal contents 2 A3 Left [...] negative (Block 01/19/2021 [facility] A3). 10:02 PM PROCESS SAFETY ENGINEERING TECHNOLOGIST Signed by Daniel Cuevas M.D. [id number] 01/19/2021 10:02 PM Comment: REVISED RESULTS Interpretation FINAL DIAGNOSIS 01/19/2021 10:02 PM PROCESS SAFETY ENGINEERING TECHNOLOGIST [facility] A. ??Sinonasal contents, left, excision: ??Sinonasal [...] Volume Laterality Tissue (Nose) 01/11/2021 12:45 PM PROCESS SAFETY ENGINEERING TECHNOLOGIST Tissue (Nose) 01/11/2021 12:53 PM PROCESS SAFETY ENGINEERING TECHNOLOGIST Tissue (Nose) 01/11/2021 2:38 PM PROCESS SAFETY ENGINEERING TECHNOLOGIST Narrative This result has an attachment that is no t available. Daphne Tatum M.D. LAB SURG PATH ORDERABLES Performing Organization Address City/State/ZIP Code Phon e Number [facility] - [address] [place], [place] [address] [place] [address] [facility] [address] documented in [...] 12:25 1 application Bilateral Nares solution PM PROCESS SAFETY ENGINEERING TECHNOLOGIST As needed, Starting on Sun01/11/21 at 1225, Intra-Op fentaNYL injection 25 mcg (SUBLIMAZE) Given 01/11/2021 3:28 PM PROCESS SAFETY ENGINEERING TECHNOLOGIST 25 mcg 25 mcg, intravenous, Every 2 min PRN, moderate pain or score 4-6 of 10, severe pain or score 7-10 of 10, Starting on Sun01/11/21 at 1031, PACU (only), Up to maximum total dose of 100 mcg Given 01/11/2021 3:22 PM PROCESS SAFETY ENGINEERING TECHNOLOGIST 25 mcg lidocaine-EPINEPHrine 1 Given 01/11/2021 12:24 PM 4 mL Bilateral Nares %-1:100,000 injection (XYLOCAINE PROCESS SAFETY ENGINEERING TECHNOLOGIST W/EPI) As needed, Starting on Sun01/11/21 at [...] 10 mg (ROXICODONE) Given 01/11/2021 3:37 PM PROCESS SAFETY ENGINEERING TECHNOLOGIST 10 mg 10 mg, oral, Every 4 [...] 1 application Bilateral Nares nasal spray (AFRIN) PROCESS SAFETY ENGINEERING TECHNOLOGIST As needed, Starting on Sun01/11/21 at 1210, [...] may contain times in both CDT and PROCESS SAFETY ENGINEERING TECHNOLOGIST. Scheduled Medication Order 01/09/2021 01/10/2021 01/11/2021 acetaminophen [...]
--- OUTSIDE RECORDS SUMMARY | 2021-11-09 12:15 | XMS_ITS | Clinical Summary ---
:1985 Author Organization [facility] Address [address] [place] [address] Care Team Providers Name Role Phone Unavailable Primary Care Provider Unavailable Source Comments Patient records contain information from all sites at [facility]. For routine questions regarding patient records, call [phone] during business hours, M-F 8:00 AM - 5:00 PM Central Time. Record requests for emergency care only can be directed to [phone] at any time.[facility] Allergies Active Allergy Reactions Severity Noted [...] Added automatically from request for chandler haskins [id number] Aspirin Reaction Nasal Polyps Asthma 09/24/2015 Asthma [...] How often do you attend scientology or zoroastrianism Never 02/18/2021 services? Do you [...] or slept in a fdc (including now)? Education Answer Date Recorded What is the highest level of school Associate degree: yanna babb, 01/06/2021 you have completed or the highest technical, or vocational p rogram degree you have received? Sex Assigned at Date Recorded Female 01/06/2021 8:49 AM CDT Last Filed Vital Signs Vital Sign Reading Time Taken Comments Blood Pressure 130/89 01/11/2021 5:00 PM WORKERS COMPENSATION ADMINISTRATOR Pulse 77 01/11/2021 5:05 PM WORKERS COMPENSATION ADMINISTRATOR Temperature 36.8 ??C (98.2 ??F) 01/11/2021 5:00 PM WORKERS COMPENSATION ADMINISTRATOR Respiratory Rate 16 01/11/2021 5:00 PM WORKERS COMPENSATION ADMINISTRATOR Oxygen Saturation 95% 01/11/2021 5:05 PM WORKERS COMPENSATION ADMINISTRATOR Inhaled Oxygen Concentration - - Weight 113 kg (248 lb 14.4 oz) 01/11/2021 10:10 AM WORKERS COMPENSATION ADMINISTRATOR Height 167.6 cm (5' 6) 01/11/2021 10:10 AM WORKERS COMPENSATION ADMINISTRATOR Body Mass Index 40.17 01/11/2021 10:10 AM WORKERS COMPENSATION ADMINISTRATOR Plan of Treatment Health Maintenance Due Date [...] 04/13/2020, 03/23/2020 Medical Devices Implanted Type Area Sign Language Instructor Device Shelf Model / Identifier Expiration Serial / Date Lot Stent Sinus Propel Regular - [id number] Stent Other/Legacy - Int ersect Ent Implanted: Qty: 1 on 10/14/2015 Other [employer] Description Description: Device Sign Language Instructor - Inter sect Ent. Body Location - Other. Left. Device Status Text - [id number]. Insurance Payer Benefit Plan Subscriber ID Effective Phone Address Typ e / Group Dates BLUE CROSS BCBS BLUE [id number] 2018-Prese ATTN: William gallardo HMO BLUE SHIELD PLUS HMO nt [facility] [address] [address] [place] [address]
--- OUTSIDE RECORDS SUMMARY | 2021-11-09 12:15 | XMS_ITS | Encounter Summary ---
:1985 Author Organization [facility] Address [address] [place] [address] Care Team Providers Name Role Phone Unavailable Primary Care Provider Unavailable Reason for Referral Outpatient (Routine) - Closed Specialty Diagnoses / Procedures Referred By Contact Refer red To Contact Otorhinolaryngology Daphne Tatum [place] M.D. [address] [place] [phone] Referral ID Status Reason Start Date Expiration Date Visits Requ ested Visits Authorized [id number] Closed 01/21/2021 01/21/2022 1 1 Scheduling Instructions - in afternoon, or 02/22 v ideo slot. ER TRIMMER HAND Reason for Visit Outpatient (Routine) - Closed Specialty Diagnoses / Procedures Referred By Contact Refer red To Contact Otorhinolaryngology Daphne Tatum [place] M.D. [address] [place] [phone] Referral ID Status Reason Start Date Expiration Date Visits Requ ested Visits Authorized [id number] Closed 01/06/2021 01/06/2022 1 1 Encounter Details Date Type Department Care Team Description 01/21/2021 Office Visit Department of Paola Tatum on Otorhinolaryngology in Daphne Blair M.D. Nasal Polyps Asthma [place], [place] [address] [place] [address] (Primary Dx) [address] [place] [phone] Social History Tobacco Use Types Packs/Day Years [...] 02/18/2021 relatives? How often do you attend uatsdin or latter day Never 02/18/2021 services? Do you belong to any clubs or organizations such as No 02/18/2021 uatsdin groups, unions, fraternal or athletic groups, or [...] slept in a skilled nursing (including now)? Education Answer Date Recorded What [...] Crusting Mild = 1 Mild = 1 Wall-Woody Endoscopy Score = 6 ASSESSMENT / PLAN [...] but she can stop the mupirocin. Procedures ER TRIMMER HAND Associated attestation - Daphne Tatum M.D. - 01/21/2021 2:57 PM ZIPPER TRIMMER HAND I saw and evaluated the patient, participating [...]
--- OUTSIDE RECORDS SUMMARY | 2021-11-09 12:15 | XMS_ITS | Encounter Summary ---
:1985 Author Organization [facility] Address [address] [place] [address] Care Team Providers Name Role Phone Unavailable Primary Care Provider Unavailable Reason for Visit Reason Comments Reschedule Post Op Appointment Encounter Details Date Type Department Care Team Description 01/19/2021 Clinical Department of Bety Tatum Pos t Communication Otorhinolaryngology in [place], [place] [address] [facility] [address] [place] [address] [place], [place] [phone] Social History Tobacco Use Types Packs/Day Years [...] How often do you attend scientology or mandaen Never 02/18/2021 services? Do you belong to [...] Sunday afternoon as he is driving her. AND LINK SHOP SUPERVISOR Telephone Encounter - Xiomy Horner - 01/19/2021 12:22 PM CST Ms. Odonnell returned your call. You can reach her this afternoon at [phone]. AND LINK SHOP SUPERVISOR Telephone Encounter - Maciel Watts - 01/19/2021 10:37 AM CST I called Ms. Odonnell today because Dr. Tatum has been called away unexpectedly. Dr. Tatum would like to see her on January 21 in the afternoon at the [facility] procedure room. Ms. Odonnell did not answer so I left a message for her to call me back. Thank you, Maciel AND LINK SHOP SUPERVISOR documented in this encounter Plan of Treatment Not on filedocumented as of this encounter Visit Diagnoses Not on filedocumented in this encounter
--- OUTSIDE RECORDS SUMMARY | 2021-11-09 12:15 | XMS_ITS | Encounter Summary ---
:1985 Author Organization [facility] Address [address] [place] [address] Care Team Providers Name Role Phone Unavailable [...] How often do you attend episcopal or latter day Never 02/18/2021 services? Do [...] slept in a senior living (including now)? Education Answer Date Recorded What [...] 01/21/2021 2:48 Results for this EXAM PM MEDIATION COMMISSIONER procedure are i n the results section. documented in this encounter Results NASAL-Otorhinolaryngology Image Exam (01/21/2021 2:48 PM MEDIATION COMMISSIONER) Specimen (Source) Anatomical Collection Method Collection Time Re ceived Time Location / / Volume Laterality 01/21/2021 4:08 PM MEDIATION COMMISSIONER Narrative [facility] - 01/21/2021 2:48 PM MEDIATION COMMISSIONER This order has been created and auto-finalized [...]
--- OUTSIDE RECORDS SUMMARY | 2021-11-09 12:16 | XMS_ITS | Encounter Summary ---
:1985 Author Organization [facility] Address [address] [place] [address] Care Team Providers Name Role Phone Unavailable Primary Care Provider Unavailable Reason for Visit Reason Comments Med Refill Encounter Details Date Type Department Care Team Description 12/03/2017 Refill Department of Otorhinolaryngology Ashley Victor, Med Refill in [facility] jorge HOFFMAN C.N.P., M.S.N. [address] [place] [address] [address] [place] [address] [place], [place] [phone] (Wo rk) Social History Tobacco Use Types [...] 02/18/2021 relatives? How often do you attend spiritism or congregation Never 02/18/2021 services? Do you belong to any clubs or organizations such as No 02/18/2021 spiritism groups, unions, fraternal or athletic groups, or [...] or slept in a retirement (including now)? Sex Assigned at Date Recorded [...]
--- OUTSIDE RECORDS SUMMARY | 2021-11-09 12:16 | XMS_ITS | Encounter Summary ---
:1985 Author Organization [facility] Address [address] [place] [address] Care Team Providers Name Role Phone Unavailable Primary Care Provider Unavailable Reason for Referral MRI/CAT/PET Scan (Routine) - Closed Specialty Diagnoses / Procedures Referred By Contact Refer red To Contact Radiology Diagnoses Aspirin Reaction Nasal Polyps Asthma Mary Lema M.D. [facility] Procedures CT Sinuses without IV Contrast [address] [place] [address] Referral ID Status Reason Start Date Expiration Date Visits Requ ested Visits Authorized [id number] Closed 12/13/2020 12/13/2021 1 1 Encounter Details Date Type Department Care Team Description 12/13/2020 Orders Only Department of Mary Lema Aspirin React ion Otorhinolaryngology in [place] Nasal Polyps Asthma [place], [place] [address] [facility] (Primary Dx) [address] [place] [phone] Social History Tobacco Use Types Packs/Day Years [...] How often do you attend mosque or yazidism Never 02/18/2021 services? Do you belong to [...] or slept in a intermediate (including now)? Sex Assigned at Date Recorded [...]
--- OUTSIDE RECORDS SUMMARY | 2021-11-09 12:16 | XMS_ITS | Encounter Summary ---
:1985 Author Organization [facility] Address [address] [place] [address] Care Team Providers Name Role Phone Unavailable [...] 02/18/2021 relatives? How often do you attend quaker or adventism Never 02/18/2021 services? Do you belong to any clubs or organizations such as No 02/18/2021 quaker groups, unions, fraternal or athletic groups, or [...]
--- OUTSIDE RECORDS SUMMARY | 2021-11-09 12:16 | XMS_ITS | Encounter Summary ---
:1985 Author Organization [facility] Address [address] [place] [address] Care Team Providers Name Role Phone Unavailable [...] 02/18/2021 relatives? How often do you attend holiness or mandaeism Never 02/18/2021 services? Do you belong to any clubs or organizations such as No 02/18/2021 holiness groups, unions, fraternal or athletic groups, or [...]
--- OUTSIDE RECORDS SUMMARY | 2021-11-09 12:16 | XMS_ITS | Encounter Summary ---
:1985 Author Organization [facility] Address [address] [place] [address] Care Team Providers Name Role Phone Unavailable [...] 02/18/2021 relatives? How often do you attend anabaptism or christianity Never 02/18/2021 services? Do you belong to any clubs or organizations such as No 02/18/2021 anabaptism groups, unions, fraternal or athletic groups, or [...] P athologist Signature Tryptase, S 3.0 <11.5 [facility] NG/ML [facility] Specimen Anatomical Collection Method Collection Time Receive d Time (Source) Location / / Volume Laterality 10/15/2015 4:26 AM 6 4:26 CDT AM CDT Onofre Brown M.D. LAB BLOOD ADD-ON Performing Organization Address City/State/ZIP Code Phon e Number [facility] - 200 [place], [place] [address] [facility] Hx general Pathology Report (10/14/2015 8:06 PM CDT) Specimen Anatomical Collection Method Collection Time Receive d Time (Source) Location / / Volume Laterality 10/14/2015 8:06 PM 6 8:06 CDT PM CDT Narrative [facility] - 10/14/2015 8:06 PM CDT ??10/14/2015 General Biopsy ? ([id number]) ? Requested By: Daphne Tatum M.D. ??[phone] ? SLIDE DISPOSITION: ? DIAGNOSIS: ?? A. Sinonasal cavity, bilateral contents , excision: Respiratory mucosa with chronic inflammation and nu merous eosinophils. ?? Participated in interpretation: Dr. Newberry. Pager: [phone]. ?? As the signing pathologist, I verify th at I have examined all relevant slides/materials for the speci men(s) and rendered or confirmed the diagnosis. ? 10/19/2015 11:59 Interpreted by: Darcy Steen M.D. [id number] Report electronically signed by Darcy Steen M.D. Transcribed by: [facility] 10/18/2015 16:09:23 ? TISSUE DESCRIPTION: [id number] A. ??Received fresh labeled bilateral sinus contents is an 8 x 7 x 2.5 cm aggregate of red soft tissue and cartilage. ??All soft tissue is submitted. ??Live Truck Operator sections are submitted for permanent sections only. ??Grossed by CDP. ? Part A: ??Bilateral sinus contents ?1 Bilateral sinus contents 1 ?2 Bilateral sinus contents 2 ?3 Bilateral sinus contents 3 ?4 Bilateral sinus contents 4 ?5 Bilateral sinus contents 5 ?6 Bilateral sinus contents 6 ?? XRSR Path ? Procedure Note 05/26/2017 10/14/2015 General Biopsy ([id number]) Requested By: Daphne Tatum M.D. [phone] SLIDE DISPOSITION: DIAGNOSIS: A. Sinonasal cavity, bilateral contents , excision: Respiratory mucosa with chronic inflammation and nu merous eosinophils. Participated in interpretation: Dr. Newberry. Pager: [phone]. As the signing pathologist, I verify th at I have examined all relevant slides/materials for the speci men(s) and rendered or confirmed the diagnosis. 10/19/2015 11:59 Interpreted by: Darcy Steen M.D. [phone] Report electronically signed by Darcy Steen M.D. Transcribed by: latricia 10/18/2015 16:09:23 TISSUE DESCRIPTION: [id number] A. Received fresh labeled bilateral si nus contents is an 8 x 7 x 2.5 cm aggregate of red soft tissue and cartilage. All soft tissue is submitted. Live Truck Operator sections a re submitted for permanent sections only. Grossed by CDP. Part A: Bilateral sinus contents 1 Bilateral sinus contents 1 2 Bilateral sinus contents 2 3 Bilateral sinus contents 3 4 Bilateral sinus contents 4 5 Bilateral sinus contents 5 6 Bilateral sinus contents 6 XRSR Path Daphne Tatum M.D. LAB PATHOLOGY/CYTOLOGY ORDER MIGUEL Performing Organization Address City/State/ZIP Code Phon e Number [facility] - [address] [place], [place] [address] [facility] (ABNORMAL) Leukotriene E4, Urine (10/14/2015 10:00 AM CDT) [facility] gist Method Time Signature Leukotriene E4, 281 (H) <=104 [facility] U PG/MG CR [facility] - [facility] Comment: Mailed In Specimen ? Leukotriene [...] 10/14/2015 AM CDT 10:00 AM CDT Narrative [facility] - 10/20/2015 9:04 AM CDT Mailed In Specimen Alber Chapa M.D., Ph.D. LAB URINE ORDERABLES Performing Organization Address City/State/ZIP Code Phon e Number [facility] - [address] [place], [place] [address] [facility] documented in this encounter Visit Diagnoses Not on filedocumented in this encounter
--- OUTSIDE RECORDS SUMMARY | 2021-11-09 12:16 | XMS_ITS | Encounter Summary ---
:1985 Author Organization [facility] Address [address] [place] [address] Care Team Providers Name Role Phone Unavailable [...] 02/18/2021 relatives? How often do you attend moravian or religion Never 02/18/2021 services? Do you belong to any clubs or organizations such as No 02/18/2021 moravian groups, unions, fraternal or athletic groups, or [...]
--- OUTSIDE RECORDS SUMMARY | 2021-11-09 12:16 | XMS_ITS | Encounter Summary ---
:1985 Author Organization [facility] Address [address] [place] [address] Care Team Providers Name Role Phone Unavailable Primary Care Provider Unavailable Reason for Referral MRI/CAT/PET Scan (Routine) - Closed Specialty Diagnoses / Procedures Referred By Contact Refer red To Contact Radiology Diagnoses Aspirin Reaction Nasal Polyps Asthma Mary Lema M.D. [facility] Procedures CT Sinuses without IV Contrast [address] [place] [phone] Referral ID Status Reason Start Date Expiration Date Visits Requ ested Visits Authorized [id number] Closed 12/13/2020 12/13/2021 1 1 Reason for Visit MRI/CAT/PET Scan (Routine) - Closed Specialty Diagnoses / Procedures Referred By Contact Refer red To Contact Radiology Diagnoses Aspirin Reaction Nasal Polyps Asthma Mary Lema M.D. [facility] Procedures CT Sinuses without IV Contrast 200 [place] [address] Referral ID Status Reason Start Date Expiration Date Visits Requ ested Visits Authorized [id number] Closed 12/13/2020 12/13/2021 1 1 Encounter Details Date Type Department Care Team Description 12/21/2020 Hospital Encounter Department of Mary Lema Aspirin Reaction RadiologyAndrade M.D. Nasal Polyps Asthma [facility], in [address] [place] [address] [place] [address] [place], [place] [phone] (Work) [phone] Social History Tobacco Use Types Packs/Day Years [...] How often do you attend mandaeism or baptism Never 02/18/2021 services? Do you belong to [...]
--- OUTSIDE RECORDS SUMMARY | 2021-11-09 12:16 | XMS_ITS | Encounter Summary ---
:1985 Author Organization [facility] Address [address] [place] [address] Care Team Providers Name Role Phone Unavailable Primary Care Provider Unavailable Encounter Details Date Type Department Care Team Description 12/04/2017 Orders Only Department of Ashley Victor, Otorhinolaryngology in [facility], C.N.P.[place], [place] M.S.N. [address] [place] [address] [address] [place] [address] [place], [place] [phone] Social History Tobacco Use Types Packs/Day Years [...] How often do you attend mandaeism or temple Never 02/18/2021 services? Do you [...]
--- OUTSIDE RECORDS SUMMARY | 2021-11-09 12:16 | XMS_ITS | Encounter Summary ---
:1985 Author Organization [facility] Address [address] [place] [address] Care Team Providers Name Role Phone Unavailable Primary Care Provider Unavailable Encounter Details Date Type Department Care Team Description 12/13/2020 Clinical Department of Lázaro Sebastian Otorhinolaryngology in [place], [place] [phone] [address] [facility] (Work) [place] [phone] Social History Tobacco Use Types Packs/Day [...] 02/18/2021 relatives? How often do you attend amish or samaritan Never 02/18/2021 services? Do you belong to any clubs or organizations such as No 02/18/2021 amish groups, unions, fraternal or athletic groups, or [...] or slept in a halfway (including now)? Sex Assigned at Date Recorded [...]
--- OUTSIDE RECORDS SUMMARY | 2021-11-09 12:16 | XMS_ITS | Encounter Summary ---
:1985 Author Organization [facility] Address [address] [place] [address] Care Team Providers Name Role Phone Unavailable [...] 02/18/2021 relatives? How often do you attend congregational or adventist Never 02/18/2021 services? Do you belong to any clubs or organizations such as No 02/18/2021 congregational groups, unions, fraternal or athletic groups, or [...]
--- OUTSIDE RECORDS SUMMARY | 2021-11-09 12:16 | XMS_ITS | Encounter Summary ---
:1985 Author Organization [facility] Address [address] [place] [address] Care Team Providers Name Role Phone Unavailable Primary Care Provider Unavailable Reason for Referral Outpatient (Routine) - Closed Specialty Diagnoses / Procedures Referred By Contact Refer red To Contact Otorhinolaryngology Daphne Tatum [place] M.D. [address] [place] [address] Referral ID Status Reason Start Date Expiration Date Visits Requ ested Visits Authorized [id number] Closed 01/06/2021 01/06/2022 1 1 Scheduling Instructions Oral covid same day, 930 override Reason for Visit Appointment Request (Routine) - Closed Specialty Diagnoses / Procedures Referred By Contact Refer sheri To Contact Otorhinolaryngology Diagnoses Polyp Nasal Referral ID Status Reason Start Date Expiration Date Visits Requ ested Visits Authorized [id number] Closed 12/12/2020 12/12/2021 1 1 Encounter Details Date Type Department Care Team Description 01/06/2021 Comprehensive Visit Department of Rebecca Tatumosi nusitis Chronic (Primary Dx); Otorhinolaryngology in [place] Blair, Polyp Nasal; [place], [place] Sung Aspirin Reaction Nasal Polyps Asthma [address] [facility] [address] [place] [address] [place] [phone] Social History Tobacco Use Types Packs/Day Years [...] How often do you attend scientology or mormonism Never 02/18/2021 services? Do you [...] place to sleep or slept in a half-way (including now)? Education Answer Date Recorded What [...] therapy or repeat asa desensitization with an mobile sales assistant as I am not optimistic that surgery [...]
--- OUTSIDE RECORDS SUMMARY | 2021-11-09 12:16 | XMS_ITS | Encounter Summary ---
:[address] [facility] Address [address] [place] [address] Care Team Providers Name Role Phone Unavailable Primary Care Provider Unavailable Encounter Details Date Type Department Care Team Description 06/22/2017 Orders Only Department of Ashley Victor, Otorhinolaryngology in [facility], C.N.P.[place], [place] M.S.N. [address] [place] [address] [address] [place] [address] [place], [place] [phone] Social History Tobacco Use Types Packs/Day Years [...] 02/18/2021 relatives? How often do you attend muslim or bahai Never 02/18/2021 services? Do you belong to any clubs or organizations such as No 02/18/2021 muslim groups, unions, fraternal or athletic groups, or [...] or slept in a detention (including now)? Sex Assigned at Date Recorded Female 01/06/2021 8:49 AM CDT documented as of this encounter Plan of Treatment Not on filedocumented as of this encounter Visit Diagnoses Not on filedocumented in this encounter
--- OUTSIDE RECORDS SUMMARY | 2021-11-09 12:16 | XMS_ITS | Encounter Summary ---
:1985 Author Organization [facility] Address [address] [place] [address] Care Team Providers Name Role Phone Unavailable Primary Care Provider Unavailable Encounter Details Date Type Department Care Team Description 06/28/2017 Orders Only Department of Ashley Victor Otorhinolaryngology in [place], MONEY COUNTER, Nasal Polyps Asthma [place], [place] C.N.P., M.S.N. (Primary Dx) [address] [place] [address] [place] [phone] [place], [place] [phone] Social History Tobacco Use Types Packs/Day Years [...] 02/18/2021 relatives? How often do you attend jainism or sabianist Never 02/18/2021 services? Do you belong to any clubs or organizations such as No 02/18/2021 jainism groups, unions, fraternal or athletic groups, or [...] place to sleep or slept in a penitentiary (including now)? Sex Assigned at Date Recorded Female 01/06/2021 8:49 AM CDT documented as of this encounter Plan of Treatment Not on filedocumented as of this encounter Visit Diagnoses Diagnosis Aspirin Reaction Nasal Polyps Asthma - P rimary documented in this encounter
== END 2021-11-09 12:14 | disposition home or self-care (01) ==
LOC: US 12:14
PROVIDERS: Visit Provider Obstetrics & Gynecology
DX: O10.919 Unspecified pre-existing hypertension complicating pregnancy, unspecified trimester (principal)
CPT/HCPCS: 76819

== ENCOUNTER 2021-11-17 12:11 | Outpatient (CLI) | payer BC, SELFPAY ==
--- OUTSIDE RECORDS SUMMARY | 2021-11-17 12:13 | XMS_ITS | Encounter Summary ---
:1985 Author Organization [facility] Address [address] [place] [address] Care Team Providers Name Role Phone Unavailable [...] 02/18/2021 relatives? How often do you attend anabaptist or druze Never 02/18/2021 services? Do you belong to any clubs or organizations such as No 02/18/2021 anabaptist groups, unions, fraternal or athletic groups, or [...] place to sleep or slept in a fpc (including now)? Education Answer Date Recorded What [...] 02/18/2021 11:40 Results for this EXAM AM OUTPATIENT CASE MANAGER procedure are i n the results section. documented in this encounter Results NOSE-Otorhinolaryngology Image Exam (02/18/2021 11:40 AM OUTPATIENT CASE MANAGER) Specimen (Source) Anatomical Collection Method Collection Time Re ceived Time Location / / Volume Laterality 02/18/2021 11:36 AM OUTPATIENT CASE MANAGER Narrative [facility]IM[facility] - 02/18/2021 11:40 AM OUTPATIENT CASE MANAGER This order has been created and [...]
--- OUTSIDE RECORDS SUMMARY | 2021-11-17 12:13 | XMS_ITS | Clinical Summary ---
:1985 Author Organization [facility] Address [address] [place] [address] Care Team Providers Name Role Phone Unavailable Primary Care Provider Unavailable Source Comments Patient records contain information from all sites at [facility]. For routine questions regarding patient records, call [phone] during business hours, M-F 8:00 AM - 5:00 PM Central Time. Record requests for emergency care only can be directed to [phone] at any time.[facility] Allergies Active Allergy Reactions Severity Noted [...] Added automatically from request for chandler haskins [id number] Aspirin Reaction Nasal Polyps Asthma 09/24/2015 Asthma [...] 02/18/2021 relatives? How often do you attend baptist or latter-day Never 02/18/2021 services? Do you belong to any clubs or organizations such as No 02/18/2021 baptist groups, unions, fraternal or athletic groups, or [...] Comments Blood Pressure 130/89 01/11/2021 5:00 PM ENGRAVING PRESS OPERATOR Pulse 77 01/11/2021 5:05 PM ENGRAVING PRESS OPERATOR Temperature 36.8 ??C (98.2 ??F) 01/11/2021 5:00 PM ENGRAVING PRESS OPERATOR Respiratory Rate 16 01/11/2021 5:00 PM ENGRAVING PRESS OPERATOR Oxygen Saturation 95% 01/11/2021 5:05 PM ENGRAVING PRESS OPERATOR Inhaled Oxygen Concentration - - Weight 113 kg (248 lb 14.4 oz) 01/11/2021 10:10 AM ENGRAVING PRESS OPERATOR Height 167.6 cm (5' 6) 01/11/2021 10:10 AM ENGRAVING PRESS OPERATOR Body Mass Index 40.17 01/11/2021 10:10 AM ENGRAVING PRESS OPERATOR Plan of Treatment Health Maintenance Due Date [...] Screening (Annual PHQ-2) 03/05/2021 Influenza Vaccine (#1) 2021 COVID-19 Vaccine Completed 02/11/2021, 04/13/2020, 03/23/2020 Medical Devices Implanted Type Area Car Stereo Installer Device Shelf Model / Identifier Expiration Serial / Date Lot Stent Sinus Propel Regular - [id number] Stent Other/Legacy - Int ersect Ent Implanted: Qty: 1 on 10/14/2015 Other [employer] Description Description: Device Car Stereo Installer - Inter sect Ent. Body Location - Other. Left. Device Status Text - [id number]. Insurance Payer Benefit Plan Subscriber ID Effective Phone Address Typ e / Group Dates BLUE CROSS BCBS BLUE [id number] 2018-Prese ATTN: William gallardo HMO BLUE SHIELD PLUS HMO nt [facility] [address] [address] [place] [address]
--- OUTSIDE RECORDS SUMMARY | 2021-11-17 12:13 | XMS_ITS | Encounter Summary ---
:1985 Author Organization [facility] Address [address] [place] [address] Care Team Providers Name Role Phone Unavailable [...] How often do you attend spiritism or synagogue Never 02/18/2021 services? Do you belong to [...] 01/21/2021 2:48 Results for this EXAM PM CUSTOMER ACQUISITION SPECIALIST procedure are i n the results section. documented in this encounter Results NASAL-Otorhinolaryngology Image Exam (01/21/2021 2:48 PM CUSTOMER ACQUISITION SPECIALIST) Specimen (Source) Anatomical Collection Method Collection Time Re ceived Time Location / / Volume Laterality 01/21/2021 4:08 PM CUSTOMER ACQUISITION SPECIALIST Narrative IIMS - 01/21/2021 2:48 PM CUSTOMER ACQUISITION SPECIALIST This order has been created and auto-finalized [...]
--- OUTSIDE RECORDS SUMMARY | 2021-11-17 12:13 | XMS_ITS | Encounter Summary ---
:1985 Author Organization [facility] Address [address] [place] [address] Care Team Providers Name Role Phone Unavailable Primary Care Provider Unavailable Reason for Visit Outpatient (Routine) - Closed Specialty Diagnoses / Procedures Referred By Contact Refer red To Contact Otorhinolaryngology Daphne T[place] M.D. [address] [place] [address] Referral ID Status Reason Start Date Expiration Date Visits Requ ested Visits Authorized [id number] Closed 01/21/2021 01/21/2022 1 1 Encounter Details Date Type Department Care Team Description 02/18/2021 Office Visit Department of Rc, Rhinosinusitis Chronic (Primary Dx); Otorhinolaryngology in [place] Blair, Polyp Nasal; [place], [place] Sung Aspirin Reaction Nasal Polyps Asthma [address] [facility] [address] [place] [address] [place], [place] [phone] Social History Tobacco Use Types Packs/Day Years [...] 02/18/2021 relatives? How often do you attend yazdanism or islam Never 02/18/2021 services? Do you belong to any clubs or organizations such as No 02/18/2021 yazdanism groups, unions, fraternal or athletic groups, or [...] procedure well and there were no complications. [place]-Woody Endoscopic Scoring System Right Side Left Side [...] recently putting a real tree up for [place] and has noticed increasing nasal congestion. On [...] become . Sanjeev Thakur APRN, C.N.P., M.S.N. [employer] [facility] Associated attestation - Daphne Tatum M.D. - 02/20/2021 5:37 PM TRANSPORT MEDIC I saw the patient with Sanjeev Thakur C.N.P. and agree with her findings, assessment, and plan. Daphne Tatum M.D. documented in this encounter Plan of Treatment Not on filedocumented as of this encounter Visit Diagnoses Diagnosis Rhinosinusitis Chronic - Primary Polyp Nasal Aspirin Reaction Nasal Polyps Asthma documented in this encounter
--- OUTSIDE RECORDS SUMMARY | 2021-11-17 12:13 | XMS_ITS | Encounter Summary ---
:1985 Author Organization [facility] Address [address] [place] [address] Care Team Providers Name Role Phone Unavailable Primary Care Provider Unavailable Reason for Referral Outpatient (Routine) - Closed Specialty Diagnoses / Procedures Referred By Contact Refer red To Contact Otorhinolaryngology Daphne Tatum [facility] M.D. [address] [place] [phone] Referral ID Status Reason Start Date Expiration Date Visits Requ ested Visits Authorized [id number] Closed 01/21/2021 01/21/2022 1 1 Scheduling Instructions - in afternoon, or 02/22 v ideo slot. K RODEO RIDER Reason for Visit Outpatient (Routine) - Closed Specialty Diagnoses / Procedures Referred By Contact Refer red To Contact Otorhinolaryngology Daphne Tatum [facility] M.D. [address] [place] [phone] Referral ID Status Reason Start Date Expiration Date Visits Requ ested Visits Authorized [id number] Closed 01/06/2021 01/06/2022 1 1 Encounter Details Date Type Department Care Team Description 01/21/2021 Office Visit Department of Paola Tatum on Otorhinolaryngology in Daphne Blair M.D. Nasal Polyps Asthma [place], [place] [address] [place] [address] (Primary Dx) [address] [place] [phone] Social History Tobacco Use Types Packs/Day Years [...] 02/18/2021 relatives? How often do you attend rastafarian or protestant Never 02/18/2021 services? Do you belong to any clubs or organizations such as No 02/18/2021 rastafarian groups, unions, fraternal or athletic groups, or [...] Crusting Mild = 1 Mild = 1 [place]y Endoscopy Score = 6 ASSESSMENT / PLAN [...] but she can stop the mupirocin. Procedures K RODEO RIDER Associated attestation - Daphne Tatum M.D. - 01/21/2021 2:57 PM TRICK RODEO RIDER I saw and evaluated the patient, participating [...]
--- OUTSIDE RECORDS SUMMARY | 2021-11-17 12:14 | XMS_ITS | Encounter Summary ---
:1985 Author Organization [facility] Address [address] [place] [address] Care Team Providers Name Role Phone Unavailable Primary Care Provider Unavailable Reason for Visit Reason Comments Med Refill Encounter Details Date Type Department Care Team Description 12/03/2017 Refill Department of Otorhinolaryngology Ashley Victor, Med Refill in [facility] jorge HOFFMAN C.N.P., M.S.N. [address] [place] [address] [address] [place] [address] [place], [place] [phone] (Wo rk) Social History Tobacco Use Types [...] How often do you attend faith or mormon Never 02/18/2021 services? Do you [...]
--- OUTSIDE RECORDS SUMMARY | 2021-11-17 12:14 | XMS_ITS | Encounter Summary ---
:1985 Author Organization [facility] Address [address] [place] [address] Care Team Providers Name Role Phone Unavailable [...] 02/18/2021 relatives? How often do you attend judaism or orthodoxy Never 02/18/2021 services? Do you belong to any clubs or organizations such as No 02/18/2021 judaism groups, unions, fraternal or athletic groups, or [...]
--- OUTSIDE RECORDS SUMMARY | 2021-11-17 12:14 | XMS_ITS | Encounter Summary ---
:1985 Author Organization [facility] Address [address] [place] [address] Care Team Providers Name Role Phone Unavailable [...] 02/18/2021 relatives? How often do you attend presybeterian or yazidi Never 02/18/2021 services? Do you belong to any clubs or organizations such as No 02/18/2021 presybeterian groups, unions, fraternal or athletic groups, or [...] 01/11/2021 12:10 Results for this EXAM AM HOME DEMONSTRATION AGENT procedure are i n the results section. documented in this encounter Results AIRWAY-Otorhinolaryngology Image Exam (01/11/2021 12:10 AM HOME DEMONSTRATION AGENT) Specimen (Source) Anatomical Location Collection Method / Collectio n Time Received Time / Laterality Volume Narrative IIMS - 01/11/2021 2:55 PM HOME DEMONSTRATION AGENT This order has been created and auto-finalized [...]
--- OUTSIDE RECORDS SUMMARY | 2021-11-17 12:14 | XMS_ITS | Encounter Summary ---
:1985 Author Organization [facility] Address [address] [place] [address] Care Team Providers Name Role Phone Unavailable Primary Care Provider Unavailable Reason for Visit Auth/Cert Specialty Diagnoses / Procedures Referred By Contact Refer red To Contact Diagnoses Rhinosinusitis Chronic Rhinosinusitis Chronic [J32.8] Procedures ME ENDO NSL MAX ANTROST W RMV TIS ME NSL/SINS NDSC SPHN TISS RMVL ME NSL/SINS NDSC TOTAL ME ENDO NSL/SNS W ETHMDCTOMY PRTL ME STRTCTC COMP-ASSIST CRNL EXTRA ME SUBMUC RSECT TURB PRTL/COMPLT ENDOSCOPIC MAXILLARY ANTROST CHARLIE WITH TISSUE REMOVAL ENDOSCOPIC SPHENOIDOTOMY WITHOUT TISSUE REMOVAL SINUSOTOMY ENDOSCOPY FRONTAL -draft iib, possible draft iii ETHMOIDECTOMY ENDOSCOPY EXTRADURAL COMPUTER NAVIGATION - Proceed as indicated REDUCTION TURBINATE - middle turbinates , procee d as indicated Referral ID Status Reason Start Date Expiration Date Visits Requ ested Visits Authorized [id number] 1 1 Encounter Details Date Type Department Care Team Description 01/11/2021 Surgery RST ROMB MAIN OR Daphne Tatum, ENDOSCOPIC MAXILLARY [address] [facility] M.DXavier ANTROSTOMY, TISSUE [place], [place] [address]. [address] [place], [place] [phone] (Wo rk) Social History Tobacco Use Types [...] 02/18/2021 relatives? How often do you attend buddhism or christian Never 02/18/2021 services? Do you belong to any clubs or organizations such as No 02/18/2021 buddhism groups, unions, fraternal or athletic groups, or [...] or the highest technical, or vocational p [facility] degree you have received? Sex Assigned at Date Recorded Female 01/06/2021 8:49 AM CDT documented as of this encounter Last Filed Vital Signs Vital Sign Reading Time Taken Comments Blood Pressure 124/85 01/11/2021 3:30 PM GENERAL FARMER Pulse 78 01/11/2021 3:55 PM GENERAL FARMER Temperature 36.8 ??C (98.2 ??F) 01/11/2021 3:20 PM GENERAL FARMER Respiratory Rate 14 01/11/2021 3:40 PM GENERAL FARMER Oxygen Saturation 95% 01/11/2021 3:55 PM GENERAL FARMER Inhaled Oxygen Concentration - - Weight 113 kg (248 lb 14.4 oz) 01/11/2021 10:10 AM GENERAL FARMER Height 167.6 cm (5' 6) 01/11/2021 10:10 AM GENERAL FARMER Body Mass Index 40.17 01/11/2021 10:10 AM GENERAL FARMER documented in this encounter Discharge Instructions Discharge [...] or pain not relieved by pain medication. RAL FARMER documented in this encounter Medications at Time [...] PACU in stable condition. Mary Lema M.D. RAL FARMER documented in this encounter Miscellaneous Notes Result Encounter Note - Daphne Tatum M.D. - 01/21/2021 8:27 AM GENERAL FARMER I have reviewed the final pathology report and the identified diagnosis is consistent with the patient's clinical presentation. RAL FARMER Result Encounter Note - Mary Lema M.D. - 01/19/2021 10:38 PM CST I have reviewed the final pathology report and the identified diagnosis is consistent with the patient's clinical presentation. RAL FARMER documented in this encounter Plan of Treatment Not on filedocumented as of this encounter Procedures Procedure Name Priority Date/Time Associated Diagnosis Comme nts SURGICAL PATHOLOGY, Routine 01/11/2021 12:45 Rhinosinusitis Ch ronic Results for this [facility]EN LAB PM GENERAL FARMER procedure are i n the results section. EXTRADURAL COMPUTER 01/11/2021 11:15 Rhinosinusitis Ch ronic NAVIGATION AM GENERAL FARMER Case Notes RETAIL ANALYTICS MANAGER 958 ETHMOIDECTOMY ENDOSCOPY 01/11/2021 11:15 AM GENERAL FARMER Rhinos inusitis Chronic Case Notes RETAIL ANALYTICS MANAGER 958 SINUSOTOMY ENDOSCOPY FRONTAL 01/11/2021 11:15 AM GENERAL FARMER R hinosinusitis Chronic Case Notes RETAIL ANALYTICS MANAGER 958 ENDOSCOPIC SPHENOIDOTOMY WITHOUT 01/11/2021 11:1 5 AM GENERAL FARMER Rhinosinusitis Chronic TISSUE REMOVAL Case Notes RETAIL ANALYTICS MANAGER 958 ENDOSCOPIC MAXILLARY ANTROSTOMY 01/11/2021 11:15 AM CS T Rhinosinusitis Chronic WITH TISSUE REMOVAL Case Notes RETAIL ANALYTICS MANAGER 958 documented in this encounter Results Surgical Pathology, Frozen Lab (01/11/2021 12:45 PM GENERAL FARMER) Component Value Ref Test Analysis Performed Pathologis t Range Method Time At [facility] GENERAL FARMER Lavinia in [place] 01/18/2021 [facility] the M.D. -Pathology 5:37 AM GENERAL FARMER Interpretation Resident Report Daniel Cuevas M.D. [phone] [facility] electronically 5:37 AM GENERAL FARMER signed by I verify that I have examined all relevant slides/materials for the specimen(s) and rendered or confirmed the diagnosis. Gross Description A. ??Received fresh labeled left sinonasal vin nts is a 01/18/2021 [facility] 7.4 x 5.1 x 0.9 cm aggregate of reed-red soft tissue. ??All 5:37 AM GENERAL FARMER submitted for permanent sections. ??Grossed by SSF. [...] A1 Left sinonasal contents 1 5:37 AM GENERAL FARMER A2 Left sinonasal contents 2 A3 Left [...] negative (Block 01/19/2021 [facility] A3). 10:02 PM GENERAL FARMER Signed by Daniel Cuevas M.D. [phone] 01/19/2021 10:02 PM Comment: REVISED RESULTS Interpretation FINAL DIAGNOSIS 01/19/2021 10:02 PM GENERAL FARMER [facility] A. ??Sinonasal contents, left, excision: ??Sinonasal [...] Volume Laterality Tissue (Nose) 01/11/2021 12:45 PM GENERAL FARMER Tissue (Nose) 01/11/2021 12:53 PM GENERAL FARMER Tissue (Nose) 01/11/2021 2:38 PM GENERAL FARMER Narrative This result has an attachment that is no t available. Daphne Tatum M.D. LAB SURG PATH ORDERABLES Performing Organization Address City/State/ZIP Code Phon e Number [facility] - [address] [place], [place] [address] [place] [address] [facility] [address] documented in this encounter Visit Diagnoses Diagnosis Rhinosinusitis Chronic - Primary Rhinosinusitis Chronic documented in this encounter Admitting Diagnoses Diagnosis Rhinosinusitis Chronic documented in this encounter Administered Medications Inactive Administered Medications - up to 3 most recent administrations Medication Order MAR Action Action Date Dose Rate Site cocaine 4 % nasal Given 01/11/2021 12:25 1 application Bilateral Nares solution PM GENERAL FARMER As needed, Starting on Sun01/11/21 at 1225, Intra-Op fentaNYL injection 25 mcg (SUBLIMAZE) Given 01/11/2021 3:28 PM GENERAL FARMER 25 mcg 25 mcg, intravenous, Every 2 min PRN, moderate pain or score 4-6 of 10, severe pain or score 7-10 of 10, Starting on Sun01/11/21 at 1031, PACU (only), Up to maximum total dose of 100 mcg Given 01/11/2021 3:22 PM GENERAL FARMER 25 mcg lidocaine-EPINEPHrine 1 Given 01/11/2021 12:24 PM 4 mL Bilateral Nares %-1:100,000 injection (XYLOCAINE GENERAL FARMER W/EPI) As needed, Starting on Sun01/11/21 at [...] 10 mg (ROXICODONE) Given 01/11/2021 3:37 PM GENERAL FARMER 10 mg 10 mg, oral, Every 4 [...] 1 application Bilateral Nares nasal spray (AFRIN) GENERAL FARMER As needed, Starting on Sun01/11/21 at 1210, [...] may contain times in both CDT and GENERAL FARMER. Scheduled Medication Order 01/09/2021 01/10/2021 01/11/2021 acetaminophen [...]
--- OUTSIDE RECORDS SUMMARY | 2021-11-17 12:14 | XMS_ITS | Encounter Summary ---
:1985 Author Organization [facility] Address [address] [place] [address] Care Team Providers Name Role Phone Unavailable [...] How often do you attend scientologist or synagogue Never 02/18/2021 services? Do you [...]
--- OUTSIDE RECORDS SUMMARY | 2021-11-17 12:14 | XMS_ITS | Encounter Summary ---
:1985 Author Organization [facility] Address [address] [place] [address] Care Team Providers Name Role Phone Unavailable Primary Care Provider Unavailable Reason for Visit Auth/Cert Specialty Diagnoses / Procedures Referred By Contact Refer red To Contact Diagnoses Rhinosinusitis Chronic Rhinosinusitis Chronic [J32.8] Procedures [place] ENDO NSL MAX ANTROST W RMV TIS [place] NSL/SINS NDSC SPHN TISS RMVL [place] NSL/SINS NDSC TOTAL [place] ENDO NSL/SNS W ETHMDCTOMY PRTL [place] STRTCTC COMP-ASSIST CRNL EXTRA [place] SUBMUC RSECT TURB PRTL/COMPLT ENDOSCOPIC MAXILLARY ANTROST CHARLIE WITH TISSUE REMOVAL ENDOSCOPIC SPHENOIDOTOMY WITHOUT TISSUE REMOVAL SINUSOTOMY ENDOSCOPY FRONTAL -draft iib, possible draft iii ETHMOIDECTOMY ENDOSCOPY EXTRADURAL COMPUTER NAVIGATION - Proceed as indicated REDUCTION TURBINATE - middle turbinates , procee d as indicated Referral ID Status Reason Start Date Expiration Date Visits Requ ested Visits Authorized [id number] 1 1 Encounter Details Date Type Department Care Team Description 01/11/2021 Anesthesia Event RST ROMB MAIN OR Laz Young, [address] [place] [address] [place], [place] [phone] [place] [address] [place] [address] (Wo rk) Anesthesia Record Procedure Summary Procedure [...] to the receiving staff during [facility] we 1. Identified the patient 2. [...] APRN, Schaffer, Jordan A, (created via procedure BALL FRINGE MACHINE OPERATOR R.N. documentation); Mask Ventilation: Easy mask; Type: [...] M ikaela A, Catheter Size: 20 G; BALL FRINGE MACHINE OPERATOR R.NXavier Orientation: Left; Location: Hand; Technique: Transillumination; Removal Date: 01/11/21; Removal Time: 1705; Removal Reason: Patient discharged (RETIRED) Incision 01/11/21; 1446; No; Nose; 01/11/21 1446 by 1223 by Bilateral; FESS; 02/04/21 Rula Bradley, [facility] (removed by background R.N. d, Edwige ling [...] 02/18/2021 relatives? How often do you attend confucianist or baptism Never 02/18/2021 services? Do you belong to any clubs or organizations such as No 02/18/2021 confucianist groups, unions, fraternal or athletic groups, or [...] Procedure Summary Date: 01/11/21 Room / Location: [place] [address] / [facility] in [place], [place] Anesthesia Start: 1137 Anesthesia Stop: 1520 [...] Post Op nausea/vomiting: none Hydration status: euvolemic TRICIAN SOUND Anesthesia Procedure Notes - Sirena Montejo APRN, CRNA - 01/11/2021 12:30 PM ELECTRICIAN SOUND Associated Order(s): Airway Airway Date/Time: 01/11/2021 11:45 [...] successful Airway event: no complications ATTESTATION STATEMENT TRICIAN S[employer] Anesthesia Preprocedure Evaluation - Laz Young M.D. [...] [J32.8] Pre-op diagnosis: Rhinosinusitis Chronic [J32.8]. Location: [address] / [facility] in [place], [place] Providers: Daphne Tatum M.D. Pertinent components [...] with patient /legal guardian or through an editor at large. The use of blood products not discussed Approval to Proceed: approved for anesthesia TRICIAN S[employer] documented in this encounter Plan of Treatment Not on filedocumented as of this encounter Procedures Procedure Name Priority Date/Time Associated Comments Diagnosis LDA ANE ENDOTRACHEAL Routine 01/11/2021 11:45 Res ults for this AIRWAY AM ELECTRICIAN SOUND procedure are i n the results section. documented in this encounter Results LDA ANE ENDOTRACHEAL AIRWAY (01/11/2021 11:45 AM ELECTRICIAN SOUND) Narrative Sirena Montejo APRN, CRNA - 01/11/2021 11:45 AM ELECTRICIAN SOUND Sirena Montejo APRN, CRNA ? 01/11/2021 12:31 [...] Site acetaminophen injection Given 01/11/2021 2:16 PM ELECTRICIAN SOUND 1,000 mg intravenous, Administer over 15 Minutes, As needed, Starting on Sun01/11/21 at 1416, Anesthesia Intra-op ceFAZolin injection (ANCEF) Given 01/11/2021 12:21 PM ELECTRICIAN SOUND 2 g intravenous, As needed, Starting on Sun01/11/21 at 1221, Anesthesia Intra-op dexAMETHasone injection (DECADRON) Given 01/11/2021 11:49 AM ELECTRICIAN SOUND 10 mg intravenous, As needed, Starting on Sun01/11/21 at 1149, Anesthesia Intra-op fentaNYL injection (SUBLIMAZE) Given 01/11/2021 1:56 PM ELECTRICIAN SOUND 50 mcg intravenous, As needed, Starting on Sun01/11/21 at 1144, Anesthesia Intra-op Given 01/11/2021 1:41 PM ELECTRICIAN SOUND 50 mcg Given 01/11/2021 1:01 PM ELECTRICIAN SOUND 50 mcg labetalol injection (NORMODYNE,TRANDATE) Given 01/11/2021 2:27 PM ELECTRICIAN SOUND 5 mg intravenous, As needed, Starting on Sun01/11/21 at 1359, Anesthesia Intra-op Given 01/11/2021 2:02 PM ELECTRICIAN SOUND 5 mg Given 01/11/2021 1:59 PM ELECTRICIAN SOUND 5 mg lactated ringers New Bag 01/11/2021 11:37 AM ELECTRICIAN SOUND intravenous, Continuous Infusion: Per Instructions PRN, Starting on Sun01/11/21 at 1137, Anesthesia Intra-op lactated ringers New Bag 01/11/2021 11:47 AM ELECTRICIAN SOUND intravenous, Continuous Infusion: Per Instructions PRN, Starting on Sun01/11/21 at 1147, Anesthesia Intra-op lidocaine (PF) (cardiac) injection Given 01/11/2021 11:44 AM ELECTRICIAN SOUND 60 mg intravenous, As needed, Starting on Sun01/11/21 at 1144, Anesthesia Intra-op ondansetron (PF) injection (ZOFRAN) Given 01/11/2021 2:40 PM ELECTRICIAN SOUND 4 mg intravenous, As needed, Starting on Sun01/11/21 at 1440, Anesthesia Intra-op propofol 10 mg/mL infusion Rate/Dose 01/11/2021 2:43 110 mcg/kg/min 74.514 (DIPRIVAN) Change PM ELECTRICIAN SOUND mL/hr intravenous, Continuous Infusion: Per Instructions PRN, Starting on Sun01/11/21 at 1144, Anesthesia Intra-op Rate/Dose Change 01/11/2021 2:39 PM ELECTRICIAN SOUND 125 mcg/kg/min 84.675 mL/hr New Bag 01/11/2021 2:27 PM ELECTRICIAN SOUND 150 mcg/kg/min 101.61 mL/hr propofoL injection (DIPRIVAN) Given 01/11/2021 11:56 AM ELECTRICIAN SOUND 50 mg intravenous, As needed, Starting on Sun01/11/21 at 1144, Anesthesia Intra-op Given 01/11/2021 11:44 AM ELECTRICIAN SOUND 200 mg remifentaniL 20 mcg/mL in Rate/Dose 01/11/2021 2:10 0.1 mcg/kg/min 3 3.87 NaCl 0.9% 100 mL infusion Change PM ELECTRICIAN SOUND mL/hr (ULTIVA) intravenous, Continuous Infusion: Per Instructions PRN, Starting on Sun01/11/21 at 1144, Anesthesia Intra-op Rate/Dose Change 01/11/2021 1:53 PM ELECTRICIAN SOUND 0.1 mcg/kg/min 33.87 mL/hr Rate/Dose Change 01/11/2021 12:03 PM ELECTRICIAN SOUND 0.2 mcg/kg/min 67.74 mL/hr scopolamine base 1 mg over 3 days Given 01/11/2021 12:00 PM ELECTRICIAN SOUND 1 patch (TRANSDERM SCOP) transdermal, Administer over 72 Hours, As needed, Starting on Sun01/11/21 at 1200, Anesthesia Intra-op succinylcholine (PF) injection (ANECTINE ) Given 01/11/2021 11:44 AM ELECTRICIAN SOUND 100 mg intravenous, As needed, Starting on Sun01/11/21 at 1144, Anesthesia Intra-op documented in this encounter
--- OUTSIDE RECORDS SUMMARY | 2021-11-17 12:14 | XMS_ITS | Encounter Summary ---
:1985 Author Organization [facility] Address [address] [place] [address] Care Team Providers Name Role Phone Unavailable [...] How often do you attend adventist or islam Never 02/18/2021 services? Do you [...]
--- OUTSIDE RECORDS SUMMARY | 2021-11-17 12:14 | XMS_ITS | Encounter Summary ---
:1985 Author Organization [facility] Address [address] [place] [address] Care Team Providers Name Role Phone Unavailable [...] How often do you attend orthodoxy or yarsanism Never 02/18/2021 services? Do you [...] or slept in a longterm (including now)? Sex Assigned at Date Recorded [...]
--- OUTSIDE RECORDS SUMMARY | 2021-11-17 12:14 | XMS_ITS | Encounter Summary ---
:1985 Author Organization [facility] Address [address] [place] [address] Care Team Providers Name Role Phone Unavailable [...] How often do you attend amish or catholic Never 02/18/2021 services? Do you belong to [...] P athologist Signature Tryptase, S 3.0 <11.5 [facility] NG/ML [facility] Specimen Anatomical Collection Method Collection Time Receive d Time (Source) Location / / Volume Laterality 10/15/2015 4:26 AM 6 4:26 CDT AM CDT Onofre Brown M.D. LAB BLOOD ADD-ON Performing Organization Address City/State/ZIP Code Phon e Number [facility] - 200 [place], [place] [address] [facility] Hx general Pathology Report (10/14/2015 8:06 PM CDT) Specimen Anatomical Collection Method Collection Time Receive d Time (Source) Location / / Volume Laterality 10/14/2015 8:06 PM 6 8:06 CDT PM CDT Narrative [facility] - 10/14/2015 8:06 PM CDT ??10/14/2015 General Biopsy ? ([id number]) ? Requested By: Daphne Tatum M.D. ??[phone] ? SLIDE DISPOSITION: ? DIAGNOSIS: ?? A. Sinonasal cavity, bilateral contents , excision: Respiratory mucosa with chronic inflammation and nu merous eosinophils. ?? Participated in interpretation: Dr. Newberry. Pager: [phone]. ?? As the signing pathologist, I verify th at I have examined all relevant slides/materials for the speci men(s) and rendered or confirmed the diagnosis. ? 10/19/2015 11:59 Interpreted by: Darcy Steen M.D. [id number] Report electronically signed by Darcy Steen M.D. Transcribed by: [facility] 10/18/2015 16:09:23 ? TISSUE DESCRIPTION: [id number] A. ??Received fresh labeled bilateral sinus contents is an 8 x 7 x 2.5 cm aggregate of red soft tissue and cartilage. ??All soft tissue is submitted. ??Wire Charger sections are submitted for permanent sections only. ??Grossed by CDP. ? Part A: ??Bilateral sinus contents ?1 Bilateral sinus contents 1 ?2 Bilateral sinus contents 2 ?3 Bilateral sinus contents 3 ?4 Bilateral sinus contents 4 ?5 Bilateral sinus contents 5 ?6 Bilateral sinus contents 6 ?? XRSR Path ? Procedure Note 05/26/2017 10/14/2015 General Biopsy ([id number]) Requested By: Daphne Tatum M.D. [phone] SLIDE DISPOSITION: DIAGNOSIS: A. Sinonasal cavity, bilateral contents , excision: Respiratory mucosa with chronic inflammation and nu merous eosinophils. Participated in interpretation: Dr. Newberry. Pager: [phone]. As the signing pathologist, I verify th at I have examined all relevant slides/materials for the speci men(s) and rendered or confirmed the diagnosis. 10/19/2015 11:59 Interpreted by: Darcy Steen M.D. [id number] Report electronically signed by Darcy Steen M.D. Transcribed by: latricia 10/18/2015 16:09:23 TISSUE DESCRIPTION: [id number] A. Received fresh labeled bilateral si nus contents is an 8 x 7 x 2.5 cm aggregate of red soft tissue and cartilage. All soft tissue is submitted. Wire Charger sections a re submitted for permanent sections only. Grossed by CDP. Part A: Bilateral sinus contents 1 Bilateral sinus contents 1 2 Bilateral sinus contents 2 3 Bilateral sinus contents 3 4 Bilateral sinus contents 4 5 Bilateral sinus contents 5 6 Bilateral sinus contents 6 XRSR Path Daphne Tatum M.D. LAB PATHOLOGY/CYTOLOGY ORDER MIGUEL Performing Organization Address City/State/ZIP Code Phon e Number [facility] - [address] [place], [place] [address] [facility] (ABNORMAL) Leukotriene E4, Urine (10/14/2015 10:00 AM CDT) [facility] gist Method Time Signature Leukotriene E4, 281 (H) <=104 [facility] U PG/MG CR [facility] - [facility] Comment: Mailed In Specimen ? Leukotriene [...] 10/14/2015 AM CDT 10:00 AM CDT Narrative [facility] - 10/20/2015 9:04 AM CDT Mailed In Specimen Alber Chapa M.D., Ph.D. LAB URINE ORDERABLES Performing Organization Address City/State/ZIP Code Phon e Number [facility] - [address] [place], [place] [address] [facility] documented in this encounter Visit Diagnoses Not on filedocumented in this encounter
--- OUTSIDE RECORDS SUMMARY | 2021-11-17 12:14 | XMS_ITS | Encounter Summary ---
:1985 Author Organization [facility] Address [address] [place] [address] Care Team Providers Name Role Phone Unavailable Primary Care Provider Unavailable Encounter Details Date Type Department Care Team Description 12/13/2020 Clinical Department of Lázaro Sebastian Otorhinolaryngology in [place], [place] [phone] [address] [facility] ([place]) [place] [phone] Social History Tobacco Use Types Packs/Day [...] How often do you attend islam or anabaptist Never 02/18/2021 services? Do you belong to [...]
--- OUTSIDE RECORDS SUMMARY | 2021-11-17 12:14 | XMS_ITS | Encounter Summary ---
:1985 Author Organization [facility] Address [address] [place] [address] Care Team Providers Name Role Phone Unavailable Primary Care Provider Unavailable Encounter Details Date Type Department Care Team Description 06/28/2017 Orders Only Department of Ashley Victor Otorhinolaryngology in [place], FIXED INCOME PORTFOLIO MANAGER, Nasal Polyps Asthma [place], [place] C.N.P., M.S.N. (Primary Dx) [address] [place] [address] [place] [phone] [place], [place] [phone] Social History Tobacco Use Types Packs/Day Years [...] How often do you attend muslim or sabianist Never 02/18/2021 services? Do you [...]
--- OUTSIDE RECORDS SUMMARY | 2021-11-17 12:14 | XMS_ITS | Encounter Summary ---
:1985 Author Organization [facility] Address [address] [place] [address] Care Team Providers Name Role Phone Unavailable Primary Care Provider Unavailable Reason for Visit Auth/Cert Specialty Diagnoses / Procedures Referred By Contact Refer red To Contact Diagnoses Rhinosinusitis Chronic Rhinosinusitis Chronic [J32.8] Procedures LA ENDO NSL MAX ANTROST W RMV TIS LA NSL/SINS NDSC SPHN TISS RMVL LA NSL/SINS NDSC TOTAL LA ENDO NSL/SNS W ETHMDCTOMY PRTL LA STRTCTC COMP-ASSIST CRNL EXTRA LA SUBMUC RSECT TURB PRTL/COMPLT ENDOSCOPIC MAXILLARY ANTROST CHARLIE WITH TISSUE REMOVAL ENDOSCOPIC SPHENOIDOTOMY WITHOUT TISSUE REMOVAL SINUSOTOMY ENDOSCOPY FRONTAL -draft iib, possible draft iii ETHMOIDECTOMY ENDOSCOPY EXTRADURAL COMPUTER NAVIGATION - Proceed as indicated REDUCTION TURBINATE - middle turbinates , procee d as indicated Referral ID Status Reason Start Date Expiration Date Visits Requ ested Visits Authorized [id number] 1 1 Encounter Details Date Type Department Care Team Description 01/11/2021 Hospital Encounter RST ROMB MAIN OR Rc, Rhinosinusitis Chronic [address] [facility] Daphne Blair M.D. [place], [place] [address] [place] [address] [place], [place] [phone] Social History Tobacco Use Types Packs/Day Years [...] How often do you attend judaism or buddhist Never 02/18/2021 services? Do you [...] Comments Blood Pressure 130/89 01/11/2021 5:00 PM BUSINESS MANAGEMENT MANAGER Pulse 77 01/11/2021 5:05 PM BUSINESS MANAGEMENT MANAGER Temperature 36.8 ??C (98.2 ??F) 01/11/2021 5:00 PM BUSINESS MANAGEMENT MANAGER Respiratory Rate 16 01/11/2021 5:00 PM BUSINESS MANAGEMENT MANAGER Oxygen Saturation 95% 01/11/2021 5:05 PM BUSINESS MANAGEMENT MANAGER Inhaled Oxygen Concentration - - Weight 113 kg (248 lb 14.4 oz) 01/11/2021 10:10 AM BUSINESS MANAGEMENT MANAGER Height 167.6 cm (5' 6) 01/11/2021 10:10 AM BUSINESS MANAGEMENT MANAGER Body Mass Index 40.17 01/11/2021 10:10 AM BUSINESS MANAGEMENT MANAGER documented in this encounter Discharge Instructions Discharge [...] or pain not relieved by pain medication. NESS MANAGEMENT MANAGER documented in this encounter Medications at Time [...] PACU in stable condition. Mary Lema M.D. NESS MANAGEMENT MANAGER documented in this encounter Miscellaneous Notes Result Encounter Note - Daphne Tatum M.D. - 01/21/2021 8:27 AM BUSINESS MANAGEMENT MANAGER I have reviewed the final pathology report and the identified diagnosis is consistent with the patient's clinical presentation. NESS MANAGEMENT MANAGER Result Encounter Note - Mary Lema M.D. - 01/19/2021 10:38 PM CST I have reviewed the final pathology report and the identified diagnosis is consistent with the patient's clinical presentation. NESS MANAGEMENT MANAGER documented in this encounter Plan of Treatment Not on filedocumented as of this encounter Procedures Procedure Name Priority Date/Time Associated Diagnosis Comme nts SURGICAL PATHOLOGY, Routine 01/11/2021 12:45 Rhinosinusitis Ch ronic Results for this [facility]OZEN LAB PM BUSINESS MANAGEMENT MANAGER procedure are i n the results section. EXTRADURAL COMPUTER 01/11/2021 11:15 Rhinosinusitis Ch ronic NAVIGATION AM BUSINESS MANAGEMENT MANAGER Case Notes LOG DECK TENDER 958 ETHMOIDECTOMY ENDOSCOPY 01/11/2021 11:15 AM BUSINESS MANAGEMENT MANAGER Rhinos inusitis Chronic Case Notes LOG DECK TENDER 958 SINUSOTOMY ENDOSCOPY FRONTAL 01/11/2021 11:15 AM BUSINESS MANAGEMENT MANAGER R hinosinusitis Chronic Case Notes LOG DECK TENDER 958 ENDOSCOPIC SPHENOIDOTOMY WITHOUT 01/11/2021 11:1 5 AM BUSINESS MANAGEMENT MANAGER Rhinosinusitis Chronic TISSUE REMOVAL Case Notes LOG DECK TENDER 958 ENDOSCOPIC MAXILLARY ANTROSTOMY 01/11/2021 11:15 AM CS T Rhinosinusitis Chronic WITH TISSUE REMOVAL Case Notes LOG DECK TENDER 958 documented in this encounter Results Surgical Pathology, Frozen Lab (01/11/2021 12:45 PM BUSINESS MANAGEMENT MANAGER) Component Value Ref Test Analysis Performed Pathologis t Range Method Time At Signature 01/18/2021 STMA 5:37 AM BUSINESS MANAGEMENT MANAGER Participated in Grant Jones 01/18/2021 Jen -Pathology 5:37 AM BUSINESS MANAGEMENT MANAGER Interpretation Resident Report Daniel Cuveas M.D. [id number] STMA electronically 5:37 AM BUSINESS MANAGEMENT MANAGER signed by I verify that I have examined all relevant slides/materials for the specimen(s) and rendered or confirmed the diagnosis. Gross Description A. ??Received fresh labeled left sinonasal vin nts is a 01/18/2021 STMA 7.4 x 5.1 x 0.9 cm aggregate of reed-red soft tissue. ??All 5:37 AM BUSINESS MANAGEMENT MANAGER submitted for permanent sections. ??Grossed by SSF. [...] A1 Left sinonasal contents 1 5:37 AM BUSINESS MANAGEMENT MANAGER A2 Left sinonasal contents 2 A3 Left [...] negative (Block 01/19/2021 STMA A3). 10:02 PM BUSINESS MANAGEMENT MANAGER Signed by Daniel Cuevas M.D. [id number] 01/19/2021 10:02 PM Comment: REVISED RESULTS Interpretation FINAL DIAGNOSIS 01/19/2021 10:02 PM BUSINESS MANAGEMENT MANAGER STMA A. ??Sinonasal contents, left, excision: ??Sinonasal [...] Volume Laterality Tissue (Nose) 01/11/2021 12:45 PM BUSINESS MANAGEMENT MANAGER Tissue (Nose) 01/11/2021 12:53 PM BUSINESS MANAGEMENT MANAGER Tissue (Nose) 01/11/2021 2:38 PM BUSINESS MANAGEMENT MANAGER Narrative This result has an attachment that is no t available. Daphne Tatum M.D. LAB SURG PATH ORDERABLES Performing Organization Address City/State/ZIP Code Phon e Number [facility] - [address] [place], [place] [address] [address] [place] [address] [facility] [address] documented in this encounter Visit Diagnoses Diagnosis Rhinosinusitis Chronic - Primary documented in this encounter Admitting Diagnoses Diagnosis Rhinosinusitis Chronic documented in this encounter Administered Medications Inactive Administered Medications - up to 3 most recent administrations Medication Order MAR Action Action Date Dose Rate Site fentaNYL injection 25 mcg Given 01/11/2021 3:28 PM BUSINESS MANAGEMENT MANAGER 25 mcg (SUBLIMAZE) 25 mcg, intravenous, Every 2 min PRN, moderate pain or score 4-6 of 10, severe pain or score 7-10 of 10, Starting on Sun01/11/21 at 1031, PACU (only), Up to maximum total dose of 100 mcg Given 01/11/2021 3:22 PM BUSINESS MANAGEMENT MANAGER 25 mcg metoprolol tablet 12.5 mg (LOPRESSOR) [...] 10 mg (ROXICODONE) Given 01/11/2021 3:37 PM BUSINESS MANAGEMENT MANAGER 10 mg 10 mg, oral, Every 4 [...] may contain times in both CDT and BUSINESS MANAGEMENT MANAGER. Scheduled Medication Order 01/09/2021 01/10/2021 01/11/2021 acetaminophen [...]
--- OUTSIDE RECORDS SUMMARY | 2021-11-17 12:14 | XMS_ITS | Encounter Summary ---
:[address] [facility] Address [address] [place] [address] Care Team Providers Name Role Phone Unavailable [...] How often do you attend confucianism or pentecostal Never 02/18/2021 services? Do you belong to [...]
--- OUTSIDE RECORDS SUMMARY | 2021-11-17 12:14 | XMS_ITS | Encounter Summary ---
:1985 Author Organization [facility] Address [address] [place] [address] Care Team Providers Name Role Phone Unavailable Primary Care Provider Unavailable Reason for Referral MRI/CAT/PET Scan (Routine) - Closed Specialty Diagnoses / Procedures Referred By Contact Refer red To Contact Radiology Diagnoses Aspirin Reaction Nasal Polyps Asthma Mary Lema M.D. [facility] Procedures CT Sinuses without IV Contrast [address] [place] [address] Referral ID Status Reason Start Date Expiration Date Visits Requ ested Visits Authorized [id number] Closed 12/13/2020 12/13/2021 1 1 Encounter Details Date Type Department Care Team Description 12/13/2020 Orders Only Department of Mary Lema Aspirin React ion Otorhinolaryngology in [place] Nasal Polyps Asthma [place], [place] [address] [facility] (Primary Dx) [address] [place] [phone] Social History Tobacco Use Types Packs/Day Years [...] How often do you attend jain or buddhist Never 02/18/2021 services? Do you [...]
--- OUTSIDE RECORDS SUMMARY | 2021-11-17 12:14 | XMS_ITS | Encounter Summary ---
:1985 Author Organization [facility] Address [address] [place] [address] Care Team Providers Name Role Phone Unavailable Primary Care Provider Unavailable Reason for Visit Reason Comments Reschedule Post Op Appointment Encounter Details Date Type Department Care Team Description 01/19/2021 Clinical Department of Bety Tatum Pos t Communication Otorhinolaryngology in [place], [place] [address] [facility] [address] [place] [address] [place], [place] [phone] Social History Tobacco Use Types Packs/Day Years [...] How often do you attend orthodoxy or anabaptist Never 02/18/2021 services? Do you [...] or slept in a prison (including now)? Education Answer Date Recorded What [...] Sunday afternoon as he is driving her. ORK SYSTEMS INTEGRATOR Telephone Encounter - Xiomy Horner - 01/19/2021 12:22 PM CST Ms. Odonnell returned your call. You can reach her this afternoon at [phone]. ORK SYSTEMS INTEGRATOR Telephone Encounter - Maciel Watts - 01/19/2021 10:37 AM CST I called Ms. Odonnell today because Dr. Tatum has been called away unexpectedly. Dr. Tatum would like to see her on January 21 in the afternoon at the [facility] procedure room. Ms. Odonnell did not answer so I left a message for her to call me back. Thank you, Maciel ORK SYSTEMS INTEGRATOR documented in this encounter Plan of Treatment Not on filedocumented as of this encounter Visit Diagnoses Not on filedocumented in this encounter
--- OUTSIDE RECORDS SUMMARY | 2021-11-17 12:14 | XMS_ITS | Encounter Summary ---
:1985 Author Organization [facility] Address [address] [place] [address] Care Team Providers Name Role Phone Unavailable Primary Care Provider Unavailable Reason for Referral MRI/CAT/PET Scan (Routine) - Closed Specialty Diagnoses / Procedures Referred By Contact Refer red To Contact Radiology Diagnoses Aspirin Reaction Nasal Polyps Asthma Mary Lema M.D. [facility] Procedures CT Sinuses without IV Contrast [address] [place] [phone] Referral ID Status Reason Start Date Expiration Date Visits Requ ested Visits Authorized [id number] Closed 12/13/2020 12/13/2021 1 1 Reason for Visit MRI/CAT/PET Scan (Routine) - Closed Specialty Diagnoses / Procedures Referred By Contact Refer red To Contact Radiology Diagnoses Aspirin Reaction Nasal Polyps Asthma Mary Lema M.D. [facility] Procedures CT Sinuses without IV Contrast 200 [place] [address] Referral ID Status Reason Start Date Expiration Date Visits Requ ested Visits Authorized [id number] Closed 12/13/2020 12/13/2021 1 1 Encounter Details Date Type Department Care Team Description 12/21/2020 Hospital Encounter Department of Mary Lema Aspirin Reaction RadiologyAndrade M.D. Nasal Polyps Asthma [facility], in [address] [place] [address] [place] [address] [place], [place] [phone] (Work) [phone] Social History Tobacco Use Types Packs/Day Years [...] How often do you attend sikh or gnosticist Never 02/18/2021 services? Do you belong to [...]
--- OUTSIDE RECORDS SUMMARY | 2021-11-17 12:14 | XMS_ITS | Encounter Summary ---
:1985 Author Organization [facility] Address [address] [place] [address] Care Team Providers Name Role Phone Unavailable Primary Care Provider Unavailable Reason for Referral Outpatient (Routine) - Closed Specialty Diagnoses / Procedures Referred By Contact Refer red To Contact Otorhinolaryngology Daphne Tatum [place] M.D. [address] [place] [address] Referral ID Status Reason Start Date Expiration Date Visits Requ ested Visits Authorized [id number] Closed 01/06/2021 01/06/2022 1 1 Scheduling Instructions Oral covid same day, 930 override Reason for Visit Appointment Request (Routine) - Closed Specialty Diagnoses / Procedures Referred By Contact Refer sheri To Contact Otorhinolaryngology Diagnoses Polyp Nasal Referral ID Status Reason Start Date Expiration Date Visits Requ ested Visits Authorized [id number] Closed 12/12/2020 12/12/2021 1 1 Encounter Details Date Type Department Care Team Description 01/06/2021 Comprehensive Visit Department of Rebecca Tatumosi nusitis Chronic (Primary Dx); Otorhinolaryngology in Daphne Blair, Polyp Nasal; [place], [place] Aspirin Reaction Nasal Polyps Asthma [address] [facility] [address] [place] [address] [place] [phone] Social History Tobacco Use Types Packs/Day Years [...] 02/18/2021 relatives? How often do you attend mormon or bahai Never 02/18/2021 services? Do you belong to any clubs or organizations such as No 02/18/2021 mormon groups, unions, fraternal or athletic groups, or [...] therapy or repeat asa desensitization with an biomedical field service engineer as I am not optimistic that [...]
--- OUTSIDE RECORDS SUMMARY | 2021-11-17 12:14 | XMS_ITS | Encounter Summary ---
:1985 Author Organization [facility] Address [address] [place] [address] Care Team Providers Name Role Phone Unavailable Primary Care Provider Unavailable Encounter Details Date Type Department Care Team Description 01/08/2021 Hospital Encounter Department of Daphne Tatum Cont act With And (Suspected) Exposure To COVID-19; Laboratory Medicine [place] Preprocedural Lab Exam in [place], [address] [place] [address] [place] [address] [place], [place] [phone] (Work) [phone] Social History Tobacco Use Types Packs/Day Years [...] 02/18/2021 relatives? How often do you attend temple or pentecostalism Never 02/18/2021 services? Do you belong to any clubs or organizations such as No 02/18/2021 temple groups, unions, fraternal or athletic groups, or [...] RNA, V Asymptomatic (01/08/2021 10:58 AM CDT) [facility] Method Time Signature SARS-CoV-2 Swab, 01/08/2021 MKTO [...] pe rformed using the Aptima SARS-CoV-2 assay ([employer] on the NanoVision Diagnosticss tem under emergency use authorization (EUA) by the U.S. Food and Drug Administ ration. Fact sheets for this EUA assay can be fo und at the following links: For Healthcare Providers: https://www.fd a.gov/media/980250/download For Patients: https://www.fda.gov/media/ 644362/download Specimen Anatomical Collection Method Collection Time Receive d Time (Source) Location / / Volume Laterality Varies 01/08/2021 10:58 01/08/2021 5:03 (Nasopharynx) AM CDT PM CDT Daphne Tatum M.D. LAB MICROBIOLOGY - GENERAL O RDERABLES Performing Organization Address City/State/ZIP Code Phon e Number [facility]- [address] [place] [id number] [place] [address] [place] [address] [address] documented in this encounter Visit Diagnoses Diagnosis Contact With And (Suspected) Exposure To COVID-19 Preprocedural Lab Exam documented in this encounter Additional Health Concerns Infection Onset Date Last Indicated Resolved Time COVID19 Pending 01/08/2021 01/08/2021 01/08/2021 11:18 PM CDT documented as of this encounter
--- NOTE | 2021-11-17 12:15 | CRLHL7_ITS ---
For Patients: As a result of the Century Cures Act, medical imaging exams and procedure reports are released immediately into your electronic medical record. You may view this report before your referring provider. If you have questions, please contact your health care provider. INDICATION: Chronic hypertension COMPARISON: 11/09/2021 TECHNIQUE: Real time degroot scale imaging of the fetus was performed. Without non-stress testing. FINDINGS: Sonographic imaging demonstrates a single living intrauterine gestation. Fetus demonstrates a regular cardiac rate of 150 beats per minute. Fetus has a vertex position. The amniotic fluid volume appears upper limits of normal and there is a single deepest pocket measurement of 8.1 cm. Four-quadrant SUKHWINDER 25.0 cm. The fetus was active and demonstrated normal breathing movements. There was normal flexion and extension of the trunk and extremities. IMPRESSION: Normal biophysical profile score of 8 out of 8. Dictated by Chago Gallardo MD @ 11/17/2021 12:38:40 PM (Electronically Signed)
== END 2021-11-17 12:12 | disposition home or self-care (01) ==
LOC: US 12:12
PROVIDERS: Visit Provider Obstetrics & Gynecology
DX: O10.919 Unspecified pre-existing hypertension complicating pregnancy, unspecified trimester (principal)
CPT/HCPCS: 76819; 87081; 87653

== ENCOUNTER 2021-11-19 17:57 | Outpatient (CLI) | payer BC, SELFPAY ==
--- OUTSIDE RECORDS SUMMARY | 2021-11-19 18:13 | XMS_ITS | Encounter Summary ---
:[address] [facility] Address [address] [place] [address] Care Team Providers Name Role Phone Unavailable Primary Care Provider Unavailable Reason for Visit Reason Comments Med Refill Encounter Details Date Type Department Care Team Description 12/03/2017 Refill Department of Otorhinolaryngology Ashley Victor, Med Refill in [facility] jorge HOFFMAN C.N.P., M.S.N. [address] [place] [address] [address] [place] [address] [place], [place] [phone] (Wo rk) Social History Tobacco Use Types [...] How often do you attend uatsdin or scientology Never 02/18/2021 services? Do you [...] or slept in a mcfp (including now)? Sex Assigned at Date Recorded [...]
--- OUTSIDE RECORDS SUMMARY | 2021-11-19 18:13 | XMS_ITS | Encounter Summary ---
:1985 Author Organization [facility] Address [address] [place] [address] Care Team Providers Name Role Phone Unavailable [...] How often do you attend yazidi or jew Never 02/18/2021 services? Do you belong to [...]
--- OUTSIDE RECORDS SUMMARY | 2021-11-19 18:13 | XMS_ITS | Encounter Summary ---
:1985 Author Organization [facility] Address [address] [place] [address] Care Team Providers Name Role Phone Unavailable Primary Care Provider Unavailable Encounter Details Date Type Department Care Team Description 01/17/2021 Orders Only Department of [facility] Teresita Tena Otorhinolaryngology in [address] [place] [address] [place] [phone] [place] [address] [phone] Social History Tobacco Use Types Packs/Day Years [...] How often do you attend restoration or scientology Never 02/18/2021 services? Do you [...]
--- OUTSIDE RECORDS SUMMARY | 2021-11-19 18:13 | XMS_ITS | Encounter Summary ---
:1985 Author Organization [facility] Address [address] [place] [address] Care Team Providers Name Role Phone Unavailable Primary Care Provider Unavailable Reason for Visit Outpatient (Routine) - Closed Specialty Diagnoses / Procedures Referred By Contact Refer red To Contact Otorhinolaryngology Daphne Tatum [place] M.D. [address] [place] [address] Referral ID Status Reason Start Date Expiration Date Visits Requ ested Visits Authorized [id number] Closed 01/21/2021 01/21/2022 1 1 Encounter Details Date Type Department Care Team Description 02/18/2021 Office Visit Department of Rc, Rhinosinusitis Chronic (Primary Dx); Otorhinolaryngology in Daphne Blair, Polyp Nasal; [place], [place] Aspirin Reaction Nasal Polyps Asthma [address] [facility] [address] [place] [address] [place], [place] [phone] Social History Tobacco Use Types Packs/Day Years [...] 02/18/2021 relatives? How often do you attend zoroastrian or yazidism Never 02/18/2021 services? Do you belong to any clubs or organizations such as No 02/18/2021 zoroastrian groups, unions, fraternal or athletic groups, or [...] procedure well and there were no complications. [place] Endoscopic Scoring System Right Side Left Side [...] recently putting a real tree up for [place] and has noticed increasing nasal congestion. On [...] become . Sanjeev Thakur APRN, C.N.P., M.S.N. TH AND SAFETY TECHNICIAN Associated attestation - Daphne Tatum M.D. - 02/20/2021 5:37 PM HEALTH AND SAFETY TECHNICIAN I saw the patient with Sanjeev Thakur C.N.P. and agree with her findings, assessment, and plan. Daphne Tatum M.D. documented in this encounter Plan of Treatment Not on filedocumented as of this encounter Visit Diagnoses Diagnosis Rhinosinusitis Chronic - Primary Polyp Nasal Aspirin Reaction Nasal Polyps Asthma documented in this encounter
--- OUTSIDE RECORDS SUMMARY | 2021-11-19 18:13 | XMS_ITS | Clinical Summary ---
:1985 Author Organization [facility] Address [address] [place] [address] Care Team Providers Name Role Phone Unavailable Primary Care Provider Unavailable Source Comments Patient records contain information from all sites at [facility]. For routine questions regarding patient records, call [phone] during business hours, M-F 8:00 AM - 5:00 PM Central Time. Record requests for emergency care only can be directed to [phone] at any time.[facility] Allergies Active Allergy Reactions Severity Noted [...] Added automatically from request for chandler haskins [id number] Aspirin Reaction Nasal Polyps Asthma 09/24/2015 Asthma [...] How often do you attend rastafarian or rastafari Never 02/18/2021 services? Do you [...] Comments Blood Pressure 130/89 01/11/2021 5:00 PM BODY WELDER Pulse 77 01/11/2021 5:05 PM BODY WELDER Temperature 36.8 ??C (98.2 ??F) 01/11/2021 5:00 PM BODY WELDER Respiratory Rate 16 01/11/2021 5:00 PM BODY WELDER Oxygen Saturation 95% 01/11/2021 5:05 PM BODY WELDER Inhaled Oxygen Concentration - - Weight 113 kg (248 lb 14.4 oz) 01/11/2021 10:10 AM BODY WELDER Height 167.6 cm (5' 6) 01/11/2021 10:10 AM BODY WELDER Body Mass Index 40.17 01/11/2021 10:10 AM BODY WELDER Plan of Treatment Health Maintenance Due Date [...] Questionnaire 05/04/2017 Depression Screening (Annual PHQ-2) 03/05/2021 COVID-19 Vaccine (4 - Booster for 04/08/2021 02/11/2021, , Pfizer series) 03/23/2020 Influenza Vaccine (#1) 2021 Medical Devices Implanted Type Area Tin Plater Device Shelf Model / Identifier Expiration Serial / Date Lot Stent Sinus Propel Regular - [id number] [id number] Stent Other/Legacy - Int ersect Ent Implanted: Qty: 1 on 10/14/2015 Other [employer] Description Description: Device Tin Plater - Inter sect Ent. Body Location - Other. Left. Device Status Text - [id number]. Insurance Payer Benefit Plan Subscriber ID Effective Phone Address Typ e / Group Dates BLUE CROSS BCBS BLUE [id number] 2018-Andree ATTN: William gallardo HMO BLUE SHIELD PLUS HMO nt CONSUMER [facility] [address] [address] [place] [address]
--- OUTSIDE RECORDS SUMMARY | 2021-11-19 18:13 | XMS_ITS | Encounter Summary ---
:1985 Author Organization [facility] Address [address] [place] [address] Care Team Providers Name Role Phone Unavailable Primary Care Provider Unavailable Reason for Referral MRI/CAT/PET Scan (Routine) - Closed Specialty Diagnoses / Procedures Referred By Contact Refer red To Contact Radiology Diagnoses Aspirin Reaction Nasal Polyps Asthma Mary Lema M.D. [facility] Procedures CT Sinuses without IV Contrast [address] [place] [phone] Referral ID Status Reason Start Date Expiration Date Visits Requ ested Visits Authorized [id number] Closed 12/13/2020 12/13/2021 1 1 Reason for Visit MRI/CAT/PET Scan (Routine) - Closed Specialty Diagnoses / Procedures Referred By Contact Refer red To Contact Radiology Diagnoses Aspirin Reaction Nasal Polyps Asthma Mary Lema M.D. [facility] Procedures CT Sinuses without IV Contrast 200 [place] [address] Referral ID Status Reason Start Date Expiration Date Visits Requ ested Visits Authorized [id number] Closed 12/13/2020 12/13/2021 1 1 Encounter Details Date Type Department Care Team Description 12/21/2020 Hospital Encounter Department of Mary Lema Aspirin Reaction RadiologyAndrade M.D. Nasal Polyps Asthma [facility], in [address] [place] [address] [place] [phone] [place], [place] [phone] (Work) [phone] Social History Tobacco Use Types Packs/Day Years [...] How often do you attend yazdanism or samaritan Never 02/18/2021 services? Do you [...] inspissated secretions, however fungal sinus colonization can weavre ve a similar appearance. Similar wall thickening [...]
--- OUTSIDE RECORDS SUMMARY | 2021-11-19 18:13 | XMS_ITS | Encounter Summary ---
:1985 Author Organization [facility] Address [address] [place] [address] Care Team Providers Name Role Phone Unavailable [...] 02/18/2021 relatives? How often do you attend mu-ism or mormonism Never 02/18/2021 services? Do you belong to any clubs or organizations such as No 02/18/2021 mu-ism groups, unions, fraternal or athletic groups, or [...] P athologist Signature Tryptase, S 3.0 <11.5 [facility] NG/ML [facility] Specimen Anatomical Collection Method Collection Time Receive d Time (Source) Location / / Volume Laterality 10/15/2015 4:26 AM 6 4:26 CDT AM CDT Onofre Brown M.D. LAB BLOOD ADD-ON Performing Organization Address City/State/ZIP Code Phon e Number [facility] - 200 [place], [place] [address] [facility] Hx general Pathology Report (10/14/2015 8:06 PM CDT) Specimen Anatomical Collection Method Collection Time Receive d Time (Source) Location / / Volume Laterality 10/14/2015 8:06 PM 6 8:06 CDT PM CDT Narrative [facility] - 10/14/2015 8:06 PM CDT ??10/14/2015 General Biopsy ? ([id number]) ? Requested By: Daphne Tatum M.D. ??[phone] ? SLIDE DISPOSITION: ? DIAGNOSIS: ?? A. Sinonasal cavity, bilateral contents , excision: Respiratory mucosa with chronic inflammation and nu merous eosinophils. ?? Participated in interpretation: Dr. Newberry. Pager: [phone]. ?? As the signing pathologist, I verify th at I have examined all relevant slides/materials for the speci men(s) and rendered or confirmed the diagnosis. ? 10/19/2015 11:59 Interpreted by: Darcy Steen M.D. [id number] Report electronically signed by Darcy Steen M.D. Transcribed by: [facility] 10/18/2015 16:09:23 ? TISSUE DESCRIPTION: [id number] A. ??Received fresh labeled bilateral sinus contents is an 8 x 7 x 2.5 cm aggregate of red soft tissue and cartilage. ??All soft tissue is submitted. ??Program Mgr sections are submitted for permanent sections only. ??Grossed by CDP. ? Part A: ??Bilateral sinus contents ?1 Bilateral sinus contents 1 ?2 Bilateral sinus contents 2 ?3 Bilateral sinus contents 3 ?4 Bilateral sinus contents 4 ?5 Bilateral sinus contents 5 ?6 Bilateral sinus contents 6 ?? XRSR Path ? Procedure Note 05/26/2017 10/14/2015 General Biopsy ([id number]) Requested By: Daphne Tatum M.D. [phone] SLIDE DISPOSITION: DIAGNOSIS: A. Sinonasal cavity, bilateral contents , excision: Respiratory mucosa with chronic inflammation and nu merous eosinophils. Participated in interpretation: Dr. Newberry. Pager: [phone]. As the signing pathologist, I verify th at I have examined all relevant slides/materials for the speci men(s) and rendered or confirmed the diagnosis. 10/19/2015 11:59 Interpreted by: Darcy Steen M.D. [id number] Report electronically signed by Darcy Steen M.D. Transcribed by: latricia 10/18/2015 16:09:23 TISSUE DESCRIPTION: [id number] A. Received fresh labeled bilateral si nus contents is an 8 x 7 x 2.5 cm aggregate of red soft tissue and cartilage. All soft tissue is submitted. Program Mgr sections a re submitted for permanent sections only. Grossed by CDP. Part A: Bilateral sinus contents 1 Bilateral sinus contents 1 2 Bilateral sinus contents 2 3 Bilateral sinus contents 3 4 Bilateral sinus contents 4 5 Bilateral sinus contents 5 6 Bilateral sinus contents 6 XRSR Path Daphne Tatum M.D. LAB PATHOLOGY/CYTOLOGY ORDER MIGUEL Performing Organization Address City/State/ZIP Code Phon e Number [facility] - [address] [place], [place] [address] [facility] (ABNORMAL) Leukotriene E4, Urine (10/14/2015 10:00 AM CDT) [facility] gist Method Time Signature Leukotriene E4, 281 (H) <=104 [facility] U PG/MG CR [facility] - [facility] Comment: Mailed In Specimen ? [...] CDT 10:00 AM CDT Narrative [facility] - [facility] - 10/20/2015 9:04 AM CDT Mailed In Specimen Alber Chapa M.D., Ph.D. LAB URINE ORDERABLES Performing Organization Address City/State/ZIP Code Phon e Number [facility] - [address] [place], [place] [address] [facility] documented in this encounter Visit Diagnoses Not on filedocumented in this encounter
--- OUTSIDE RECORDS SUMMARY | 2021-11-19 18:13 | XMS_ITS | Encounter Summary ---
:1985 Author Organization [facility] Address [address] [place] [address] Care Team Providers Name Role Phone Unavailable Primary Care Provider Unavailable Encounter Details Date Type Department Care Team Description 12/13/2020 Clinical Department of Lázaro Sebastian Otorhinolaryngology in [place], [place] [phone] [address] [facility] (Work) [place] [address] Social History Tobacco Use Types Packs/Day [...] 02/18/2021 relatives? How often do you attend yarsanism or roman catholic Never 02/18/2021 services? Do you belong to any clubs or organizations such as No 02/18/2021 yarsanism groups, unions, fraternal or athletic groups, or [...]
--- OUTSIDE RECORDS SUMMARY | 2021-11-19 18:13 | XMS_ITS | Encounter Summary ---
:1985 Author Organization [facility] Address [address] [place] [address] Care Team Providers Name Role Phone Unavailable [...] How often do you attend rastafarian or mormon Never 02/18/2021 services? Do you [...] 02/18/2021 11:40 Results for this EXAM AM TEAM FOREMAN procedure are i n the results section. documented in this encounter Results NOSE-Otorhinolaryngology Image Exam (02/18/2021 11:40 AM TEAM FOREMAN) Specimen (Source) Anatomical Collection Method Collection Time Re ceived Time Location / / Volume Laterality 02/18/2021 11:36 AM TEAM FOREMAN Narrative [facility] - 02/18/2021 11:40 AM TEAM FOREMAN This order has been created and auto-finalized [...]
--- OUTSIDE RECORDS SUMMARY | 2021-11-19 18:13 | XMS_ITS | Encounter Summary ---
:1985 Author Organization [facility] Address [address] [place] [address] Care Team Providers Name Role Phone Unavailable [...] 02/18/2021 relatives? How often do you attend latter-day or restorationism Never 02/18/2021 services? Do you belong to any clubs or organizations such as No 02/18/2021 latter-day groups, unions, fraternal or athletic groups, or [...] or the highest technical, or vocational p ulke degree you have received? Sex Assigned at [...]
--- OUTSIDE RECORDS SUMMARY | 2021-11-19 18:13 | XMS_ITS | Encounter Summary ---
:1985 Author Organization [facility] Address [address] [place] [address] Care Team Providers Name Role Phone Unavailable Primary Care Provider Unavailable Reason for Visit Auth/Cert Specialty Diagnoses / Procedures Referred By Contact Refer red To Contact Diagnoses Rhinosinusitis Chronic Rhinosinusitis Chronic [J32.8] Procedures OK ENDO NSL MAX ANTROST W RMV TIS OK NSL/SINS NDSC SPHN TISS RMVL OK NSL/SINS NDSC TOTAL OK ENDO NSL/SNS W ETHMDCTOMY PRTL OK STRTCTC COMP-ASSIST CRNL EXTRA OK SUBMUC RSECT TURB PRTL/COMPLT ENDOSCOPIC MAXILLARY ANTROST CHARLIE WITH TISSUE REMOVAL ENDOSCOPIC SPHENOIDOTOMY WITHOUT TISSUE REMOVAL SINUSOTOMY ENDOSCOPY FRONTAL -draft iib, possible draft iii ETHMOIDECTOMY ENDOSCOPY EXTRADURAL COMPUTER NAVIGATION - Proceed as indicated REDUCTION TURBINATE - middle turbinates , procee d as indicated Referral ID Status Reason Start Date Expiration Date Visits Requ ested Visits Authorized [id number] 1 1 Encounter Details Date Type Department Care Team Description 01/11/2021 Anesthesia Event RST ROMB MAIN OR Laz Young, [address] [place] [address] [place], [place] [phone] [phone] [place] [address] [place] [address] (Wo rk) Anesthesia Record Procedure Summary Procedure [...] h andoff to the receiving staff during [facility] we 1. Identified the patient 2. Ident [...] APRN, Schaffer, Jordan A, (created via procedure LEGAL ADVISER R.N. documentation); Mask Ventilation: Easy mask; Type: [...] M ikaela A, Catheter Size: 20 G; LEGAL ADVISER R.NXavier Orientation: Left; Location: Hand; Technique: Transillumination; Removal Date: 01/11/21; Removal Time: 1705; Removal Reason: Patient discharged (RETIRED) Incision 01/11/21; 1446; No; Nose; 01/11/21 1446 by 1223 by Bilateral; FESS; 02/04/21 Rula Bradley, [facility] (removed by background R.N. d, Edwige [...] How often do you attend mosque or protestant Never 02/18/2021 services? Do you [...] slept in a long term (including now)? Education Answer Date Recorded What [...] Procedure Summary Date: 01/11/21 Room / Location: [place] [address] / [facility] in [place], [place] Anesthesia Start: 1137 Anesthesia Stop: 1520 [...] Post Op nausea/vomiting: none Hydration status: euvolemic SCAPE DRAFTER Anesthesia Procedure Notes - Sirena Montejo APRN, CRNA - 01/11/2021 12:30 PM LANDSCAPE DRAFTER Associated Order(s): Airway Airway Date/Time: 01/11/2021 11:45 [...] successful Airway event: no complications ATTESTATION STATEMENT SCAPE DRAFTER Anesthesia Preprocedure Evaluation - Laz Young M.D. [...] [J32.8] Pre-op diagnosis: Rhinosinusitis Chronic [J32.8]. Location: [address] / [facility] in [place], [place] Providers: Daphne Tatum M.D. Pertinent components [...] with patient /legal guardian or through an edge burnisher. The use of blood products not discussed Approval to Proceed: approved for anesthesia SCAPE DRAFTER documented in this encounter Plan of Treatment Not on filedocumented as of this encounter Procedures Procedure Name Priority Date/Time Associated Comments Diagnosis LDA ANE ENDOTRACHEAL Routine 01/11/2021 11:45 Res ults for this AIRWAY AM LANDSCAPE DRAFTER procedure are i n the results section. documented in this encounter Results LDA ANE ENDOTRACHEAL AIRWAY (01/11/2021 11:45 AM LANDSCAPE DRAFTER) Narrative Sirena Montejo APRN, CRNA - 01/11/2021 11:45 AM LANDSCAPE DRAFTER Sirena Montejo APRN, CRNA ? 01/11/2021 12:31 [...] Site acetaminophen injection Given 01/11/2021 2:16 PM LANDSCAPE DRAFTER 1,000 mg intravenous, Administer over 15 Minutes, As needed, Starting on Sun01/11/21 at 1416, Anesthesia Intra-op ceFAZolin injection (ANCEF) Given 01/11/2021 12:21 PM LANDSCAPE DRAFTER 2 g intravenous, As needed, Starting on Sun01/11/21 at 1221, Anesthesia Intra-op dexAMETHasone injection (DECADRON) Given 01/11/2021 11:49 AM LANDSCAPE DRAFTER 10 mg intravenous, As needed, Starting on Sun01/11/21 at 1149, Anesthesia Intra-op fentaNYL injection (SUBLIMAZE) Given 01/11/2021 1:56 PM LANDSCAPE DRAFTER 50 mcg intravenous, As needed, Starting on Sun01/11/21 at 1144, Anesthesia Intra-op Given 01/11/2021 1:41 PM LANDSCAPE DRAFTER 50 mcg Given 01/11/2021 1:01 PM LANDSCAPE DRAFTER 50 mcg labetalol injection (NORMODYNE,TRANDATE) Given 01/11/2021 2:27 PM LANDSCAPE DRAFTER 5 mg intravenous, As needed, Starting on Sun01/11/21 at 1359, Anesthesia Intra-op Given 01/11/2021 2:02 PM LANDSCAPE DRAFTER 5 mg Given 01/11/2021 1:59 PM LANDSCAPE DRAFTER 5 mg lactated ringers New Bag 01/11/2021 11:37 AM LANDSCAPE DRAFTER intravenous, Continuous Infusion: Per Instructions PRN, Starting on Sun01/11/21 at 1137, Anesthesia Intra-op lactated ringers New Bag 01/11/2021 11:47 AM LANDSCAPE DRAFTER intravenous, Continuous Infusion: Per Instructions PRN, Starting on Sun01/11/21 at 1147, Anesthesia Intra-op lidocaine (PF) (cardiac) injection Given 01/11/2021 11:44 AM LANDSCAPE DRAFTER 60 mg intravenous, As needed, Starting on Sun01/11/21 at 1144, Anesthesia Intra-op ondansetron (PF) injection (ZOFRAN) Given 01/11/2021 2:40 PM LANDSCAPE DRAFTER 4 mg intravenous, As needed, Starting on Sun01/11/21 at 1440, Anesthesia Intra-op propofol 10 mg/mL infusion Rate/Dose 01/11/2021 2:43 110 mcg/kg/min 74.514 (DIPRIVAN) Change PM LANDSCAPE DRAFTER mL/hr intravenous, Continuous Infusion: Per Instructions PRN, Starting on Sun01/11/21 at 1144, Anesthesia Intra-op Rate/Dose Change 01/11/2021 2:39 PM LANDSCAPE DRAFTER 125 mcg/kg/min 84.675 mL/hr New Bag 01/11/2021 2:27 PM LANDSCAPE DRAFTER 150 mcg/kg/min 101.61 mL/hr propofoL injection (DIPRIVAN) Given 01/11/2021 11:56 AM LANDSCAPE DRAFTER 50 mg intravenous, As needed, Starting on Sun01/11/21 at 1144, Anesthesia Intra-op Given 01/11/2021 11:44 AM LANDSCAPE DRAFTER 200 mg remifentaniL 20 mcg/mL in Rate/Dose 01/11/2021 2:10 0.1 mcg/kg/min 3 3.87 NaCl 0.9% 100 mL infusion Change PM LANDSCAPE DRAFTER mL/hr (ULTIVA) intravenous, Continuous Infusion: Per Instructions PRN, Starting on Sun01/11/21 at 1144, Anesthesia Intra-op Rate/Dose Change 01/11/2021 1:53 PM LANDSCAPE DRAFTER 0.1 mcg/kg/min 33.87 mL/hr Rate/Dose Change 01/11/2021 12:03 PM LANDSCAPE DRAFTER 0.2 mcg/kg/min 67.74 mL/hr scopolamine base 1 mg over 3 days Given 01/11/2021 12:00 PM LANDSCAPE DRAFTER 1 patch (TRANSDERM SCOP) transdermal, Administer over 72 Hours, As needed, Starting on Sun01/11/21 at 1200, Anesthesia Intra-op succinylcholine (PF) injection (ANECTINE ) Given 01/11/2021 11:44 AM LANDSCAPE DRAFTER 100 mg intravenous, As needed, Starting on Sun01/11/21 at 1144, Anesthesia Intra-op documented in this encounter
--- OUTSIDE RECORDS SUMMARY | 2021-11-19 18:13 | XMS_ITS | Encounter Summary ---
:1985 Author Organization [facility] Address [address] [place] [address] Care Team Providers Name Role Phone Unavailable Primary Care Provider Unavailable Encounter Details Date Type Department Care Team Description 06/28/2017 Orders Only Department of Ashley Victor Otorhinolaryngology in [place], AIRCRAFT ENGINE MECHANIC SUPERVISOR, Nasal Polyps Asthma [place], [place] C.N.P., M.S.N. (Primary Dx) [address] [place] [address] [place] [phone] [place], [place] [phone] Social History Tobacco Use Types Packs/Day Years [...] How often do you attend quaker or anabaptism Never 02/18/2021 services? Do you [...] or slept in a residential (including now)? Sex Assigned at Date Recorded Female 01/06/2021 8:49 AM CDT documented as of this encounter Plan of Treatment Not on filedocumented as of this encounter Visit Diagnoses Diagnosis Aspirin Reaction Nasal Polyps Asthma - P rimary documented in this encounter
--- OUTSIDE RECORDS SUMMARY | 2021-11-19 18:13 | XMS_ITS | Encounter Summary ---
:1985 Author Organization [facility] Address [address] [place] [address] Care Team Providers Name Role Phone Unavailable [...] How often do you attend pentecostal or anabaptism Never 02/18/2021 services? Do you [...] 01/11/2021 12:10 Results for this EXAM AM CURING PRESS MAINTAINER procedure are i n the results section. documented in this encounter Results AIRWAY-Otorhinolaryngology Image Exam (01/11/2021 12:10 AM CURING PRESS MAINTAINER) Specimen (Source) Anatomical Location Collection Method / Collectio n Time Received Time / Laterality Volume Narrative [facility] - 01/11/2021 2:55 PM CURING PRESS MAINTAINER This order has been created and auto-finalized [...]
--- OUTSIDE RECORDS SUMMARY | 2021-11-19 18:13 | XMS_ITS | Encounter Summary ---
:1985 Author Organization [facility] Address [address] [place] [address] Care Team Providers Name Role Phone Unavailable Primary Care Provider Unavailable Reason for Referral Outpatient (Routine) - Closed Specialty Diagnoses / Procedures Referred By Contact Refer red To Contact Otorhinolaryngology Daphne Tatum [place] M.D. [address] [place] [address] Referral ID Status Reason Start Date Expiration Date Visits Requ ested Visits Authorized [id number] Closed 01/06/2021 01/06/2022 1 1 Scheduling Instructions Oral covid same day, 930 override Reason for Visit Appointment Request (Routine) - Closed Specialty Diagnoses / Procedures Referred By Contact Refer sheri To Contact Otorhinolaryngology Diagnoses Polyp Nasal Referral ID Status Reason Start Date Expiration Date Visits Requ ested Visits Authorized [id number] Closed 12/12/2020 12/12/2021 1 1 Encounter Details Date Type Department Care Team Description 01/06/2021 Comprehensive Visit Department of Rebecca Tatumosi nusitis Chronic (Primary Dx); Otorhinolaryngology in [place]aphne Blair, Polyp Nasal; [place], [place] Sung Aspirin Reaction Nasal Polyps Asthma [address] [facility] [address] [place] [address] [place] [phone] Social History Tobacco Use Types Packs/Day Years [...] How often do you attend muslim or yazidism Never 02/18/2021 services? Do you [...] therapy or repeat asa desensitization with an lokie engineer as I am not optimistic that [...]
--- OUTSIDE RECORDS SUMMARY | 2021-11-19 18:13 | XMS_ITS | Encounter Summary ---
:1985 Author Organization [facility] Address [address] [place] [address] Care Team Providers Name Role Phone Unavailable Primary Care Provider Unavailable Encounter Details Date Type Department Care Team Description 06/22/2017 Orders Only Department of Ashley Victor, Otorhinolaryngology in [facility], C.N.P.[place], [place] M.S.N. [address] [place] [address] [address] [place] [address] [place], [place] [phone] Social History Tobacco Use Types Packs/Day Years [...] 02/18/2021 relatives? How often do you attend mandaen or congregation Never 02/18/2021 services? Do you belong to any clubs or organizations such as No 02/18/2021 mandaen groups, unions, fraternal or athletic groups, or [...]
--- OUTSIDE RECORDS SUMMARY | 2021-11-19 18:13 | XMS_ITS | Encounter Summary ---
:1985 Author Organization [facility] Address [address] [place] [address] Care Team Providers Name Role Phone Unavailable Primary Care Provider Unavailable Reason for Visit Auth/Cert Specialty Diagnoses / Procedures Referred By Contact Refer red To Contact Diagnoses Rhinosinusitis Chronic Rhinosinusitis Chronic [J32.8] Procedures SC ENDO NSL MAX ANTROST W RMV TIS SC NSL/SINS NDSC SPHN TISS RMVL SC NSL/SINS NDSC TOTAL SC ENDO NSL/SNS W ETHMDCTOMY PRTL SC STRTCTC COMP-ASSIST CRNL EXTRA SC SUBMUC RSECT TURB PRTL/COMPLT ENDOSCOPIC MAXILLARY ANTROST CHARLIE WITH TISSUE REMOVAL ENDOSCOPIC SPHENOIDOTOMY WITHOUT TISSUE REMOVAL SINUSOTOMY ENDOSCOPY FRONTAL -draft iib, possible draft iii ETHMOIDECTOMY ENDOSCOPY EXTRADURAL COMPUTER NAVIGATION - Proceed as indicated REDUCTION TURBINATE - middle turbinates , procee d as indicated Referral ID Status Reason Start Date Expiration Date Visits Requ ested Visits Authorized [id number] 1 1 Encounter Details Date Type Department Care Team Description 01/11/2021 Surgery RST ROMB MAIN OR Daphne Tatum, ENDOSCOPIC MAXILLARY 1216 [facility] M.DXavier ANTROSTOMY, TISSUE [place], [place] 200 [facility] REMOVAL. [address] [place], [place] [phone] (Wo rk) Social History Tobacco Use Types [...] How often do you attend presybeterian or yazdanism Never 02/18/2021 services? Do you [...] or the highest technical, or vocational [facility] degree you have received? Sex Assigned at Date Recorded Female 01/06/2021 8:49 AM CDT documented as of this encounter Last Filed Vital Signs Vital Sign Reading Time Taken Comments Blood Pressure 124/85 01/11/2021 3:30 PM AIRLINE FLIGHT ATTENDANT Pulse 78 01/11/2021 3:55 PM AIRLINE FLIGHT ATTENDANT Temperature 36.8 ??C (98.2 ??F) 01/11/2021 3:20 PM AIRLINE FLIGHT ATTENDANT Respiratory Rate 14 01/11/2021 3:40 PM AIRLINE FLIGHT ATTENDANT Oxygen Saturation 95% 01/11/2021 3:55 PM AIRLINE FLIGHT ATTENDANT Inhaled Oxygen Concentration - - Weight 113 kg (248 lb 14.4 oz) 01/11/2021 10:10 AM AIRLINE FLIGHT ATTENDANT Height 167.6 cm (5' 6) 01/11/2021 10:10 AM AIRLINE FLIGHT ATTENDANT Body Mass Index 40.17 01/11/2021 10:10 AM AIRLINE FLIGHT ATTENDANT documented in this encounter Discharge Instructions Discharge [...] or pain not relieved by pain medication. INE FLIGHT ATTENDANT documented in this encounter Medications at Time [...] PACU in stable condition. Mary Lema M.D. INE FLIGHT ATTENDANT documented in this encounter Miscellaneous Notes Result Encounter Note - Daphne Tatum M.D. - 01/21/2021 8:27 AM AIRLINE FLIGHT ATTENDANT I have reviewed the final pathology report and the identified diagnosis is consistent with the patient's clinical presentation. INE FLIGHT ATTENDANT Result Encounter Note - Mary Lema M.D. - 01/19/2021 10:38 PM CST I have reviewed the final pathology report and the identified diagnosis is consistent with the patient's clinical presentation. INE FLIGHT ATTENDANT documented in this encounter Plan of Treatment Not on filedocumented as of this encounter Procedures Procedure Name Priority Date/Time Associated Diagnosis Comme nts SURGICAL PATHOLOGY, Routine 01/11/2021 12:45 Rhinosinusitis Ch ronic Results for this FROZEN LAB PM AIRLINE FLIGHT ATTENDANT procedure are i n the results section. EXTRADURAL COMPUTER 01/11/2021 11:15 Rhinosinusitis Ch ronic NAVIGATION AM AIRLINE FLIGHT ATTENDANT Case Notes SCIENTIST PROPAGATOR 958 ETHMOIDECTOMY ENDOSCOPY 01/11/2021 11:15 AM AIRLINE FLIGHT ATTENDANT Rhinos inusitis Chronic Case Notes SCIENTIST PROPAGATOR 958 SINUSOTOMY ENDOSCOPY FRONTAL 01/11/2021 11:15 AM AIRLINE FLIGHT ATTENDANT R hinosinusitis Chronic Case Notes SCIENTIST PROPAGATOR 958 ENDOSCOPIC SPHENOIDOTOMY WITHOUT 01/11/2021 11:1 5 AM AIRLINE FLIGHT ATTENDANT Rhinosinusitis Chronic TISSUE REMOVAL Case Notes SCIENTIST PROPAGATOR 958 ENDOSCOPIC MAXILLARY ANTROSTOMY 01/11/2021 11:15 AM CS T Rhinosinusitis Chronic WITH TISSUE REMOVAL Case Notes SCIENTIST PROPAGATOR 958 documented in this encounter Results Surgical Pathology, Frozen Lab (01/11/2021 12:45 PM AIRLINE FLIGHT ATTENDANT) Component Value Ref Test Analysis Performed Pathologis t Range Method Time At [facility] AIRLINE FLIGHT ATTENDANT Lavinia in [facility] Jones 01/18/2021 [facility] the M.D. -Pathology 5:37 AM AIRLINE FLIGHT ATTENDANT Interpretation Resident Report Daniel Cuevas M.D. [id number] [facility] electronically 5:37 AM AIRLINE FLIGHT ATTENDANT signed by I verify that I have examined all relevant slides/materials for the specimen(s) and rendered or confirmed the diagnosis. Gross Description A. ??Received fresh labeled left sinonasal vin nts is a 01/18/2021 [facility] 7.4 x 5.1 x 0.9 cm aggregate of reed-red soft tissue. ??All 5:37 AM AIRLINE FLIGHT ATTENDANT submitted for permanent sections. ??Grossed by SSF. [...] A1 Left sinonasal contents 1 5:37 AM AIRLINE FLIGHT ATTENDANT A2 Left sinonasal contents 2 A3 Left [...] negative (Block 01/19/2021 ST[facility] A3). 10:02 PM AIRLINE FLIGHT ATTENDANT Signed by Daniel Cuevas M.D. [id number] 01/19/2021 10:02 PM Comment: REVISED RESULTS Interpretation FINAL DIAGNOSIS 01/19/2021 10:02 PM AIRLINE FLIGHT ATTENDANT [facility] A. ??Sinonasal contents, left, excision: ??Sinonasal [...] Volume Laterality Tissue (Nose) 01/11/2021 12:45 PM AIRLINE FLIGHT ATTENDANT Tissue (Nose) 01/11/2021 12:53 PM AIRLINE FLIGHT ATTENDANT Tissue (Nose) 01/11/2021 2:38 PM AIRLINE FLIGHT ATTENDANT Narrative This result has an attachment that is no t available. Daphne Tatum M.D. LAB SURG PATH ORDERABLES Performing Organization Address City/State/ZIP Code Phon e Number [facility] - [address] [place], [place] [address] [place] [address] [facility] [address] documented in [...] 12:25 1 application Bilateral Nares solution PM AIRLINE FLIGHT ATTENDANT As needed, Starting on Sun01/11/21 at 1225, Intra-Op fentaNYL injection 25 mcg (SUBLIMAZE) Given 01/11/2021 3:28 PM AIRLINE FLIGHT ATTENDANT 25 mcg 25 mcg, intravenous, Every 2 min PRN, moderate pain or score 4-6 of 10, severe pain or score 7-10 of 10, Starting on Sun01/11/21 at 1031, PACU (only), Up to maximum total dose of 100 mcg Given 01/11/2021 3:22 PM AIRLINE FLIGHT ATTENDANT 25 mcg lidocaine-EPINEPHrine 1 Given 01/11/2021 12:24 PM 4 mL Bilateral Nares %-1:100,000 injection (XYLOCAINE AIRLINE FLIGHT ATTENDANT W/EPI) As needed, Starting on Sun01/11/21 at [...] 10 mg (ROXICODONE) Given 01/11/2021 3:37 PM AIRLINE FLIGHT ATTENDANT 10 mg 10 mg, oral, Every 4 [...] 1 application Bilateral Nares nasal spray (AFRIN) AIRLINE FLIGHT ATTENDANT As needed, Starting on Sun01/11/21 at 1210, [...] may contain times in both CDT and AIRLINE FLIGHT ATTENDANT. Scheduled Medication Order 01/09/2021 01/10/2021 01/11/2021 acetaminophen [...]
--- OUTSIDE RECORDS SUMMARY | 2021-11-19 18:13 | XMS_ITS | Encounter Summary ---
:1985 Author Organization [facility] Address [address] [place] [address] Care Team Providers Name Role Phone Unavailable Primary Care Provider Unavailable Reason for Visit Auth/Cert Specialty Diagnoses / Procedures Referred By Contact Refer red To Contact Diagnoses Rhinosinusitis Chronic Rhinosinusitis Chronic [J32.8] Procedures WA ENDO NSL MAX ANTROST W RMV TIS WA NSL/SINS NDSC SPHN TISS RMVL WA NSL/SINS NDSC TOTAL WA ENDO NSL/SNS W ETHMDCTOMY PRTL WA STRTCTC COMP-ASSIST CRNL EXTRA WA SUBMUC RSECT TURB PRTL/COMPLT ENDOSCOPIC MAXILLARY ANTROST CHARLIE WITH TISSUE REMOVAL ENDOSCOPIC SPHENOIDOTOMY WITHOUT TISSUE REMOVAL SINUSOTOMY ENDOSCOPY FRONTAL -draft iib, possible draft iii ETHMOIDECTOMY ENDOSCOPY EXTRADURAL COMPUTER NAVIGATION - Proceed as indicated REDUCTION TURBINATE - middle turbinates , procee d as indicated Referral ID Status Reason Start Date Expiration Date Visits Requ ested Visits Authorized [id number] 1 1 Encounter Details Date Type Department Care Team Description 01/11/2021 Hospital Encounter RST ROMB MAIN OR Rc, Rhinosinusitis Chronic [address] [facility] Daphne Blair M.D. [place], [place] [address] [place] [phone] [place], [place] [phone] Social History Tobacco Use Types Packs/Day Years [...] How often do you attend islam or evangelical Never 02/18/2021 services? Do you belong to [...] or slept in a penitentiary (including now)? Education Answer Date Recorded What [...] Comments Blood Pressure 130/89 01/11/2021 5:00 PM ASSEMBLER HANDBAGS Pulse 77 01/11/2021 5:05 PM ASSEMBLER HANDBAGS Temperature 36.8 ??C (98.2 ??F) 01/11/2021 5:00 PM ASSEMBLER HANDBAGS Respiratory Rate 16 01/11/2021 5:00 PM ASSEMBLER HANDBAGS Oxygen Saturation 95% 01/11/2021 5:05 PM ASSEMBLER HANDBAGS Inhaled Oxygen Concentration - - Weight 113 kg (248 lb 14.4 oz) 01/11/2021 10:10 AM ASSEMBLER HANDBAGS Height 167.6 cm (5' 6) 01/11/2021 10:10 AM ASSEMBLER HANDBAGS Body Mass Index 40.17 01/11/2021 10:10 AM ASSEMBLER HANDBAGS documented in this encounter Discharge Instructions Discharge [...] or pain not relieved by pain medication. MBLER HANDBAGS documented in this encounter Medications at Time [...] PACU in stable condition. Mary Lema M.D. MBLER HANDBAGS documented in this encounter Miscellaneous Notes Result Encounter Note - Daphne Tatum M.D. - 01/21/2021 8:27 AM ASSEMBLER HANDBAGS I have reviewed the final pathology report and the identified diagnosis is consistent with the patient's clinical presentation. MBLER HANDBAGS Result Encounter Note - Mary Lema M.D. - 01/19/2021 10:38 PM CST I have reviewed the final pathology report and the identified diagnosis is consistent with the patient's clinical presentation. MBLER HANDBAGS documented in this encounter Plan of Treatment Not on filedocumented as of this encounter Procedures Procedure Name Priority Date/Time Associated Diagnosis Comme nts SURGICAL PATHOLOGY, Routine 01/11/2021 12:45 Rhinosinusitis Ch ronic Results for this FROZEN LAB PM ASSEMBLER HANDBAGS procedure are i n the results section. EXTRADURAL COMPUTER 01/11/2021 11:15 Rhinosinusitis Ch ronic NAVIGATION AM ASSEMBLER HANDBAGS Case Notes INFORMATION SYSTEMS AUDITOR 958 ETHMOIDECTOMY ENDOSCOPY 01/11/2021 11:15 AM ASSEMBLER HANDBAGS Rhinos inusitis Chronic Case Notes INFORMATION SYSTEMS AUDITOR 958 SINUSOTOMY ENDOSCOPY FRONTAL 01/11/2021 11:15 AM ASSEMBLER HANDBAGS R hinosinusitis Chronic Case Notes INFORMATION SYSTEMS AUDITOR 958 ENDOSCOPIC SPHENOIDOTOMY WITHOUT 01/11/2021 11:1 5 AM ASSEMBLER HANDBAGS Rhinosinusitis Chronic TISSUE REMOVAL Case Notes INFORMATION SYSTEMS AUDITOR 958 ENDOSCOPIC MAXILLARY ANTROSTOMY 01/11/2021 11:15 AM CS T Rhinosinusitis Chronic WITH TISSUE REMOVAL Case Notes INFORMATION SYSTEMS AUDITOR 958 documented in this encounter Results Surgical Pathology, Frozen Lab (01/11/2021 12:45 PM ASSEMBLER HANDBAGS) Component Value Ref Test Analysis Performed Pathologis t Range Method Time At Signature 01/18/2021 ST[facility] 5:37 AM ASSEMBLER HANDBAGS Participated in [facility] 01/18/2021 Jen -Pathology 5:37 AM ASSEMBLER HANDBAGS Interpretation Resident Report Daniel Cuevas M.D. [id number] STMA electronically 5:37 AM ASSEMBLER HANDBAGS signed by I verify that I have examined all relevant slides/materials for the specimen(s) and rendered or confirmed the diagnosis. Gross Description A. ??Received fresh labeled left sinonasal vin nts is a 01/18/2021 STMA 7.4 x 5.1 x 0.9 cm aggregate of reed-red soft tissue. ??All 5:37 AM ASSEMBLER HANDBAGS submitted for permanent sections. ??Grossed by SSF. [...] A1 Left sinonasal contents 1 5:37 AM ASSEMBLER HANDBAGS A2 Left sinonasal contents 2 A3 Left [...] negative (Block 01/19/2021 [facility] A3). 10:02 PM ASSEMBLER HANDBAGS Signed by Daniel Cuevas M.D. [id number] 01/19/2021 10:02 PM Comment: REVISED RESULTS Interpretation FINAL DIAGNOSIS 01/19/2021 10:02 PM ASSEMBLER HANDBAGS STMA A. ??Sinonasal contents, left, excision: ??Sinonasal [...] Volume Laterality Tissue (Nose) 01/11/2021 12:45 PM ASSEMBLER HANDBAGS Tissue (Nose) 01/11/2021 12:53 PM ASSEMBLER HANDBAGS Tissue (Nose) 01/11/2021 2:38 PM ASSEMBLER HANDBAGS Narrative This result has an attachment that is no t available. Daphne Tatum M.D. LAB SURG PATH ORDERABLES Performing Organization Address City/State/ZIP Code Phon e Number [facility] - [address] [place], [place] [address] [place] [address] Laboratories-[facility] [address] documented in this encounter Visit Diagnoses Diagnosis Rhinosinusitis Chronic - Primary documented in this encounter Admitting Diagnoses Diagnosis Rhinosinusitis Chronic documented in this encounter Administered Medications Inactive Administered Medications - up to 3 most recent administrations Medication Order MAR Action Action Date Dose Rate Site fentaNYL injection 25 mcg Given 01/11/2021 3:28 PM ASSEMBLER HANDBAGS 25 mcg (SUBLIMAZE) 25 mcg, intravenous, Every 2 min PRN, moderate pain or score 4-6 of 10, severe pain or score 7-10 of 10, Starting on Sun01/11/21 at 1031, PACU (only), Up to maximum total dose of 100 mcg Given 01/11/2021 3:22 PM ASSEMBLER HANDBAGS 25 mcg metoprolol tablet 12.5 mg (LOPRESSOR) [...] 10 mg (ROXICODONE) Given 01/11/2021 3:37 PM ASSEMBLER HANDBAGS 10 mg 10 mg, oral, Every 4 [...] may contain times in both CDT and ASSEMBLER HANDBAGS. Scheduled Medication Order 01/09/2021 01/10/2021 01/11/2021 acetaminophen [...] Tiffany Villalobos R.N.)1528 (Given - Provider: Tiffany Vilallobos R.N.) 25 mcg, intravenous, Every 2 min [...]
--- OUTSIDE RECORDS SUMMARY | 2021-11-19 18:13 | XMS_ITS | Encounter Summary ---
:1985 Author Organization [facility] Address [address] [place] [address] Care Team Providers Name Role Phone Unavailable Primary Care Provider Unavailable Reason for Referral Outpatient (Routine) - Closed Specialty Diagnoses / Procedures Referred By Contact Refer red To Contact Otorhinolaryngology Daphne Tatum [place] M.D. [address] [place] [phone] Referral ID Status Reason Start Date Expiration Date Visits Requ ested Visits Authorized [id number] Closed 01/21/2021 01/21/2022 1 1 Scheduling Instructions - in afternoon, or 02/22 v ideo slot. GER SIMULATION Reason for Visit Outpatient (Routine) - Closed Specialty Diagnoses / Procedures Referred By Contact Refer red To Contact Otorhinolaryngology Daphne Tatum [place] M.D. [address] [place] [phone] Referral ID Status Reason Start Date Expiration Date Visits Requ ested Visits Authorized [id number] Closed 01/06/2021 01/06/2022 1 1 Encounter Details Date Type Department Care Team Description 01/21/2021 Office Visit Department of Paola Tatum on Otorhinolaryngology in Daphne Blair M.D. Nasal Polyps Asthma [place], [place] [address] [place] [address] (Primary Dx) [address] [place] [phone] Social History Tobacco Use Types Packs/Day Years [...] How often do you attend buddhism or jehovah's witness Never 02/18/2021 services? Do you belong to [...] Crusting Mild = 1 Mild = 1 [place] Endoscopy Score = 6 ASSESSMENT / PLAN [...] but she can stop the mupirocin. Procedures GER SIMULATION Associated attestation - Daphne Tatum M.D. - 01/21/2021 2:57 PM MANAGER SIMULATION I saw and evaluated the patient, participating [...]
--- OUTSIDE RECORDS SUMMARY | 2021-11-19 18:13 | XMS_ITS | Encounter Summary ---
:1985 Author Organization [facility] Address [address] [place] [address] Care Team Providers Name Role Phone Unavailable Primary Care Provider Unavailable Encounter Details Date Type Department Care Team Description 12/04/2017 Orders Only Department of Ashley Victor, Otorhinolaryngology in [facility] [place], [place] M.S.N. [address] [place] [address] [address] [place] [address] [place], [place] [phone] Social History Tobacco Use Types Packs/Day Years [...] How often do you attend mu-ism or baptism Never 02/18/2021 services? Do you [...] or slept in a fpc (including now)? Sex Assigned at Date Recorded Female 01/06/2021 8:49 AM CDT documented as of this encounter Plan of Treatment Not on filedocumented as of this encounter Visit Diagnoses Not on filedocumented in this encounter
--- OUTSIDE RECORDS SUMMARY | 2021-11-19 18:13 | XMS_ITS | Encounter Summary ---
:1985 Author Organization [facility] Address [address] [place] [address] Care Team Providers Name Role Phone Unavailable Primary Care Provider Unavailable Reason for Referral MRI/CAT/PET Scan (Routine) - Closed Specialty Diagnoses / Procedures Referred By Contact Refer red To Contact Radiology Diagnoses Aspirin Reaction Nasal Polyps Asthma Mary Lema M.D. [facility] Procedures CT Sinuses without IV Contrast [address] [place] [address] Referral ID Status Reason Start Date Expiration Date Visits Requ ested Visits Authorized [id number] Closed 12/13/2020 12/13/2021 1 1 Encounter Details Date Type Department Care Team Description 12/13/2020 Orders Only Department of Mary Lema Aspirin React ion Otorhinolaryngology in [place] Nasal Polyps Asthma [place], [place] [address] [facility] (Primary Dx) [address] [place] [phone] Social History Tobacco Use Types Packs/Day Years [...] 02/18/2021 relatives? How often do you attend roman catholic or alevism Never 02/18/2021 services? Do you belong to any clubs or organizations such as No 02/18/2021 roman catholic groups, unions, fraternal or athletic groups, or [...]
--- OUTSIDE RECORDS SUMMARY | 2021-11-19 18:13 | XMS_ITS | Encounter Summary ---
:1985 Author Organization [facility] Address [address] [place] [address] Care Team Providers Name Role Phone Unavailable Primary Care Provider Unavailable Encounter Details Date Type Department Care Team Description 01/08/2021 Hospital Encounter Department of Daphne Tatum Cont act With And (Suspected) Exposure To COVID-19; Laboratory Medicine [place] Preprocedural Lab Exam in [place], [address] [place] [address] [place] [phone] [place], [place] [phone] [phone] (Work) [phone] Social History Tobacco Use Types Packs/Day Years [...] How often do you attend mormon or congregational Never 02/18/2021 services? Do you belong to [...] RNA, V Asymptomatic (01/08/2021 10:58 AM CDT) [facility] Method Time Signature SARS-CoV-2 Swab, 01/08/2021 [...] pe rformed using the Aptima SARS-CoV-2 assay ([employer] on the Awdios tem under emergency use authorization (EUA) by the U.S. Food and Drug Administ ration. Fact sheets for this EUA assay can be fo und at the following links: For Healthcare Providers: https://www.fd a.gov/media/729630/download For Patients: https://www.fda.gov/media/ 536436/download Specimen Anatomical Collection Method Collection Time Receive d Time (Source) Location / / Volume Laterality Varies 01/08/2021 10:58 01/08/2021 5:03 (Nasopharynx) AM CDT PM CDT Daphne Tatum M.D. LAB MICROBIOLOGY - GENERAL O RDERABLES Performing Organization Address City/State/ZIP Code Phon e Number [facility]- [address] [place] [phone] [place] [address] [place] [address] System [address] documented in this encounter Visit Diagnoses Diagnosis Contact With And (Suspected) Exposure To COVID-19 Preprocedural Lab Exam documented in this encounter Additional Health Concerns Infection Onset Date Last Indicated Resolved Time COVID19 Pending 01/08/2021 01/08/2021 01/08/2021 11:18 PM CDT documented as of this encounter
--- OUTSIDE RECORDS SUMMARY | 2021-11-19 18:13 | XMS_ITS | Encounter Summary ---
:1985 Author Organization [facility] Address [address] [place] [address] Care Team Providers Name Role Phone Unavailable [...] 02/18/2021 relatives? How often do you attend taoist or sabianism Never 02/18/2021 services? Do you belong to any clubs or organizations such as No 02/18/2021 taoist groups, unions, fraternal or athletic groups, or [...] 01/21/2021 2:48 Results for this EXAM PM UPHOLSTERY INSTRUCTOR procedure are i n the results section. documented in this encounter Results NASAL-Otorhinolaryngology Image Exam (01/21/2021 2:48 PM UPHOLSTERY INSTRUCTOR) Specimen (Source) Anatomical Collection Method Collection Time Re ceived Time Location / / Volume Laterality 01/21/2021 4:08 PM UPHOLSTERY INSTRUCTOR Narrative [facility] - 01/21/2021 2:48 PM UPHOLSTERY INSTRUCTOR This order has been created and auto-finalized [...]
--- OUTSIDE RECORDS SUMMARY | 2021-11-19 18:13 | XMS_ITS | Encounter Summary ---
:1985 Author Organization [facility] Address [address] [place] [address] Care Team Providers Name Role Phone Unavailable Primary Care Provider Unavailable Reason for Visit Reason Comments Reschedule Post Op Appointment Encounter Details Date Type Department Care Team Description 01/19/2021 Clinical Department of Bety Tatum Pos t Communication Otorhinolaryngology in [place], [place] [address] [facility] [address] [place] [address] [place], [place] [phone] Social History Tobacco Use Types Packs/Day Years [...] How often do you attend protestant or yarsani Never 02/18/2021 services? Do you belong to [...] Sunday afternoon as he is driving her. TIC WELDER Telephone Encounter - Xiomy Horner - 01/19/2021 12:22 PM CST Ms. Odonnell returned your call. You can reach her this afternoon at [phone]. TIC WELDER Telephone Encounter - Maciel Watts - 01/19/2021 10:37 AM CST I called Ms. Odonnell today because Dr. Tatum has been called away unexpectedly. Dr. Tatum would like to see her on January 21 in the afternoon at the [facility] procedure room. Ms. Odonnell did not answer so I left a message for her to call me back. Thank you, Maciel TIC WELDER documented in this encounter Plan of Treatment Not on filedocumented as of this encounter Visit Diagnoses Not on filedocumented in this encounter
--- OUTSIDE RECORDS SUMMARY | 2021-11-19 18:13 | XMS_ITS | Encounter Summary ---
:1985 Author Organization [facility] Address [address] [place] [address] Care Team Providers Name Role Phone Unavailable [...] How often do you attend orthodoxy or shinto Never 02/18/2021 services? Do you [...]
--- OUTSIDE RECORDS SUMMARY | 2021-11-19 18:14 | XMS_ITS | Encounter Summary ---
:1985 Author Organization [facility] Address [address] [place] [address] Care Team Providers Name Role Phone Unavailable [...] How often do you attend denominational or presybeterian Never 02/18/2021 services? Do you [...]
--- OUTSIDE RECORDS SUMMARY | 2021-11-19 18:14 | XMS_ITS | Encounter Summary ---
:1985 Author Organization [facility] Address [address] [place] [address] Care Team Providers Name Role Phone Unavailable [...] How often do you attend congregational or advent Never 02/18/2021 services? Do you [...]
[2021-11-19 18:16] VITALS: PULSE 87; O2SAT 97
[2021-11-19 18:27] VITALS: BP 143/87; PULSE 85
[2021-11-19 18:45] VITALS: BP 134/75; PULSE 72
[2021-11-19] MEDS: ONDANSETRON 2 MG/ML inj 4 MG IVP (19:14)
[2021-11-19] MEDS: LACTATED RINGERS 1000 ML 1,000 ML IV (19:15)
[2021-11-19] MEDS: hydrOXYzine pamoate 25 MG CAPSULE PO (19:42)
[2021-11-19] MEDS: MORPHINE 10 MG/ML inj IM (19:43)
[2021-11-19] MEDS: BETAMETHASONE SOD PHOS/ACETATE 6 MG/ML ML 12 MG IM (21:09)
[2021-11-19] MEDS: LABETALOL HCL 100 MG TABLET 50 MG PO (21:25)
[2021-11-19] MEDS: LACTATED RINGERS 1000 ML 1,000 ML 125 ML IV (21:25)
--- NOTE | 2021-11-19 21:25 | P.OBHP_ITS ---
OB - H&P: HPI Labor/Induction History of Present Illness Date Seen: 11/19/21 Chief Complaint: The patient is a 36 year old 4 para 2-0-1-2 woman at 35 weeks, 5 days gestation by LMP consistent with 1st trimester ultrasound, JEYSON 12/19/2021, who presents with painful, regular contractions. These began around 4:00 p.m., and have been consistent since. She reports that pain with them is severe. She did have some nausea and vomiting prior to arrival. She has not had any since. Review of systems: Good movement No vaginal bleeding The loss of fluid Positive for regular, painful contractions No diarrhea No constipation Positive for recent nausea and vomiting This is otherwise complicated by/notable for: Blood Type:?A positive S.O.: [place].? Kids at home: Gian (15yo), Marika (13yo).? Baby:? Boy Mother is Sneha Hester.? Chronic hypertension ---was taking labetalol 50 mg twice daily and nifedipine 30 mg daily.? Discontinue nifedipine XL 30 mg daily at her 1st visit. ?-- Checking BP at home daily. ?-- Increase labetalol if SBP >/= 160 or DBP >/= 100 ?--baseline pre E labs at 1st OB: BUN 9, Creatinine 0.4, Uric acid 3.6 AST 24, ALT 29. 24Hr urine protein 161mg. ?--is not taking daily baby aspirin due to asthma and nasal polyps with NSAIDs/ASA. ?--Monthly EFW starting at 32 weeks. Wkly BPP starting at 32 weeks.? Ordered 10/10/21 * US 10/28/21:? BPP 10/10, cephalic, SDP 4.89 cm, EFW 49% with all growth parameters within normal ranges.? 2.? Advanced maternal age ---Mat 21 05/23/2021:? No increased risk for aneuploidy, male --- level 2 ultrasound 07/27/2001:? Normal, though face and upper lip not well visualized. ---USN @ 28wks 09/19/2021 Normal face, profile and upper lip. Vtx. SDP 6.7cm, EFW 1017 g, 2 lb 4 oz, 28%.? BPD 38%, HC 26%, AC 32%, FL 26%. 3.? History of delivery x2. Wants RLTCS: 12/12/21 w/ NDP 4.? BMI 38.6.? ?--Hgb A1C: 5.4% ?--1H GTT: 123 Tdap 10/10/21 Chief complaint: MATERNITY Narrative: Krystal Odonnell is a 36 year old female Review of Systems Status of ROS: Reports: 6 or more systems reviewed and unremarkable except as noted in History and below Meds Home Medications and Allergies Home Medications Medication Instructions Recorded Confirmed Type albuterol sulfate 90 mcg/actuation g inhalation 09/19/21 11/17/21 History aerosol inhaler (Ventolin HFA) budesonide 0.5 mg/2 mL suspension 0.5 mg irrigation BID 09/19/21 11/17/21 History for nebulization fluticasone furoate 200 applicator inhalation 09/19/21 11/17/21 History mcg/actuation blister powder for inhalation (Arnuity Ellipta) labetalol 100 mg tablet 100 mg PO QDAY 09/19/21 11/17/21 History prenat.vits,stephanie,dwg-qgmn-sziuj 1 tab PO QDAY 09/19/21 11/17/21 History Allergies Allergy/AdvReac Type Severity Reaction Status Date / Time ibuprofen Allergy Mild Nasal Verified 11/17/21 12:55 issues OB - H&P: Exam Physical Exam: Vital signs: Pulse BP Pulse Ox 72 134/75 97 11/19/21 18:45 11/19/21 18:45 11/19/21 18:16 Narrative: Physical exam: General: No acute distress Psych: Alert and oriented x3, full affect HEENT: Normocephalic, atraumatic, oropharynx benign Neck: No cervical adenopathy, no thyromegaly Heart: Regular rate and rhythm, no murmur rub or gallop Lungs: Clear to auscultation bilaterally Abdomen: Soft, gravid, pannus noted Skin: No lesions or rashes Lower extremities: No edema or erythema Initial cervical exam per RN showed cervix to be closed, consistent with last exam in clinic. Repeat exam by nurse showed 1 cm dilation, 30% effacement, posterior. On my exam at 10 PM: unable to reach the internal os, no greater than 1 cm and 30% effaced, very high and posterior NST: Baseline 130, accelerations present, no decelerations, moderate variability. Contractions every 3-5 minutes. OB - Problem Based A/P Additional Plan (1) uterine contractions: Status: Acute Plan: Patient was given 10 mg IM morphine, Zofran, Vistaril 100 mg, and 1 L of fluid. Thereafter, she was still able to feel contractions, but they were not painful. Her cervix was unchanged. Contractions were still noted on the monitor approximately every 4 minutes. She will be admitted for observation overnight. Continue LR at 125 mL an hour She may have light snack now, then NPO until morning. Received 1st dose of betamethasone at 9:00 p.m., will repeat tomorrow at a 24 hour interval. Further testing to include complete blood count, urinalysis and culture, and ultrasound for position, fluid, and placenta. (2) History of 2 sections: Problem details: 2005 and 2007 Status: Acute
--- NOTE | 2021-11-19 22:07 | CRLHL7_ITS ---
For Patients: As a result of the Century Cures Act, medical imaging exams and procedure reports are released immediately into your electronic medical record. You may view this report before your referring provider. If you have questions, please contact your health care provider. INDICATION: problem. TECHNIQUE: Ultrasound OB pelvis transabdominal. Real-time degroot-scale imaging of the pelvis was performed. COMPARISON: 11/17/2021. IMPRESSION: Sonographic imaging demonstrates a single living intrauterine gestation. Fetus demonstrates a regular cardiac rate of 128 beats per minute. Fetus has a vertex orientation. The placenta lies anterior without evidence of placenta previa. Amniotic fluid volume appears normal. Dictated by Timoteo Galaviz MD @ 11/20/2021 12:41:10 AM (Electronically Signed)
[2021-11-19 22:39] LABS: Basophils Percent Auto 0.1 % (0.0-3.0); Hematocrit 36.5 % (33.0-51.0); Hemoglobin* 11.8 gm/dL (12.0-16.0); Immature Granulocytes Abs Auto 0.03 K/uL (0.00-0.30); Lymphocytes Percent Auto 16.9 % (20-44); Mean Corpuscular HGB Conc 32 gm/dL (32-36); Mean Corpuscular Hemoglobin 28 pg (26-34); Mean Corpuscular Volume 87 fL (80-100); Neutrophils Percent Auto 76.8 % (42.0-72.0); Platelet Count* 254 K/uL (140-440); RDW Coefficient of Variation % 12.1 % (11.5-15.5); Red Blood Count 4.18 m/uL (4.00-5.20); White Blood Count* 12.87 K/uL (4.50-11.00)
[2021-11-19 22:40] LABS: Slide Review Reflex No
[2021-11-19 23:30] VITALS: BP 118/79; PULSE 71; RESP 16; TEMP 36.7
[2021-11-19 23:55] LABS: Appearance Urine Clear (Clear); Bilirubin Urine Negative (Negative); Blood Urine Negative (Negative); Color Urine Yellow (Yellow); Glucose Urine Negative (Negative); Ketones Urine 2+ (Negative); Leukocyte Esterase Urine Negative (Negative); Nitrite Urine Negative (Negative); Protein Urine Negative (Negative); Specific Gravity Urine 1.015 (1.000-1.030); Urobilinogen Urine 0.2 (0.2-1.0); pH Urine 6.5 (5.0-8.5)
[2021-11-20 03:56] VITALS: BP 97/59; PULSE 66; RESP 16; TEMP 36.9
[2021-11-20] MEDS: LACTATED RINGERS 1000 ML 1,000 ML 125 ML IV (06:09)
--- NOTE | 2021-11-20 08:29 | PC.OBNST ---
NST Note NST Note Start: 11/19/21 18:09 Freq: ONCE Status: Active Protocol: Document 11/20/21 08:23 LP (Rec: 11/20/21 08:29 LP [id number]) NST Note 3 Para (# of births) 2 EDC 12/19/21 Gestational Age In Weeks & Days 35 Weeks & 6 Days High Risk Factors High Blood Pressure - Preexisting,Advanced Maternal Age Patient Presented with Complaint(s) of Contractions/cramping Reactive Yes Appropriate for Gestational Age Yes CANDICE Royal, RN Date 11/20/21 Reactive Yes Appropriate for Gestational Age Yes CANDICE Cm RN Date 11/20/21 OB NST charge Yes Complete NST Note via Write Note Yes The provider's electronic signature indicates the NST is reactive/appropriate for gestational age. *Note to provider: If an addendum is required, open the patient's chart and click on the note under the Nurse/Allied Health tab.
== END 2021-11-20 08:25 | disposition home or self-care (01) ==
LOC: OB OUT 18:05 → OB 18:06
PROVIDERS: Referring Provider Obstetrics & Gynecology; Visit Provider Obstetrics & Gynecology
DX: O47.03 False labor before 37 completed weeks of gestation, third trimester (principal); O10.913 Unspecified pre-existing hypertension complicating pregnancy, third trimester; Z3A.35 35 weeks gestation of pregnancy
CPT/HCPCS: 36415; 59025; 76815; 81003; 85025; 86850; 86900; 86901; 87086; 87635; 99213; A9270; J0702; J2270; J2405; J7120

== ENCOUNTER 2021-11-20 20:55 | Outpatient (CLI) | payer BC, SELFPAY ==
--- OUTSIDE RECORDS SUMMARY | 2021-11-20 20:57 | XMS_ITS | Encounter Summary ---
:1985 Author Organization [facility] Address [address] [place] [address] Care Team Providers Name Role Phone Unavailable Primary Care Provider Unavailable Encounter Details Date Type Department Care Team Description 01/08/2021 Hospital Encounter Department of Daphne Tatum Cont act With And (Suspected) Exposure To COVID-19; Laboratory Medicine Sung Blair Preprocedural Lab Exam in [place], [address] [place] [address] [place] [phone] [place], [place] [phone] (Work) [phone] Social History Tobacco Use Types Packs/Day Years [...] How often do you attend restorationist or gnosticism Never 02/18/2021 services? Do you belong to [...] RNA, V Asymptomatic (01/08/2021 10:58 AM CDT) [facility] Method Time Signature SARS-CoV-2 Swab, 01/08/2021 [...] pe rformed using the Aptima SARS-CoV-2 assay ([employer] on the Leafs tem under emergency use authorization (EUA) by the U.S. Food and Drug Administ ration. Fact sheets for this EUA assay can be fo und at the following links: For Healthcare Providers: https://www.fd a.gov/media/361544/download For Patients: https://www.fda.gov/media/ 647429/download Specimen Anatomical Collection Method Collection Time Receive d Time (Source) Location / / Volume Laterality Varies 01/08/2021 10:58 01/08/2021 5:03 (Nasopharynx) AM CDT PM CDT Daphne Tatum M.D. LAB MICROBIOLOGY - GENERAL O RDERABLES Performing Organization Address City/State/ZIP Code Phon e Number [facility]- [address] [place] [id number] [place] [address] [place] [address] [address] documented in this encounter Visit Diagnoses Diagnosis Contact With And (Suspected) Exposure To COVID-19 Preprocedural Lab Exam documented in this encounter Additional Health Concerns Infection Onset Date Last Indicated Resolved Time COVID19 Pending 01/08/2021 01/08/2021 01/08/2021 11:18 PM CDT documented as of this encounter
--- OUTSIDE RECORDS SUMMARY | 2021-11-20 20:57 | XMS_ITS | Encounter Summary ---
:1985 Author Organization [facility] Address [address] [place] [address] Care Team Providers Name Role Phone Unavailable Primary Care Provider Unavailable Reason for Visit Auth/Cert Specialty Diagnoses / Procedures Referred By Contact Refer red To Contact Diagnoses Rhinosinusitis Chronic Rhinosinusitis Chronic [J32.8] Procedures VT ENDO NSL MAX ANTROST W RMV TIS VT NSL/SINS NDSC SPHN TISS RMVL VT NSL/SINS NDSC TOTAL VT ENDO NSL/SNS W ETHMDCTOMY PRTL VT STRTCTC COMP-ASSIST CRNL EXTRA VT SUBMUC RSECT TURB PRTL/COMPLT ENDOSCOPIC MAXILLARY ANTROST CHARLIE WITH TISSUE REMOVAL ENDOSCOPIC SPHENOIDOTOMY WITHOUT TISSUE REMOVAL SINUSOTOMY ENDOSCOPY FRONTAL -draft iib, possible draft iii ETHMOIDECTOMY ENDOSCOPY EXTRADURAL COMPUTER NAVIGATION - Proceed as indicated REDUCTION TURBINATE - middle turbinates , procee d as indicated Referral ID Status Reason Start Date Expiration Date Visits Requ ested Visits Authorized [id number] 1 1 Encounter Details Date Type Department Care Team Description 01/11/2021 Surgery RST ROMB MAIN OR Daphne Tatum, ENDOSCOPIC MAXILLARY [address] [facility] M.DXavier ANTROSTOMY, TISSUE [place], [place] 200 [facility] REMOVAL. [address] [place], [place] [phone] (Wo rk) Social History Tobacco Use Types [...] often do you attend oriental orthodox or amish Never 02/18/2021 services? Do you [...] the highest technical, or vocational p [facility] degree you have received? Sex Assigned at Date Recorded Female 01/06/2021 8:49 AM CDT documented as of this encounter Last Filed Vital Signs Vital Sign Reading Time Taken Comments Blood Pressure 124/85 01/11/2021 3:30 PM GASTROENTEROLOGY TECHNICIAN Pulse 78 01/11/2021 3:55 PM GASTROENTEROLOGY TECHNICIAN Temperature 36.8 ??C (98.2 ??F) 01/11/2021 3:20 PM GASTROENTEROLOGY TECHNICIAN Respiratory Rate 14 01/11/2021 3:40 PM GASTROENTEROLOGY TECHNICIAN Oxygen Saturation 95% 01/11/2021 3:55 PM GASTROENTEROLOGY TECHNICIAN Inhaled Oxygen Concentration - - Weight 113 kg (248 lb 14.4 oz) 01/11/2021 10:10 AM GASTROENTEROLOGY TECHNICIAN Height 167.6 cm (5' 6) 01/11/2021 10:10 AM GASTROENTEROLOGY TECHNICIAN Body Mass Index 40.17 01/11/2021 10:10 AM GASTROENTEROLOGY TECHNICIAN documented in this encounter Discharge Instructions Discharge [...] or pain not relieved by pain medication. ROENTEROLOGY TECHNICIAN documented in this encounter Medications at Time [...] PACU in stable condition. Mary Lema M.D. ROENTEROLOGY TECHNICIAN documented in this encounter Miscellaneous Notes Result Encounter Note - Daphne Tatum M.D. - 01/21/2021 8:27 AM GASTROENTEROLOGY TECHNICIAN I have reviewed the final pathology report and the identified diagnosis is consistent with the patient's clinical presentation. ROENTEROLOGY TECHNICIAN Result Encounter Note - Mary Lema M.D. - 01/19/2021 10:38 PM CST I have reviewed the final pathology report and the identified diagnosis is consistent with the patient's clinical presentation. ROENTEROLOGY TECHNICIAN documented in this encounter Plan of Treatment Not on filedocumented as of this encounter Procedures Procedure Name Priority Date/Time Associated Diagnosis Comme nts SURGICAL PATHOLOGY, Routine 01/11/2021 12:45 Rhinosinusitis Ch ronic Results for this [facility] PM GASTROENTEROLOGY TECHNICIAN procedure are i n the results section. EXTRADURAL COMPUTER 01/11/2021 11:15 Rhinosinusitis Ch ronic NAVIGATION AM GASTROENTEROLOGY TECHNICIAN Case Notes LAP WELDER 958 ETHMOIDECTOMY ENDOSCOPY 01/11/2021 11:15 AM GASTROENTEROLOGY TECHNICIAN Rhinos inusitis Chronic Case Notes LAP WELDER 958 SINUSOTOMY ENDOSCOPY FRONTAL 01/11/2021 11:15 AM GASTROENTEROLOGY TECHNICIAN R hinosinusitis Chronic Case Notes LAP WELDER 958 ENDOSCOPIC SPHENOIDOTOMY WITHOUT 01/11/2021 11:1 5 AM GASTROENTEROLOGY TECHNICIAN Rhinosinusitis Chronic TISSUE REMOVAL Case Notes LAP WELDER 958 ENDOSCOPIC MAXILLARY ANTROSTOMY 01/11/2021 11:15 AM CS T Rhinosinusitis Chronic WITH TISSUE REMOVAL Case Notes LAP WELDER 958 documented in this encounter Results Surgical Pathology, Frozen Lab (01/11/2021 12:45 PM GASTROENTEROLOGY TECHNICIAN) Component Value Ref Test Analysis Performed Pathologis t Range Method Time At [facility] [place] [facility] AM GASTROENTEROLOGY TECHNICIAN Lavinia in [place] 01/18/2021 [facility] the M.D. -Pathology 5:37 AM GASTROENTEROLOGY TECHNICIAN Interpretation Resident Report Daniel Cuevas M.D. [id number] [facility] electronically 5:37 AM GASTROENTEROLOGY TECHNICIAN signed by I verify that I have examined all relevant slides/materials for the specimen(s) and rendered or confirmed the diagnosis. Gross Description A. ??Received fresh labeled left sinonasal vin nts is a 01/18/2021 [facility] 7.4 x 5.1 x 0.9 cm aggregate of reed-red soft tissue. ??All 5:37 AM GASTROENTEROLOGY TECHNICIAN submitted for permanent sections. ??Grossed by SSF. [...] A1 Left sinonasal contents 1 5:37 AM GASTROENTEROLOGY TECHNICIAN A2 Left sinonasal contents 2 A3 Left [...] negative (Block 01/19/2021 [facility] A3). 10:02 PM GASTROENTEROLOGY TECHNICIAN Signed by Daniel Cuevas M.D. [id number] 01/19/2021 10:02 PM Comment: REVISED RESULTS Interpretation FINAL DIAGNOSIS 01/19/2021 10:02 PM GASTROENTEROLOGY TECHNICIAN [facility] A. ??Sinonasal contents, left, excision: ??Sinonasal [...] Volume Laterality Tissue (Nose) 01/11/2021 12:45 PM GASTROENTEROLOGY TECHNICIAN Tissue (Nose) 01/11/2021 12:53 PM GASTROENTEROLOGY TECHNICIAN Tissue (Nose) 01/11/2021 2:38 PM GASTROENTEROLOGY TECHNICIAN Narrative This result has an attachment that is no t available. Daphne Tatum M.D. LAB SURG PATH ORDERABLES Performing Organization Address City/State/ZIP Code Phon e Number [facility] - [address] [place], [place] [address] [place] [address] [facility] [address] documented in this [...] 12:25 1 application Bilateral Nares solution PM GASTROENTEROLOGY TECHNICIAN As needed, Starting on Sun01/11/21 at 1225, Intra-Op fentaNYL injection 25 mcg (SUBLIMAZE) Given 01/11/2021 3:28 PM GASTROENTEROLOGY TECHNICIAN 25 mcg 25 mcg, intravenous, Every 2 min PRN, moderate pain or score 4-6 of 10, severe pain or score 7-10 of 10, Starting on Sun01/11/21 at 1031, PACU (only), Up to maximum total dose of 100 mcg Given 01/11/2021 3:22 PM GASTROENTEROLOGY TECHNICIAN 25 mcg lidocaine-EPINEPHrine 1 Given 01/11/2021 12:24 PM 4 mL Bilateral Nares %-1:100,000 injection (XYLOCAINE GASTROENTEROLOGY TECHNICIAN W/EPI) As needed, Starting on Sun01/11/21 at [...] 10 mg (ROXICODONE) Given 01/11/2021 3:37 PM GASTROENTEROLOGY TECHNICIAN 10 mg 10 mg, oral, Every 4 [...] 1 application Bilateral Nares nasal spray (AFRIN) GASTROENTEROLOGY TECHNICIAN As needed, Starting on Sun01/11/21 at 1210, [...] may contain times in both CDT and GASTROENTEROLOGY TECHNICIAN. Scheduled Medication Order 01/09/2021 01/10/2021 01/11/2021 acetaminophen [...]
--- OUTSIDE RECORDS SUMMARY | 2021-11-20 20:57 | XMS_ITS | Encounter Summary ---
:1985 Author Organization [facility] Address [address] [place] [address] Care Team Providers Name Role Phone Unavailable Primary Care Provider Unavailable Reason for Visit Auth/Cert Specialty Diagnoses / Procedures Referred By Contact Refer red To Contact Diagnoses Rhinosinusitis Chronic Rhinosinusitis Chronic [J32.8] Procedures CO ENDO NSL MAX ANTROST W RMV TIS CO NSL/SINS NDSC SPHN TISS RMVL CO NSL/SINS NDSC TOTAL CO ENDO NSL/SNS W ETHMDCTOMY PRTL CO STRTCTC COMP-ASSIST CRNL EXTRA CO SUBMUC RSECT TURB PRTL/COMPLT ENDOSCOPIC MAXILLARY ANTROST CHARLIE WITH TISSUE REMOVAL ENDOSCOPIC SPHENOIDOTOMY WITHOUT TISSUE REMOVAL SINUSOTOMY ENDOSCOPY FRONTAL -draft iib, possible draft iii ETHMOIDECTOMY ENDOSCOPY EXTRADURAL COMPUTER NAVIGATION - Proceed as indicated REDUCTION TURBINATE - middle turbinates , procee d as indicated Referral ID Status Reason Start Date Expiration Date Visits Requ ested Visits Authorized [id number] 1 1 Encounter Details Date Type Department Care Team Description 01/11/2021 Hospital Encounter RST ROMB MAIN OR Rc, Rhinosinusitis Chronic [address] [facility] Daphne Blair M.D. [place], [place] [address] [place] [phone] [place], [place] [phone] Social History Tobacco Use Types Packs/Day Years [...] How often do you attend yazidism or mormon Never 02/18/2021 services? Do you [...] for the very basics like Not h ajnie at all 02/18/2021 food, housing, medical care, [...] Comments Blood Pressure 130/89 01/11/2021 5:00 PM RESIDENTIAL CONSTRUCTION INSTRUCTOR Pulse 77 01/11/2021 5:05 PM RESIDENTIAL CONSTRUCTION INSTRUCTOR Temperature 36.8 ??C (98.2 ??F) 01/11/2021 5:00 PM RESIDENTIAL CONSTRUCTION INSTRUCTOR Respiratory Rate 16 01/11/2021 5:00 PM RESIDENTIAL CONSTRUCTION INSTRUCTOR Oxygen Saturation 95% 01/11/2021 5:05 PM RESIDENTIAL CONSTRUCTION INSTRUCTOR Inhaled Oxygen Concentration - - Weight 113 kg (248 lb 14.4 oz) 01/11/2021 10:10 AM RESIDENTIAL CONSTRUCTION INSTRUCTOR Height 167.6 cm (5' 6) 01/11/2021 10:10 AM RESIDENTIAL CONSTRUCTION INSTRUCTOR Body Mass Index 40.17 01/11/2021 10:10 AM RESIDENTIAL CONSTRUCTION INSTRUCTOR documented in this encounter Discharge Instructions Discharge [...] or pain not relieved by pain medication. DENTIAL CONSTRUCTION INSTRUCTOR documented in this encounter Medications at Time [...] PACU in stable condition. Mary Lema M.D. DENTIAL CONSTRUCTION INSTRUCTOR documented in this encounter Miscellaneous Notes Result Encounter Note - Daphne Tatum M.D. - 01/21/2021 8:27 AM RESIDENTIAL CONSTRUCTION INSTRUCTOR I have reviewed the final pathology report and the identified diagnosis is consistent with the patient's clinical presentation. DENTIAL CONSTRUCTION INSTRUCTOR Result Encounter Note - Mary Lema M.D. - 01/19/2021 10:38 PM CST I have reviewed the final pathology report and the identified diagnosis is consistent with the patient's clinical presentation. DENTIAL CONSTRUCTION INSTRUCTOR documented in this encounter Plan of Treatment Not on filedocumented as of this encounter Procedures Procedure Name Priority Date/Time Associated Diagnosis Comme nts SURGICAL PATHOLOGY, Routine 01/11/2021 12:45 Rhinosinusitis Ch ronic Results for this [facility] LAB PM RESIDENTIAL CONSTRUCTION INSTRUCTOR procedure are i n the results section. EXTRADURAL COMPUTER 01/11/2021 11:15 Rhinosinusitis Ch ronic NAVIGATION AM RESIDENTIAL CONSTRUCTION INSTRUCTOR Case Notes MAINTAINABILITY ENGINEER 958 ETHMOIDECTOMY ENDOSCOPY 01/11/2021 11:15 AM RESIDENTIAL CONSTRUCTION INSTRUCTOR Rhinos inusitis Chronic Case Notes MAINTAINABILITY ENGINEER 958 SINUSOTOMY ENDOSCOPY FRONTAL 01/11/2021 11:15 AM RESIDENTIAL CONSTRUCTION INSTRUCTOR R hinosinusitis Chronic Case Notes MAINTAINABILITY ENGINEER 958 ENDOSCOPIC SPHENOIDOTOMY WITHOUT 01/11/2021 11:1 5 AM RESIDENTIAL CONSTRUCTION INSTRUCTOR Rhinosinusitis Chronic TISSUE REMOVAL Case Notes MAINTAINABILITY ENGINEER 958 ENDOSCOPIC MAXILLARY ANTROSTOMY 01/11/2021 11:15 AM CS T Rhinosinusitis Chronic WITH TISSUE REMOVAL Case Notes MAINTAINABILITY ENGINEER 958 documented in this encounter Results Surgical Pathology, Frozen Lab (01/11/2021 12:45 PM RESIDENTIAL CONSTRUCTION INSTRUCTOR) Component Value Ref Test Analysis Performed Pathologis t Range Method Time At Signature 01/18/2021 [facility] 5:37 AM RESIDENTIAL CONSTRUCTION INSTRUCTOR Participated in [facility] [place] 01/18/2021 Jen -Pathology 5:37 AM RESIDENTIAL CONSTRUCTION INSTRUCTOR Interpretation Resident Report Daniel Cuevas M.D. [id number] [facility] electronically 5:37 AM RESIDENTIAL CONSTRUCTION INSTRUCTOR signed by I verify that I have examined all relevant slides/materials for the specimen(s) and rendered or confirmed the diagnosis. Gross Description A. ??Received fresh labeled left sinonasal vin nts is a 01/18/2021 [facility] 7.4 x 5.1 x 0.9 cm aggregate of reed-red soft tissue. ??All 5:37 AM RESIDENTIAL CONSTRUCTION INSTRUCTOR submitted for permanent sections. ??Grossed by SSF. [...] A1 Left sinonasal contents 1 5:37 AM RESIDENTIAL CONSTRUCTION INSTRUCTOR A2 Left sinonasal contents 2 A3 Left [...] negative (Block 01/19/2021 [facility] A3). 10:02 PM RESIDENTIAL CONSTRUCTION INSTRUCTOR Signed by Daniel Cuevas M.D. [id number] 01/19/2021 10:02 PM Comment: REVISED RESULTS Interpretation FINAL DIAGNOSIS 01/19/2021 10:02 PM RESIDENTIAL CONSTRUCTION INSTRUCTOR [facility] A. ??Sinonasal contents, left, excision: ??Sinonasal [...] Volume Laterality Tissue (Nose) 01/11/2021 12:45 PM RESIDENTIAL CONSTRUCTION INSTRUCTOR Tissue (Nose) 01/11/2021 12:53 PM RESIDENTIAL CONSTRUCTION INSTRUCTOR Tissue (Nose) 01/11/2021 2:38 PM RESIDENTIAL CONSTRUCTION INSTRUCTOR Narrative This result has an attachment that is no t available. Daphne Tatum M.D. LAB SURG PATH ORDERABLES Performing Organization Address City/State/ZIP Code Phon e Number [facility] - [address] [place], [place] [address] [place] [address] [facility] [address] documented in this encounter Visit Diagnoses Diagnosis Rhinosinusitis Chronic - Primary documented in this encounter Admitting Diagnoses Diagnosis Rhinosinusitis Chronic documented in this encounter Administered Medications Inactive Administered Medications - up to 3 most recent administrations Medication Order MAR Action Action Date Dose Rate Site fentaNYL injection 25 mcg Given 01/11/2021 3:28 PM RESIDENTIAL CONSTRUCTION INSTRUCTOR 25 mcg (SUBLIMAZE) 25 mcg, intravenous, Every 2 min PRN, moderate pain or score 4-6 of 10, severe pain or score 7-10 of 10, Starting on Sun01/11/21 at 1031, PACU (only), Up to maximum total dose of 100 mcg Given 01/11/2021 3:22 PM RESIDENTIAL CONSTRUCTION INSTRUCTOR 25 mcg metoprolol tablet 12.5 mg (LOPRESSOR) [...] 10 mg (ROXICODONE) Given 01/11/2021 3:37 PM RESIDENTIAL CONSTRUCTION INSTRUCTOR 10 mg 10 mg, oral, Every 4 [...] may contain times in both CDT and RESIDENTIAL CONSTRUCTION INSTRUCTOR. Scheduled Medication Order 01/09/2021 01/10/2021 01/11/2021 acetaminophen [...]
--- OUTSIDE RECORDS SUMMARY | 2021-11-20 20:57 | XMS_ITS | Encounter Summary ---
:1985 Author Organization [facility] Address [address] [place] [address] Care Team Providers Name Role Phone Unavailable [...] How often do you attend yazdanism or evangelical Never 02/18/2021 services? Do you [...] 01/21/2021 2:48 Results for this EXAM PM INTERNAL AUDIT SENIOR MANAGER procedure are i n the results section. documented in this encounter Results NASAL-Otorhinolaryngology Image Exam (01/21/2021 2:48 PM INTERNAL AUDIT SENIOR MANAGER) Specimen (Source) Anatomical Collection Method Collection Time Re ceived Time Location / / Volume Laterality 01/21/2021 4:08 PM INTERNAL AUDIT SENIOR MANAGER Narrative [facility] - 01/21/2021 2:48 PM INTERNAL AUDIT SENIOR MANAGER This order has been created and [...]
--- OUTSIDE RECORDS SUMMARY | 2021-11-20 20:57 | XMS_ITS | Encounter Summary ---
:1985 Author Organization [facility] Address [address] [place] [address] Care Team Providers Name Role Phone Unavailable [...] How often do you attend anabaptist or taoism Never 02/18/2021 services? Do you [...] 01/11/2021 12:10 Results for this EXAM AM SUPERINTENDENT RECREATION procedure are i n the results section. documented in this encounter Results AIRWAY-Otorhinolaryngology Image Exam (01/11/2021 12:10 AM SUPERINTENDENT RECREATION) Specimen (Source) Anatomical Location Collection Method / Collectio n Time Received Time / Laterality Volume Narrative [facility] - 01/11/2021 2:55 PM SUPERINTENDENT RECREATION This order has been created and auto-finalized [...]
--- OUTSIDE RECORDS SUMMARY | 2021-11-20 20:57 | XMS_ITS | Encounter Summary ---
:[address] [facility] Address [address] [place] [address] Care Team Providers Name Role Phone Unavailable Primary Care Provider Unavailable Reason for Referral Outpatient (Routine) - Closed Specialty Diagnoses / Procedures Referred By Contact Refer red To Contact Otorhinolaryngology Daphne Tatum [place] M.D. [address] [place] [phone] Referral ID Status Reason Start Date Expiration Date Visits Requ ested Visits Authorized [id number] Closed 01/21/2021 01/21/2022 1 1 Scheduling Instructions - in afternoon, or 02/22 v ideo slot. GER BRANCH Reason for Visit Outpatient (Routine) - Closed Specialty Diagnoses / Procedures Referred By Contact Refer red To Contact Otorhinolaryngology Daphne Tatum [place] M.D. [address] [place] [phone] Referral ID Status Reason Start Date Expiration Date Visits Requ ested Visits Authorized [id number] Closed 01/06/2021 01/06/2022 1 1 Encounter Details Date Type Department Care Team Description 01/21/2021 Office Visit Department of Paola Tatum on Otorhinolaryngology in [place] M.D. Nasal Polyps Asthma [place], [place] [address] [place] [address] (Primary Dx) [address] [place] [phone] Social History Tobacco Use Types Packs/Day Years [...] often do you attend latter day or presybeterian Never 02/18/2021 services? Do you [...] Crusting Mild = 1 Mild = 1 [place] Endoscopy Score = 6 ASSESSMENT / PLAN [...] she can stop the mupirocin. Procedures GER BRANCH Associated attestation - Daphne Tatum M.D. - 01/21/2021 2:57 PM MANAGER BRANCH I saw and evaluated the patient, participating [...]
--- OUTSIDE RECORDS SUMMARY | 2021-11-20 20:57 | XMS_ITS | Clinical Summary ---
:1985 Author Organization [facility] Address [address] [place] [address] Care Team Providers Name Role Phone Unavailable Primary Care Provider Unavailable Source Comments Patient records contain information from all sites at [facility]. For routine questions regarding patient records, call [phone] during business hours, M-F 8:00 AM - 5:00 PM Central Time. Record requests for emergency care only can be directed to [phone] at any time.[facility] Allergies Active Allergy Reactions Severity Noted [...] Added automatically from request for chandler haskins [id number] Aspirin Reaction Nasal Polyps Asthma 09/24/2015 Asthma [...] How often do you attend taoism or episcopalian Never 02/18/2021 services? Do you [...] Comments Blood Pressure 130/89 01/11/2021 5:00 PM LEAN MANUFACTURING SPECIALIST Pulse 77 01/11/2021 5:05 PM LEAN MANUFACTURING SPECIALIST Temperature 36.8 ??C (98.2 ??F) 01/11/2021 5:00 PM LEAN MANUFACTURING SPECIALIST Respiratory Rate 16 01/11/2021 5:00 PM LEAN MANUFACTURING SPECIALIST Oxygen Saturation 95% 01/11/2021 5:05 PM LEAN MANUFACTURING SPECIALIST Inhaled Oxygen Concentration - - Weight 113 kg (248 lb 14.4 oz) 01/11/2021 10:10 AM LEAN MANUFACTURING SPECIALIST Height 167.6 cm (5' 6) 01/11/2021 10:10 AM LEAN MANUFACTURING SPECIALIST Body Mass Index 40.17 01/11/2021 10:10 AM LEAN MANUFACTURING SPECIALIST Plan of Treatment Health Maintenance Due Date [...] (#1) 2021 Medical Devices Implanted Type Area Heel Burnisher Device Shelf Model / Identifier Expiration Serial / Date Lot Stent Sinus Propel Regular - Graham [id number] Stent Other/Legacy - Int ersect Ent Implanted: Qty: 1 on 10/14/2015 Other [employer] Description Description: Device Heel Burnisher - Inter sect Ent. Body Location - Other. Left. Device Status Text - [id number]. Insurance Payer Benefit Plan Subscriber ID Effective Phone Address Typ e / Group Dates BLUE CROSS BCBS BLUE [id number] 2018-Andree ATTN: William gallardo HMO BLUE SHIELD PLUS HMO nt CONSUMER [facility] [address] [address] [place] [address]
--- OUTSIDE RECORDS SUMMARY | 2021-11-20 20:57 | XMS_ITS | Encounter Summary ---
:1985 Author Organization [facility] Address [address] [place] [address] Care Team Providers Name Role Phone Unavailable Primary Care Provider Unavailable Reason for Referral Outpatient (Routine) - Closed Specialty Diagnoses / Procedures Referred By Contact Refer red To Contact Otorhinolaryngology Daphne Tatum [place] M.D. [address] [place] [address] Referral ID Status Reason Start Date Expiration Date Visits Requ ested Visits Authorized [id number] Closed 01/06/2021 01/06/2022 1 1 Scheduling Instructions Oral covid same day, 930 override Reason for Visit Appointment Request (Routine) - Closed Specialty Diagnoses / Procedures Referred By Contact Refer sheri To Contact Otorhinolaryngology Diagnoses Polyp Nasal Referral ID Status Reason Start Date Expiration Date Visits Requ ested Visits Authorized [id number] Closed 12/12/2020 12/12/2021 1 1 Encounter Details Date Type Department Care Team Description 01/06/2021 Comprehensive Visit Department of Rebecca Tatumosi nusitis Chronic (Primary Dx); Otorhinolaryngology in Daphne [place], Polyp Nasal; [place], [place] Sung Aspirin Reaction Nasal Polyps Asthma [address] [facility] [address] [place] [address] [place] [phone] Social History Tobacco Use Types Packs/Day Years [...] How often do you attend worship or latter-day Never 02/18/2021 services? Do you [...] therapy or repeat asa desensitization with an transportation solutions manager as I am not optimistic that surgery [...]
--- OUTSIDE RECORDS SUMMARY | 2021-11-20 20:57 | XMS_ITS | Encounter Summary ---
:1985 Author Organization [facility] Address [address] [place] [address] Care Team Providers Name Role Phone Unavailable Primary Care Provider Unavailable Reason for Visit Reason Comments Reschedule Post Op Appointment Encounter Details Date Type Department Care Team Description 01/19/2021 Clinical Department of Bety Tatum Pos t Communication Otorhinolaryngology in [place], [place] Sung [address] [facility] [address] [place] [address] [place], [place] [phone] Social History Tobacco Use Types Packs/Day Years [...] 02/18/2021 relatives? How often do you attend alevism or pentecostalism Never 02/18/2021 services? Do you belong to any clubs or organizations such as No 02/18/2021 alevism groups, unions, fraternal or athletic groups, or [...] Sunday afternoon as he is driving her. IGN EXCHANGE CLERK Telephone Encounter - Xiomy Horner - 01/19/2021 12:22 PM CST Ms. Odonnell returned your call. You can reach her this afternoon at [phone]. IGN EXCHANGE CLERK Telephone Encounter - Maciel Watts - 01/19/2021 10:37 AM CST I called Ms. Odonnell today because Dr. Tatum has been called away unexpectedly. Dr. Tatum would like to see her on January 21 in the afternoon at the [place]' procedure room. Ms. Odonnell did not answer so I left a message for her to call me back. Thank you, Maciel IGN EXCHANGE CLERK documented in this encounter Plan of Treatment Not on filedocumented as of this encounter Visit Diagnoses Not on filedocumented in this encounter
--- OUTSIDE RECORDS SUMMARY | 2021-11-20 20:57 | XMS_ITS | Encounter Summary ---
:1985 Author Organization [facility] Address [address] [place] [address] Care Team Providers Name Role Phone Unavailable [...] How often do you attend restorationism or christianity Never 02/18/2021 services? Do you [...]
--- OUTSIDE RECORDS SUMMARY | 2021-11-20 20:57 | XMS_ITS | Encounter Summary ---
:1985 Author Organization [facility] Address [address] [place] [address] Care Team Providers Name Role Phone Unavailable [...] How often do you attend christian or jain Never 02/18/2021 services? Do you [...] 02/18/2021 11:40 Results for this EXAM AM STEAM CLOTHES PRESS OPERATOR procedure are i n the results section. documented in this encounter Results NOSE-Otorhinolaryngology Image Exam (02/18/2021 11:40 AM STEAM CLOTHES PRESS OPERATOR) Specimen (Source) Anatomical Collection Method Collection Time Re ceived Time Location / / Volume Laterality 02/18/2021 11:36 AM STEAM CLOTHES PRESS OPERATOR Narrative [facility] - 02/18/2021 11:40 AM STEAM CLOTHES PRESS OPERATOR This order has been created and auto-finalized [...]
--- OUTSIDE RECORDS SUMMARY | 2021-11-20 20:57 | XMS_ITS | Encounter Summary ---
:1985 Author Organization [facility] Address [address] [place] [address] Care Team Providers Name Role Phone Unavailable Primary Care Provider Unavailable Reason for Visit Outpatient (Routine) - Closed Specialty Diagnoses / Procedures Referred By Contact Refer red To Contact Otorhinolaryngology Daphne Tatum [place] M.D. [address] [place] [address] Referral ID Status Reason Start Date Expiration Date Visits Requ ested Visits Authorized [id number] Closed 01/21/2021 01/21/2022 1 1 Encounter Details Date Type Department Care Team Description 02/18/2021 Office Visit Department of Rc, Rhinosinusitis Chronic (Primary Dx); Otorhinolaryngology in D[place]ne [place], Polyp Nasal; [place], [place] Sung Aspirin Reaction Nasal Polyps Asthma [address] [facility] [address] [place] [address] [place], [place] [phone] Social History Tobacco Use Types Packs/Day Years [...] How often do you attend confucianist or holiness Never 02/18/2021 services? Do you belong to [...] procedure well and there were no complications. [place] Endoscopic Scoring System Right Side Left Side [...] recently putting a real tree up for [place] and has noticed increasing nasal congestion. On [...] . Sanjeev Thakur APRN, C.N.P., M.S.N. O VISUAL SECRETARY Associated attestation - Daphne Tatum M.D. - 02/20/2021 5:37 PM AUDIO VISUAL SECRETARY I saw the patient with Sanjeev Thakur C.N.P. and agree with her findings, assessment, and plan. Daphne Tatum M.D. documented in this encounter Plan of Treatment Not on filedocumented as of this encounter Visit Diagnoses Diagnosis Rhinosinusitis Chronic - Primary Polyp Nasal Aspirin Reaction Nasal Polyps Asthma documented in this encounter
--- OUTSIDE RECORDS SUMMARY | 2021-11-20 20:57 | XMS_ITS | Encounter Summary ---
:[address] [facility] Address [address] [place] [address] Care Team Providers Name Role Phone Unavailable [...] Expiration Date Visits Requ ested Visits Authorized [id number] 1 1 Encounter Details Date Type Department Care Team Description 01/11/2021 Anesthesia Event RST ROMB MAIN OR Laz Young, [address] [place] [address] [place], [place] [phone] [place] [address] [place] [address] (Wo rk) Anesthesia Record Procedure Summary Procedure [...] h andoff to the receiving staff during [facility] we 1. Identified the patient 2. Ident [...] APRN, Schaffer, Jordan A, (created via procedure GM VIDEO R.N. documentation); Mask Ventilation: Easy mask; Type: [...] M ikaela A, Catheter Size: 20 G; GM VIDEO R.NXavier Orientation: Left; Location: Hand; Technique: Transillumination; Removal Date: 01/11/21; Removal Time: 1705; Removal Reason: Patient discharged (RETIRED) Incision 01/11/21; 1446; No; Nose; 01/11/21 1446 by 1223 by Bilateral; FESS; 02/04/21 Rula Bradley, [facility] (removed by background R.N. d, Edwige [...] How often do you attend latter-day or rastafarian Never 02/18/2021 services? Do you belong to [...] Procedure Summary Date: 01/11/21 Room / Location: [place] [address] / [facility] in [place], [place] Anesthesia Start: 1137 Anesthesia Stop: 1520 [...] Post Op nausea/vomiting: none Hydration status: euvolemic GRINDER OPERATOR Anesthesia Procedure Notes - Sirena Montejo APRN, CRNA - 01/11/2021 12:30 PM TOOL GRINDER OPERATOR Associated Order(s): Airway Airway Date/Time: 01/11/2021 [...] successful Airway event: no complications ATTESTATION STATEMENT GRINDER OPERATOR Anesthesia Preprocedure Evaluation - Laz Young [...] [J32.8] Pre-op diagnosis: Rhinosinusitis Chronic [J32.8]. Location: [address] / [facility] in [place], [place] Providers: Daphne Tatum M.D. Pertinent components [...] with patient /legal guardian or through an seismic interpreter. The use of blood products not discussed Approval to Proceed: approved for anesthesia GRINDER OPERATOR documented in this encounter Plan of Treatment Not on filedocumented as of this encounter Procedures Procedure Name Priority Date/Time Associated Comments Diagnosis LDA ANE ENDOTRACHEAL Routine 01/11/2021 11:45 Res ults for this AIRWAY AM TOOL GRINDER OPERATOR procedure are i n the results section. documented in this encounter Results LDA ANE ENDOTRACHEAL AIRWAY (01/11/2021 11:45 AM TOOL GRINDER OPERATOR) Narrative Sirena Montejo APRN, CRNA - 01/11/2021 11:45 AM TOOL GRINDER OPERATOR Sirena Montejo APRN, CRNA ? 01/11/2021 [...] Site acetaminophen injection Given 01/11/2021 2:16 PM TOOL GRINDER OPERATOR 1,000 mg intravenous, Administer over 15 Minutes, As needed, Starting on Sun01/11/21 at 1416, Anesthesia Intra-op ceFAZolin injection (ANCEF) Given 01/11/2021 12:21 PM TOOL GRINDER OPERATOR 2 g intravenous, As needed, Starting on Sun01/11/21 at 1221, Anesthesia Intra-op dexAMETHasone injection (DECADRON) Given 01/11/2021 11:49 AM TOOL GRINDER OPERATOR 10 mg intravenous, As needed, Starting on Sun01/11/21 at 1149, Anesthesia Intra-op fentaNYL injection (SUBLIMAZE) Given 01/11/2021 1:56 PM TOOL GRINDER OPERATOR 50 mcg intravenous, As needed, Starting on Sun01/11/21 at 1144, Anesthesia Intra-op Given 01/11/2021 1:41 PM TOOL GRINDER OPERATOR 50 mcg Given 01/11/2021 1:01 PM TOOL GRINDER OPERATOR 50 mcg labetalol injection (NORMODYNE,TRANDATE) Given 01/11/2021 2:27 PM TOOL GRINDER OPERATOR 5 mg intravenous, As needed, Starting on Sun01/11/21 at 1359, Anesthesia Intra-op Given 01/11/2021 2:02 PM TOOL GRINDER OPERATOR 5 mg Given 01/11/2021 1:59 PM TOOL GRINDER OPERATOR 5 mg lactated ringers New Bag 01/11/2021 11:37 AM TOOL GRINDER OPERATOR intravenous, Continuous Infusion: Per Instructions PRN, Starting on Sun01/11/21 at 1137, Anesthesia Intra-op lactated ringers New Bag 01/11/2021 11:47 AM TOOL GRINDER OPERATOR intravenous, Continuous Infusion: Per Instructions PRN, Starting on Sun01/11/21 at 1147, Anesthesia Intra-op lidocaine (PF) (cardiac) injection Given 01/11/2021 11:44 AM TOOL GRINDER OPERATOR 60 mg intravenous, As needed, Starting on Sun01/11/21 at 1144, Anesthesia Intra-op ondansetron (PF) injection (ZOFRAN) Given 01/11/2021 2:40 PM TOOL GRINDER OPERATOR 4 mg intravenous, As needed, Starting on Sun01/11/21 at 1440, Anesthesia Intra-op propofol 10 mg/mL infusion Rate/Dose 01/11/2021 2:43 110 mcg/kg/min 74.514 (DIPRIVAN) Change PM TOOL GRINDER OPERATOR mL/hr intravenous, Continuous Infusion: Per Instructions PRN, Starting on Sun01/11/21 at 1144, Anesthesia Intra-op Rate/Dose Change 01/11/2021 2:39 PM TOOL GRINDER OPERATOR 125 mcg/kg/min 84.675 mL/hr New Bag 01/11/2021 2:27 PM TOOL GRINDER OPERATOR 150 mcg/kg/min 101.61 mL/hr propofoL injection (DIPRIVAN) Given 01/11/2021 11:56 AM TOOL GRINDER OPERATOR 50 mg intravenous, As needed, Starting on Sun01/11/21 at 1144, Anesthesia Intra-op Given 01/11/2021 11:44 AM TOOL GRINDER OPERATOR 200 mg remifentaniL 20 mcg/mL in Rate/Dose 01/11/2021 2:10 0.1 mcg/kg/min 3 3.87 NaCl 0.9% 100 mL infusion Change PM TOOL GRINDER OPERATOR mL/hr (ULTIVA) intravenous, Continuous Infusion: Per Instructions PRN, Starting on Sun01/11/21 at 1144, Anesthesia Intra-op Rate/Dose Change 01/11/2021 1:53 PM TOOL GRINDER OPERATOR 0.1 mcg/kg/min 33.87 mL/hr Rate/Dose Change 01/11/2021 12:03 PM TOOL GRINDER OPERATOR 0.2 mcg/kg/min 67.74 mL/hr scopolamine base 1 mg over 3 days Given 01/11/2021 12:00 PM TOOL GRINDER OPERATOR 1 patch (TRANSDERM SCOP) transdermal, Administer over 72 Hours, As needed, Starting on Sun01/11/21 at 1200, Anesthesia Intra-op succinylcholine (PF) injection (ANECTINE ) Given 01/11/2021 11:44 AM TOOL GRINDER OPERATOR 100 mg intravenous, As needed, Starting on Sun01/11/21 at 1144, Anesthesia Intra-op documented in this encounter
--- OUTSIDE RECORDS SUMMARY | 2021-11-20 20:57 | XMS_ITS | Encounter Summary ---
:1985 Author Organization [facility] Address [address] [place] [address] Care Team Providers Name Role Phone Unavailable Primary Care Provider Unavailable Encounter Details Date Type Department Care Team Description 01/17/2021 Orders Only Department of [facility], Teresita Tena Otorhinolaryngology in [address] [place] [address] [place] [address] [place] [address] [phone] Social History Tobacco Use Types Packs/Day Years [...] often do you attend oriental orthodox or jewish Never 02/18/2021 services? Do you belong to [...] slept in a care home (including now)? Education Answer Date Recorded [...]
--- OUTSIDE RECORDS SUMMARY | 2021-11-20 20:58 | XMS_ITS | Encounter Summary ---
:1985 Author Organization [facility] Address [address] [place] [address] Care Team Providers Name Role Phone Unavailable [...] often do you attend jehovah's witness or protestant Never 02/18/2021 services? Do you [...]
--- OUTSIDE RECORDS SUMMARY | 2021-11-20 20:58 | XMS_ITS | Encounter Summary ---
:1985 Author Organization [facility] Address [address] [place] [address] Care Team Providers Name Role Phone Unavailable Primary Care Provider Unavailable Encounter Details Date Type Department Care Team Description 12/04/2017 Orders Only Department of Ashley Victor, Otorhinolaryngology in [facility], C.N.P.[place], [place] M.S.N. [address] [place] [address] [address] [place] [address] [place], [place] [phone] Social History Tobacco Use Types Packs/Day Years [...] How often do you attend jain or mu-ism Never 02/18/2021 services? Do you [...] or slept in a half-way (including now)? Sex Assigned at Date Recorded Female 01/06/2021 8:49 AM CDT documented as of this encounter Plan of Treatment Not on filedocumented as of this encounter Visit Diagnoses Not on filedocumented in this encounter
--- OUTSIDE RECORDS SUMMARY | 2021-11-20 20:58 | XMS_ITS | Encounter Summary ---
:1985 Author Organization [facility] Address [address] [place] [address] Care Team Providers Name Role Phone Unavailable Primary Care Provider Unavailable Encounter Details Date Type Department Care Team Description 06/28/2017 Orders Only Department of Ashley Victor Otorhinolaryngology in [place], AUTO BODY ESTIMATOR, Nasal Polyps Asthma [place], [place] C.N.P., M.S.N. (Primary Dx) [address] [place] [address] [place] [phone] [place], [place] [phone] Social History Tobacco Use Types Packs/Day Years [...] How often do you attend taoist or synagogue Never 02/18/2021 services? Do you [...]
--- OUTSIDE RECORDS SUMMARY | 2021-11-20 20:58 | XMS_ITS | Encounter Summary ---
:1985 Author Organization [facility] Address [address] [place] [address] Care Team Providers Name Role Phone Unavailable Primary Care Provider Unavailable Encounter Details Date Type Department Care Team Description 06/22/2017 Orders Only Department of Ashley Victor, Otorhinolaryngology in [facility], C.N.P.[place], [place] M.S.N. [address] [place] [address] [address] [place] [address] [place], [place] [phone] Social History Tobacco Use Types Packs/Day Years [...] How often do you attend scientology or gnosticist Never 02/18/2021 services? Do you [...]
--- OUTSIDE RECORDS SUMMARY | 2021-11-20 20:58 | XMS_ITS | Encounter Summary ---
:1985 Author Organization [facility] Address [address] [place] [address] Care Team Providers Name Role Phone Unavailable Primary Care Provider Unavailable Reason for Visit Reason Comments Med Refill Encounter Details Date Type Department Care Team Description 12/03/2017 Refill Department of Otorhinolaryngology Ashley Victor, Med Refill in [facility] jorge HOFFMAN C.N.P., M.S.N. [address] [place] [address] [address] [place] [address] [place], [place] [phone] (Wo rk) Social History Tobacco Use Types [...] How often do you attend yazidism or latter day Never 02/18/2021 services? Do [...]
--- OUTSIDE RECORDS SUMMARY | 2021-11-20 20:58 | XMS_ITS | Encounter Summary ---
:1985 Author Organization [facility] Address [address] [place] [address] Care Team Providers Name Role Phone Unavailable Primary Care Provider Unavailable Encounter Details Date Type Department Care Team Description 12/13/2020 Clinical Department of Lázaro Sebastian Otorhinolaryngology in [place], [place] [phone] [address] [facility] ([place]) [place] [address] Social History Tobacco Use Types Packs/Day [...] 02/18/2021 relatives? How often do you attend druze or congregation Never 02/18/2021 services? Do you belong to any clubs or organizations such as No 02/18/2021 druze groups, unions, fraternal or athletic groups, or [...]
--- OUTSIDE RECORDS SUMMARY | 2021-11-20 20:58 | XMS_ITS | Encounter Summary ---
:1985 Author Organization [facility] Address [address] [place] [address] Care Team Providers Name Role Phone Unavailable [...] How often do you attend anabaptism or church Never 02/18/2021 services? Do you [...] P athologist Signature Tryptase, S 3.0 <11.5 [facility] NG/ML [facility] Specimen Anatomical Collection Method Collection Time Receive d Time (Source) Location / / Volume Laterality 10/15/2015 4:26 AM 6 4:26 CDT AM CDT Onofre Brown M.D. LAB BLOOD ADD-ON Performing Organization Address City/State/ZIP Code Phon e Number [facility] - 200 [place], [place] [address] [facility] Hx general Pathology Report (10/14/2015 8:06 PM CDT) Specimen Anatomical Collection Method Collection Time Receive d Time (Source) Location / / Volume Laterality 10/14/2015 8:06 PM 6 8:06 CDT PM CDT Narrative [facility] - 10/14/2015 8:06 PM CDT ??10/14/2015 General Biopsy ? ([id number]) ? Requested By: Daphne Tatum M.D. ??[phone] ? SLIDE DISPOSITION: ? DIAGNOSIS: ?? A. Sinonasal cavity, bilateral contents , excision: Respiratory mucosa with chronic inflammation and nu merous eosinophils. ?? Participated in interpretation: Dr. Newberry. Pager: [phone]. ?? As the signing pathologist, I verify th at I have examined all relevant slides/materials for the speci men(s) and rendered or confirmed the diagnosis. ? 10/19/2015 11:59 Interpreted by: Darcy Steen M.D. [id number] Report electronically signed by Darcy Steen M.D. Transcribed by: [facility] 10/18/2015 16:09:23 ? TISSUE DESCRIPTION: [id number] A. ??Received fresh labeled bilateral sinus contents is an 8 x 7 x 2.5 cm aggregate of red soft tissue and cartilage. ??All soft tissue is submitted. ??Solutions Delivery Consultant sections are submitted for permanent sections only. ??Grossed by CDP. ? Part A: ??Bilateral sinus contents ?1 Bilateral sinus contents 1 ?2 Bilateral sinus contents 2 ?3 Bilateral sinus contents 3 ?4 Bilateral sinus contents 4 ?5 Bilateral sinus contents 5 ?6 Bilateral sinus contents 6 ?? XRSR Path ? Procedure Note 05/26/2017 10/14/2015 General Biopsy ([id number]) Requested By: Daphne Tatum M.D. [phone] SLIDE DISPOSITION: DIAGNOSIS: A. Sinonasal cavity, bilateral contents , excision: Respiratory mucosa with chronic inflammation and nu merous eosinophils. Participated in interpretation: Dr. Newberry. Pager: [phone]. As the signing pathologist, I verify th at I have examined all relevant slides/materials for the speci men(s) and rendered or confirmed the diagnosis. 10/19/2015 11:59 Interpreted by: Darcy Steen M.D. [id number] Report electronically signed by Darcy Steen M.D. Transcribed by: latricia 10/18/2015 16:09:23 TISSUE DESCRIPTION: [id number] A. Received fresh labeled bilateral si nus contents is an 8 x 7 x 2.5 cm aggregate of red soft tissue and cartilage. All soft tissue is submitted. Solutions Delivery Consultant sections a re submitted for permanent sections only. Grossed by CDP. Part A: Bilateral sinus contents 1 Bilateral sinus contents 1 2 Bilateral sinus contents 2 3 Bilateral sinus contents 3 4 Bilateral sinus contents 4 5 Bilateral sinus contents 5 6 Bilateral sinus contents 6 XRSR Path Daphne Tatum M.D. LAB PATHOLOGY/CYTOLOGY ORDER MIGUEL Performing Organization Address City/State/ZIP Code Phon e Number [facility] - [address] [place], [place] [address] [facility] (ABNORMAL) Leukotriene E4, Urine (10/14/2015 10:00 AM CDT) [facility] gist Method Time Signature Leukotriene E4, 281 (H) <=104 [facility] U PG/MG CR LABORATORIES - [facility] Comment: Mailed In Specimen ? Leukotriene [...] 10/14/2015 AM CDT 10:00 AM CDT Narrative [facility] - 10/20/2015 9:04 AM CDT Mailed In Specimen Alber Chapa M.D., Ph.D. LAB URINE ORDERABLES Performing Organization Address City/State/ZIP Code Phon e Number [facility] - [address] [place], [place] [address] [facility] documented in this encounter Visit Diagnoses Not on filedocumented in this encounter
--- OUTSIDE RECORDS SUMMARY | 2021-11-20 20:58 | XMS_ITS | Encounter Summary ---
:1985 Author Organization [facility] Address [address] [place] [address] Care Team Providers Name Role Phone Unavailable [...] How often do you attend advent or rastafarian Never 02/18/2021 services? Do you [...]
--- OUTSIDE RECORDS SUMMARY | 2021-11-20 20:58 | XMS_ITS | Encounter Summary ---
:1985 Author Organization [facility] Address [address] [place] [address] Care Team Providers Name Role Phone Unavailable [...] How often do you attend shinto or gnosticism Never 02/18/2021 services? Do you [...]
--- OUTSIDE RECORDS SUMMARY | 2021-11-20 20:58 | XMS_ITS | Encounter Summary ---
:1985 Author Organization [facility] Address [address] [place] [address] Care Team Providers Name Role Phone Unavailable Primary Care Provider Unavailable Reason for Referral MRI/CAT/PET Scan (Routine) - Closed Specialty Diagnoses / Procedures Referred By Contact Refer red To Contact Radiology Diagnoses Aspirin Reaction Nasal Polyps Asthma Mary Lema M.D. [facility] Procedures CT Sinuses without IV Contrast [address] [place] [address] Referral ID Status Reason Start Date Expiration Date Visits Requ ested Visits Authorized [id number] Closed 12/13/2020 12/13/2021 1 1 Encounter Details Date Type Department Care Team Description 12/13/2020 Orders Only Department of Mary Lema Aspirin React ion Otorhinolaryngology in [place] Nasal Polyps Asthma [place], [place] [address] [facility] ([facility] Dx) [address] [place] [phone] Social History Tobacco Use Types Packs/Day Years [...] How often do you attend yazidism or muslim Never 02/18/2021 services? Do you [...]
--- OUTSIDE RECORDS SUMMARY | 2021-11-20 20:58 | XMS_ITS | Encounter Summary ---
:1985 Author Organization [facility] Address [address] [place] [address] Care Team Providers Name Role Phone Unavailable Primary Care Provider Unavailable Reason for Referral MRI/CAT/PET Scan (Routine) - Closed Specialty Diagnoses / Procedures Referred By Contact Refer red To Contact Radiology Diagnoses Aspirin Reaction Nasal Polyps Asthma Mary Lema M.D. [facility] Procedures CT Sinuses without IV Contrast [address] [place] [phone] Referral ID Status Reason Start Date Expiration Date Visits Requ ested Visits Authorized [id number] Closed 12/13/2020 12/13/2021 1 1 Reason for Visit MRI/CAT/PET Scan (Routine) - Closed Specialty Diagnoses / Procedures Referred By Contact Refer red To Contact Radiology Diagnoses Aspirin Reaction Nasal Polyps Asthma Mary Lema M.D. [facility] Procedures CT Sinuses without IV Contrast 200 [place] [address] Referral ID Status Reason Start Date Expiration Date Visits Requ ested Visits Authorized [id number] Closed 12/13/2020 12/13/2021 1 1 Encounter Details Date Type Department Care Team Description 12/21/2020 Hospital Encounter Department of Mary Lema Aspirin Reaction RadiologyAndrade M.D. Nasal Polyps Asthma [facility], in [address] [place] [address] [place] [address] [place], [place] [phone] (Work) [phone] Social History Tobacco Use Types Packs/Day Years [...] often do you attend latter day or temple Never 02/18/2021 services? Do you [...] or slept in a snf (including now)? Sex Assigned at Date Recorded [...]
--- OUTSIDE RECORDS SUMMARY | 2021-11-20 20:58 | XMS_ITS | Encounter Summary ---
:1985 Author Organization [facility] Address [address] [place] [address] Care Team Providers Name Role Phone Unavailable [...] How often do you attend uatsdin or amish Never 02/18/2021 services? Do you [...]
[2021-11-20] MEDS: BETAMETHASONE SOD PHOS/ACETATE 6 MG/ML ML 12 MG IM (21:00)
== END 2021-11-20 21:01 | disposition home or self-care (01) ==
LOC: OB OUT 20:55 → OB 11-22 06:11
PROVIDERS: Visit Provider Obstetrics & Gynecology
DX: O47.03 False labor before 37 completed weeks of gestation, third trimester (principal); Z3A.35 35 weeks gestation of pregnancy
CPT/HCPCS: 99211; 99213; J0702

== ENCOUNTER 2021-11-24 12:09 | Outpatient (CLI) | payer BC, SELFPAY ==
--- OUTSIDE RECORDS SUMMARY | 2021-11-24 12:12 | XMS_ITS | Encounter Summary ---
:1985 Author Organization [facility] Address [address] [place] [address] Care Team Providers Name Role Phone Unavailable [...] often do you attend roman catholic or restorationist Never 02/18/2021 services? Do you [...]
--- OUTSIDE RECORDS SUMMARY | 2021-11-24 12:12 | XMS_ITS | Encounter Summary ---
:1985 Author Organization [facility] Address [address] [place] [address] Care Team Providers Name Role Phone Unavailable [...] How often do you attend orthodoxy or orthodox Never 02/18/2021 services? Do you belong to [...]
--- OUTSIDE RECORDS SUMMARY | 2021-11-24 12:12 | XMS_ITS | Encounter Summary ---
:1985 Author Organization [facility] Address [address] [place] [address] Care Team Providers Name Role Phone Unavailable Primary Care Provider Unavailable Reason for Referral MRI/CAT/PET Scan (Routine) - Closed Specialty Diagnoses / Procedures Referred By Contact Refer red To Contact Radiology Diagnoses Aspirin Reaction Nasal Polyps Asthma Mary Lema M.D. [facility] Procedures CT Sinuses without IV Contrast [address] [place] [address] Referral ID Status Reason Start Date Expiration Date Visits Requ ested Visits Authorized [id number] Closed 12/13/2020 12/13/2021 1 1 Encounter Details Date Type Department Care Team Description 12/13/2020 Orders Only Department of Mary Lema Aspirin React ion Otorhinolaryngology in Sung Nasal Polyps Asthma [place], [place] [address] [facility] (Primary Dx) [address] [place] [phone] Social History Tobacco Use Types Packs/Day Years [...] often do you attend jehovah's witness or latter day Never 02/18/2021 services? Do [...] or slept in a usp (including now)? Sex Assigned at Date Recorded [...]
--- OUTSIDE RECORDS SUMMARY | 2021-11-24 12:12 | XMS_ITS | Encounter Summary ---
:1985 Author Organization [facility] Address [address] [place] [address] Care Team Providers Name Role Phone Unavailable Primary Care Provider Unavailable Encounter Details Date Type Department Care Team Description 01/17/2021 Orders Only Department of [facility], Teresita Tena Otorhinolaryngology in [address] [place] [address] [place] [address] [place] [address] [phone] Social History Tobacco Use Types Packs/Day Years [...] 02/18/2021 relatives? How often do you attend jewish or pentecostalism Never 02/18/2021 services? Do you belong to any clubs or organizations such as No 02/18/2021 jewish groups, unions, fraternal or athletic groups, or [...]
--- OUTSIDE RECORDS SUMMARY | 2021-11-24 12:12 | XMS_ITS | Encounter Summary ---
:1985 Author Organization [facility] Address [address] [place] [address] Care Team Providers Name Role Phone Unavailable [...] How often do you attend yazidism or sabianism Never 02/18/2021 services? Do you [...] 01/21/2021 2:48 Results for this EXAM PM COPIER OPERATOR procedure are i n the results section. documented in this encounter Results NASAL-Otorhinolaryngology Image Exam (01/21/2021 2:48 PM COPIER OPERATOR) Specimen (Source) Anatomical Collection Method Collection Time Re ceived Time Location / / Volume Laterality 01/21/2021 4:08 PM COPIER OPERATOR Narrative [facility] - 01/21/2021 2:48 PM COPIER OPERATOR This order has been created and [...]
--- OUTSIDE RECORDS SUMMARY | 2021-11-24 12:12 | XMS_ITS | Encounter Summary ---
:1985 Author Organization [facility] Address [address] [place] [address] Care Team Providers Name Role Phone Unavailable Primary Care Provider Unavailable Reason for Visit Reason Comments Med Refill Encounter Details Date Type Department Care Team Description 12/03/2017 Refill Department of Otorhinolaryngology Ashley Victor, Med Refill in [facility] jorge HOFFMAN C.N.P., M.S.N. [address] [place] [address] [address] [place] [address] [place], [place] [phone] (Wo rk) Social History Tobacco Use Types [...] How often do you attend adventist or religion Never 02/18/2021 services? Do you [...]
--- OUTSIDE RECORDS SUMMARY | 2021-11-24 12:12 | XMS_ITS | Encounter Summary ---
:1985 Author Organization [facility] Address [address] [place] [address] Care Team Providers Name Role Phone Unavailable Primary Care Provider Unavailable Reason for Visit Reason Comments Reschedule Post Op Appointment Encounter Details Date Type Department Care Team Description 01/19/2021 Clinical Department of Bety Tatum Pos t Communication Otorhinolaryngology in [place], [place] Sung [address] [facility] [address] [place] [address] [place], [place] [phone] Social History Tobacco Use Types Packs/Day Years [...] How often do you attend baptism or orthodoxy Never 02/18/2021 services? Do you [...] Sunday afternoon as he is driving her. OR CAPITAL MARKETS SPECIALIST Telephone Encounter - Xiomy Horner - 01/19/2021 12:22 PM CST Ms. Odonnell returned your call. You can reach her this afternoon at [phone]. OR CAPITAL MARKETS SPECIALIST Telephone Encounter - Maciel Watts - 01/19/2021 10:37 AM CST I called Ms. Odonnell today because Dr. Tatum has been called away unexpectedly. Dr. Tatum would like to see her on January 21 in the afternoon at the [facility] procedure room. Ms. Odonnell did not answer so I left a message for her to call me back. Thank you, Maciel OR CAPITAL MARKETS SPECIALIST documented in this encounter Plan of Treatment Not on filedocumented as of this encounter Visit Diagnoses Not on filedocumented in this encounter
--- OUTSIDE RECORDS SUMMARY | 2021-11-24 12:12 | XMS_ITS | Encounter Summary ---
:1985 Author Organization [facility] Address [address] [place] [address] Care Team Providers Name Role Phone Unavailable Primary Care Provider Unavailable Reason for Visit Outpatient (Routine) - Closed Specialty Diagnoses / Procedures Referred By Contact Refer red To Contact Otorhinolaryngology Daphne Tatum [place] M.D. [address] [place] [address] Referral ID Status Reason Start Date Expiration Date Visits Requ ested Visits Authorized [id number] Closed 01/21/2021 01/21/2022 1 1 Encounter Details Date Type Department Care Team Description 02/18/2021 Office Visit Department of [facility], Rhinosinusitis Chronic (Primary Dx); Otorhinolaryngology in Daphne Blair, Polyp Nasal; [place], [place] Sung Aspirin Reaction Nasal Polyps Asthma [address] [facility] [address] [place] [address] [place], [place] [phone] [address] Social History Tobacco Use Types Packs/Day Years [...] How often do you attend mandaeism or jehovah's witness Never 02/18/2021 services? Do [...] procedure well and there were no complications. [place] Endoscopic Scoring System Right Side Left Side [...] recently putting a real tree up for [place] and has noticed increasing nasal congestion. On [...] become . Sanjeev Thakur APRN, C.N.P., M.S.N. MAIL CHECKER Associated attestation - Daphne Tatum M.D. - 02/20/2021 5:37 PM DEAD MAIL CHECKER I saw the patient with Sanjeev Thakur C.N.P. and agree with her findings, assessment, and plan. Daphne Tatum M.D. documented in this encounter Plan of Treatment Not on filedocumented as of this encounter Visit Diagnoses Diagnosis Rhinosinusitis Chronic - Primary Polyp Nasal Aspirin Reaction Nasal Polyps Asthma documented in this encounter
--- OUTSIDE RECORDS SUMMARY | 2021-11-24 12:12 | XMS_ITS | Encounter Summary ---
:1985 Author Organization [facility] Address [address] [place] [address] Care Team Providers Name Role Phone Unavailable [...] How often do you attend islam or mandaen Never 02/18/2021 services? Do you [...] P athologist Signature Tryptase, S 3.0 <11.5 [facility] NG/ML [facility] Specimen Anatomical Collection Method Collection Time Receive d Time (Source) Location / / Volume Laterality 10/15/2015 4:26 AM 6 4:26 CDT AM CDT Onofre Brown M.D. LAB BLOOD ADD-ON Performing Organization Address City/State/ZIP Code Phon e Number [facility] - 200 [place], [place] [address] [facility] Hx general Pathology Report (10/14/2015 8:06 PM CDT) Specimen Anatomical Collection Method Collection Time Receive d Time (Source) Location / / Volume Laterality 10/14/2015 8:06 PM 6 8:06 CDT PM CDT Narrative [facility] - 10/14/2015 8:06 PM CDT ??10/14/2015 General Biopsy ? ([id number]) ? Requested By: Daphne Tatum M.D. ??[phone] ? SLIDE DISPOSITION: ? DIAGNOSIS: ?? A. Sinonasal cavity, bilateral contents , excision: Respiratory mucosa with chronic inflammation and nu merous eosinophils. ?? Participated in interpretation: Dr. Newberry. Pager: [phone]. ?? As the signing pathologist, I verify th at I have examined all relevant slides/materials for the speci men(s) and rendered or confirmed the diagnosis. ? 10/19/2015 11:59 Interpreted by: Darcy Steen M.D. [id number] Report electronically signed by Darcy Steen M.D. Transcribed by: [facility] 10/18/2015 16:09:23 ? TISSUE DESCRIPTION: [id number] A. ??Received fresh labeled bilateral sinus contents is an 8 x 7 x 2.5 cm aggregate of red soft tissue and cartilage. ??All soft tissue is submitted. ??Java Websphere Developer sections are submitted for permanent sections only. ??Grossed by CDP. ? Part A: ??Bilateral sinus contents ?1 Bilateral sinus contents 1 ?2 Bilateral sinus contents 2 ?3 Bilateral sinus contents 3 ?4 Bilateral sinus contents 4 ?5 Bilateral sinus contents 5 ?6 Bilateral sinus contents 6 ?? XRSR Path ? Procedure Note 05/26/2017 10/14/2015 General Biopsy ([id number]) Requested By: Daphne Tatum M.D. [phone] SLIDE DISPOSITION: DIAGNOSIS: A. Sinonasal cavity, bilateral contents , excision: Respiratory mucosa with chronic inflammation and nu merous eosinophils. Participated in interpretation: Dr. Newberry. Pager: [phone]. As the signing pathologist, I verify th at I have examined all relevant slides/materials for the speci men(s) and rendered or confirmed the diagnosis. 10/19/2015 11:59 Interpreted by: Darcy Steen M.D. [id number] Report electronically signed by Darcy Steen M.D. Transcribed by: latricia 10/18/2015 16:09:23 TISSUE DESCRIPTION: [id number] A. Received fresh labeled bilateral si nus contents is an 8 x 7 x 2.5 cm aggregate of red soft tissue and cartilage. All soft tissue is submitted. Java Websphere Developer sections a re submitted for permanent sections [...] Phon e Number [facility] - [address] [place], [place] [address] [facility] (ABNORMAL) Leukotriene E4, Urine (10/14/2015 10:00 AM CDT) [facility] gist Method Time Signature Leukotriene E4, 281 (H) <=104 [facility] U PG/MG CR LABORATORIES - [facility] Comment: Mailed In Specimen ? [...] CDT 10:00 AM CDT Narrative [facility] - 10/20/2015 9:04 AM CDT Mailed In Specimen Alber Chapa M.D., Ph.D. LAB URINE ORDERABLES Performing Organization Address City/State/ZIP Code Phon e Number [facility] - [address] [place], [place] [address] [facility] documented in this encounter Visit Diagnoses Not on filedocumented in this encounter
--- OUTSIDE RECORDS SUMMARY | 2021-11-24 12:12 | XMS_ITS | Encounter Summary ---
:1985 Author Organization [facility] Address [address] [place] [address] Care Team Providers Name Role Phone Unavailable [...] How often do you attend zoroastrian or lutheran Never 02/18/2021 services? Do you belong to [...]
--- OUTSIDE RECORDS SUMMARY | 2021-11-24 12:12 | XMS_ITS | Encounter Summary ---
:1985 Author Organization [facility] Address [address] [place] [address] Care Team Providers Name Role Phone Unavailable Primary Care Provider Unavailable Encounter Details Date Type Department Care Team Description 06/28/2017 Orders Only Department of Ashley Victor Otorhinolaryngology in [place], INSURANCE INVESTIGATOR, Nasal Polyps Asthma [place], [place] C.N.P., M.S.N. (Primary Dx) [address] [place] [address] [place] [address] [place], [place] [phone] Social History Tobacco Use Types Packs/Day Years [...] How often do you attend uatsdin or samaritan Never 02/18/2021 services? Do you [...]
--- OUTSIDE RECORDS SUMMARY | 2021-11-24 12:12 | XMS_ITS | Encounter Summary ---
:1985 Author Organization [facility] Address [address] [place] [address] Care Team Providers Name Role Phone Unavailable Primary Care Provider Unavailable Encounter Details Date Type Department Care Team Description 01/08/2021 Hospital Encounter Department of Daphne Tatum Cont act With And (Suspected) Exposure To COVID-19; Laboratory Medicine S[place] Preprocedural Lab Exam in [place], [address] [place] [address] [place] [address] [place], [place] [phone] (Work) [phone] Social History Tobacco Use Types Packs/Day Years [...] How often do you attend anabaptism or confucianism Never 02/18/2021 services? Do you [...] RNA, V Asymptomatic (01/08/2021 10:58 AM CDT) [facility] Method Time Signature SARS-CoV-2 Swab, 01/08/2021 [...] pe rformed using the Aptima SARS-CoV-2 assay ([employer] on the [employer] tem under emergency use authorization (EUA) by the U.S. Food and Drug Administ ration. Fact sheets for this EUA assay can be fo und at the following links: For Healthcare Providers: https://www.fd a.gov/media/634074/download For Patients: https://www.fda.gov/media/ 918369/download Specimen Anatomical Collection Method Collection Time Receive d Time (Source) Location / / Volume Laterality Varies 01/08/2021 10:58 01/08/2021 5:03 (Nasopharynx) AM CDT PM CDT Daphne Tatum M.D. LAB MICROBIOLOGY - GENERAL O RDERABLES Performing Organization Address City/State/ZIP Code Phon e Number [facility]- [address] [place] [id number] [place] [address] [place] [address] [address] documented in this encounter Visit Diagnoses Diagnosis Contact With And (Suspected) Exposure To COVID-19 Preprocedural Lab Exam documented in this encounter Additional Health Concerns Infection Onset Date Last Indicated Resolved Time COVID19 Pending 01/08/2021 01/08/2021 01/08/2021 11:18 PM CDT documented as of this encounter
--- OUTSIDE RECORDS SUMMARY | 2021-11-24 12:12 | XMS_ITS | Encounter Summary ---
:1985 Author Organization [facility] Address [address] [place] [address] Care Team Providers Name Role Phone Unavailable Primary Care Provider Unavailable Reason for Visit Auth/Cert Specialty Diagnoses / Procedures Referred By Contact Refer red To Contact Diagnoses Rhinosinusitis Chronic Rhinosinusitis Chronic [J32.8] Procedures NV ENDO NSL MAX ANTROST W RMV TIS NV NSL/SINS NDSC SPHN TISS RMVL NV NSL/SINS NDSC TOTAL NV ENDO NSL/SNS W ETHMDCTOMY PRTL NV STRTCTC COMP-ASSIST CRNL EXTRA NV SUBMUC RSECT TURB PRTL/COMPLT ENDOSCOPIC MAXILLARY ANTROST CHARLIE WITH TISSUE REMOVAL ENDOSCOPIC SPHENOIDOTOMY WITHOUT TISSUE REMOVAL SINUSOTOMY ENDOSCOPY FRONTAL -draft iib, possible draft iii ETHMOIDECTOMY ENDOSCOPY EXTRADURAL COMPUTER NAVIGATION - Proceed as indicated REDUCTION TURBINATE - middle turbinates , procee d as indicated Referral ID Status Reason Start Date Expiration Date Visits Requ ested Visits Authorized [id number] 1 1 Encounter Details Date Type Department Care Team Description 01/11/2021 Anesthesia Event RST ROMB MAIN OR Laz Young, [address] [place] [address] [place], [place] [phone] [place] [address] [place] [address] (Wo rk) Anesthesia Record Procedure Summary Procedure [...] h andoff to the receiving staff during [facility] we 1. Identified the patient 2. [...] APRN, Schaffer, Jordan A, (created via procedure BROADCAST DIRECTOR OPERATIONS R.N. documentation); Mask Ventilation: Easy mask; Type: [...] M ikaela A, Catheter Size: 20 G; BROADCAST DIRECTOR OPERATIONS R.NXavier Orientation: Left; Location: Hand; Technique: Transillumination; Removal Date: 01/11/21; Removal Time: 1705; Removal Reason: Patient discharged (RETIRED) Incision 01/11/21; 1446; No; Nose; 01/11/21 1446 by 1223 by Bilateral; FESS; 02/04/21 Rula Bradley, [facility] (removed by background R.N. d, Edwige ling [...] 02/18/2021 relatives? How often do you attend rastafari or anabaptism Never 02/18/2021 services? Do you belong to any clubs or organizations such as No 02/18/2021 rastafari groups, unions, fraternal or athletic groups, or [...] the highest level of school Associate degree: ynana babb, 01/06/2021 you have completed or the highest technical, or vocational p luke degree you have received? Sex Assigned at Date Recorded Female 01/06/2021 8:49 AM CDT documented as of this encounter OR Notes Anesthesia Postprocedure Evaluation - David Barbosa, DALTON, COCO, DNAP - 01/11/2021 3:22 PM CST Patient: Krystal Odonnell Procedure Summary Date: 01/11/21 Room / Location: [place] [address] / [facility] in [place], [place] Anesthesia Start: 1137 Anesthesia Stop: 1520 [...] Post Op nausea/vomiting: none Hydration status: euvolemic L REPRINT OPERATOR Anesthesia Procedure Notes - iSrena Montejo APRN, CRNA - 01/11/2021 12:30 PM SHELL REPRINT OPERATOR Associated Order(s): Airway Airway Date/Time: 01/11/2021 [...] successful Airway event: no complications ATTESTATION STATEMENT L REPRINT OPERATOR Anesthesia Preprocedure Evaluation - Laz Young [...] [J32.8] Pre-op diagnosis: Rhinosinusitis Chronic [J32.8]. Location: [address] / [facility] in [place], [place] Providers: Daphne Tatum M.D. Pertinent components [...] with patient /legal guardian or through an warehouse team leader. The use of blood products not discussed Approval to Proceed: approved for anesthesia L REPRINT OPERATOR documented in this encounter Plan of Treatment Not on filedocumented as of this encounter Procedures Procedure Name Priority Date/Time Associated Comments Diagnosis LDA ANE ENDOTRACHEAL Routine 01/11/2021 11:45 Res ults for this AIRWAY AM SHELL REPRINT OPERATOR procedure are i n the results section. documented in this encounter Results LDA ANE ENDOTRACHEAL AIRWAY (01/11/2021 11:45 AM SHELL REPRINT OPERATOR) Narrative Sirena Montejo APRN, CRNA - 01/11/2021 11:45 AM SHELL REPRINT OPERATOR Sirena Montejo APRN, CRNA ? 01/11/2021 [...] Site acetaminophen injection Given 01/11/2021 2:16 PM SHELL REPRINT OPERATOR 1,000 mg intravenous, Administer over 15 Minutes, As needed, Starting on Sun01/11/21 at 1416, Anesthesia Intra-op ceFAZolin injection (ANCEF) Given 01/11/2021 12:21 PM SHELL REPRINT OPERATOR 2 g intravenous, As needed, Starting on Sun01/11/21 at 1221, Anesthesia Intra-op dexAMETHasone injection (DECADRON) Given 01/11/2021 11:49 AM SHELL REPRINT OPERATOR 10 mg intravenous, As needed, Starting on Sun01/11/21 at 1149, Anesthesia Intra-op fentaNYL injection (SUBLIMAZE) Given 01/11/2021 1:56 PM SHELL REPRINT OPERATOR 50 mcg intravenous, As needed, Starting on Sun01/11/21 at 1144, Anesthesia Intra-op Given 01/11/2021 1:41 PM SHELL REPRINT OPERATOR 50 mcg Given 01/11/2021 1:01 PM SHELL REPRINT OPERATOR 50 mcg labetalol injection (NORMODYNE,TRANDATE) Given 01/11/2021 2:27 PM SHELL REPRINT OPERATOR 5 mg intravenous, As needed, Starting on Sun01/11/21 at 1359, Anesthesia Intra-op Given 01/11/2021 2:02 PM SHELL REPRINT OPERATOR 5 mg Given 01/11/2021 1:59 PM SHELL REPRINT OPERATOR 5 mg lactated ringers New Bag 01/11/2021 11:37 AM SHELL REPRINT OPERATOR intravenous, Continuous Infusion: Per Instructions PRN, Starting on Sun01/11/21 at 1137, Anesthesia Intra-op lactated ringers New Bag 01/11/2021 11:47 AM SHELL REPRINT OPERATOR intravenous, Continuous Infusion: Per Instructions PRN, Starting on Sun01/11/21 at 1147, Anesthesia Intra-op lidocaine (PF) (cardiac) injection Given 01/11/2021 11:44 AM SHELL REPRINT OPERATOR 60 mg intravenous, As needed, Starting on Sun01/11/21 at 1144, Anesthesia Intra-op ondansetron (PF) injection (ZOFRAN) Given 01/11/2021 2:40 PM SHELL REPRINT OPERATOR 4 mg intravenous, As needed, Starting on Sun01/11/21 at 1440, Anesthesia Intra-op propofol 10 mg/mL infusion Rate/Dose 01/11/2021 2:43 110 mcg/kg/min 74.514 (DIPRIVAN) Change PM SHELL REPRINT OPERATOR mL/hr intravenous, Continuous Infusion: Per Instructions PRN, Starting on Sun01/11/21 at 1144, Anesthesia Intra-op Rate/Dose Change 01/11/2021 2:39 PM SHELL REPRINT OPERATOR 125 mcg/kg/min 84.675 mL/hr New Bag 01/11/2021 2:27 PM SHELL REPRINT OPERATOR 150 mcg/kg/min 101.61 mL/hr propofoL injection (DIPRIVAN) Given 01/11/2021 11:56 AM SHELL REPRINT OPERATOR 50 mg intravenous, As needed, Starting on Sun01/11/21 at 1144, Anesthesia Intra-op Given 01/11/2021 11:44 AM SHELL REPRINT OPERATOR 200 mg remifentaniL 20 mcg/mL in Rate/Dose 01/11/2021 2:10 0.1 mcg/kg/min 3 3.87 NaCl 0.9% 100 mL infusion Change PM SHELL REPRINT OPERATOR mL/hr (ULTIVA) intravenous, Continuous Infusion: Per Instructions PRN, Starting on Sun01/11/21 at 1144, Anesthesia Intra-op Rate/Dose Change 01/11/2021 1:53 PM SHELL REPRINT OPERATOR 0.1 mcg/kg/min 33.87 mL/hr Rate/Dose Change 01/11/2021 12:03 PM SHELL REPRINT OPERATOR 0.2 mcg/kg/min 67.74 mL/hr scopolamine base 1 mg over 3 days Given 01/11/2021 12:00 PM SHELL REPRINT OPERATOR 1 patch (TRANSDERM SCOP) transdermal, Administer over 72 Hours, As needed, Starting on Sun01/11/21 at 1200, Anesthesia Intra-op succinylcholine (PF) injection (ANECTINE ) Given 01/11/2021 11:44 AM SHELL REPRINT OPERATOR 100 mg intravenous, As needed, Starting on Sun01/11/21 at 1144, Anesthesia Intra-op documented in this encounter
--- OUTSIDE RECORDS SUMMARY | 2021-11-24 12:12 | XMS_ITS | Encounter Summary ---
:1985 Author Organization [facility] Address [address] [place] [address] Care Team Providers Name Role Phone Unavailable [...] Expiration Date Visits Requ ested Visits Authorized [id number] 1 1 Encounter Details Date Type Department Care Team Description 01/11/2021 Hospital Encounter RST ROMB MAIN OR Rc, Rhinosinusitis Chronic [address] [facility] Daphne Blair M.D. [place], [place] [address] [place] [phone] [place], [place] [phone] Social History Tobacco Use Types Packs/Day Years [...] How often do you attend confucianist or gnosticism Never 02/18/2021 services? Do you [...] Comments Blood Pressure 130/89 01/11/2021 5:00 PM PATIENT REGISTRATION SUPERVISOR Pulse 77 01/11/2021 5:05 PM PATIENT REGISTRATION SUPERVISOR Temperature 36.8 ??C (98.2 ??F) 01/11/2021 5:00 PM PATIENT REGISTRATION SUPERVISOR Respiratory Rate 16 01/11/2021 5:00 PM PATIENT REGISTRATION SUPERVISOR Oxygen Saturation 95% 01/11/2021 5:05 PM PATIENT REGISTRATION SUPERVISOR Inhaled Oxygen Concentration - - Weight 113 kg (248 lb 14.4 oz) 01/11/2021 10:10 AM PATIENT REGISTRATION SUPERVISOR Height 167.6 cm (5' 6) 01/11/2021 10:10 AM PATIENT REGISTRATION SUPERVISOR Body Mass Index 40.17 01/11/2021 10:10 AM PATIENT REGISTRATION SUPERVISOR documented in this encounter Discharge Instructions [...] or pain not relieved by pain medication. ENT REGISTRATION SUPERVISOR documented in this encounter Medications at [...] PACU in stable condition. Mary Lema M.D. ENT REGISTRATION SUPERVISOR documented in this encounter Miscellaneous Notes Result Encounter Note - Daphne Tatum M.D. - 01/21/2021 8:27 AM PATIENT REGISTRATION SUPERVISOR I have reviewed the final pathology report and the identified diagnosis is consistent with the patient's clinical presentation. ENT REGISTRATION SUPERVISOR Result Encounter Note - Mary Lema M.D. - 01/19/2021 10:38 PM CST I have reviewed the final pathology report and the identified diagnosis is consistent with the patient's clinical presentation. ENT REGISTRATION SUPERVISOR documented in this encounter Plan of Treatment Not on filedocumented as of this encounter Procedures Procedure Name Priority Date/Time Associated Diagnosis Comme nts SURGICAL PATHOLOGY, Routine 01/11/2021 12:45 Rhinosinusitis Ch ronic Results for this [facility] LAB PM PATIENT REGISTRATION SUPERVISOR procedure are i n the results section. EXTRADURAL COMPUTER 01/11/2021 11:15 Rhinosinusitis Ch ronic NAVIGATION AM PATIENT REGISTRATION SUPERVISOR Case Notes PATTERN SCRATCHER 958 ETHMOIDECTOMY ENDOSCOPY 01/11/2021 11:15 AM PATIENT REGISTRATION SUPERVISOR Rhinos inusitis Chronic Case Notes PATTERN SCRATCHER 958 SINUSOTOMY ENDOSCOPY FRONTAL 01/11/2021 11:15 AM PATIENT REGISTRATION SUPERVISOR R hinosinusitis Chronic Case Notes PATTERN SCRATCHER 958 ENDOSCOPIC SPHENOIDOTOMY WITHOUT 01/11/2021 11:1 5 AM PATIENT REGISTRATION SUPERVISOR Rhinosinusitis Chronic TISSUE REMOVAL Case Notes PATTERN SCRATCHER 958 ENDOSCOPIC MAXILLARY ANTROSTOMY 01/11/2021 11:15 AM CS T Rhinosinusitis Chronic WITH TISSUE REMOVAL Case Notes PATTERN SCRATCHER 958 documented in this encounter Results Surgical Pathology, Frozen Lab (01/11/2021 12:45 PM PATIENT REGISTRATION SUPERVISOR) Component Value Ref Test Analysis Performed Pathologis t Range Method Time At Signature 01/18/2021 STMA 5:37 AM PATIENT REGISTRATION SUPERVISOR Participated in Grant Jones 01/18/2021 Jen -Pathology 5:37 AM PATIENT REGISTRATION SUPERVISOR Interpretation Resident Report Daniel Cuevas M.D. [id number] STMA electronically 5:37 AM PATIENT REGISTRATION SUPERVISOR signed by I verify that I have examined all relevant slides/materials for the specimen(s) and rendered or confirmed the diagnosis. Gross Description A. ??Received fresh labeled left sinonasal vin nts is a 01/18/2021 STMA 7.4 x 5.1 x 0.9 cm aggregate of reed-red soft tissue. ??All 5:37 AM PATIENT REGISTRATION SUPERVISOR submitted for permanent sections. ??Grossed by [...] A1 Left sinonasal contents 1 5:37 AM PATIENT REGISTRATION SUPERVISOR A2 Left sinonasal contents 2 A3 [...] negative (Block 01/19/2021 STMA A3). 10:02 PM PATIENT REGISTRATION SUPERVISOR Signed by Daniel Cuevas M.D. [id number] 01/19/2021 10:02 PM Comment: REVISED RESULTS Interpretation FINAL DIAGNOSIS 01/19/2021 10:02 PM PATIENT REGISTRATION SUPERVISOR STMA A. ??Sinonasal contents, left, excision: [...] Volume Laterality Tissue (Nose) 01/11/2021 12:45 PM PATIENT REGISTRATION SUPERVISOR Tissue (Nose) 01/11/2021 12:53 PM PATIENT REGISTRATION SUPERVISOR Tissue (Nose) 01/11/2021 2:38 PM PATIENT REGISTRATION SUPERVISOR Narrative This result has an attachment that is no t available. Daphne Tatum M.D. LAB SURG PATH ORDERABLES Performing Organization Address City/State/ZIP Code Phon e Number [facility] - [address] [place], [place] [address] [place] [address] [facility] [address] documented in this encounter Visit Diagnoses Diagnosis Rhinosinusitis Chronic - Primary documented in this encounter Admitting Diagnoses Diagnosis Rhinosinusitis Chronic documented in this encounter Administered Medications Inactive Administered Medications - up to 3 most recent administrations Medication Order MAR Action Action Date Dose Rate Site fentaNYL injection 25 mcg Given 01/11/2021 3:28 PM PATIENT REGISTRATION SUPERVISOR 25 mcg (SUBLIMAZE) 25 mcg, intravenous, Every 2 min PRN, moderate pain or score 4-6 of 10, severe pain or score 7-10 of 10, Starting on Sun01/11/21 at 1031, PACU (only), Up to maximum total dose of 100 mcg Given 01/11/2021 3:22 PM PATIENT REGISTRATION SUPERVISOR 25 mcg metoprolol tablet 12.5 mg [...] 10 mg (ROXICODONE) Given 01/11/2021 3:37 PM PATIENT REGISTRATION SUPERVISOR 10 mg 10 mg, oral, Every [...] may contain times in both CDT and PATIENT REGISTRATION SUPERVISOR. Scheduled Medication Order 01/09/2021 01/10/2021 01/11/2021 [...]
--- OUTSIDE RECORDS SUMMARY | 2021-11-24 12:12 | XMS_ITS | Encounter Summary ---
:1985 Author Organization [facility] Address [address] [place] [address] Care Team Providers Name Role Phone Unavailable [...] How often do you attend rastafarian or voodoo Never 02/18/2021 services? Do you belong to [...] 02/18/2021 11:40 Results for this EXAM AM CLAMSHELL ENGINEER procedure are i n the results section. documented in this encounter Results NOSE-Otorhinolaryngology Image Exam (02/18/2021 11:40 AM CLAMSHELL ENGINEER) Specimen (Source) Anatomical Collection Method Collection Time Re ceived Time Location / / Volume Laterality 02/18/2021 11:36 AM CLAMSHELL ENGINEER Narrative IIMS - 02/18/2021 11:40 AM CLAMSHELL ENGINEER This order has been created and auto-finalized [...]
--- OUTSIDE RECORDS SUMMARY | 2021-11-24 12:12 | XMS_ITS | Encounter Summary ---
:1985 Author Organization [facility] Address [address] [place] [address] Care Team Providers Name Role Phone Unavailable Primary Care Provider Unavailable Encounter Details Date Type Department Care Team Description 06/22/2017 Orders Only Department of Ashley Victor, Otorhinolaryngology in [facility], C.N[facility]P.[place], [place] M.S.N. [address] [place] [address] [address] [place] [address] [place], [place] [phone] Social History Tobacco Use Types Packs/Day Years [...] How often do you attend worship or denominational Never 02/18/2021 services? Do you [...]
--- OUTSIDE RECORDS SUMMARY | 2021-11-24 12:12 | XMS_ITS | Encounter Summary ---
:1985 Author Organization [facility] Address [address] [place] [address] Care Team Providers Name Role Phone Unavailable [...] How often do you attend moravian or mandaen Never 02/18/2021 services? Do you [...] 01/11/2021 12:10 Results for this EXAM AM GROUND INSTRUCTOR BASIC procedure are i n the results section. documented in this encounter Results AIRWAY-Otorhinolaryngology Image Exam (01/11/2021 12:10 AM GROUND INSTRUCTOR BASIC) Specimen (Source) Anatomical Location Collection Method / Collectio n Time Received Time / Laterality Volume Narrative IIMS - 01/11/2021 2:55 PM GROUND INSTRUCTOR BASIC This order has been created and auto-finalized [...]
--- OUTSIDE RECORDS SUMMARY | 2021-11-24 12:12 | XMS_ITS | Encounter Summary ---
:[address] [facility] Address [address] [place] [address] Care Team Providers Name Role Phone Unavailable Primary Care Provider Unavailable Encounter Details Date Type Department Care Team Description 12/04/2017 Orders Only Department of Ashley Victor, Otorhinolaryngology in [facility], C.N.P.[place], [place] M.S.N. [address] [place] [address] [address] [place] [phone] [place], [place] [phone] Social History Tobacco Use Types Packs/Day Years [...] How often do you attend episcopal or episcopalian Never 02/18/2021 services? Do you [...] slept in a group home (including now)? Sex Assigned at Date Recorded Female 01/06/2021 8:49 AM CDT documented as of this encounter Plan of Treatment Not on filedocumented as of this encounter Visit Diagnoses Not on filedocumented in this encounter
--- OUTSIDE RECORDS SUMMARY | 2021-11-24 12:12 | XMS_ITS | Encounter Summary ---
:1985 Author Organization [facility] Address [address] [place] [address] Care Team Providers Name Role Phone Unavailable Primary Care Provider Unavailable Reason for Referral Outpatient (Routine) - Closed Specialty Diagnoses / Procedures Referred By Contact Refer red To Contact Otorhinolaryngology Daphne Tatum [place] M.D. [address] [place] [phone] Referral ID Status Reason Start Date Expiration Date Visits Requ ested Visits Authorized [id number] Closed 01/21/2021 01/21/2022 1 1 Scheduling Instructions - in afternoon, or 02/22 v ideo slot. JOINTS SUPERVISOR Reason for Visit Outpatient (Routine) - Closed Specialty Diagnoses / Procedures Referred By Contact Refer red To Contact Otorhinolaryngology Daphne Tatum [place] M.D. [address] [place] [phone] Referral ID Status Reason Start Date Expiration Date Visits Requ ested Visits Authorized [id number] Closed 01/06/2021 01/06/2022 1 1 Encounter Details Date Type Department Care Team Description 01/21/2021 Office Visit Department of [place] Tatum on Otorhinolaryngology in Daphne Blair M.D. Nasal Polyps Asthma [place], [place] [address] [place] [address] (Primary Dx) [address] [place] [phone] Social History Tobacco Use Types Packs/Day Years [...] 02/18/2021 relatives? How often do you attend zoroastrianism or baptist Never 02/18/2021 services? Do you belong to any clubs or organizations such as No 02/18/2021 zoroastrianism groups, unions, fraternal or athletic groups, or [...] Crusting Mild = 1 Mild = 1 [place] Endoscopy Score = 6 ASSESSMENT / PLAN [...] but she can stop the mupirocin. Procedures JOINTS SUPERVISOR Associated attestation - Daphne Tatum M.D. - 01/21/2021 2:57 PM PIPE JOINTS SUPERVISOR I saw and evaluated the patient, participating [...]
--- OUTSIDE RECORDS SUMMARY | 2021-11-24 12:12 | XMS_ITS | Encounter Summary ---
:1985 Author Organization [facility] Address [address] [place] [address] Care Team Providers Name Role Phone Unavailable [...] often do you attend oriental orthodox or sikh Never 02/18/2021 services? Do you [...]
--- OUTSIDE RECORDS SUMMARY | 2021-11-24 12:12 | XMS_ITS | Encounter Summary ---
:[address] [facility] Address [address] [place] [address] Care Team Providers Name Role Phone Unavailable Primary Care Provider Unavailable Encounter Details Date Type Department Care Team Description 12/13/2020 Clinical Department of Lázaro Sebastian Otorhinolaryngology in [place], [place] [phone] [address] [facility] (Work) [place] [phone] Social History Tobacco Use Types Packs/Day [...] How often do you attend anabaptist or taoist Never 02/18/2021 services? Do you [...]
--- OUTSIDE RECORDS SUMMARY | 2021-11-24 12:12 | XMS_ITS | Encounter Summary ---
:1985 Author Organization [facility] Address [address] [place] [address] Care Team Providers Name Role Phone Unavailable Primary Care Provider Unavailable Reason for Visit Auth/Cert Specialty Diagnoses / Procedures Referred By Contact Refer red To Contact Diagnoses Rhinosinusitis Chronic Rhinosinusitis Chronic [J32.8] Procedures ND ENDO NSL MAX ANTROST W RMV TIS ND NSL/SINS NDSC SPHN TISS RMVL ND NSL/SINS NDSC TOTAL ND ENDO NSL/SNS W ETHMDCTOMY PRTL ND STRTCTC COMP-ASSIST CRNL EXTRA ND SUBMUC RSECT TURB PRTL/COMPLT ENDOSCOPIC MAXILLARY ANTROST CHARLIE WITH TISSUE REMOVAL ENDOSCOPIC SPHENOIDOTOMY WITHOUT TISSUE REMOVAL SINUSOTOMY ENDOSCOPY FRONTAL -draft iib, possible draft iii ETHMOIDECTOMY ENDOSCOPY EXTRADURAL COMPUTER NAVIGATION - Proceed as indicated REDUCTION TURBINATE - middle turbinates , procee d as indicated Referral ID Status Reason Start Date Expiration Date Visits Requ ested Visits Authorized [id number] 1 1 Encounter Details Date Type Department Care Team Description 01/11/2021 Surgery RST ROMB MAIN OR Daphne Tatum, ENDOSCOPIC MAXILLARY 1216 [facility] [place] M.DXavier ANTROSTOMY, TISSUE [place], [place] 200 [facility] REMOVAL. [address] [place], [place] [phone] (Wo rk) Social History Tobacco Use Types [...] How often do you attend mandaeism or presybeterian Never 02/18/2021 services? Do you [...] or the highest technical, or vocational p [facility] degree you have received? Sex Assigned at Date Recorded Female 01/06/2021 8:49 AM CDT documented as of this encounter Last Filed Vital Signs Vital Sign Reading Time Taken Comments Blood Pressure 124/85 01/11/2021 3:30 PM VEGETABLE II FARMWORKER Pulse 78 01/11/2021 3:55 PM VEGETABLE II FARMWORKER Temperature 36.8 ??C (98.2 ??F) 01/11/2021 3:20 PM VEGETABLE II FARMWORKER Respiratory Rate 14 01/11/2021 3:40 PM VEGETABLE II FARMWORKER Oxygen Saturation 95% 01/11/2021 3:55 PM VEGETABLE II FARMWORKER Inhaled Oxygen Concentration - - Weight 113 kg (248 lb 14.4 oz) 01/11/2021 10:10 AM VEGETABLE II FARMWORKER Height 167.6 cm (5' 6) 01/11/2021 10:10 AM VEGETABLE II FARMWORKER Body Mass Index 40.17 01/11/2021 10:10 AM VEGETABLE II FARMWORKER documented in this encounter Discharge Instructions Discharge [...] or pain not relieved by pain medication. TABLE II FARMWORKER documented in this encounter Medications at Time [...] PACU in stable condition. Mary Lema M.D. TABLE II FARMWORKER documented in this encounter Miscellaneous Notes Result Encounter Note - Daphne Tatum M.D. - 01/21/2021 8:27 AM VEGETABLE II FARMWORKER I have reviewed the final pathology report and the identified diagnosis is consistent with the patient's clinical presentation. TABLE II FARMWORKER Result Encounter Note - Mary Lema M.D. - 01/19/2021 10:38 PM CST I have reviewed the final pathology report and the identified diagnosis is consistent with the patient's clinical presentation. TABLE II FARMWORKER documented in this encounter Plan of Treatment Not on filedocumented as of this encounter Procedures Procedure Name Priority Date/Time Associated Diagnosis Comme nts SURGICAL PATHOLOGY, Routine 01/11/2021 12:45 Rhinosinusitis Ch ronic Results for this [facility] PM VEGETABLE II FARMWORKER procedure are i n the results section. EXTRADURAL COMPUTER 01/11/2021 11:15 Rhinosinusitis Ch ronic NAVIGATION AM VEGETABLE II FARMWORKER Case Notes METALS ANALYST 958 ETHMOIDECTOMY ENDOSCOPY 01/11/2021 11:15 AM VEGETABLE II FARMWORKER Rhinos inusitis Chronic Case Notes METALS ANALYST 958 SINUSOTOMY ENDOSCOPY FRONTAL 01/11/2021 11:15 AM VEGETABLE II FARMWORKER R hinosinusitis Chronic Case Notes METALS ANALYST 958 ENDOSCOPIC SPHENOIDOTOMY WITHOUT 01/11/2021 11:1 5 AM VEGETABLE II FARMWORKER Rhinosinusitis Chronic TISSUE REMOVAL Case Notes METALS ANALYST 958 ENDOSCOPIC MAXILLARY ANTROSTOMY 01/11/2021 11:15 AM CS T Rhinosinusitis Chronic WITH TISSUE REMOVAL Case Notes METALS ANALYST 958 documented in this encounter Results Surgical Pathology, Frozen Lab (01/11/2021 12:45 PM VEGETABLE II FARMWORKER) Component Value Ref Test Analysis Performed Pathologis t Range Method Time At [facility] VEGETABLE II FARMWORKER Lavinia in [place] 01/18/2021 [facility] the M.D. -Pathology 5:37 AM VEGETABLE II FARMWORKER Interpretation Resident Report Daniel Cuevas M.D. [id number] [facility] electronically 5:37 AM VEGETABLE II FARMWORKER signed by I verify that I have examined all relevant slides/materials for the specimen(s) and rendered or confirmed the diagnosis. Gross Description A. ??Received fresh labeled left sinonasal vin nts is a 01/18/2021 [facility] 7.4 x 5.1 x 0.9 cm aggregate of reed-red soft tissue. ??All 5:37 AM VEGETABLE II FARMWORKER submitted for permanent sections. ??Grossed by SSF. [...] A1 Left sinonasal contents 1 5:37 AM VEGETABLE II FARMWORKER A2 Left sinonasal contents 2 A3 Left [...] negative (Block 01/19/2021 [facility] A3). 10:02 PM VEGETABLE II FARMWORKER Signed by Daniel Cuevas M.D. [id number] 01/19/2021 10:02 PM Comment: REVISED RESULTS Interpretation FINAL DIAGNOSIS 01/19/2021 10:02 PM VEGETABLE II FARMWORKER [facility] A. ??Sinonasal contents, left, excision: ??Sinonasal [...] Volume Laterality Tissue (Nose) 01/11/2021 12:45 PM VEGETABLE II FARMWORKER Tissue (Nose) 01/11/2021 12:53 PM VEGETABLE II FARMWORKER Tissue (Nose) 01/11/2021 2:38 PM VEGETABLE II FARMWORKER Narrative This result has an attachment that is no t available. Daphne Tatum M.D. LAB SURG PATH ORDERABLES Performing Organization Address City/State/ZIP Code Phon e Number [facility] - [address] [place], [place] [address] [place] [address] [facility] [address] documented in [...] 12:25 1 application Bilateral Nares solution PM VEGETABLE II FARMWORKER As needed, Starting on Sun01/11/21 at 1225, Intra-Op fentaNYL injection 25 mcg (SUBLIMAZE) Given 01/11/2021 3:28 PM VEGETABLE II FARMWORKER 25 mcg 25 mcg, intravenous, Every 2 min PRN, moderate pain or score 4-6 of 10, severe pain or score 7-10 of 10, Starting on Sun01/11/21 at 1031, PACU (only), Up to maximum total dose of 100 mcg Given 01/11/2021 3:22 PM VEGETABLE II FARMWORKER 25 mcg lidocaine-EPINEPHrine 1 Given 01/11/2021 12:24 PM 4 mL Bilateral Nares %-1:100,000 injection (XYLOCAINE VEGETABLE II FARMWORKER W/EPI) As needed, Starting on Sun01/11/21 at [...] 10 mg (ROXICODONE) Given 01/11/2021 3:37 PM VEGETABLE II FARMWORKER 10 mg 10 mg, oral, Every 4 [...] 1 application Bilateral Nares nasal spray (AFRIN) VEGETABLE II FARMWORKER As needed, Starting on Sun01/11/21 at 1210, [...] may contain times in both CDT and VEGETABLE II FARMWORKER. Scheduled Medication Order 01/09/2021 01/10/2021 01/11/2021 acetaminophen [...]
--- OUTSIDE RECORDS SUMMARY | 2021-11-24 12:12 | XMS_ITS | Encounter Summary ---
:1985 Author Organization [facility] Address [address] [place] [address] Care Team Providers Name Role Phone Unavailable Primary Care Provider Unavailable Reason for Referral Outpatient (Routine) - Closed Specialty Diagnoses / Procedures Referred By Contact Refer red To Contact Otorhinolaryngology Daphne Tatum [place] M.D. [address] [place] [address] Referral ID Status Reason Start Date Expiration Date Visits Requ ested Visits Authorized [id number] Closed 01/06/2021 01/06/2022 1 1 Scheduling Instructions Oral covid same day, 930 override Reason for Visit Appointment Request (Routine) - Closed Specialty Diagnoses / Procedures Referred By Contact Refer sheri To Contact Otorhinolaryngology Diagnoses Polyp Nasal Referral ID Status Reason Start Date Expiration Date Visits Requ ested Visits Authorized [id number] Closed 12/12/2020 12/12/2021 1 1 Encounter Details Date Type Department Care Team Description 01/06/2021 Comprehensive Visit Department of Rebecca Tatumosi nusitis Chronic (Primary Dx); Otorhinolaryngology in Daphne Blair, Polyp Nasal; [place], [place] Sung Aspirin Reaction Nasal Polyps Asthma [address] [facility] [address] [place] [address] [place] [phone] Social History Tobacco Use Types Packs/Day Years [...] How often do you attend confucianism or synagogue Never 02/18/2021 services? Do you [...] therapy or repeat asa desensitization with an special services director as I am not optimistic that surgery [...]
--- OUTSIDE RECORDS SUMMARY | 2021-11-24 12:12 | XMS_ITS | Clinical Summary ---
:1985 Author Organization [facility] Address [address] [place] [address] Care Team Providers Name Role Phone Unavailable Primary Care Provider Unavailable Source Comments Patient records contain information from all sites at [facility]. For routine questions regarding patient records, call [phone] during business hours, M-F 8:00 AM - 5:00 PM Central Time. Record requests for emergency care only can be directed to [phone] at any time.[facility] Allergies Active Allergy Reactions Severity Noted Date [...] Added automatically from request for chandler haskins [id number] Aspirin Reaction Nasal Polyps Asthma 09/24/2015 Asthma [...] How often do you attend synagogue or hindu Never 02/18/2021 services? Do you [...] Comments Blood Pressure 130/89 01/11/2021 5:00 PM RELOCATION COORDINATOR Pulse 77 01/11/2021 5:05 PM RELOCATION COORDINATOR Temperature 36.8 ??C (98.2 ??F) 01/11/2021 5:00 PM RELOCATION COORDINATOR Respiratory Rate 16 01/11/2021 5:00 PM RELOCATION COORDINATOR Oxygen Saturation 95% 01/11/2021 5:05 PM RELOCATION COORDINATOR Inhaled Oxygen Concentration - - Weight 113 kg (248 lb 14.4 oz) 01/11/2021 10:10 AM RELOCATION COORDINATOR Height 167.6 cm (5' 6) 01/11/2021 10:10 AM RELOCATION COORDINATOR Body Mass Index 40.17 01/11/2021 10:10 AM RELOCATION COORDINATOR Plan of Treatment Health Maintenance Due Date [...] (#1) 2021 Medical Devices Implanted Type Area Whirley Operator Device Shelf Model / Identifier Expiration Serial / Date Lot Stent Sinus Propel Regular - Graham [id number] Stent Other/Legacy - Int ersect Ent Implanted: Qty: 1 on 10/14/2015 Other [employer] Description Description: Device Whirley Operator - Inter sect Ent. Body Location - Other. Left. Device Status Text - [id number]. Insurance Payer Benefit Plan Subscriber ID Effective Phone Address Typ e / Group Dates BLUE CROSS BCBS BLUE [id number] 2018-Andree ATTN: William gallardo HMO BLUE SHIELD PLUS HMO nt CONSUMER [facility] [address] [address] [place] [address]
--- OUTSIDE RECORDS SUMMARY | 2021-11-24 12:12 | XMS_ITS | Encounter Summary ---
:1985 Author Organization [facility] Address [address] [place] [address] Care Team Providers Name Role Phone Unavailable [...] How often do you attend amish or zoroastrian Never 02/18/2021 services? Do you belong to [...]
--- OUTSIDE RECORDS SUMMARY | 2021-11-24 12:12 | XMS_ITS | Encounter Summary ---
:1985 Author Organization [facility] Address [address] [place] [address] Care Team Providers Name Role Phone Unavailable Primary Care Provider Unavailable Reason for Referral MRI/CAT/PET Scan (Routine) - Closed Specialty Diagnoses / Procedures Referred By Contact Refer red To Contact Radiology Diagnoses Aspirin Reaction Nasal Polyps Asthma Mary Lema M.D. [facility] Procedures CT Sinuses without IV Contrast [address] [place] [phone] Referral ID Status Reason Start Date Expiration Date Visits Requ ested Visits Authorized [id number] Closed 12/13/2020 12/13/2021 1 1 Reason for Visit MRI/CAT/PET Scan (Routine) - Closed Specialty Diagnoses / Procedures Referred By Contact Refer red To Contact Radiology Diagnoses Aspirin Reaction Nasal Polyps Asthma Mary Lema M.D. [facility] Procedures CT Sinuses without IV Contrast 200 [place] [address] Referral ID Status Reason Start Date Expiration Date Visits Requ ested Visits Authorized [id number] Closed 12/13/2020 12/13/2021 1 1 Encounter Details Date Type Department Care Team Description 12/21/2020 Hospital Encounter Department of Mary Lema Aspirin Reaction RadiologyAndrade M.D. Nasal Polyps Asthma [facility], in [address] [place] [address] [place] [phone] [place], [place] [phone] (Work) [phone] Social History Tobacco Use Types Packs/Day Years [...] How often do you attend protestant or bahai Never 02/18/2021 services? Do you [...]
--- NOTE | 2021-11-24 12:15 | CRLHL7_ITS ---
For Patients: As a result of the Century Cures Act, medical imaging exams and procedure reports are released immediately into your electronic medical record. You may view this report before your referring provider. If you have questions, please contact your health care provider. INDICATION: CHRONIC HTN TECHNIQUE: Real time degroot scale imaging of the fetus was performed. COMPARISON: 11/19/2021 FINDINGS: Sonographic imaging demonstrates a single living intrauterine gestation. Fetus demonstrates a regular cardiac rate of 155 beats per minute. Fetus has a vertex position. The placenta lies anteriorly. Amniotic fluid volume appears normal and there is a single deepest pocket of 7.5 cm. The estimated weight is 2818gm which lies at the 41st %. On the prior OB ultrasound dated 10/28/2021 the estimated weight was at the 49th percentile. BPD 91st percentile. HC 66th percentile. AC 47th percentile. FL 7th percentile. The fetus was active and demonstrated normal breathing movements. There was normal flexion and extension of the trunk and extremities. IMPRESSION: Normal biophysical profile score 8/8. Sonographic gestational age 36 weeks 5 days and sonographic due date 12/17/2021. Good correlation with dates. Normal interval growth. Estimated weight 41st percentile. Abdominal circumference 47th percentile. Dictated by Chago Gallardo MD @ 11/24/2021 12:43:19 PM (Electronically Signed)
== END 2021-11-24 12:10 | disposition home or self-care (01) ==
LOC: US 12:10
PROVIDERS: Visit Provider Obstetrics & Gynecology
DX: O10.913 Unspecified pre-existing hypertension complicating pregnancy, third trimester (principal); Z3A.36 36 weeks gestation of pregnancy
CPT/HCPCS: 76816; 76819

== ENCOUNTER 2021-12-01 12:10 | Outpatient (CLI) | payer BC, SELFPAY ==
--- OUTSIDE RECORDS SUMMARY | 2021-12-01 12:12 | XMS_ITS | Clinical Summary ---
:1985 Author Organization [facility] Address [address] [place] [address] Care Team Providers Name Role Phone Unavailable Primary Care Provider Unavailable Source Comments Patient records contain information from all sites at [facility]. For routine questions regarding patient records, call [phone] during business hours, M-F 8:00 AM - 5:00 PM Central Time. Record requests for emergency care only can be directed to [phone] at any time.[facility] Allergies Active Allergy Reactions Severity [...] Added automatically from request for chandler haskins [id number] Aspirin Reaction Nasal Polyps Asthma 09/24/2015 Asthma [...] How often do you attend episcopalian or holiness Never 02/18/2021 services? Do you [...] slept in a senior care (including now)? Education Answer Date Recorded What is the highest level of school Associate degree: yanna babb, 01/06/2021 you have completed or the highest technical, or vocational p rogram degree you have received? Sex Assigned at Date Recorded Female 01/06/2021 8:49 AM CDT Last Filed Vital Signs Vital Sign Reading Time Taken Comments Blood Pressure 130/89 01/11/2021 5:00 PM PAINT SUPERVISOR Pulse 77 01/11/2021 5:05 PM PAINT SUPERVISOR Temperature 36.8 ??C (98.2 ??F) 01/11/2021 5:00 PM PAINT SUPERVISOR Respiratory Rate 16 01/11/2021 5:00 PM PAINT SUPERVISOR Oxygen Saturation 95% 01/11/2021 5:05 PM PAINT SUPERVISOR Inhaled Oxygen Concentration - - Weight 113 kg (248 lb 14.4 oz) 01/11/2021 10:10 AM PAINT SUPERVISOR Height 167.6 cm (5' 6) 01/11/2021 10:10 AM PAINT SUPERVISOR Body Mass Index 40.17 01/11/2021 10:10 AM PAINT SUPERVISOR Plan of Treatment Health Maintenance Due Date [...] (#1) 2021 Medical Devices Implanted Type Area Nursing Associate Device Shelf Model / Identifier Expiration Serial / Date Lot Stent Sinus Propel Regular - Graham [id number] Stent Other/Legacy - Int ersect Ent Implanted: Qty: 1 on 10/14/2015 Other [employer] Description Description: Device Nursing Associate - Inter sect Ent. Body Location - Other. Left. Device Status Text - [id number]. Insurance Payer Benefit Plan Subscriber ID Effective Phone Address Typ e / Group Dates BLUE CROSS BCBS BLUE [id number] 2018-Andree ATTN: William gallardo HMO BLUE SHIELD PLUS HMO nt CONSUMER [facility] [address] [address] [place] [address]
--- OUTSIDE RECORDS SUMMARY | 2021-12-01 12:12 | XMS_ITS | Encounter Summary ---
:1985 Author Organization [facility] Address [address] [place] [address] Care Team Providers Name Role Phone Unavailable Primary Care Provider Unavailable Reason for Referral Outpatient (Routine) - Closed Specialty Diagnoses / Procedures Referred By Contact Refer red To Contact Otorhinolaryngology Daphne Tatum [place] M.D. [address] [place] [phone] Referral ID Status Reason Start Date Expiration Date Visits Requ ested Visits Authorized [id number] Closed 01/21/2021 01/21/2022 1 1 Scheduling Instructions - in afternoon, or 02/22 v ideo slot. LE CAPPER Reason for Visit Outpatient (Routine) - Closed Specialty Diagnoses / Procedures Referred By Contact Refer red To Contact Otorhinolaryngology Daphne Tatum [place] M.D. [address] [place] [phone] Referral ID Status Reason Start Date Expiration Date Visits Requ ested Visits Authorized [id number] Closed 01/06/2021 01/06/2022 1 1 Encounter Details Date Type Department Care Team Description 01/21/2021 Office Visit Department of Paola Tatum on Otorhinolaryngology in Daphne Blair M.D. Nasal Polyps Asthma [place], [place] [address] [place] [address] (Primary Dx) [address] [place] [phone] Social History Tobacco Use Types Packs/Day Years [...] 02/18/2021 relatives? How often do you attend evangelical or christian Never 02/18/2021 services? Do you belong to any clubs or organizations such as No 02/18/2021 evangelical groups, unions, fraternal or athletic groups, or [...] Crusting Mild = 1 Mild = 1 [place]-Woody Endoscopy Score = 6 ASSESSMENT / PLAN [...] but she can stop the mupirocin. Procedures LE CAPPER Associated attestation - Daphne Tatum M.D. - 01/21/2021 2:57 PM BOTTLE CAPPER I saw and evaluated the patient, participating [...]
--- OUTSIDE RECORDS SUMMARY | 2021-12-01 12:12 | XMS_ITS | Encounter Summary ---
:1985 Author Organization [facility] Address [address] [place] [address] Care Team Providers Name Role Phone Unavailable [...] How often do you attend muslim or holiness Never 02/18/2021 services? Do you [...] 02/18/2021 11:40 Results for this EXAM AM ACCOUNT ASSISTANT procedure are i n the results section. documented in this encounter Results NOSE-Otorhinolaryngology Image Exam (02/18/2021 11:40 AM ACCOUNT ASSISTANT) Specimen (Source) Anatomical Collection Method Collection Time Re ceived Time Location / / Volume Laterality 02/18/2021 11:36 AM ACCOUNT ASSISTANT Narrative [facility] - 02/18/2021 11:40 AM ACCOUNT ASSISTANT This order has been created and auto-finalized [...]
--- OUTSIDE RECORDS SUMMARY | 2021-12-01 12:12 | XMS_ITS | Encounter Summary ---
:1985 Author Organization [facility] Address [address] [place] [address] Care Team Providers Name Role Phone Unavailable Primary Care Provider Unavailable Reason for Visit Reason Comments Reschedule Post Op Appointment Encounter Details Date Type Department Care Team Description 01/19/2021 Clinical Department of Bety Tatum Pos t Communication Otorhinolaryngology in [place], [place] Sung [address] [facility] [address] [place] [address] [place], [place] [phone] Social History Tobacco Use Types Packs/Day Years [...] How often do you attend nondenominational or christianity Never 02/18/2021 services? Do you [...] Sunday afternoon as he is driving her. ER STEWARD Telephone Encounter - Xiomy Horner - 01/19/2021 12:22 PM CST Ms. Odonnell returned your call. You can reach her this afternoon at [phone]. ER STEWARD Telephone Encounter - Maciel Watts - 01/19/2021 10:37 AM CST I called Ms. Odonnell today because Dr. Tatum has been called away unexpectedly. Dr. Tatum would like to see her on January 21 in the afternoon at the [facility] procedure room. Ms. Odonnell did not answer so I left a message for her to call me back. Thank you, Maciel ER STEWARD documented in this encounter Plan of Treatment Not on filedocumented as of this encounter Visit Diagnoses Not on filedocumented in this encounter
--- OUTSIDE RECORDS SUMMARY | 2021-12-01 12:12 | XMS_ITS | Encounter Summary ---
:1985 Author Organization [facility] Address [address] [place] [address] Care Team Providers Name Role Phone Unavailable Primary Care Provider Unavailable Reason for Visit Outpatient (Routine) - Closed Specialty Diagnoses / Procedures Referred By Contact Refer red To Contact Otorhinolaryngology Daphne Tatum [place] M.D. [address] [place] [address] Referral ID Status Reason Start Date Expiration Date Visits Requ ested Visits Authorized [id number] Closed 01/21/2021 01/21/2022 1 1 Encounter Details Date Type Department Care Team Description 02/18/2021 Office Visit Department of Rc, Rhinosinusitis Chronic (Primary Dx); Otorhinolaryngology in Daphne Blair, Polyp Nasal; [place], [place] Sung Aspirin Reaction Nasal Polyps Asthma [address] [facility] [address] [place] [address] [place], [place] [phone] Social History Tobacco Use Types Packs/Day Years [...] How often do you attend faith or voodoo Never 02/18/2021 services? Do you [...] procedure well and there were no complications. [place]-Woody Endoscopic Scoring System Right Side Left Side [...] recently putting a real tree up for [place] and has noticed increasing nasal congestion. On [...] become . Sanjeev Thakur APRN, C.N.P., M.S.N. PAINTER Associated attestation - Daphne Tatum M.D. - 02/20/2021 5:37 PM SIZE PAINTER I saw the patient with Sanjeev Thakur C.N.P. and agree with her findings, assessment, and plan. Daphne Tatum M.D. documented in this encounter Plan of Treatment Not on filedocumented as of this encounter Visit Diagnoses Diagnosis Rhinosinusitis Chronic - Primary Polyp Nasal Aspirin Reaction Nasal Polyps Asthma documented in this encounter
--- OUTSIDE RECORDS SUMMARY | 2021-12-01 12:12 | XMS_ITS | Encounter Summary ---
:1985 Author Organization [facility] Address [address] [place] [address] Care Team Providers Name Role Phone Unavailable [...] How often do you attend restoration or latter-day Never 02/18/2021 services? Do you [...] 01/21/2021 2:48 Results for this EXAM PM TIER TRUCK DRIVER procedure are i n the results section. documented in this encounter Results NASAL-Otorhinolaryngology Image Exam (01/21/2021 2:48 PM TIER TRUCK DRIVER) Specimen (Source) Anatomical Collection Method Collection Time Re ceived Time Location / / Volume Laterality 01/21/2021 4:08 PM TIER TRUCK DRIVER Narrative [facility] - 01/21/2021 2:48 PM TIER TRUCK DRIVER This order has been created and [...]
--- OUTSIDE RECORDS SUMMARY | 2021-12-01 12:13 | XMS_ITS | Encounter Summary ---
:1985 Author Organization [facility] Address [address] [place] [address] Care Team Providers Name Role Phone Unavailable [...] How often do you attend quaker or catholic Never 02/18/2021 services? Do you [...]
--- OUTSIDE RECORDS SUMMARY | 2021-12-01 12:13 | XMS_ITS | Encounter Summary ---
:1985 Author Organization [facility] Address [address] [place] [address] Care Team Providers Name Role Phone Unavailable [...] How often do you attend tenriism or denominational Never 02/18/2021 services? Do you [...] P athologist Signature Tryptase, S 3.0 <11.5 [facility] NG/ML [facility] Specimen Anatomical Collection Method Collection Time Receive d Time (Source) Location / / Volume Laterality 10/15/2015 4:26 AM 6 4:26 CDT AM CDT Onofre Brown M.D. LAB BLOOD ADD-ON Performing Organization Address City/State/ZIP Code Phon e Number [facility] - 200 [place], [place] [address] [facility] Hx general Pathology Report (10/14/2015 8:06 PM CDT) Specimen Anatomical Collection Method Collection Time Receive d Time (Source) Location / / Volume Laterality 10/14/2015 8:06 PM 6 8:06 CDT PM CDT Narrative [facility] - 10/14/2015 8:06 PM CDT ??10/14/2015 General Biopsy ? ([id number]) ? Requested By: Daphne Tatum M.D. ??[phone] ? SLIDE DISPOSITION: ? DIAGNOSIS: ?? A. Sinonasal cavity, bilateral contents , excision: Respiratory mucosa with chronic inflammation and nu merous eosinophils. ?? Participated in interpretation: Dr. Newberry. Pager: [phone]. ?? As the signing pathologist, I verify th at I have examined all relevant slides/materials for the speci men(s) and rendered or confirmed the diagnosis. ? 10/19/2015 11:59 Interpreted by: Darcy Steen M.D. [id number] Report electronically signed by Darcy Steen M.D. Transcribed by: [facility] 10/18/2015 16:09:23 ? TISSUE DESCRIPTION: [id number] A. ??Received fresh labeled bilateral sinus contents is an 8 x 7 x 2.5 cm aggregate of red soft tissue and cartilage. ??All soft tissue is submitted. ??Paste Up Artist Apprentice sections are submitted for permanent sections only. ??Grossed by CDP. ? Part A: ??Bilateral sinus contents ?1 Bilateral sinus contents 1 ?2 Bilateral sinus contents 2 ?3 Bilateral sinus contents 3 ?4 Bilateral sinus contents 4 ?5 Bilateral sinus contents 5 ?6 Bilateral sinus contents 6 ?? XRSR Path ? Procedure Note 05/26/2017 10/14/2015 General Biopsy ([id number]) Requested By: Daphne Tatum M.D. [phone] SLIDE DISPOSITION: DIAGNOSIS: A. Sinonasal cavity, bilateral contents , excision: Respiratory mucosa with chronic inflammation and nu merous eosinophils. Participated in interpretation: Dr. Newberry. Pager: [phone]. As the signing pathologist, I verify th at I have examined all relevant slides/materials for the speci men(s) and rendered or confirmed the diagnosis. 10/19/2015 11:59 Interpreted by: Darcy Steen M.D. [id number] Report electronically signed by Darcy Steen M.D. Transcribed by: latricia 10/18/2015 16:09:23 TISSUE DESCRIPTION: [id number] A. Received fresh labeled bilateral si nus contents is an 8 x 7 x 2.5 cm aggregate of red soft tissue and cartilage. All soft tissue is submitted. Paste Up Artist Apprentice sections a re submitted for permanent sections [...] [facility] - [address] [place], [place] [address] [facility] (ABNORMAL) Leukotriene E4, Urine (10/14/2015 10:00 AM CDT) [facility] gist Method Time Signature Leukotriene E4, 281 (H) <=104 [facility] U PG/MG CR [facility] - [facility] Comment: Mailed In Specimen ? Leukotriene [...] CDT 10:00 AM CDT Narrative [facility] - 10/20/2015 9:04 AM CDT Mailed In Specimen Alber Chapa M.D., Ph.D. LAB URINE ORDERABLES Performing Organization Address City/State/ZIP Code Phon e Number [facility] - [address] [place], [place] [address] [facility] documented in this encounter Visit Diagnoses Not on filedocumented in this encounter
--- OUTSIDE RECORDS SUMMARY | 2021-12-01 12:13 | XMS_ITS | Encounter Summary ---
:1985 Author Organization [facility] Address [address] [place] [address] Care Team Providers Name Role Phone Unavailable Primary Care Provider Unavailable Reason for Visit Reason Comments Med Refill Encounter Details Date Type Department Care Team Description 12/03/2017 Refill Department of Otorhinolaryngology Ashley Victor, Med [facility] jorge HOFFMAN C.N.P., M.S.N. [address] [place] [address] [address] [place] [address] [place], [place] [phone] (Wo rk) Social History Tobacco Use Types [...] How often do you attend zoroastrianism or quaker Never 02/18/2021 services? Do you belong to [...]
--- OUTSIDE RECORDS SUMMARY | 2021-12-01 12:13 | XMS_ITS | Encounter Summary ---
:1985 Author Organization [facility] Address [address] [place] [address] Care Team Providers Name Role Phone Unavailable Primary Care Provider Unavailable Reason for Referral Outpatient (Routine) - Closed Specialty Diagnoses / Procedures Referred By Contact Refer red To Contact Otorhinolaryngology Daphne Tatum [place] M.D. [address] [place] [address] Referral ID Status Reason Start Date Expiration Date Visits Requ ested Visits Authorized [id number] Closed 01/06/2021 01/06/2022 1 1 Scheduling Instructions Oral covid same day, 930 override Reason for Visit Appointment Request (Routine) - Closed Specialty Diagnoses / Procedures Referred By Contact Refer sheri To Contact Otorhinolaryngology Diagnoses Polyp Nasal Referral ID Status Reason Start Date Expiration Date Visits Requ ested Visits Authorized [id number] Closed 12/12/2020 12/12/2021 1 1 Encounter Details Date Type Department Care Team Description 01/06/2021 Comprehensive Visit Department of Rebecca Tatumosi nusitis Chronic (Primary Dx); Otorhinolaryngology in Daphne Blair, Polyp Nasal; [place], [place] Sung Aspirin Reaction Nasal Polyps Asthma [address] [facility] [address] [place] [address] [place] [phone] Social History Tobacco Use Types Packs/Day Years [...] How often do you attend orthodoxy or scientology Never 02/18/2021 services? Do you [...] therapy or repeat asa desensitization with an science instructor as I am not optimistic that surgery [...]
--- OUTSIDE RECORDS SUMMARY | 2021-12-01 12:13 | XMS_ITS | Encounter Summary ---
:1985 Author Organization [facility] Address [address] [place] [address] Care Team Providers Name Role Phone Unavailable Primary Care Provider Unavailable Reason for Visit Auth/Cert Specialty Diagnoses / Procedures Referred By Contact Refer red To Contact Diagnoses Rhinosinusitis Chronic Rhinosinusitis Chronic [J32.8] Procedures FL ENDO NSL MAX ANTROST W RMV TIS FL NSL/SINS NDSC SPHN TISS RMVL FL NSL/SINS NDSC TOTAL FL ENDO NSL/SNS W ETHMDCTOMY PRTL FL STRTCTC COMP-ASSIST CRNL EXTRA FL SUBMUC RSECT TURB PRTL/COMPLT ENDOSCOPIC MAXILLARY ANTROST CHARLIE WITH TISSUE REMOVAL ENDOSCOPIC SPHENOIDOTOMY WITHOUT TISSUE REMOVAL SINUSOTOMY ENDOSCOPY FRONTAL -draft iib, possible draft iii ETHMOIDECTOMY ENDOSCOPY EXTRADURAL COMPUTER NAVIGATION - Proceed as indicated REDUCTION TURBINATE - middle turbinates , procee d as indicated Referral ID Status Reason Start Date Expiration Date Visits Requ ested Visits Authorized [id number] 1 1 Encounter Details Date Type Department Care Team Description 01/11/2021 Anesthesia Event RST ROMB MAIN OR Laz Young, [address] [place] [address] [place], [place] [phone] [place] [address] [place] [address] (Wo rk) Anesthesia Record Procedure Summary Procedure [...] h andoff to the receiving staff during [facility] we 1. Identified the patient [...] APRN, Schaffer, Jordan A, (created via procedure SUPPLY CHAIN BUSINESS ANALYST R.N. documentation); Mask Ventilation: Easy mask; Type: [...] M ikaela A, Catheter Size: 20 G; SUPPLY CHAIN BUSINESS ANALYST R.NXavier Orientation: Left; Location: Hand; Technique: Transillumination; Removal Date: 01/11/21; Removal Time: 1705; Removal Reason: Patient discharged (RETIRED) Incision 01/11/21; 1446; No; Nose; 01/11/21 1446 by 1223 by Bilateral; FESS; 02/04/21 Rula Bradley, [facility] (removed by background R.N. d, Edwige [...] How often do you attend mandaeism or quaker Never 02/18/2021 services? Do you [...] Procedure Summary Date: 01/11/21 Room / Location: [place] [address] / [facility] in [place], [place] Anesthesia Start: 1137 Anesthesia Stop: 1520 [...] Post Op nausea/vomiting: none Hydration status: euvolemic OMER ACCOUNT REPRESENTATIVE Anesthesia Procedure Notes - Sirena Montejo APRN, CRNA - 01/11/2021 12:30 PM CUSTOMER ACCOUNT REPRESENTATIVE Associated Order(s): Airway Airway Date/Time: 01/11/2021 11:45 [...] successful Airway event: no complications ATTESTATION STATEMENT OMER ACCOUNT REPRESENTATIVE Anesthesia Preprocedure Evaluation - Laz Young M.D. [...] [J32.8] Pre-op diagnosis: Rhinosinusitis Chronic [J32.8]. Location: [address] / [facility] in [place], [place] Providers: Daphne Tatum M.D. Pertinent components [...] patient /legal guardian or through an diplomatic interpreter. The use of blood products not discussed Approval to Proceed: approved for anesthesia OMER ACCOUNT REPRESENTATIVE documented in this encounter Plan of Treatment Not on filedocumented as of this encounter Procedures Procedure Name Priority Date/Time Associated Comments Diagnosis LDA ANE ENDOTRACHEAL Routine 01/11/2021 11:45 Res ults for this AIRWAY AM CUSTOMER ACCOUNT REPRESENTATIVE procedure are i n the results section. documented in this encounter Results LDA ANE ENDOTRACHEAL AIRWAY (01/11/2021 11:45 AM CUSTOMER ACCOUNT REPRESENTATIVE) Narrative Sirena Montejo APRN, CRNA - 01/11/2021 11:45 AM CUSTOMER ACCOUNT REPRESENTATIVE Sirena Montejo APRN, CRNA ? 01/11/2021 12:31 [...] Site acetaminophen injection Given 01/11/2021 2:16 PM CUSTOMER ACCOUNT REPRESENTATIVE 1,000 mg intravenous, Administer over 15 Minutes, As needed, Starting on Sun01/11/21 at 1416, Anesthesia Intra-op ceFAZolin injection (ANCEF) Given 01/11/2021 12:21 PM CUSTOMER ACCOUNT REPRESENTATIVE 2 g intravenous, As needed, Starting on Sun01/11/21 at 1221, Anesthesia Intra-op dexAMETHasone injection (DECADRON) Given 01/11/2021 11:49 AM CUSTOMER ACCOUNT REPRESENTATIVE 10 mg intravenous, As needed, Starting on Sun01/11/21 at 1149, Anesthesia Intra-op fentaNYL injection (SUBLIMAZE) Given 01/11/2021 1:56 PM CUSTOMER ACCOUNT REPRESENTATIVE 50 mcg intravenous, As needed, Starting on Sun01/11/21 at 1144, Anesthesia Intra-op Given 01/11/2021 1:41 PM CUSTOMER ACCOUNT REPRESENTATIVE 50 mcg Given 01/11/2021 1:01 PM CUSTOMER ACCOUNT REPRESENTATIVE 50 mcg labetalol injection (NORMODYNE,TRANDATE) Given 01/11/2021 2:27 PM CUSTOMER ACCOUNT REPRESENTATIVE 5 mg intravenous, As needed, Starting on Sun01/11/21 at 1359, Anesthesia Intra-op Given 01/11/2021 2:02 PM CUSTOMER ACCOUNT REPRESENTATIVE 5 mg Given 01/11/2021 1:59 PM CUSTOMER ACCOUNT REPRESENTATIVE 5 mg lactated ringers New Bag 01/11/2021 11:37 AM CUSTOMER ACCOUNT REPRESENTATIVE intravenous, Continuous Infusion: Per Instructions PRN, Starting on Sun01/11/21 at 1137, Anesthesia Intra-op lactated ringers New Bag 01/11/2021 11:47 AM CUSTOMER ACCOUNT REPRESENTATIVE intravenous, Continuous Infusion: Per Instructions PRN, Starting on Sun01/11/21 at 1147, Anesthesia Intra-op lidocaine (PF) (cardiac) injection Given 01/11/2021 11:44 AM CUSTOMER ACCOUNT REPRESENTATIVE 60 mg intravenous, As needed, Starting on Sun01/11/21 at 1144, Anesthesia Intra-op ondansetron (PF) injection (ZOFRAN) Given 01/11/2021 2:40 PM CUSTOMER ACCOUNT REPRESENTATIVE 4 mg intravenous, As needed, Starting on Sun01/11/21 at 1440, Anesthesia Intra-op propofol 10 mg/mL infusion Rate/Dose 01/11/2021 2:43 110 mcg/kg/min 74.514 (DIPRIVAN) Change PM CUSTOMER ACCOUNT REPRESENTATIVE mL/hr intravenous, Continuous Infusion: Per Instructions PRN, Starting on Sun01/11/21 at 1144, Anesthesia Intra-op Rate/Dose Change 01/11/2021 2:39 PM CUSTOMER ACCOUNT REPRESENTATIVE 125 mcg/kg/min 84.675 mL/hr New Bag 01/11/2021 2:27 PM CUSTOMER ACCOUNT REPRESENTATIVE 150 mcg/kg/min 101.61 mL/hr propofoL injection (DIPRIVAN) Given 01/11/2021 11:56 AM CUSTOMER ACCOUNT REPRESENTATIVE 50 mg intravenous, As needed, Starting on Sun01/11/21 at 1144, Anesthesia Intra-op Given 01/11/2021 11:44 AM CUSTOMER ACCOUNT REPRESENTATIVE 200 mg remifentaniL 20 mcg/mL in Rate/Dose 01/11/2021 2:10 0.1 mcg/kg/min 3 3.87 NaCl 0.9% 100 mL infusion Change PM CUSTOMER ACCOUNT REPRESENTATIVE mL/hr (ULTIVA) intravenous, Continuous Infusion: Per Instructions PRN, Starting on Sun01/11/21 at 1144, Anesthesia Intra-op Rate/Dose Change 01/11/2021 1:53 PM CUSTOMER ACCOUNT REPRESENTATIVE 0.1 mcg/kg/min 33.87 mL/hr Rate/Dose Change 01/11/2021 12:03 PM CUSTOMER ACCOUNT REPRESENTATIVE 0.2 mcg/kg/min 67.74 mL/hr scopolamine base 1 mg over 3 days Given 01/11/2021 12:00 PM CUSTOMER ACCOUNT REPRESENTATIVE 1 patch (TRANSDERM SCOP) transdermal, Administer over 72 Hours, As needed, Starting on Sun01/11/21 at 1200, Anesthesia Intra-op succinylcholine (PF) injection (ANECTINE ) Given 01/11/2021 11:44 AM CUSTOMER ACCOUNT REPRESENTATIVE 100 mg intravenous, As needed, Starting on Sun01/11/21 at 1144, Anesthesia Intra-op documented in this encounter
--- OUTSIDE RECORDS SUMMARY | 2021-12-01 12:13 | XMS_ITS | Encounter Summary ---
:1985 Author Organization [facility] Address [address] [place] [address] Care Team Providers Name Role Phone Unavailable [...] 02/18/2021 relatives? How often do you attend buddhist or baptism Never 02/18/2021 services? Do you belong to any clubs or organizations such as No 02/18/2021 buddhist groups, unions, fraternal or athletic groups, or [...]
--- OUTSIDE RECORDS SUMMARY | 2021-12-01 12:13 | XMS_ITS | Encounter Summary ---
:1985 Author Organization [facility] Address [address] [place] [address] Care Team Providers Name Role Phone Unavailable [...] 02/18/2021 relatives? How often do you attend catholic or shinto Never 02/18/2021 services? Do you belong to any clubs or organizations such as No 02/18/2021 catholic groups, unions, fraternal or athletic groups, [...]
--- OUTSIDE RECORDS SUMMARY | 2021-12-01 12:13 | XMS_ITS | Encounter Summary ---
:1985 Author Organization [facility] Address [address] [place] [address] Care Team Providers Name Role Phone Unavailable Primary Care Provider Unavailable Encounter Details Date Type Department Care Team Description 06/22/2017 Orders Only Department of Ashley Victor, Otorhinolaryngology in [facility], C.N.P.[place], [place] M.S.N. [address] [place] [address] [address] [place] [address] [place], [place] [phone] Social History Tobacco Use Types Packs/Day Years [...] How often do you attend zoroastrianism or oriental orthodox Never 02/18/2021 services? Do you belong [...]
--- OUTSIDE RECORDS SUMMARY | 2021-12-01 12:13 | XMS_ITS | Encounter Summary ---
:1985 Author Organization [facility] Address [address] [place] [address] Care Team Providers Name Role Phone Unavailable Primary Care Provider Unavailable Encounter Details Date Type Department Care Team Description 12/04/2017 Orders Only Department of Ashley Victor, Otorhinolaryngology in [facility], C.N.P.[place], [place] M.S.N. [address] [place] [address] [address] [place] [address] [place], [place] [phone] Social History Tobacco Use Types Packs/Day Years [...] How often do you attend mosque or roman catholic Never 02/18/2021 services? Do [...]
--- OUTSIDE RECORDS SUMMARY | 2021-12-01 12:13 | XMS_ITS | Encounter Summary ---
:1985 Author Organization [facility] Address [address] [place] [address] Care Team Providers Name Role Phone Unavailable Primary Care Provider Unavailable Encounter Details Date Type Department Care Team Description 06/28/2017 Orders Only Department of Ashley Victor Otorhinolaryngology in [place], [employer], Nasal Polyps Asthma [place], [place] C.N.P., M.S.N. (Primary Dx) [address] [place] [address] [place] [address] [place], [place] [phone] Social History Tobacco Use Types Packs/Day Years [...] How often do you attend mormonism or buddhism Never 02/18/2021 services? Do you belong to [...]
--- OUTSIDE RECORDS SUMMARY | 2021-12-01 12:13 | XMS_ITS | Encounter Summary ---
:1985 Author Organization [facility] Address [address] [place] [address] Care Team Providers Name Role Phone Unavailable [...] How often do you attend taoist or adventist Never 02/18/2021 services? Do you [...]
--- OUTSIDE RECORDS SUMMARY | 2021-12-01 12:13 | XMS_ITS | Encounter Summary ---
:1985 Author Organization [facility] Address [address] [place] [address] Care Team Providers Name Role Phone Unavailable Primary Care Provider Unavailable Reason for Referral MRI/CAT/PET Scan (Routine) - Closed Specialty Diagnoses / Procedures Referred By Contact Refer red To Contact Radiology Diagnoses Aspirin Reaction Nasal Polyps Asthma Mary Lema M.D. [facility] Procedures CT Sinuses without IV Contrast [address] [place] [address] Referral ID Status Reason Start Date Expiration Date Visits Requ ested Visits Authorized [id number] Closed 12/13/2020 12/13/2021 1 1 Reason for Visit MRI/CAT/PET Scan (Routine) - Closed Specialty Diagnoses / Procedures Referred By Contact Refer red To Contact Radiology Diagnoses Aspirin Reaction Nasal Polyps Asthma Mary Leam M.D. [facility] Procedures CT Sinuses without IV Contrast 200 [place] [address] Referral ID Status Reason Start Date Expiration Date Visits Requ ested Visits Authorized [id number] Closed 12/13/2020 12/13/2021 1 1 Encounter Details Date Type Department Care Team Description 12/21/2020 Hospital Encounter Department of Mary Lema Aspirin Reaction RadiologyAndrade M.D. Nasal Polyps Asthma [facility], in [address] [place] [address] [place] [address] [place], [place] [phone] (Work) [phone] Social History Tobacco Use Types Packs/Day Years [...] often do you attend jehovah's witness or pentecostal Never 02/18/2021 services? Do you [...]
--- OUTSIDE RECORDS SUMMARY | 2021-12-01 12:13 | XMS_ITS | Encounter Summary ---
:1985 Author Organization [facility] Address [address] [place] [address] Care Team Providers Name Role Phone Unavailable Primary Care Provider Unavailable Encounter Details Date Type Department Care Team Description 01/08/2021 Hospital Encounter Department of Daphne Tatum Cont act With And (Suspected) Exposure To COVID-19; Laboratory Medicine Sung Blair Preprocedural Lab Exam in [place], [address] [place] [address] [place] [address] [place], [place] [phone] (Work) [phone] Social History Tobacco Use Types Packs/Day Years [...] How often do you attend denominational or yarsani Never 02/18/2021 services? Do you [...] RNA, V Asymptomatic (01/08/2021 10:58 AM CDT) [facility] Method Time Signature SARS-CoV-2 Swab, 01/08/2021 [...] pe rformed using the Aptima SARS-CoV-2 assay ([employer] on the Walk-in Appointment Schedulers tem under emergency use authorization (EUA) by the U.S. Food and Drug Administ ration. Fact sheets for this EUA assay can be fo und at the following links: For Healthcare Providers: https://www.fd a.gov/media/389569/download For Patients: https://www.fda.gov/media/ 900134/download Specimen Anatomical Collection Method Collection Time Receive d Time (Source) Location / / Volume Laterality Varies 01/08/2021 10:58 01/08/2021 5:03 (Nasopharynx) AM CDT PM CDT Daphne Tatum M.D. LAB MICROBIOLOGY - GENERAL O RDERABLES Performing Organization Address City/State/ZIP Code Phon e Number [facility]- [address] [place] [id number] [place] [address] [place] [address] System in [address] documented in this encounter Visit Diagnoses Diagnosis Contact With And (Suspected) Exposure To COVID-19 Preprocedural Lab Exam documented in this encounter Additional Health Concerns Infection Onset Date Last Indicated Resolved Time COVID19 Pending 01/08/2021 01/08/2021 01/08/2021 11:18 PM CDT documented as of this encounter
--- OUTSIDE RECORDS SUMMARY | 2021-12-01 12:13 | XMS_ITS | Encounter Summary ---
:1985 Author Organization [facility] Address [address] [place] [address] Care Team Providers Name Role Phone Unavailable [...] How often do you attend episcopalian or alevism Never 02/18/2021 services? Do you [...]
--- OUTSIDE RECORDS SUMMARY | 2021-12-01 12:13 | XMS_ITS | Encounter Summary ---
:1985 Author Organization [facility] Address [address] [place] [address] Care Team Providers Name Role Phone Unavailable Primary Care Provider Unavailable Encounter Details Date Type Department Care Team Description 01/17/2021 Orders Only Department of [facility], Teresita Tena Otorhinolaryngology in [address] [place] [address] [place] [address] [place] [address] [phone] Social History Tobacco Use Types Packs/Day Years [...] How often do you attend restoration or jainism Never 02/18/2021 services? Do you [...]
--- OUTSIDE RECORDS SUMMARY | 2021-12-01 12:13 | XMS_ITS | Encounter Summary ---
:1985 Author Organization [facility] Address [address] [place] [address] Care Team Providers Name Role Phone Unavailable [...] Expiration Date Visits Requ ested Visits Authorized [id number] 1 1 Encounter Details Date Type Department Care Team Description 01/11/2021 Surgery RST ROMB MAIN OR Daphne Tatum, ENDOSCOPIC MAXILLARY 1216 [facility] M.DXavier ANTROSTOMY, TISSUE [place], [place] 200 [facility] REMOVAL. [address] [place], [place] [phone] (Wo rk) Social History Tobacco Use Types [...] How often do you attend episcopal or anabaptist Never 02/18/2021 services? Do you [...] or the highest technical, or vocational p [facility] [place] degree you have received? Sex Assigned at Date Recorded Female 01/06/2021 8:49 AM CDT documented as of this encounter Last Filed Vital Signs Vital Sign Reading Time Taken Comments Blood Pressure 124/85 01/11/2021 3:30 PM ADULT SCHOOL COUNSELOR Pulse 78 01/11/2021 3:55 PM ADULT SCHOOL COUNSELOR Temperature 36.8 ??C (98.2 ??F) 01/11/2021 3:20 PM ADULT SCHOOL COUNSELOR Respiratory Rate 14 01/11/2021 3:40 PM ADULT SCHOOL COUNSELOR Oxygen Saturation 95% 01/11/2021 3:55 PM ADULT SCHOOL COUNSELOR Inhaled Oxygen Concentration - - Weight 113 kg (248 lb 14.4 oz) 01/11/2021 10:10 AM ADULT SCHOOL COUNSELOR Height 167.6 cm (5' 6) 01/11/2021 10:10 AM ADULT SCHOOL COUNSELOR Body Mass Index 40.17 01/11/2021 10:10 AM ADULT SCHOOL COUNSELOR documented in this encounter Discharge Instructions Discharge [...] or pain not relieved by pain medication. T SCHOOL COUNSELOR documented in this encounter Medications at Time [...] PACU in stable condition. Mary Lema M.D. T SCHOOL COUNSELOR documented in this encounter Miscellaneous Notes Result Encounter Note - Daphne Tatum M.D. - 01/21/2021 8:27 AM ADULT SCHOOL COUNSELOR I have reviewed the final pathology report and the identified diagnosis is consistent with the patient's clinical presentation. T SCHOOL COUNSELOR Result Encounter Note - Mary Lema M.D. - 01/19/2021 10:38 PM CST I have reviewed the final pathology report and the identified diagnosis is consistent with the patient's clinical presentation. T SCHOOL COUNSELOR documented in this encounter Plan of Treatment Not on filedocumented as of this encounter Procedures Procedure Name Priority Date/Time Associated Diagnosis Comme nts SURGICAL PATHOLOGY, Routine 01/11/2021 12:45 Rhinosinusitis Ch ronic Results for this FROZEN LAB PM ADULT SCHOOL COUNSELOR procedure are i n the results section. EXTRADURAL COMPUTER 01/11/2021 11:15 Rhinosinusitis Ch ronic NAVIGATION AM ADULT SCHOOL COUNSELOR Case Notes HISTORICAL RECORDS ADMINISTRATOR 958 ETHMOIDECTOMY ENDOSCOPY 01/11/2021 11:15 AM ADULT SCHOOL COUNSELOR Rhinos inusitis Chronic Case Notes HISTORICAL RECORDS ADMINISTRATOR 958 SINUSOTOMY ENDOSCOPY FRONTAL 01/11/2021 11:15 AM ADULT SCHOOL COUNSELOR R hinosinusitis Chronic Case Notes HISTORICAL RECORDS ADMINISTRATOR 958 ENDOSCOPIC SPHENOIDOTOMY WITHOUT 01/11/2021 11:1 5 AM ADULT SCHOOL COUNSELOR Rhinosinusitis Chronic TISSUE REMOVAL Case Notes HISTORICAL RECORDS ADMINISTRATOR 958 ENDOSCOPIC MAXILLARY ANTROSTOMY 01/11/2021 11:15 AM CS T Rhinosinusitis Chronic WITH TISSUE REMOVAL Case Notes HISTORICAL RECORDS ADMINISTRATOR 958 documented in this encounter Results Surgical Pathology, Frozen Lab (01/11/2021 12:45 PM ADULT SCHOOL COUNSELOR) Component Value Ref Test Analysis Performed Pathologis t Range Method Time At [facility] 01/18/2021 [facility] 5:37 AM ADULT SCHOOL COUNSELOR Lavinia in Grant Jones 01/18/2021 [facility] the M.D. -Pathology 5:37 AM ADULT SCHOOL COUNSELOR Interpretation Resident Report Daniel Cuevas M.D. [id number] ST[facility] electronically 5:37 AM ADULT SCHOOL COUNSELOR signed by I verify that I have examined all relevant slides/materials for the specimen(s) and rendered or confirmed the diagnosis. Gross Description A. ??Received fresh labeled left sinonasal vin nts is a 01/18/2021 STMA 7.4 x 5.1 x 0.9 cm aggregate of reed-red soft tissue. ??All 5:37 AM ADULT SCHOOL COUNSELOR submitted for permanent sections. ??Grossed by SSF. [...] A1 Left sinonasal contents 1 5:37 AM ADULT SCHOOL COUNSELOR A2 Left sinonasal contents 2 A3 Left [...] negative (Block 01/19/2021 STMA A3). 10:02 PM ADULT SCHOOL COUNSELOR Signed by Daniel Cuevas M.D. [id number] 01/19/2021 10:02 PM Comment: REVISED RESULTS Interpretation FINAL DIAGNOSIS 01/19/2021 10:02 PM ADULT SCHOOL COUNSELOR STMA A. ??Sinonasal contents, left, excision: ??Sinonasal [...] Volume Laterality Tissue (Nose) 01/11/2021 12:45 PM ADULT SCHOOL COUNSELOR Tissue (Nose) 01/11/2021 12:53 PM ADULT SCHOOL COUNSELOR Tissue (Nose) 01/11/2021 2:38 PM ADULT SCHOOL COUNSELOR Narrative This result has an attachment that is no t available. Daphne Tatum M.D. LAB SURG PATH ORDERABLES Performing Organization Address City/State/ZIP Code Phon e Number [facility] - [address] [place], [place] [address] [place] [address] [facility] [address] documented in this [...] 12:25 1 application Bilateral Nares solution PM ADULT SCHOOL COUNSELOR As needed, Starting on Sun01/11/21 at 1225, Intra-Op fentaNYL injection 25 mcg (SUBLIMAZE) Given 01/11/2021 3:28 PM ADULT SCHOOL COUNSELOR 25 mcg 25 mcg, intravenous, Every 2 min PRN, moderate pain or score 4-6 of 10, severe pain or score 7-10 of 10, Starting on Sun01/11/21 at 1031, PACU (only), Up to maximum total dose of 100 mcg Given 01/11/2021 3:22 PM ADULT SCHOOL COUNSELOR 25 mcg lidocaine-EPINEPHrine 1 Given 01/11/2021 12:24 PM 4 mL Bilateral Nares %-1:100,000 injection (XYLOCAINE ADULT SCHOOL COUNSELOR W/EPI) As needed, Starting on Sun01/11/21 at [...] 10 mg (ROXICODONE) Given 01/11/2021 3:37 PM ADULT SCHOOL COUNSELOR 10 mg 10 mg, oral, Every 4 [...] 1 application Bilateral Nares nasal spray (AFRIN) ADULT SCHOOL COUNSELOR As needed, Starting on Sun01/11/21 at 1210, [...] may contain times in both CDT and ADULT SCHOOL COUNSELOR. Scheduled Medication Order 01/09/2021 01/10/2021 01/11/2021 acetaminophen [...]
--- OUTSIDE RECORDS SUMMARY | 2021-12-01 12:13 | XMS_ITS | Encounter Summary ---
:1985 Author Organization [facility] Address [address] [place] [address] Care Team Providers Name Role Phone Unavailable [...] How often do you attend religious or nondenominational Never 02/18/2021 services? Do you belong to [...] 01/11/2021 12:10 Results for this EXAM AM GATEHOUSE ATTENDANT procedure are i n the results section. documented in this encounter Results AIRWAY-Otorhinolaryngology Image Exam (01/11/2021 12:10 AM GATEHOUSE ATTENDANT) Specimen (Source) Anatomical Location Collection Method / Collectio n Time Received Time / Laterality Volume Narrative IIMS - 01/11/2021 2:55 PM GATEHOUSE ATTENDANT This order has been created and auto-finalized [...]
--- OUTSIDE RECORDS SUMMARY | 2021-12-01 12:13 | XMS_ITS | Encounter Summary ---
:1985 Author Organization [facility] Address [address] [place] [address] Care Team Providers Name Role Phone Unavailable [...] Expiration Date Visits Requ ested Visits Authorized [id number] 1 1 Encounter Details Date Type Department Care Team Description 01/11/2021 Hospital Encounter RST ROMB MAIN OR Rc, Rhinosinusitis Chronic [address] [facility] Daphne Blair M.D. [place], [place] [address] [place] [address] [place], [place] [phone] Social History Tobacco Use Types Packs/Day Years [...] How often do you attend congregation or oriental orthodox Never 02/18/2021 services? Do [...] Comments Blood Pressure 130/89 01/11/2021 5:00 PM CALCULATOR OPERATOR Pulse 77 01/11/2021 5:05 PM CALCULATOR OPERATOR Temperature 36.8 ??C (98.2 ??F) 01/11/2021 5:00 PM CALCULATOR OPERATOR Respiratory Rate 16 01/11/2021 5:00 PM CALCULATOR OPERATOR Oxygen Saturation 95% 01/11/2021 5:05 PM CALCULATOR OPERATOR Inhaled Oxygen Concentration - - Weight 113 kg (248 lb 14.4 oz) 01/11/2021 10:10 AM CALCULATOR OPERATOR Height 167.6 cm (5' 6) 01/11/2021 10:10 AM CALCULATOR OPERATOR Body Mass Index 40.17 01/11/2021 10:10 AM CALCULATOR OPERATOR documented in this encounter Discharge Instructions Discharge [...] or pain not relieved by pain medication. ULATOR OPERATOR documented in this encounter Medications at Time [...] PACU in stable condition. Mary Lema M.D. ULATOR OPERATOR documented in this encounter Miscellaneous Notes Result Encounter Note - Daphne Tatum M.D. - 01/21/2021 8:27 AM CALCULATOR OPERATOR I have reviewed the final pathology report and the identified diagnosis is consistent with the patient's clinical presentation. ULATOR OPERATOR Result Encounter Note - Mary Lema M.D. - 01/19/2021 10:38 PM CST I have reviewed the final pathology report and the identified diagnosis is consistent with the patient's clinical presentation. ULATOR OPERATOR documented in this encounter Plan of Treatment Not on filedocumented as of this encounter Procedures Procedure Name Priority Date/Time Associated Diagnosis Comme nts SURGICAL PATHOLOGY, Routine 01/11/2021 12:45 Rhinosinusitis Ch ronic Results for this FROZEN LAB PM CALCULATOR OPERATOR procedure are i n the results section. EXTRADURAL COMPUTER 01/11/2021 11:15 Rhinosinusitis Ch ronic NAVIGATION AM CALCULATOR OPERATOR Case Notes SKOOG MACHINE OPERATOR 958 ETHMOIDECTOMY ENDOSCOPY 01/11/2021 11:15 AM CALCULATOR OPERATOR Rhinos inusitis Chronic Case Notes SKOOG MACHINE OPERATOR 958 SINUSOTOMY ENDOSCOPY FRONTAL 01/11/2021 11:15 AM CALCULATOR OPERATOR R hinosinusitis Chronic Case Notes SKOOG MACHINE OPERATOR 958 ENDOSCOPIC SPHENOIDOTOMY WITHOUT 01/11/2021 11:1 5 AM CALCULATOR OPERATOR Rhinosinusitis Chronic TISSUE REMOVAL Case Notes SKOOG MACHINE OPERATOR 958 ENDOSCOPIC MAXILLARY ANTROSTOMY 01/11/2021 11:15 AM CS T Rhinosinusitis Chronic WITH TISSUE REMOVAL Case Notes SKOOG MACHINE OPERATOR 958 documented in this encounter Results Surgical Pathology, Frozen Lab (01/11/2021 12:45 PM CALCULATOR OPERATOR) Component Value Ref Test Analysis Performed Pathologis t Range Method Time At Signature 01/18/2021 STMA 5:37 AM CALCULATOR OPERATOR Participated in Grant Jones 01/18/2021 Jen -Pathology 5:37 AM CALCULATOR OPERATOR Interpretation Resident Report Daniel Cuevas M.D. [id number] STMA electronically 5:37 AM CALCULATOR OPERATOR signed by I verify that I have examined all relevant slides/materials for the specimen(s) and rendered or confirmed the diagnosis. Gross Description A. ??Received fresh labeled left sinonasal vin nts is a 01/18/2021 STMA 7.4 x 5.1 x 0.9 cm aggregate of reed-red soft tissue. ??All 5:37 AM CALCULATOR OPERATOR submitted for permanent sections. ??Grossed by SSF. [...] A1 Left sinonasal contents 1 5:37 AM CALCULATOR OPERATOR A2 Left sinonasal contents 2 A3 Left [...] negative (Block 01/19/2021 STMA A3). 10:02 PM CALCULATOR OPERATOR Signed by Daniel Cuevas M.D. [id number] 01/19/2021 10:02 PM Comment: REVISED RESULTS Interpretation FINAL DIAGNOSIS 01/19/2021 10:02 PM CALCULATOR OPERATOR STMA A. ??Sinonasal contents, left, excision: ??Sinonasal [...] Volume Laterality Tissue (Nose) 01/11/2021 12:45 PM CALCULATOR OPERATOR Tissue (Nose) 01/11/2021 12:53 PM CALCULATOR OPERATOR Tissue (Nose) 01/11/2021 2:38 PM CALCULATOR OPERATOR Narrative This result has an attachment that is no t available. Daphne Tatum M.D. LAB SURG PATH ORDERABLES Performing Organization Address City/State/ZIP Code Phon e Number [facility] - [address] [place], [place] [address] [place] [address] [facility] [address] documented in this encounter Visit Diagnoses Diagnosis Rhinosinusitis Chronic - Primary documented in this encounter Admitting Diagnoses Diagnosis Rhinosinusitis Chronic documented in this encounter Administered Medications Inactive Administered Medications - up to 3 most recent administrations Medication Order MAR Action Action Date Dose Rate Site fentaNYL injection 25 mcg Given 01/11/2021 3:28 PM CALCULATOR OPERATOR 25 mcg (SUBLIMAZE) 25 mcg, intravenous, Every 2 min PRN, moderate pain or score 4-6 of 10, severe pain or score 7-10 of 10, Starting on Sun01/11/21 at 1031, PACU (only), Up to maximum total dose of 100 mcg Given 01/11/2021 3:22 PM CALCULATOR OPERATOR 25 mcg metoprolol tablet 12.5 mg (LOPRESSOR) [...] 10 mg (ROXICODONE) Given 01/11/2021 3:37 PM CALCULATOR OPERATOR 10 mg 10 mg, oral, Every 4 [...] may contain times in both CDT and CALCULATOR OPERATOR. Scheduled Medication Order 01/09/2021 01/10/2021 01/11/2021 acetaminophen [...]
--- OUTSIDE RECORDS SUMMARY | 2021-12-01 12:13 | XMS_ITS | Encounter Summary ---
:1985 Author Organization [facility] Address [address] [place] [address] Care Team Providers Name Role Phone Unavailable Primary Care Provider Unavailable Reason for Referral MRI/CAT/PET Scan (Routine) - Closed Specialty Diagnoses / Procedures Referred By Contact Refer red To Contact Radiology Diagnoses Aspirin Reaction Nasal Polyps Asthma Mary Lema M.D. [facility] Procedures CT Sinuses without IV Contrast [address] [place] [address] Referral ID Status Reason Start Date Expiration Date Visits Requ ested Visits Authorized [id number] Closed 12/13/2020 12/13/2021 1 1 Encounter Details Date Type Department Care Team Description 12/13/2020 Orders Only Department of Mary Lema Aspirin React ion Otorhinolaryngology in Sung Nasal Polyps Asthma [place], [place] [address] [facility] (Primary Dx) [address] [place] [phone] Social History Tobacco Use Types Packs/Day Years [...] How often do you attend moravian or anabaptist Never 02/18/2021 services? Do you [...] place to sleep or slept in a alf (including now)? Sex Assigned at Date Recorded [...]
--- OUTSIDE RECORDS SUMMARY | 2021-12-01 12:13 | XMS_ITS | Encounter Summary ---
:1985 Author Organization [facility] Address [address] [place] [address] Care Team Providers Name Role Phone Unavailable Primary Care Provider Unavailable Encounter Details Date Type Department Care Team Description 12/13/2020 Clinical Department of Lázaro Sebastian Otorhinolaryngology in [place], [place] [phone] [address] [facility] (Work) [place] [phone] Social History Tobacco Use Types Packs/Day [...] How often do you attend bahai or roman catholic Never 02/18/2021 services? Do [...]
--- NOTE | 2021-12-01 12:15 | CRLHL7_ITS ---
For Patients: As a result of the Century Cures Act, medical imaging exams and procedure reports are released immediately into your electronic medical record. You may view this report before your referring provider. If you have questions, please contact your health care provider. INDICATION: CHRONIC HYPERTENSION COMPARISON: 11/24/2021 TECHNIQUE: Real time degroot scale imaging of the fetus was performed. Without non-stress testing. FINDINGS: Sonographic imaging demonstrates a single living intrauterine gestation. Fetus demonstrates a regular cardiac rate of 159 beats per minute. Fetus has a vertex position. The amniotic fluid volume appears normal and there is a single deepest pocket measurement of 3.7 cm. The fetus was active and demonstrated normal breathing movements. There was normal flexion and extension of the trunk and extremities. IMPRESSION: Normal biophysical profile score of 8 out of 8. Dictated by Chago Gallardo MD @ 12/01/2021 12:52:17 PM (Electronically Signed)
== END 2021-12-01 12:11 | disposition home or self-care (01) ==
LOC: US 12:11
PROVIDERS: Visit Provider Obstetrics & Gynecology
DX: O10.913 Unspecified pre-existing hypertension complicating pregnancy, third trimester (principal); Z3A.37 37 weeks gestation of pregnancy
CPT/HCPCS: 76819

== ENCOUNTER 2021-12-07 12:56 | Outpatient (CLI) | payer BC, SELFPAY ==
--- OUTSIDE RECORDS SUMMARY | 2021-12-07 12:58 | XMS_ITS | Clinical Summary ---
:1985 Author Organization [facility] Address [address] [place] [address] Care Team Providers Name Role Phone Unavailable Primary Care Provider Unavailable Source Comments Patient records contain information from all sites at [facility]. For routine questions regarding patient records, call [phone] during business hours, M-F 8:00 AM - 5:00 PM Central Time. Record requests for emergency care only can be directed to [phone] at any time.[facility] Allergies [...] Added automatically from request for chandler haskins [id number] Aspirin Reaction Nasal Polyps Asthma 09/24/2015 Asthma [...] How often do you attend jainism or hindu Never 02/18/2021 services? Do you [...] Comments Blood Pressure 130/89 01/11/2021 5:00 PM ZOOLOGY PROFESSOR Pulse 77 01/11/2021 5:05 PM ZOOLOGY PROFESSOR Temperature 36.8 ??C (98.2 ??F) 01/11/2021 5:00 PM ZOOLOGY PROFESSOR Respiratory Rate 16 01/11/2021 5:00 PM ZOOLOGY PROFESSOR Oxygen Saturation 95% 01/11/2021 5:05 PM ZOOLOGY PROFESSOR Inhaled Oxygen Concentration - - Weight 113 kg (248 lb 14.4 oz) 01/11/2021 10:10 AM ZOOLOGY PROFESSOR Height 167.6 cm (5' 6) 01/11/2021 10:10 AM ZOOLOGY PROFESSOR Body Mass Index 40.17 01/11/2021 10:10 AM ZOOLOGY PROFESSOR Plan of Treatment Health Maintenance Due Date [...] (#1) 2021 Medical Devices Implanted Type Area Compliance Quality Performance Analyst Device Shelf Model / Identifier Expiration Serial / Date Lot Stent Sinus Propel Regular - Graham [id number] Stent Other/Legacy - Int ersect Ent Implanted: Qty: 1 on 10/14/2015 Other [employer] Description Description: Device Compliance Quality Performance Analyst - Inter sect Ent. Body Location - Other. Left. Device Status Text - [id number]. Insurance Payer Benefit Plan Subscriber ID Effective Phone Address Typ e / Group Dates BLUE CROSS BCBS BLUE [id number] 2018-Andree ATTN: William gallardo HMO BLUE SHIELD PLUS HMO nt CONSUMER [facility] [address] [address] [place] [address]
--- OUTSIDE RECORDS SUMMARY | 2021-12-07 12:58 | XMS_ITS | Encounter Summary ---
:1985 Author Organization [facility] Address [address] [place] [address] Care Team Providers Name Role Phone Unavailable [...] How often do you attend jain or zoroastrianism Never 02/18/2021 services? Do you [...] or slept in a alf (including now)? Education Answer Date Recorded What [...] 01/21/2021 2:48 Results for this EXAM PM HAND LASTER procedure are i n the results section. documented in this encounter Results NASAL-Otorhinolaryngology Image Exam (01/21/2021 2:48 PM HAND LASTER) Specimen (Source) Anatomical Collection Method Collection Time Re ceived Time Location / / Volume Laterality 01/21/2021 4:08 PM HAND LASTER Narrative IIMS - 01/21/2021 2:48 PM HAND LASTER This order has been created and auto-finalized [...]
--- OUTSIDE RECORDS SUMMARY | 2021-12-07 12:58 | XMS_ITS | Encounter Summary ---
:1985 Author Organization [facility] Address [address] [place] [address] Care Team Providers Name Role Phone Unavailable [...] 02/18/2021 relatives? How often do you attend sabianism or mandaeism Never 02/18/2021 services? Do you belong to any clubs or organizations such as No 02/18/2021 sabianism groups, unions, fraternal or athletic groups, or [...] 02/18/2021 11:40 Results for this EXAM AM FLUE DUST LABORER procedure are i n the results section. documented in this encounter Results NOSE-Otorhinolaryngology Image Exam (02/18/2021 11:40 AM FLUE DUST LABORER) Specimen (Source) Anatomical Collection Method Collection Time Re ceived Time Location / / Volume Laterality 02/18/2021 11:36 AM FLUE DUST LABORER Narrative IIMS - 02/18/2021 11:40 AM FLUE DUST LABORER This order has been created and auto-finalized [...]
--- OUTSIDE RECORDS SUMMARY | 2021-12-07 12:58 | XMS_ITS | Encounter Summary ---
:1985 Author Organization [facility] Address [address] [place] [address] Care Team Providers Name Role Phone Unavailable Primary Care Provider Unavailable Reason for Referral Outpatient (Routine) - Closed Specialty Diagnoses / Procedures Referred By Contact Refer red To Contact Otorhinolaryngology Daphne Tatum [place] M.D. [address] [place] [phone] Referral ID Status Reason Start Date Expiration Date Visits Requ ested Visits Authorized [id number] Closed 01/21/2021 01/21/2022 1 1 Scheduling Instructions - in afternoon, or 02/22 v ideo slot. R BOX MAKER Reason for Visit Outpatient (Routine) - Closed Specialty Diagnoses / Procedures Referred By Contact Refer red To Contact Otorhinolaryngology Daphne Tatum [place] M.D. [address] [place] [phone] Referral ID Status Reason Start Date Expiration Date Visits Requ ested Visits Authorized [id number] Closed 01/06/2021 01/06/2022 1 1 Encounter Details Date Type Department Care Team Description 01/21/2021 Office Visit Department of Paola Tatum on Otorhinolaryngology in Daphne Blair M.D. Nasal Polyps Asthma [place], [place] [address] [place] [address] (Primary Dx) [address] [place] [phone] Social History Tobacco Use Types Packs/Day Years [...] often do you attend jehovah's witness or gnosticism Never 02/18/2021 services? Do you [...] Crusting Mild = 1 Mild = 1 [place]y Endoscopy Score = 6 ASSESSMENT / PLAN [...] but she can stop the mupirocin. Procedures R BOX MAKER Associated attestation - Daphne Tatum M.D. - 01/21/2021 2:57 PM PAPER BOX MAKER I saw and evaluated the patient, participating [...]
--- OUTSIDE RECORDS SUMMARY | 2021-12-07 12:58 | XMS_ITS | Encounter Summary ---
:1985 Author Organization [facility] Address [address] [place] [address] Care Team Providers Name Role Phone Unavailable Primary Care Provider Unavailable Reason for Visit Outpatient (Routine) - Closed Specialty Diagnoses / Procedures Referred By Contact Refer red To Contact Otorhinolaryngology Daphne Tatum [place] M.D. [address] [place] [address] Referral ID Status Reason Start Date Expiration Date Visits Requ ested Visits Authorized [id number] Closed 01/21/2021 01/21/2022 1 1 Encounter Details Date Type Department Care Team Description 02/18/2021 Office Visit Department of Rc, Rhinosinusitis Chronic (Primary Dx); Otorhinolaryngology in Daphne Blair, Polyp Nasal; [place], [place] Sung Aspirin Reaction Nasal Polyps Asthma [address] [facility] [address] [place] [address] [place], [place] [phone] Social History Tobacco Use Types Packs/Day Years [...] 02/18/2021 relatives? How often do you attend voodoo or gnosticism Never 02/18/2021 services? Do you belong to any clubs or organizations such as No 02/18/2021 voodoo groups, unions, fraternal or athletic groups, or [...] procedure well and there were no complications. [place]-Woody Endoscopic Scoring System Right Side Left Side [...] recently putting a real tree up for Simla and has noticed increasing nasal congestion. On [...] become . Sanjeev Thakur APRN, C.N.P., M.S.N. PRODUCTION WORKER Associated attestation - Daphne Tatum M.D. - 02/20/2021 5:37 PM RACK PRODUCTION WORKER I saw the patient with Sanjeev Thakur C.N.P. and agree with her findings, assessment, and plan. Daphne Tatum M.D. documented in this encounter Plan of Treatment Not on filedocumented as of this encounter Visit Diagnoses Diagnosis Rhinosinusitis Chronic - Primary Polyp Nasal Aspirin Reaction Nasal Polyps Asthma documented in this encounter
--- OUTSIDE RECORDS SUMMARY | 2021-12-07 12:59 | XMS_ITS | Encounter Summary ---
:1985 Author Organization [facility] Address [address] [place] [address] Care Team Providers Name Role Phone Unavailable Primary Care Provider Unavailable Encounter Details Date Type Department Care Team Description 01/08/2021 Hospital Encounter Department of Daphne Tatum Cont act With And (Suspected) Exposure To COVID-19; Laboratory Medicine Sung Blair Preprocedural Lab Exam in [place], [address] [place] [address] [place] [phone] [place], [place] [phone] (Work) [phone] Social History Tobacco Use Types Packs/Day Years [...] How often do you attend pentecostalism or sikh Never 02/18/2021 services? Do you [...] RNA, V Asymptomatic (01/08/2021 10:58 AM CDT) [facility] Method Time Signature SARS-CoV-2 Swab, 01/08/2021 MKTO [...] pe rformed using the Aptima SARS-CoV-2 assay ([employer] on the 3DiVi Companys tem under emergency use authorization (EUA) by the U.S. Food and Drug Administ ration. Fact sheets for this EUA assay can be fo und at the following links: For Healthcare Providers: https://www.fd a.gov/media/805259/download For Patients: https://www.fda.gov/media/ 888440/download Specimen Anatomical Collection Method Collection Time Receive d Time (Source) Location / / Volume Laterality Varies 01/08/2021 10:58 01/08/2021 5:03 (Nasopharynx) AM CDT PM CDT Daphne Tatum M.D. LAB MICROBIOLOGY - GENERAL O RDERABLES Performing Organization Address City/State/ZIP Code Phon e Number [facility]- [address] [place] [phone] [place] [address] [place] [address] System in [address] documented in this encounter Visit Diagnoses Diagnosis Contact With And (Suspected) Exposure To COVID-19 Preprocedural Lab Exam documented in this encounter Additional Health Concerns Infection Onset Date Last Indicated Resolved Time COVID19 Pending 01/08/2021 01/08/2021 01/08/2021 11:18 PM CDT documented as of this encounter
--- OUTSIDE RECORDS SUMMARY | 2021-12-07 12:59 | XMS_ITS | Encounter Summary ---
:1985 Author Organization [facility] Address [address] [place] [address] Care Team Providers Name Role Phone Unavailable Primary Care Provider Unavailable Reason for Referral Outpatient (Routine) - Closed Specialty Diagnoses / Procedures Referred By Contact Refer red To Contact Otorhinolaryngology Daphne Tatum [place] M.D. [address] [place] [address] Referral ID Status Reason Start Date Expiration Date Visits Requ ested Visits Authorized [id number] Closed 01/06/2021 01/06/2022 1 1 Scheduling Instructions Oral covid same day, 930 override Reason for Visit Appointment Request (Routine) - Closed Specialty Diagnoses / Procedures Referred By Contact Refer sheri To Contact Otorhinolaryngology Diagnoses Polyp Nasal Referral ID Status Reason Start Date Expiration Date Visits Requ ested Visits Authorized [id number] Closed 12/12/2020 12/12/2021 1 1 Encounter Details Date Type Department Care Team Description 01/06/2021 Comprehensive Visit Department of Rebecca Tatumosi nusitis Chronic (Primary Dx); Otorhinolaryngology in Daphne Blair, Polyp Nasal; [place], [place] Sung Aspirin Reaction Nasal Polyps Asthma [address] [facility] [address] [place] [address] [place] [phone] Social History Tobacco Use Types Packs/Day Years [...] 02/18/2021 relatives? How often do you attend christianity or pentecostal Never 02/18/2021 services? Do you belong to any clubs or organizations such as No 02/18/2021 christianity groups, unions, fraternal or athletic groups, or [...] therapy or repeat asa desensitization with an computer game programmer as I am not optimistic that surgery [...]
--- OUTSIDE RECORDS SUMMARY | 2021-12-07 12:59 | XMS_ITS | Encounter Summary ---
:1985 Author Organization [facility] Address [address] [place] [address] Care Team Providers Name Role Phone Unavailable [...] Expiration Date Visits Requ ested Visits Authorized [id number] 1 1 Encounter Details Date Type Department Care Team Description 01/11/2021 Anesthesia Event RST ROMB MAIN OR Laz Young, [address] [place] [address] [place], [place] [phone] [place] [address] [place] [address] (Wo rk) Anesthesia Record Procedure Summary Procedure [...] h andoff to the receiving staff during [facility] we 1. Identified the patient 2. [...] by 01/11 1503 by Placement Time: 1145 Sirean Montejo APRN, Schaffer, Jordan A, (created via procedure CIGARETTE TESTER R.N. documentation); Mask Ventilation: Easy mask; Type: [...] M ikaela A, Catheter Size: 20 G; CIGARETTE TESTER R.NXavier Orientation: Left; Location: Hand; Technique: Transillumination; Removal Date: 01/11/21; Removal Time: 1705; Removal Reason: Patient discharged (RETIRED) Incision 01/11/21; 1446; No; Nose; 01/11/21 1446 by 1223 by Bilateral; FESS; 02/04/21 Rula Bradley, [facility] (removed by background R.N. d, Edwige [...] 02/18/2021 relatives? How often do you attend sikhism or presybeterian Never 02/18/2021 services? Do you belong to any clubs or organizations such as No 02/18/2021 sikhism groups, unions, fraternal or athletic groups, or [...] or the highest technical, or vocational p lkue degree you have received? Sex Assigned at Date Recorded Female 01/06/2021 8:49 AM CDT documented as of this encounter OR Notes Anesthesia Postprocedure Evaluation - David Barbosa, DALTON, COCO, DNAP - 01/11/2021 3:22 PM CST Patient: Krystal Odonnell Procedure Summary Date: 01/11/21 Room / Location: [place] [address] / [facility] in [place], [place] Anesthesia Start: 1137 Anesthesia Stop: 1520 [...] Post Op nausea/vomiting: none Hydration status: euvolemic TO DOOR LEAD GENERATION Anesthesia Procedure Notes - Sirena Montejo APRN, CRNA - 01/11/2021 12:30 PM DOOR TO DOOR LEAD GENERATION Associated Order(s): Airway Airway Date/Time: 01/11/2021 11:45 [...] successful Airway event: no complications ATTESTATION STATEMENT TO DOOR LEAD GENERATION Anesthesia Preprocedure Evaluation - Laz Young M.D. [...] [J32.8] Pre-op diagnosis: Rhinosinusitis Chronic [J32.8]. Location: [address] / [facility] in [place], [place] Providers: Daphne Tatum M.D. Pertinent components [...] with patient /legal guardian or through an cognos. The use of blood products not discussed Approval to Proceed: approved for anesthesia TO DOOR LEAD GENERATION documented in this encounter Plan of Treatment Not on filedocumented as of this encounter Procedures Procedure Name Priority Date/Time Associated Comments Diagnosis LDA ANE ENDOTRACHEAL Routine 01/11/2021 11:45 Res ults for this AIRWAY AM DOOR TO DOOR LEAD GENERATION procedure are i n the results section. documented in this encounter Results LDA ANE ENDOTRACHEAL AIRWAY (01/11/2021 11:45 AM DOOR TO DOOR LEAD GENERATION) Narrative Sirena Montejo APRN, CRNA - 01/11/2021 11:45 AM DOOR TO DOOR LEAD GENERATION Sirena Montejo APRN, CRNA ? 01/11/2021 12:31 [...] Site acetaminophen injection Given 01/11/2021 2:16 PM DOOR TO DOOR LEAD GENERATION 1,000 mg intravenous, Administer over 15 Minutes, As needed, Starting on Sun01/11/21 at 1416, Anesthesia Intra-op ceFAZolin injection (ANCEF) Given 01/11/2021 12:21 PM DOOR TO DOOR LEAD GENERATION 2 g intravenous, As needed, Starting on Sun01/11/21 at 1221, Anesthesia Intra-op dexAMETHasone injection (DECADRON) Given 01/11/2021 11:49 AM DOOR TO DOOR LEAD GENERATION 10 mg intravenous, As needed, Starting on Sun01/11/21 at 1149, Anesthesia Intra-op fentaNYL injection (SUBLIMAZE) Given 01/11/2021 1:56 PM DOOR TO DOOR LEAD GENERATION 50 mcg intravenous, As needed, Starting on Sun01/11/21 at 1144, Anesthesia Intra-op Given 01/11/2021 1:41 PM DOOR TO DOOR LEAD GENERATION 50 mcg Given 01/11/2021 1:01 PM DOOR TO DOOR LEAD GENERATION 50 mcg labetalol injection (NORMODYNE,TRANDATE) Given 01/11/2021 2:27 PM DOOR TO DOOR LEAD GENERATION 5 mg intravenous, As needed, Starting on Sun01/11/21 at 1359, Anesthesia Intra-op Given 01/11/2021 2:02 PM DOOR TO DOOR LEAD GENERATION 5 mg Given 01/11/2021 1:59 PM DOOR TO DOOR LEAD GENERATION 5 mg lactated ringers New Bag 01/11/2021 11:37 AM DOOR TO DOOR LEAD GENERATION intravenous, Continuous Infusion: Per Instructions PRN, Starting on Sun01/11/21 at 1137, Anesthesia Intra-op lactated ringers New Bag 01/11/2021 11:47 AM DOOR TO DOOR LEAD GENERATION intravenous, Continuous Infusion: Per Instructions PRN, Starting on Sun01/11/21 at 1147, Anesthesia Intra-op lidocaine (PF) (cardiac) injection Given 01/11/2021 11:44 AM DOOR TO DOOR LEAD GENERATION 60 mg intravenous, As needed, Starting on Sun01/11/21 at 1144, Anesthesia Intra-op ondansetron (PF) injection (ZOFRAN) Given 01/11/2021 2:40 PM DOOR TO DOOR LEAD GENERATION 4 mg intravenous, As needed, Starting on Sun01/11/21 at 1440, Anesthesia Intra-op propofol 10 mg/mL infusion Rate/Dose 01/11/2021 2:43 110 mcg/kg/min 74.514 (DIPRIVAN) Change PM DOOR TO DOOR LEAD GENERATION mL/hr intravenous, Continuous Infusion: Per Instructions PRN, Starting on Sun01/11/21 at 1144, Anesthesia Intra-op Rate/Dose Change 01/11/2021 2:39 PM DOOR TO DOOR LEAD GENERATION 125 mcg/kg/min 84.675 mL/hr New Bag 01/11/2021 2:27 PM DOOR TO DOOR LEAD GENERATION 150 mcg/kg/min 101.61 mL/hr propofoL injection (DIPRIVAN) Given 01/11/2021 11:56 AM DOOR TO DOOR LEAD GENERATION 50 mg intravenous, As needed, Starting on Sun01/11/21 at 1144, Anesthesia Intra-op Given 01/11/2021 11:44 AM DOOR TO DOOR LEAD GENERATION 200 mg remifentaniL 20 mcg/mL in Rate/Dose 01/11/2021 2:10 0.1 mcg/kg/min 3 3.87 NaCl 0.9% 100 mL infusion Change PM DOOR TO DOOR LEAD GENERATION mL/hr (ULTIVA) intravenous, Continuous Infusion: Per Instructions PRN, Starting on Sun01/11/21 at 1144, Anesthesia Intra-op Rate/Dose Change 01/11/2021 1:53 PM DOOR TO DOOR LEAD GENERATION 0.1 mcg/kg/min 33.87 mL/hr Rate/Dose Change 01/11/2021 12:03 PM DOOR TO DOOR LEAD GENERATION 0.2 mcg/kg/min 67.74 mL/hr scopolamine base 1 mg over 3 days Given 01/11/2021 12:00 PM DOOR TO DOOR LEAD GENERATION 1 patch (TRANSDERM SCOP) transdermal, Administer over 72 Hours, As needed, Starting on Sun01/11/21 at 1200, Anesthesia Intra-op succinylcholine (PF) injection (ANECTINE ) Given 01/11/2021 11:44 AM DOOR TO DOOR LEAD GENERATION 100 mg intravenous, As needed, Starting on Sun01/11/21 at 1144, Anesthesia Intra-op documented in this encounter
--- OUTSIDE RECORDS SUMMARY | 2021-12-07 12:59 | XMS_ITS | Encounter Summary ---
:1985 Author Organization [facility] Address [address] [place] [address] Care Team Providers Name Role Phone Unavailable [...] 02/18/2021 relatives? How often do you attend hindu or yarsani Never 02/18/2021 services? Do you belong to any clubs or organizations such as No 02/18/2021 hindu groups, unions, fraternal or athletic groups, or [...] 01/11/2021 12:10 Results for this EXAM AM NCQA SPECIALIST procedure are i n the results section. documented in this encounter Results AIRWAY-Otorhinolaryngology Image Exam (01/11/2021 12:10 AM NCQA SPECIALIST) Specimen (Source) Anatomical Location Collection Method / Collectio n Time Received Time / Laterality Volume Narrative IIMS - 01/11/2021 2:55 PM NCQA SPECIALIST This order has been created and [...]
--- OUTSIDE RECORDS SUMMARY | 2021-12-07 12:59 | XMS_ITS | Encounter Summary ---
:1985 Author Organization [facility] Address [address] [place] [address] Care Team Providers Name Role Phone Unavailable Primary Care Provider Unavailable Reason for Visit Reason Comments Reschedule Post Op Appointment Encounter Details Date Type Department Care Team Description 01/19/2021 Clinical Department of Bety Tatum Pos t Communication Otorhinolaryngology in [place], [place] Sung [address] [facility] [address] [place] [address] [place], [place] [phone] Social History Tobacco Use Types Packs/Day Years [...] How often do you attend temple or mandaeism Never 02/18/2021 services? Do you [...] Sunday afternoon as he is driving her. IR TECHNICIAN Telephone Encounter - Xiomy Horner - 01/19/2021 12:22 PM CST Ms. Odonnell returned your call. You can reach her this afternoon at [phone]. IR TECHNICIAN Telephone Encounter - Maciel Watts - 01/19/2021 10:37 AM CST I called Ms. Odonnell today because Dr. Tatum has been called away unexpectedly. Dr. Tatum would like to see her on January 21 in the afternoon at the [facility] procedure room. Ms. Odonnell did not answer so I left a message for her to call me back. Thank you, Maciel IR TECHNICIAN documented in this encounter Plan of Treatment Not on filedocumented as of this encounter Visit Diagnoses Not on filedocumented in this encounter
--- OUTSIDE RECORDS SUMMARY | 2021-12-07 12:59 | XMS_ITS | Encounter Summary ---
:1985 Author Organization [facility] Address [address] [place] [address] Care Team Providers Name Role Phone Unavailable Primary Care Provider Unavailable Reason for Referral MRI/CAT/PET Scan (Routine) - Closed Specialty Diagnoses / Procedures Referred By Contact Refer red To Contact Radiology Diagnoses Aspirin Reaction Nasal Polyps Asthma Mary Lema M.D. [facility] Procedures CT Sinuses without IV Contrast [address] [place] [phone] Referral ID Status Reason Start Date Expiration Date Visits Requ ested Visits Authorized [id number] Closed 12/13/2020 12/13/2021 1 1 Reason for Visit MRI/CAT/PET Scan (Routine) - Closed Specialty Diagnoses / Procedures Referred By Contact Refer red To Contact Radiology Diagnoses Aspirin Reaction Nasal Polyps Asthma Mary Lema M.D. [facility] Procedures CT Sinuses without IV Contrast 200 [place] [address] Referral ID Status Reason Start Date Expiration Date Visits Requ ested Visits Authorized [id number] Closed 12/13/2020 12/13/2021 1 1 Encounter Details Date Type Department Care Team Description 12/21/2020 Hospital Encounter Department of Mary Lema Aspirin Reaction RadiologyAndrade M.D. Nasal Polyps Asthma [facility], in [address] [place] [address] [place] [address] [place], [place] [phone] (Work) [phone] Social History Tobacco Use Types Packs/Day Years [...] 02/18/2021 relatives? How often do you attend adventism or jainism Never 02/18/2021 services? Do you belong to any clubs or organizations such as No 02/18/2021 adventism groups, unions, fraternal or athletic groups, or [...] Rightward nasal s eptal deviation. Procedure Note Chraan Murguia M.D. - 1 EXAM: CT SINUSES [...]
--- OUTSIDE RECORDS SUMMARY | 2021-12-07 12:59 | XMS_ITS | Encounter Summary ---
:1985 Author Organization [facility] Address [address] [place] [address] Care Team Providers Name Role Phone Unavailable [...] How often do you attend islam or muslim Never 02/18/2021 services? Do you [...]
--- OUTSIDE RECORDS SUMMARY | 2021-12-07 12:59 | XMS_ITS | Encounter Summary ---
:1985 Author Organization [facility] Address [address] [place] [address] Care Team Providers Name Role Phone Unavailable [...] How often do you attend adventist or hindu Never 02/18/2021 services? Do you [...]
--- OUTSIDE RECORDS SUMMARY | 2021-12-07 12:59 | XMS_ITS | Encounter Summary ---
:1985 Author Organization [facility] Address [address] [place] [address] Care Team Providers Name Role Phone Unavailable Primary Care Provider Unavailable Reason for Visit Auth/Cert Specialty Diagnoses / Procedures Referred By Contact Refer red To Contact Diagnoses Rhinosinusitis Chronic Rhinosinusitis Chronic [J32.8] Procedures NM ENDO NSL MAX ANTROST W RMV TIS NM NSL/SINS NDSC SPHN TISS RMVL NM NSL/SINS NDSC TOTAL NM ENDO NSL/SNS W ETHMDCTOMY PRTL NM STRTCTC COMP-ASSIST CRNL EXTRA NM SUBMUC RSECT TURB PRTL/COMPLT ENDOSCOPIC MAXILLARY ANTROST CHARLIE WITH TISSUE REMOVAL ENDOSCOPIC SPHENOIDOTOMY WITHOUT TISSUE REMOVAL SINUSOTOMY ENDOSCOPY FRONTAL -draft iib, possible draft iii ETHMOIDECTOMY ENDOSCOPY EXTRADURAL COMPUTER NAVIGATION - Proceed as indicated REDUCTION TURBINATE - middle turbinates , procee d as indicated Referral ID Status Reason Start Date Expiration Date Visits Requ ested Visits Authorized [id number] 1 1 Encounter Details Date Type Department Care Team Description 01/11/2021 Hospital Encounter RST ROMB MAIN OR Rc, Rhinosinusitis Chronic [address] [facility] Daphne Blair M.D. [place], [place] [address] [place] [address] [place], [place] [phone] Social History Tobacco Use Types Packs/Day Years [...] How often do you attend sikhism or mu-ism Never 02/18/2021 services? Do you [...] Comments Blood Pressure 130/89 01/11/2021 5:00 PM FOUNDATION STAGE TEACHER Pulse 77 01/11/2021 5:05 PM FOUNDATION STAGE TEACHER Temperature 36.8 ??C (98.2 ??F) 01/11/2021 5:00 PM FOUNDATION STAGE TEACHER Respiratory Rate 16 01/11/2021 5:00 PM FOUNDATION STAGE TEACHER Oxygen Saturation 95% 01/11/2021 5:05 PM FOUNDATION STAGE TEACHER Inhaled Oxygen Concentration - - Weight 113 kg (248 lb 14.4 oz) 01/11/2021 10:10 AM FOUNDATION STAGE TEACHER Height 167.6 cm (5' 6) 01/11/2021 10:10 AM FOUNDATION STAGE TEACHER Body Mass Index 40.17 01/11/2021 10:10 AM FOUNDATION STAGE TEACHER documented in this encounter Discharge Instructions Discharge [...] or pain not relieved by pain medication. DATION STAGE TEACHER documented in this encounter Medications at Time [...] PACU in stable condition. Mary Lema M.D. DATION STAGE TEACHER documented in this encounter Miscellaneous Notes Result Encounter Note - Daphne Tatum M.D. - 01/21/2021 8:27 AM FOUNDATION STAGE TEACHER I have reviewed the final pathology report and the identified diagnosis is consistent with the patient's clinical presentation. DATION STAGE TEACHER Result Encounter Note - Mary Lema M.D. - 01/19/2021 10:38 PM CST I have reviewed the final pathology report and the identified diagnosis is consistent with the patient's clinical presentation. DATION STAGE TEACHER documented in this encounter Plan of Treatment Not on filedocumented as of this encounter Procedures Procedure Name Priority Date/Time Associated Diagnosis Comme nts SURGICAL PATHOLOGY, Routine 01/11/2021 12:45 Rhinosinusitis Ch ronic Results for this [facility] PM FOUNDATION STAGE TEACHER procedure are i n the results section. EXTRADURAL COMPUTER 01/11/2021 11:15 Rhinosinusitis Ch ronic NAVIGATION AM FOUNDATION STAGE TEACHER Case Notes SECRETARY BOOK KEEPER 958 ETHMOIDECTOMY ENDOSCOPY 01/11/2021 11:15 AM FOUNDATION STAGE TEACHER Rhinos inusitis Chronic Case Notes SECRETARY BOOK KEEPER 958 SINUSOTOMY ENDOSCOPY FRONTAL 01/11/2021 11:15 AM FOUNDATION STAGE TEACHER R hinosinusitis Chronic Case Notes SECRETARY BOOK KEEPER 958 ENDOSCOPIC SPHENOIDOTOMY WITHOUT 01/11/2021 11:1 5 AM FOUNDATION STAGE TEACHER Rhinosinusitis Chronic TISSUE REMOVAL Case Notes SECRETARY BOOK KEEPER 958 ENDOSCOPIC MAXILLARY ANTROSTOMY 01/11/2021 11:15 AM CS T Rhinosinusitis Chronic WITH TISSUE REMOVAL Case Notes SECRETARY BOOK KEEPER 958 documented in this encounter Results Surgical Pathology, Frozen Lab (01/11/2021 12:45 PM FOUNDATION STAGE TEACHER) Component Value Ref Test Analysis Performed Pathologis t Range Method Time At Signature 01/18/2021 STMA 5:37 AM FOUNDATION STAGE TEACHER Participated in Grant Jones 01/18/2021 Jen -Pathology 5:37 AM FOUNDATION STAGE TEACHER Interpretation Resident Report Daniel Cuevas M.D. [id number] STMA electronically 5:37 AM FOUNDATION STAGE TEACHER signed by I verify that I have examined all relevant slides/materials for the specimen(s) and rendered or confirmed the diagnosis. Gross Description A. ??Received fresh labeled left sinonasal vin nts is a 01/18/2021 STMA 7.4 x 5.1 x 0.9 cm aggregate of reed-red soft tissue. ??All 5:37 AM FOUNDATION STAGE TEACHER submitted for permanent sections. ??Grossed by SSF. [...] A1 Left sinonasal contents 1 5:37 AM FOUNDATION STAGE TEACHER A2 Left sinonasal contents 2 A3 Left [...] negative (Block 01/19/2021 STMA A3). 10:02 PM FOUNDATION STAGE TEACHER Signed by Daniel Cuevas M.D. [id number] 01/19/2021 10:02 PM Comment: REVISED RESULTS Interpretation FINAL DIAGNOSIS 01/19/2021 10:02 PM FOUNDATION STAGE TEACHER STMA A. ??Sinonasal contents, left, excision: ??Sinonasal [...] Volume Laterality Tissue (Nose) 01/11/2021 12:45 PM FOUNDATION STAGE TEACHER Tissue (Nose) 01/11/2021 12:53 PM FOUNDATION STAGE TEACHER Tissue (Nose) 01/11/2021 2:38 PM FOUNDATION STAGE TEACHER Narrative This result has an attachment that is no t available. Daphne Tatum M.D. LAB SURG PATH ORDERABLES Performing Organization Address City/State/ZIP Code Phon e Number [facility] - [address] [place], [place] [address] [place] [address] [facility] [address] documented in this encounter Visit Diagnoses Diagnosis Rhinosinusitis Chronic - Primary documented in this encounter Admitting Diagnoses Diagnosis Rhinosinusitis Chronic documented in this encounter Administered Medications Inactive Administered Medications - up to 3 most recent administrations Medication Order MAR Action Action Date Dose Rate Site fentaNYL injection 25 mcg Given 01/11/2021 3:28 PM FOUNDATION STAGE TEACHER 25 mcg (SUBLIMAZE) 25 mcg, intravenous, Every 2 min PRN, moderate pain or score 4-6 of 10, severe pain or score 7-10 of 10, Starting on Sun01/11/21 at 1031, PACU (only), Up to maximum total dose of 100 mcg Given 01/11/2021 3:22 PM FOUNDATION STAGE TEACHER 25 mcg metoprolol tablet 12.5 mg (LOPRESSOR) [...] 10 mg (ROXICODONE) Given 01/11/2021 3:37 PM FOUNDATION STAGE TEACHER 10 mg 10 mg, oral, Every 4 [...] may contain times in both CDT and FOUNDATION STAGE TEACHER. Scheduled Medication Order 01/09/2021 01/10/2021 01/11/2021 acetaminophen [...]
--- OUTSIDE RECORDS SUMMARY | 2021-12-07 12:59 | XMS_ITS | Encounter Summary ---
:1985 Author Organization [facility] Address [address] [place] [address] Care Team Providers Name Role Phone Unavailable Primary Care Provider Unavailable Encounter Details Date Type Department Care Team Description 06/22/2017 Orders Only Department of Ashley Victor, Otorhinolaryngology in [facility], [place] M.S.N. [address] [place] [address] [address] [place] [address] [place], [place] [phone] Social History Tobacco Use Types Packs/Day Years [...] How often do you attend taoism or zoroastrianism Never 02/18/2021 services? Do you [...]
--- OUTSIDE RECORDS SUMMARY | 2021-12-07 12:59 | XMS_ITS | Encounter Summary ---
:1985 Author Organization [facility] Address [address] [place] [address] Care Team Providers Name Role Phone Unavailable [...] How often do you attend mandaen or amish Never 02/18/2021 services? Do you [...]
--- OUTSIDE RECORDS SUMMARY | 2021-12-07 12:59 | XMS_ITS | Encounter Summary ---
:1985 Author Organization [facility] Address [address] [place] [address] Care Team Providers Name Role Phone Unavailable [...] How often do you attend rastafari or protestant Never 02/18/2021 services? Do you [...] athologist Signature Tryptase, S 3.0 <11.5 [facility] NG/ML [facility] Specimen Anatomical Collection Method Collection Time Receive d Time (Source) Location / / Volume Laterality 10/15/2015 4:26 AM 6 4:26 CDT AM CDT Onofre Brown M.D. LAB BLOOD ADD-ON Performing Organization Address City/State/ZIP Code Phon e Number [facility] - 200 [place], [place] [address] [facility] Hx general Pathology Report (10/14/2015 8:06 PM CDT) Specimen Anatomical Collection Method Collection Time Receive d Time (Source) Location / / Volume Laterality 10/14/2015 8:06 PM 6 8:06 CDT PM CDT Narrative [facility] - 10/14/2015 8:06 PM CDT ??10/14/2015 General Biopsy ? ([id number]) ? Requested By: Daphne Tatum M.D. ??[phone] ? SLIDE DISPOSITION: ? DIAGNOSIS: ?? A. Sinonasal cavity, bilateral contents , excision: Respiratory mucosa with chronic inflammation and nu merous eosinophils. ?? Participated in interpretation: Dr. Newberry. Pager: [phone]. ?? As the signing pathologist, I verify th at I have examined all relevant slides/materials for the speci men(s) and rendered or confirmed the diagnosis. ? 10/19/2015 11:59 Interpreted by: Darcy Steen M.D. [id number] Report electronically signed by Darcy Steen M.D. Transcribed by: [facility] 10/18/2015 16:09:23 ? TISSUE DESCRIPTION: [id number] A. ??Received fresh labeled bilateral sinus contents is an 8 x 7 x 2.5 cm aggregate of red soft tissue and cartilage. ??All soft tissue is submitted. ??Spanish Tutor sections are submitted for permanent sections only. ??Grossed by CDP. ? Part A: ??Bilateral sinus contents ?1 Bilateral sinus contents 1 ?2 Bilateral sinus contents 2 ?3 Bilateral sinus contents 3 ?4 Bilateral sinus contents 4 ?5 Bilateral sinus contents 5 ?6 Bilateral sinus contents 6 ?? XRSR Path ? Procedure Note 05/26/2017 10/14/2015 General Biopsy ([id number]) Requested By: Daphne Tatum M.D. [phone] SLIDE DISPOSITION: DIAGNOSIS: A. Sinonasal cavity, bilateral contents , excision: Respiratory mucosa with chronic inflammation and nu merous eosinophils. Participated in interpretation: Dr. Newberry. Pager: [phone]. As the signing pathologist, I verify th at I have examined all relevant slides/materials for the speci men(s) and rendered or confirmed the diagnosis. 10/19/2015 11:59 Interpreted by: Darcy Steen M.D. [id number] Report electronically signed by Darcy Steen M.D. Transcribed by: latricia 10/18/2015 16:09:23 TISSUE DESCRIPTION: [id number] A. Received fresh labeled bilateral si nus contents is an 8 x 7 x 2.5 cm aggregate of red soft tissue and cartilage. All soft tissue is submitted. Spanish Tutor sections a re submitted for permanent sections [...] Address City/State/ZIP Code Phon e Number [facility] - [address] [place], [place] [address] [facility] (ABNORMAL) Leukotriene E4, Urine (10/14/2015 10:00 AM CDT) [facility] gist Method Time Signature Leukotriene E4, 281 (H) <=104 [facility] [...] 10/14/2015 AM CDT 10:00 AM CDT Narrative [facility] - 10/20/2015 9:04 AM CDT Mailed In Specimen Alber Chapa M.D., Ph.D. LAB URINE ORDERABLES Performing Organization Address City/State/ZIP Code Phon e Number [facility] - [address] [place], [place] [address] [facility] documented in this encounter Visit Diagnoses Not on filedocumented in this encounter
--- OUTSIDE RECORDS SUMMARY | 2021-12-07 12:59 | XMS_ITS | Encounter Summary ---
:1985 Author Organization [facility] Address [address] [place] [address] Care Team Providers Name Role Phone Unavailable Primary Care Provider Unavailable Encounter Details Date Type Department Care Team Description 12/04/2017 Orders Only Department of Ashley Victor, Otorhinolaryngology in [facility], C.N.P.[place], [place] M.S.N. [address] [place] [address] [address] [place] [address] [place], [place] [phone] Social History Tobacco Use Types Packs/Day Years [...] How often do you attend moravian or yazidism Never 02/18/2021 services? Do you [...]
--- OUTSIDE RECORDS SUMMARY | 2021-12-07 12:59 | XMS_ITS | Encounter Summary ---
:1985 Author Organization [facility] Address [address] [place] [address] Care Team Providers Name Role Phone Unavailable [...] 02/18/2021 relatives? How often do you attend gnosticist or mormon Never 02/18/2021 services? Do you belong to any clubs or organizations such as No 02/18/2021 gnosticist groups, unions, fraternal or athletic groups, or [...]
--- OUTSIDE RECORDS SUMMARY | 2021-12-07 12:59 | XMS_ITS | Encounter Summary ---
:1985 Author Organization [facility] Address [address] [place] [address] Care Team Providers Name Role Phone Unavailable Primary Care Provider Unavailable Encounter Details Date Type Department Care Team Description 01/17/2021 Orders Only Department of [facility], Teresita Tena Otorhinolaryngology in [address] [place] [address] [place] [address] [place] [address] [phone] Social History Tobacco Use Types Packs/Day Years [...] How often do you attend uatsdin or synagogue Never 02/18/2021 services? Do you [...]
--- OUTSIDE RECORDS SUMMARY | 2021-12-07 12:59 | XMS_ITS | Encounter Summary ---
:1985 Author Organization [facility] Address [address] [place] [address] Care Team Providers Name Role Phone Unavailable Primary Care Provider Unavailable Reason for Visit Reason Comments Med Refill Encounter Details Date Type Department Care Team Description 12/03/2017 Refill Department of Otorhinolaryngology Ashley Victor, Med Refill in [facility] jorge HOFFMAN C.N.P., M.S.N. [address] [place] [address] [address] [place] [address] [place], [place] [phone] (Wo rk) Social History Tobacco Use Types [...] How often do you attend pentecostal or jain Never 02/18/2021 services? Do you [...]
--- OUTSIDE RECORDS SUMMARY | 2021-12-07 12:59 | XMS_ITS | Encounter Summary ---
:1985 Author Organization [facility] Address [address] [place] [address] Care Team Providers Name Role Phone Unavailable Primary Care Provider Unavailable Encounter Details Date Type Department Care Team Description 06/28/2017 Orders Only Department of Ashley Victor Otorhinolaryngology in [place], DOUBLE SPINDLE SHAPER OPERATOR, Nasal Polyps Asthma [place], [place] C.N.P., M.S.N. (Primary Dx) [address] [place] [address] [place] [address] [place], [place] [phone] Social History Tobacco Use Types Packs/Day Years [...] How often do you attend jewish or worship Never 02/18/2021 services? Do you belong to [...]
--- OUTSIDE RECORDS SUMMARY | 2021-12-07 12:59 | XMS_ITS | Encounter Summary ---
:1985 Author Organization [facility] Address 200 [place] [address] Care Team Providers Name Role Phone Unavailable [...] Expiration Date Visits Requ ested Visits Authorized [id number] 1 1 Encounter Details Date Type Department Care Team Description 01/11/2021 Surgery [facility] ROMB MAIN OR Daphne Tatum, ENDOSCOPIC MAXILLARY [facility] M.DXavier ANTROSTOMY, TISSUE [place], [place] 200 [facility] REMOVAL. [address] [place], [place] [phone] (Wo rk) Social History Tobacco Use Types [...] How often do you attend rastafari or tenriism Never 02/18/2021 services? Do you [...] or the highest technical, or vocational p [facility] degree you have received? Sex Assigned at Date Recorded Female 01/06/2021 8:49 AM CDT documented as of this encounter Last Filed Vital Signs Vital Sign Reading Time Taken Comments Blood Pressure 124/85 01/11/2021 3:30 PM [facility] [employer] Pulse 78 01/11/2021 3:55 PM [employer] Temperature 36.8 ??C (98.2 ??F) 01/11/2021 3:20 PM [employer] Respiratory Rate 14 01/11/2021 3:40 PM [employer] Oxygen Saturation 95% 01/11/2021 3:55 PM [employer] Inhaled Oxygen Concentration - - Weight 113 kg (248 lb 14.4 oz) 01/11/2021 10:10 AM [employer] Height 167.6 cm (5' 6) 01/11/2021 10:10 AM [employer] Body Mass Index 40.17 01/11/2021 10:10 AM [employer] documented in this encounter Discharge Instructions Discharge [...] or pain not relieved by pain medication. [employer] documented in this encounter Medications at Time [...] this encounter OR Notes Op Note - Mray Lema M.D. - 01/11/2021 12:22 PM CST [...] PACU in stable condition. Mary Lema M.D. [employer] documented in this encounter Miscellaneous Notes Result Encounter Note - Daphne Tatum M.D. - 01/21/2021 8:27 AM [employer] I have reviewed the final pathology report and the identified diagnosis is consistent with the patient's clinical presentation. [employer] Result Encounter Note - Mary Lema M.D. - 01/19/2021 10:38 PM CST I have reviewed the final pathology report and the identified diagnosis is consistent with the patient's clinical presentation. [employer] documented in this encounter Plan of Treatment Not on filedocumented as of this encounter Procedures Procedure Name Priority Date/Time Associated Diagnosis Comme nts SURGICAL PATHOLOGY, Routine 01/11/2021 12:45 Rhinosinusitis Ch ronic Results for this [facility] PM [employer] procedure are i n the results section. EXTRADURAL COMPUTER 01/11/2021 11:15 Rhinosinusitis Ch ronic NAVIGATION AM [employer] Case Notes DEPUTY SHERIFF GENERALIST/BAILIFF 958 ETHMOIDECTOMY ENDOSCOPY 01/11/2021 11:15 AM [employer] Rhinos inusitis Chronic Case Notes DEPUTY SHERIFF GENERALIST/BAILIFF 958 SINUSOTOMY ENDOSCOPY FRONTAL 01/11/2021 11:15 AM [employer] R hinosinusitis Chronic Case Notes DEPUTY SHERIFF GENERALIST/BAILIFF 958 ENDOSCOPIC SPHENOIDOTOMY WITHOUT 01/11/2021 11:1 5 AM [employer] Rhinosinusitis Chronic TISSUE REMOVAL Case Notes DEPUTY SHERIFF GENERALIST/BAILIFF 958 ENDOSCOPIC MAXILLARY ANTROSTOMY 01/11/2021 11:15 AM CS T Rhinosinusitis Chronic WITH TISSUE REMOVAL Case Notes DEPUTY SHERIFF GENERALIST/BAILIFF 958 documented in this encounter Results Surgical Pathology, Frozen Lab (01/11/2021 12:45 PM [employer]) Component Value Ref Test Analysis Performed Pathologis t Range Method Time At [facility] [employer] [employer] Lavinia in [place] 01/18/2021 [facility] the M.D. -Pathology 5:37 AM [employer] Interpretation Resident Report Daniel Cuevas M.D. [phone] [facility] electronically 5:37 AM [employer] signed by I verify that I have examined all relevant slides/materials for the specimen(s) and rendered or confirmed the diagnosis. Gross Description A. ??Received fresh labeled left sinonasal vin nts is a 01/18/2021 [facility] 7.4 x 5.1 x 0.9 cm aggregate of reed-red soft tissue. ??All 5:37 AM [employer] submitted for permanent sections. ??Grossed by SSF. [...] A1 Left sinonasal contents 1 5:37 AM [employer] A2 Left sinonasal contents 2 A3 Left [...] negative (Block 01/19/2021 [facility] A3). 10:02 PM [employer] Signed by Daniel Cuevas M.D. [phone] 01/19/2021 10:02 PM Comment: REVISED RESULTS Interpretation FINAL DIAGNOSIS 01/19/2021 10:02 PM [employer] [facility] A. ??Sinonasal contents, left, excision: ??Sinonasal [...] Volume Laterality Tissue (Nose) 01/11/2021 12:45 PM [employer] Tissue (Nose) 01/11/2021 12:53 PM [employer] Tissue (Nose) 01/11/2021 2:38 PM [employer] Narrative This result has an attachment that is no t available. Daphne Tatum M.D. LAB SURG PATH ORDERABLES Performing Organization Address City/State/ZIP Code Phon e Number [facility] - [address] [place], [place] [address] [place] [address] [facility] [address] [...] 12:25 1 application Bilateral Nares solution PM [employer] As needed, Starting on Sun01/11/21 at 1225, Intra-Op fentaNYL injection 25 mcg (SUBLIMAZE) Given 01/11/2021 3:28 PM [employer] 25 mcg 25 mcg, intravenous, Every 2 min PRN, moderate pain or score 4-6 of 10, severe pain or score 7-10 of 10, Starting on Sun01/11/21 at 1031, PACU (only), Up to maximum total dose of 100 mcg Given 01/11/2021 3:22 PM [employer] 25 mcg lidocaine-EPINEPHrine 1 Given 01/11/2021 12:24 PM 4 mL Bilateral Nares %-1:100,000 injection (XYLOCAINE [employer] W/EPI) As needed, Starting on Sun01/11/21 at [...] 10 mg (ROXICODONE) Given 01/11/2021 3:37 PM [employer] 10 mg 10 mg, oral, Every 4 [...] 1 application Bilateral Nares nasal spray (AFRIN) [employer] As needed, Starting on Sun01/11/21 at 1210, [...] may contain times in both CDT and [employer]. Scheduled Medication Order 01/09/2021 01/10/2021 01/11/2021 acetaminophen [...]
--- OUTSIDE RECORDS SUMMARY | 2021-12-07 12:59 | XMS_ITS | Encounter Summary ---
:1985 Author Organization [facility] Address [address] [place] [address] Care Team Providers Name Role Phone Unavailable Primary Care Provider Unavailable Reason for Referral MRI/CAT/PET Scan (Routine) - Closed Specialty Diagnoses / Procedures Referred By Contact Refer red To Contact Radiology Diagnoses Aspirin Reaction Nasal Polyps Asthma Mary Lema M.D. [facility] Procedures CT Sinuses without IV Contrast [address] [place] [address] Referral ID Status Reason Start Date Expiration Date Visits Requ ested Visits Authorized [id number] Closed 12/13/2020 12/13/2021 1 1 Encounter Details Date Type Department Care Team Description 12/13/2020 Orders Only Department of Mary Lema Aspirin React ion Otorhinolaryngology in [place] Nasal Polyps Asthma [address] [facility] (Primary Dx) [address] [place] [phone] Social History Tobacco Use Types Packs/Day Years [...] often do you attend roman catholic or congregational Never 02/18/2021 services? Do you [...]
--- OUTSIDE RECORDS SUMMARY | 2021-12-07 12:59 | XMS_ITS | Encounter Summary ---
:1985 Author Organization [facility] Address [address] [place] [address] Care Team Providers Name Role Phone Unavailable Primary Care Provider Unavailable Encounter Details Date Type Department Care Team Description 12/13/2020 Clinical Department of Lázaro Sebastian Otorhinolaryngology in [place], [place] [phone] [address] [facility] (Work) [place] [address] Social History Tobacco Use Types Packs/Day [...] How often do you attend evangelical or yarsani Never 02/18/2021 services? Do you [...]
--- OUTSIDE RECORDS SUMMARY | 2021-12-07 12:59 | XMS_ITS | Encounter Summary ---
:1985 Author Organization [facility] Address [address] [place] [address] Care Team Providers Name Role Phone Unavailable [...] How often do you attend adventism or taoist Never 02/18/2021 services? Do you [...]
--- NOTE | 2021-12-07 13:00 | CRLHL7_ITS ---
For Patients: As a result of the Cures Act, medical imaging exams and procedure reports are released immediately into your electronic medical record. You may view this report before your referring provider. If you have questions, please contact your health care provider. OB ULTRASOUND CLINICAL HISTORY: Chronic hypertension. JEYSON by LMP: 12/19/2021. GA: 38 w, 2 d. Single. CERVIX: Not visualized. POSITIONING: Vertex. AMNIOTIC FLUID: 6.8 cm. BIOPHYSICAL PROFILE: Total score: 8/8. Gross body movements: 2. tone: 2. Respiratory activity: 2. Amniotic fluid: 2. (SDP N: Increase 2 x 1 cm) IMPRESSION: Biophysical profile score 8/8. Shawna Baeza M.D. Diagnostic/Breast Radiologist [employer] [email or web address] IVONE/Dictated by: Shawna Baeza MD @ 12/07/2021 2:45:00 PM (Electronically Signed)
== END 2021-12-07 12:57 | disposition home or self-care (01) ==
PROVIDERS: Visit Provider Obstetrics & Gynecology
DX: O10.913 Unspecified pre-existing hypertension complicating pregnancy, third trimester (principal); Z3A.38 38 weeks gestation of pregnancy
CPT/HCPCS: 76819

== ENCOUNTER 2021-12-12 05:04 | Inpatient (IN) | payer BC, SELFPAY ==
[2021-12-12] VITALS (22 sets, daily range): BP systolic 97–131; BP diastolic 62–85; PULSE 65–88; RESP 16–20; TEMP 36.6–37.1; O2SAT 96–99; BMI 41.5
[2021-12-12] MEDS: LACTATED RINGERS 1000 ML 1,000 ML 970 ML IV (06:24)
[2021-12-12 06:45] LABS: Basophils Percent Auto 0.2 % (0.0-3.0); Eosinophils Percent Auto 1.6 % (0.0-7.0); Hematocrit 37.9 % (33.0-51.0); Hemoglobin* 12.4 gm/dL (12.0-16.0); Immature Granulocytes Abs Auto 0.02 K/uL (0.00-0.30); Mean Corpuscular HGB Conc 33 gm/dL (32-36); Mean Corpuscular Hemoglobin 29 pg (26-34); Mean Corpuscular Volume 87 fL (80-100); Monocytes Percent Auto 5.5 % (0.0-11.0); Neutrophils Percent Auto 72.5 % (42.0-72.0); Platelet Count* 239 K/uL (140-440); RDW Coefficient of Variation % 12.5 % (11.5-15.5); Red Blood Count 4.34 m/uL (4.00-5.20); Slide Review Reflex No; White Blood Count* 11.19 K/uL (4.50-11.00)
--- NOTE | 2021-12-12 07:11 | P.PCN_ITS ---
Procedure Note Time Seen by Provider: 07:11 Date Seen: 12/12/21 Date of procedure: 12/12/21 Will [facility] bill your pro fee for this procedure?: Yes Procedure: Preoperative diagnosis: 36-year-old 3 para 2000 at 39 and 0/7 weeks ad mitted for a scheduled repeat low transverse section. Postoperative diagnosis: Same Procedure: Repeat low-transverse section. Anesthesia: Spinal Surgeon: Edie Lopes MD Boatswains Mate: Corina Merino MD Quantitative blood loss: 805 mL IVF: 1700 mL UOP: 500 mL, clear urine at the end of the procedure. Drain(s): Garcia to gravity. Specimen: None. The patient and spouse requested umbilical cord collection which was performed after cord clamp of the . Findings: A live male was delivered from the direct OA position at 8:08 a.m.. Apgars were 9 at 1 min and 9 at 5 min, respectively. Infant weight: 7 lb 11 oz. Nuchal cord(s): No. The placenta was delivered spontaneously and complete at 8:11 a.m.. Amniotic fluid: Clear, large amount. Normal uterus, fallopian tubes and ovaries were noted. Other findings: Minimal adhesions. Baby's name is Sae. Krystal is planning on breast feeding. Procedure: Krystal was taken to the OR where spinal anesthetic was found be adequate. A Garcia catheter was placed. The patient was then placed in the dorsal supine position with a leftward tilt. She was then prepped and draped in a normal sterile [facility] er. A Pfannenstiel skin incision was made and carried through sharply to the underlying layer of fascia. Fascia was incised in the midline and this incision carried laterally with Guaman scissors. The superior aspect of fascial incision was grasped with Parish clamps, tented up, and the rectus muscles dissected off with a combination of blunt and bipolar cautery dissection. The inferior aspect of the fascial incision was grasped with Parish clamps, tented up and again the rectus muscles dissected off with a combination of blunt and bipolar cautery dissection. The rectus muscles were in the midline and the midline was taken down in layers using Guaman scissors. The peritoneum was entered bluntly. This opening was extended bluntly. An Darinel-O self-retaining retractor was placed. A bladder flap was not created. Uterus was incised in a low transverse manner in the midline. This incision carried laterally with blunt pressure on the inferior and superior aspects of the uterine incision. The amniotic sac was ruptured. The infant's head and body were delivered atraumatically. The infant was shown to the patient and her support person. The umbilical was clamped and cut immediately/after a 30 second delay. The umbilical cord was then prepped with Betadine and umbilical cord blood collection was performed over 3 minutes. The was then handed to waiting nursing staff. The placenta was delivered spontaneously. The uterus was cleared of clots and debris. The uterine incision was re-approximated with the uterus in vivo. The 1st layer using 0-Vicryl in a running, locked manner. The 2nd layer using 0-Monocryl in a running, vertical, imbricating layer. Additional sutures needed for hemostasis: Yes: 2 figure of 8 sutures using 0- Vicryl and 3 figure of 8 sutures using 2-0 chromic. Olivia was applied to the uterine incision. Excellent hemostasis was confirmed. The Darinel retractor was removed. The peritoneum was then reapproximated using 3-0 Vicryl in a running manner. The rectus muscles were not reapproximated. The rectus muscles were then closely inspected to verify hemostasis. Hemostasis was obtained with bipolar cautery. The fascia was then reapproximated using 0-Maxon loop in a running manner. The subcutaneous tissue was then irrigated with saline and hemostasis obtained with bipolar cautery. The subcutaneous tissue was reapproximated using 3-0 plain gut interrupted sutures. The skin was reapproximated using 4-0 Monocryl in a running subcuticular manner. A silver-containing Methaplex dressing was applied. The patient tolerated this procedure well. Sponge, lap and instrument counts were correct x2 active to the procedure. Patient was taken to the recovery area in stable condition. The patient received 3 g of IV Ancef prior to skin incision. 1gm IV TXA given after cord clamp. 400mg buccal cytotec after cord clamp. Surgeon: Edie Lopes MD
[2021-12-12 07:36] LABS: SARS PCR* Negative SARS-CoV-2 (Negative)
[2021-12-12] MEDS: CEFAZOLIN 3 GM in 0.9 % SODIUM CHLORIDE Mini-bag 100 ML IVPB (07:45)
--- NOTE | 2021-12-12 08:05 | SUR.OPER ---
Patient was assisted to the OR5 by [facility] RN's on foot. Patient was assisted onto the OR table and covered with 2 warm blankets.
[2021-12-12] MEDS: LACTATED RINGERS 1000 ML 1,000 ML 100 ML IV ×2 (08:22→11:44)
[2021-12-12] MEDS: miSOPROStoL 800 MCG/4 TABLET 400 MCG PR (08:53)
--- NOTE | 2021-12-12 09:21 | W.PM.NB ---
Nerve Block Nerve Block Time Seen by Provider: 09:00 Date Seen: 12/12/21 Type of block requested by surgeon for post-operative analgesia: TAP Side: bilateral Time out performed: Yes Verification of patient name: Yes Verification of date of : Yes Site marking: site marked Name of person performing procedure: Malcolm Continuous monitoring Was continuous monitoring of O2 sat, B/P, cardiac catheterization technician, recorded every 15 minutes?: Yes Procedure Checklist: sterile prep, needles and gloves Ultrasound guided. Images saved: Yes Medications given in 5ml increments after negative aspiration: Marcaine %: 0.25 mL: 30 Needle gauge: 20 and Exparel mL: 10 Patient tolerated procedure well: Yes Additional comments: Needle noted adjacent to nerve Block Charges Block Charge (with Pro Fee): TAP Bilateral Use of Ultrasound Machine for Block: Yes- US Guidance/pain block
[2021-12-12] MEDS: ACETAMINOPHEN 500 MG TABLET 1000 MG PO ×2 (10:03→17:27)
--- NOTE | 2021-12-12 10:12 | W.ANESCHARGE ---
Anesthesia Charges Start Date/Time Anesthesia Start Date: 12/12/21 Anesthesia Start Time: 07:18 Stop Date/Time Anesthesia Stop Date: 12/12/21 Anesthesia Stop Time: 09:06 Summary Emergency: No
--- NOTE | 2021-12-12 10:32 | W.ANESCHARGE ---
Anesthesia Charges Start Date/Time Anesthesia Start Date: 12/12/21 Anesthesia Start Time: 07:18 Stop Date/Time Anesthesia Stop Date: 12/12/21 Anesthesia Stop Time: 09:06 Summary Emergency: No
[2021-12-12] MEDS: OXYCODONE 5 MG TABLET PO ×2 (20:12→22:37)
[2021-12-12] MEDS: LABETALOL HCL 100 MG TABLET 50 MG PO (21:15)
[2021-12-12] MEDS: SIMETHICONE 80 MG TAB.CHEW PO (22:20)
[2021-12-13] MEDS: OXYCODONE 5 MG TABLET PO ×4 (00:07→12:20)
[2021-12-13] MEDS: ACETAMINOPHEN 500 MG TABLET 1000 MG PO ×4 (00:08→18:56)
[2021-12-13 00:12] VITALS: BP 118/75; PULSE 87; RESP 18; TEMP 37.2
[2021-12-13 04:20] VITALS: BP 106/69; PULSE 78; RESP 18; TEMP 37.1; O2SAT 96
[2021-12-13 07:12] LABS: Hemoglobin* 10.8 gm/dL (12.0-16.0)
[2021-12-13 07:49] VITALS: BP 115/79; PULSE 86; RESP 18; TEMP 37.1; O2SAT 97
[2021-12-13] MEDS: SIMETHICONE 80 MG TAB.CHEW PO ×3 (07:54→16:24)
[2021-12-13] MEDS: DOCUSATE SODIUM 100 MG CAPSULE PO ×2 (07:55→21:59)
[2021-12-13] MEDS: LABETALOL HCL 100 MG TABLET 50 MG PO ×2 (09:06→21:58)
[2021-12-13] MEDS: FERROUS SULFATE 325 MG TABLET PO (09:07)
--- NOTE | 2021-12-13 09:07 | PM.OBPNCS1 ---
OB - PN: A/P Assessment and Plan (1) Lactating mother: Status: Acute (2) Status post repeat low transverse section: Status: Acute (3) Chronic hypertension affecting : Problem details: Labetalol 50 mg b.i.d. Status: Acute Plan PP day 1 -continued routine PP cares -anticipate discharge home tomorrow or the following day per pt preference Mild acute anemia Increased pain, taking more oxycodone as she cannot take NSAIDS -continue pain medications as directed -continue colace, mirlax ordered, pt encouraged to move to help w/ gas pain , going well -may see if desired chronic hypertension -well controlled on current labetalol dose Plan day: 1 Plan: routine postop care OB - PN: Subj Subjective Time Seen by Provider: 09:09 Date Seen: 12/13/21 Interval history: Patient is a 36year old, G 4 now P 3? admitted on 12/12/21 at 39 Weeks, 0 Days gestation for repeat .? She had an uncomplicated delivery.? She delivered a viable .? She is breast feeding and reports things are well.? the patient has done well.? She is unable to take ibuprofen and has been struggling with pain relief. This may also be related to gas pain. Has not passed gas yet or had a bowel movement. She has a hx of chronic hypertension and is currently continued w/ her labetalol dose. Vitals have been stable.? She has remained afebrile. Garcia has been removed, but she is not voiding yet. Patient comments: incisional pain and tolerating diet; no pain well controlled (Likely r/t gas pain in addition to incision pain. ) or no flatus present [place] status: [place] feeding status: exclusively OB - PN: Obj Exam Physical Exam: Vital signs: Temp Pulse Resp BP Pulse Ox O2 Del Method 98.8 F 86 18 115/79 97 12/13/21 07:49 12/13/21 07:49 12/13/21 07:49 12/13/21 07:49 12/13/21 07:49 12/13/21 07:49 Constitutional: Constitutional: no acute distress Routine HEENT Exam: Head: Present normocephalic Routine Neck Exam: Neck: Present full ROM Routine Respiratory Exam: Respiratory: Present CTA bilaterally Routine Cardiovascular Exam: Cardiovascular: Present RRR Routine Abdominal Exam: Abdominal: Present firm (upper abdomen, likely r/t gas) and normal bowel sounds Fundus: Present firm Routine Extremities Exam: Extremities: Present full ROM; Absent pedal edema Routine Back/Spine/Pelvis Exam: Back/Spine: Present full ROM Routine Skin Exam: Skin: Present dry and intact Routine Neurological Exam: Neurological: Present alert and oriented X3 Routine Psychiatric Exam: Psychiatric: Present normal affect Wound Management: Examination: Present dressed, clean, dry and intact OB - PN: Obj Data Labs Labs: Laboratory Results - last 24 hr 12/13/21 06:49 Hgb 10.8 L
[2021-12-13] MEDS: ONDANSETRON ODT 4 MG TAB PO (15:33)
[2021-12-13 15:44] LABS: Hematocrit 35.5 % (33.0-51.0); Hemoglobin* 11.4 gm/dL (12.0-16.0); Mean Corpuscular HGB Conc 32 gm/dL (32-36); Mean Corpuscular Hemoglobin 28 pg (26-34); Mean Corpuscular Volume 89 fL (80-100); Platelet Count* 226 K/uL (140-440); Red Blood Count 4.01 m/uL (4.00-5.20); White Blood Count* 13.88 K/uL (4.50-11.00)
[2021-12-13 15:54] VITALS: BP 131/88; PULSE 91; RESP 18; TEMP 36.4; O2SAT 97
[2021-12-13 15:59] LABS: Slide Review Reflex No
[2021-12-13 16:04] LABS: Creatinine* 0.5 mg/dL (0.5-1.5); Est. Creatinine Clearance* 147.01; Estimated Glomerular Filt Rate 125 ml/min
[2021-12-13 16:05] LABS: Aspartate Amino Transferase* 29 U/L (12-35); Blood Urea Nitrogen* 7 mg/dL (5-24)
[2021-12-13 16:07] LABS: Alanine Aminotransferase* 24 U/L (4-35)
--- NOTE | 2021-12-13 17:11 | CRLHL7_ITS ---
For Patients: As a result of the Century Cures Act, medical imaging exams and procedure reports are released immediately into your electronic medical record. You may view this report before your referring provider. If you have questions, please contact your health care provider. Indication: Abdominal pain post Technique: Supine view abdomen was obtained. Comparison: None available. Findings: There are markedly dilated gas-filled loops of central small bowel with moderate stool seen throughout the colon. There is no pathologic calculus. There is no intraabdominal free air. The visualized osseus structures are grossly intact. Impression: Markedly dilated, gas-filled loops of central small bowel which may represent developing postoperative ileus versus obstruction. No evidence of pathologic calculus. Dictated by Polo Cheng MD @ 12/13/2021 6:40:29 PM (Electronically Signed)
[2021-12-13 17:24] LABS: Chloride* 103 mmol/L (96-114); Potassium* 4.2 mmol/L (3.6-5.1); Sodium* 134 mmol/L (135-149)
[2021-12-13 17:27] LABS: Carbon Dioxide* 24 mmol/L (20-32); Creatinine* 0.5 mg/dL (0.5-1.5); Est. Creatinine Clearance* 147.01; Estimated Glomerular Filt Rate 125 ml/min
[2021-12-13 17:28] LABS: Blood Urea Nitrogen* 7 mg/dL (5-24); Calcium* 9.2 mg/dL (8.4-10.6); Glucose* 103 mg/dL (60-115)
--- NOTE | 2021-12-13 19:06 | PM.OBPNCS1 ---
OB - PN: A/P Assessment and Plan (1) Lactating mother: Status: Acute (2) Status post repeat low transverse section: Status: Acute (3) Chronic hypertension affecting : Problem details: Labetalol 50 mg b.i.d. Status: Acute (4) Postoperative ileus: Problem details: Continued abdominal distension and worsening nausea. No vomiting at this time On my physical exam, high suspicious of postoperative ileus. Status: Acute Assessment and Plan: - Abdominal X-ray ordered - BMP ordered to check for electrolyte derangements - NPO bowel rest overnight. IV fluid for normovolemia. Will not drop NG tube for bowel decompression unless patient starts having emesis or no improvement with conservative management after 48 hours. - Suppository ordered - Will continue to monitor OB - PN: Subj Subjective Time Seen by Provider: 15:00 Date Seen: 12/13/21 Interval history: Patient is a 36year old, G 4 now P 3? admitted on 12/12/21 at 39 Weeks, 0 Days gestation for repeat .? She had an uncomplicated delivery.? She delivered a viable .? She is breast feeding and reports things are well.? the patient has been complaining of increasing abdominal distension and uncontrolled pain.? She notes that her pain is localized to upper abdomen and is intolerable . She is unable to take ibuprofen and has been struggling with pain relief. Has not passed gas yet or had a bowel movement. She has a hx of chronic hypertension and is currently continued w/ her labetalol dose. Her ALT/AST drawn today at 1530 were wnl. Vitals have been stable.? She has remained afebrile. She is voiding without issues. OB - PN: Obj Exam Physical Exam: Vital signs: Temp Pulse Resp BP Pulse Ox O2 Del Method 97.5 F L 91 18 131/88 97 12/13/21 15:54 12/13/21 15:54 12/13/21 15:54 12/13/21 15:54 12/13/21 15:54 12/13/21 15:54 Narrative: Physical exam: General: Patient in bed in tears Psych: Alert and oriented x3, full affect HEENT: Normocephalic, atraumatic Neck: No cervical adenopathy, no thyromegaly Heart: Regular rate and rhythm, no murmur rub or gallop Lungs: Clear to auscultation bilaterally. Difficulty with full lung expansion due to pain Abdomen: Tympanic and distended in upper abdomen. Hypoactive bowel sounds. No rebound or guarding. Incision clean, dry, and dressing intact. No blood noted on silver dressing. Incision is appropriately tender and no the source of her pain. Lower extremities: 1+ bilateral edema. Pelvic exam: Deferred Urinary Catheter Management: 2-way Urethral: Cath placed during this visit: yes, but has since been removed by the nurse Reason for continuing: decision to DC catheter Removal date: 12/13/21 Removal time: 08:00 OB - PN: Obj Data Labs Labs: Laboratory Results - last 24 hr 12/13/21 12/13/21 12/13/21 06:49 15:35 15:35 WBC 13.88 H RBC 4.01 Hgb 10.8 L 11.4 L Hct 35.5 MCV 89 MCH 28 MCHC 32 Plt Count 226 Sodium Potassium Chloride Carbon Dioxide BUN 7 Creatinine 0.5 Estimated Creat Clear 147.01 Estimated GFR 125 Glucose Calcium AST 29 ALT 12/13/21 12/13/21 15:35 15:35 WBC RBC Hgb Hct MCV MCH MCHC Plt Count Sodium 134 L Potassium 4.2 Chloride 103 Carbon Dioxide 24 BUN 7 Creatinine 0.5 Estimated Creat Clear 147.01 Estimated GFR 125 Glucose 103 Calcium 9.2 AST ALT 24
[2021-12-13 20:43] VITALS: BP 123/90; RESP 16; TEMP 37; O2SAT 95
[2021-12-13] MEDS: SENNOSIDES/DOCUSATE TABLET 1 TAB PO (22:12)
[2021-12-13] MEDS: hydrOXYzine pamoate 25 MG CAPSULE 100 MG PO (22:30)
[2021-12-13] MEDS: LACTATED RINGERS 1000 ML 1,000 ML 125 ML IV (23:05)
[2021-12-13 23:12] VITALS: BP 124/82; PULSE 80; RESP 16; TEMP 36.9; O2SAT 95
[2021-12-14] MEDS: ACETAMINOPHEN 500 MG TABLET 1000 MG PO ×3 (01:11→20:07)
[2021-12-14 04:50] VITALS: BP 114/79; PULSE 77; RESP 16; TEMP 36.6; O2SAT 96
[2021-12-14] MEDS: LACTATED RINGERS 1000 ML 1,000 ML 125 ML IV (07:21)
[2021-12-14 08:22] VITALS: BP 125/89; PULSE 82; RESP 18; TEMP 36.9; O2SAT 95
[2021-12-14] MEDS: DOCUSATE SODIUM 100 MG CAPSULE PO ×2 (08:38→21:00)
[2021-12-14] MEDS: OXYCODONE 5 MG TABLET PO ×4 (08:38→20:06)
[2021-12-14] MEDS: SIMETHICONE 80 MG TAB.CHEW PO (08:43)
--- NOTE | 2021-12-14 08:56 | PM.OBPNCS1 ---
OB - PN: A/P Assessment and Plan (1) Lactating mother: Status: Acute (2) Status post repeat low transverse section: Problem details: Pain management has been problematic. Patient unable to take NSAIDs due to allergy. Continue Tylenol q.6 hours. Will try dose of oxycodone this morning, limiting narcotics as needed as these can be constipating. Also recommended switching Vistaril to 25 mg p.o. q.6 hours p.r.n., to help avoid somnolence. Status: Acute (3) Chronic hypertension affecting : Problem details: Labetalol 50 mg b.i.d. Status: Acute (4) Postoperative ileus: Problem details: Ileus appears to be resolving. Will advanced to clear liquid diet. Hold iron supplement for now. Status: Acute Plan day: 2 Plan: other OB - PN: Subj Subjective Date Seen: 12/14/21 Interval history: Patient is a 36year old, G 4 now P 3? admitted on 12/12/21 at 39 Weeks, 0 Days gestation for repeat .? She had an uncomplicated delivery.? She delivered a viable .? She is breast feeding and reports things are well.? She has developed a ileus. Overnight, she did have 2 small bowel movements and has passed some gas. She is unable to take ibuprofen and is still struggling with pain relief. She last used oxytocin at noon yesterday, and she had Tylenol late last evening. She was unhappy with Vistaril 100 mg overnight, because it made her too drowsy. She has a hx of chronic hypertension and is currently continued w/ her labetalol dose. She denies nausea or vomiting. Vitals have been stable.? She has remained afebrile. She is voiding without issues. Patient comments: flatus present status: OB - PN: Obj Exam Physical Exam: Vital signs: Temp Pulse Resp BP Pulse Ox O2 Del Method 98.5 F 82 18 125/89 95 12/14/21 08:22 10 08:22 12/14/21 08:22 12/14/21 08:22 12/14/21 08:22 12/14/21 08:22 Constitutional: Constitutional: no acute distress Routine Respiratory Exam: Respiratory: Present CTA bilaterally Routine Cardiovascular Exam: Cardiovascular: Present RRR Routine Abdominal Exam: Abdominal: Present diminished bowel sounds and distended; Absent tenderness Fundus: Present firm Wound Management: Examination: Present clean and dry Urinary Catheter Management: 2-way Urethral: Cath placed during this visit: yes, but has since been removed by the nurse Reason for continuing: decision to DC catheter Removal date: 12/13/21 Removal time: 08:00 OB - PN: Obj Data Labs Labs: Laboratory Results - last 24 hr 12/13/21 12/13/21 12/13/21 15:35 15:35 15:35 WBC 13.88 H RBC 4.01 Hgb 11.4 L Hct 35.5 MCV 89 MCH 28 MCHC 32 Plt Count 226 Sodium Potassium Chloride Carbon Dioxide BUN 7 Creatinine 0.5 Estimated Creat Clear 147.01 Estimated GFR 125 Glucose Calcium AST 29 ALT 24 12/13/21 15:35 WBC RBC Hgb Hct MCV MCH MCHC Plt Count Sodium 134 L Potassium 4.2 Chloride 103 Carbon Dioxide 24 BUN 7 Creatinine 0.5 Estimated Creat Clear 147.01 Estimated GFR 125 Glucose 103 Calcium 9.2 AST ALT
[2021-12-14] MEDS: LABETALOL HCL 100 MG TABLET 50 MG PO ×2 (12:18→21:00)
[2021-12-14] MEDS: SENNOSIDES/DOCUSATE TABLET 1 TAB PO (12:20)
[2021-12-14] MEDS: hydrOXYzine pamoate 25 MG CAPSULE PO (15:59)
[2021-12-14 16:01] VITALS: BP 114/79; PULSE 79; RESP 18; TEMP 36.9; O2SAT 96
[2021-12-14 23:02] VITALS: BP 125/84; PULSE 97; RESP 16; TEMP 36.6; O2SAT 97
[2021-12-15] MEDS: OXYCODONE 5 MG TABLET PO ×3 (00:26→09:02)
[2021-12-15] MEDS: ACETAMINOPHEN 500 MG TABLET 1000 MG PO ×2 (05:02→11:06)
[2021-12-15 08:27] VITALS: BP 132/82; PULSE 64; RESP 16; TEMP 36.6; O2SAT 97
[2021-12-15] MEDS: DOCUSATE SODIUM 100 MG CAPSULE PO (08:43)
[2021-12-15] MEDS: SENNOSIDES/DOCUSATE TABLET 1 TAB PO (08:43)
[2021-12-15] MEDS: LABETALOL HCL 100 MG TABLET 50 MG PO (08:43)
--- NOTE | 2021-12-15 08:43 | P.DS_ITS ---
DS: Providers Provider Date Seen: 12/15/21 Date of admission: 12/12/21 05:04 Primary care physician: Not a Local Provider Admitting Clinician: Edie Lopes MD Attending Physician on discharge: Fe Tran CNM DS: Diagnosis Discharge Diagnosis (1) care and examination immediately after delivery: Status: Acute (2) Postoperative ileus: Status: Acute Problem details: Ileus appears to be resolving. Hold iron supplement for now. Will advance to regular diet today. Colace BID, Senna BID, and Miralax PRN. Increase oral fluids, promote activity, and continue bowel regimen. (3) Generalized anxiety disorder: Status: Acute (4) Lactating mother: Status: Acute (5) Status post repeat low transverse section: Status: Acute (6) Obesity: Status: Acute Problem details: BMI 41.5 on 12/12/21 (7) Asthma: Status: Acute Problem details: Fluticasone and albuterol inhaler p.r.n., using approximately twice weekly Exam Const: Vital Signs, click to edit/add: Vital Signs - 24 hr 12/14/21 16:01 12/14/21 23:02 12/15/21 08:27 Temperature 98.4 F 97.8 F 97.8 F Pulse Rate [Pulse Oximeter] 79 97 64 Respiratory Rate 18 16 16 Blood Pressure [Le ft Arm] 114/79 125/84 132/82 Pulse Oximetry 96 97 97 Oxygen Delivery Me thod Room Air Room Air Room Air Documenting provider has reviewed patient's vital signs: yes Common normals: no apparent distress, oriented x3, healthy appearing and alert HENMT: Common normals: normocephalic Head and scalp: normocephalic Eye: Common normals: PERRL Pupil: PERRL Neck & C-Spine: Common normals: full ROM and supple Chest: Common normals: inspection of chest normal Resp: Common normals: normal respiratory effort and clear to auscultation bilaterally Auscultation: clear to auscultation bilaterally Cardio: Common normals: regular rate and regular rhythm Rate: regular rate Rhythm: regular rhythm GI: Common normals: soft to palpation Auscultation: hypoactive bowel sounds Palpation: soft; non-tender : Uterus: U/U Lochia: scant Back & Pelvis: Common normals: thoracic and lumbar spine normal to inspection Extremity: Common normals: normal to inspection and full ROM Neuro: Common normals: oriented x3 Sensorium/orientation: alert Speech: speech normal Psych: Common normals: mental status grossly normal, thought process normal, speech normal and activity/motor behavior normal Speech: normal speech Thought process: normal thought process Skin: Common normals: no rashes or lesions noted Narrative: Lower transverse abdominal incision: Dressing intact; clean, dry and intact General skin exam: no rashes or lesions noted OB - DS: Summary Hospital Course Hospital Course: The patient is a 36 year old G 4 P 3013 at 39 0/7 weeks gestation that was admitted to the [facility] on 12/12/21 for repeat section. She had an uncomplicated delivery. She delivered a viable male infant. She is Breast feeding and reports it is going well. Her was complicated by post-operative ileus. Initially she was on bowel rest and progressed to a clear liquid diet. She has been tolerating this well. She is passing gas and has had two small bowel movements. She is ambulating independently. Pain is well controlled with Tylenol and oxycodone when needed. She will advance to a regular diet today, if tolerating well will discharge home with bowel plan. Peripartum Data Procedures: Procedures Operation Date: 12/12/21 07:00 Actual Procedure Side Surgeon p Repeat low transverse Section Edie Lopes MD complications: other (postoperative ileus, resolving with medication and diet changes) [place] Gender: Male Discharge Plan: Home Status at Discharge Functional status at discharge: independent ambulation Overall status at discharge: patient is progressing back to baseline Time Spent with Patient Time attestation: Total time spent providing and/or coordinating discharge services: Time spent: Greater than 30 minutes Discharge Plan Discharge Disposition: Home, Self-Care Date of Admission: 12/12/21 05:04 Attending Provider on Discharge: Fe Tran Primary Care Provider: Provider,Not a Local Condition: Stable Anticipated Discharge Date/Time: 12/14/21 12:30 Discharge Medications: New ferrous sulfate 325 mg (65 mg iron) Tablet 325 mg PO DAILYWM 60 Days Qty: 100 0RF docusate sodium 100 mg Capsule 100 mg PO BID PRN (Reason: constipation) 60 Days Qty: 120 0RF oxycodone 5 mg Tablet 5 mg PO 3XD PRN (Reason: Pain) 7 Days Qty: 21 0RF acetaminophen 500 mg Tablet 1,000 mg PO Q6H PRN (Reason: Pain) Qty: 0 0RF labetalol 100 mg Tablet 50 mg PO BID Qty: 0 0RF sennosides-docusate sodium [Stool Softener-Laxative] 8.6-50 mg Tablet 1 tab PO BID Qty: 90 0RF polyethylene glycol 3350 [Miralax] 17 gram Powder In Packet 17 g PO DAILY PRN (Reason: Constipation) Qty: 14 0RF Continued budesonide 0.5 mg/2 mL suspension for nebulization 0.5 mg irrigation BID albuterol sulfate [Ventolin HFA] 90 mcg/actuation HFA aerosol inhaler 90 mcg inhalation BID Arnuity Ellipta 200 mcg/actuation blister with device 1 inh inhalation DAILY prenat.vits,stephanie,[id number] Tablet 1 tab PO QDAY Discontinued labetalol 100 mg tablet 50 mg PO BID Discharge Orders: Discharge Order (Routine); Ordered 12/15/21 Ordered By: Fe Tran Patient Education: OB Over the Counter Medication Information, OB /Breast Feeding Additional Instructions: Discharge instructions were reviewed with the patient including signs and symptoms of infection and home going medications Activity Restrictions: Lifting Restrictions: 20 pounds for 6 weeks. No not submerge incision under water X 2 weeks? Nothing vaginally for 6 weeks: no tampons or intercourse. Do not drive while taking narcotic pain medication(s). Off Work or School for a minimum of 8 weeks. Continue bowel regimen for normal bowel regimen. May cut down on doses if having multiple loose stools. Oxycodone is constipating. Continue to increase oral hydration and ambulate to encourage intestinal movement. Eat smaller portions throughout day to help reduce discomfort and advance diet as tolerated. 1 week: dressing removal and incision check, discuss infant feeding concerns, review control options and screen for anxiety/depression. 6-week visit for an annual exam. consultation services are available to all mothers and babies for the first year after delivery.? To make an appointment, please call [phone]. Discharge Diet: Regular Follow Up Appointments: [facility] [Provider Group] Forms: [employer] Management Info Instructions
== END 2021-12-15 12:30 | disposition home or self-care (01) | DRG 540 ==
PROVIDERS: Advanced Practice Midwife; Obstetrics & Gynecology; Admitting Provider Obstetrics & Gynecology; Visit Provider Obstetrics & Gynecology
PROC: 10D00Z1 Extraction of Products of Conception, Low, Open Approach (ICD-10-PCS; CPT 59514; principal; 2021-12-12 07:00)
DX: O34.211 Maternal care for low transverse scar from previous cesarean delivery (principal); O10.92 Unspecified pre-existing hypertension complicating childbirth; O99.63 Diseases of the digestive system complicating the puerperium; K91.89 Other postprocedural complications and disorders of digestive system; K56.7 Ileus, unspecified; O99.344 Other mental disorders complicating childbirth; F41.1 Generalized anxiety disorder; O99.214 Obesity complicating childbirth; E66.9 Obesity, unspecified; J45.909 Unspecified asthma, uncomplicated; Z3A.39 39 weeks gestation of pregnancy; Z37.0 Single live birth
CPT/HCPCS: 01961; 01968; 36415; 64488; 74018; 76942; 80048; 82565; 84450; 84460; 84520; 85018; 85025; 85027; 86850; 86900; 86901; 87635; A9270; C9290; J0592; J0690; J2274; J2370; J2405; J3010; J3490; J7120

== ENCOUNTER 2021-12-21 10:20 | Outpatient (CLI) | payer BC, SELFPAY ==
--- OUTSIDE RECORDS SUMMARY | 2021-12-27 11:06 | XMS_ITS | Clinical Summary ---
:1985 Author Organization [facility] Address [address] [place] [address] Care Team Providers Name Role Phone Unavailable Primary Care Provider Unavailable Source Comments Patient records contain information from all sites at [facility]. For routine questions regarding patient records, call [phone] during business hours, M-F 8:00 AM - 5:00 PM Central Time. Record requests for emergency care only can be directed to [phone] at any time.[facility] Allergies Active Allergy Reactions Severity Noted [...] Added automatically from request for chandler haskins [id number] Aspirin Reaction Nasal Polyps Asthma 09/24/2015 Asthma [...] drinks on one occasion? No t asked Social Isolation Answer Date Recorded In a typical week, how many times do you talk on Patient ref used 02/18/2021 the phone with family, friends, or neighbors? How often do you get together with friends or Twice a week 02/18/2021 relatives? How often do you attend jainism or taoist Never 02/18/2021 services? Do you [...] Comments Blood Pressure 130/89 01/11/2021 5:00 PM ELECTRONICS TEST ENGINEER Pulse 77 01/11/2021 5:05 PM ELECTRONICS TEST ENGINEER Temperature 36.8 ??C (98.2 ??F) 01/11/2021 5:00 PM ELECTRONICS TEST ENGINEER Respiratory Rate 16 01/11/2021 5:00 PM ELECTRONICS TEST ENGINEER Oxygen Saturation 95% 01/11/2021 5:05 PM ELECTRONICS TEST ENGINEER Inhaled Oxygen Concentration - - Weight 113 kg (248 lb 14.4 oz) 01/11/2021 10:10 AM ELECTRONICS TEST ENGINEER Height 167.6 cm (5' 6) 01/11/2021 10:10 AM ELECTRONICS TEST ENGINEER Body Mass Index 40.17 01/11/2021 10:10 AM ELECTRONICS TEST ENGINEER Plan of Treatment Health Maintenance Due Date Last Done Comments Cervical Cancer Screening 1985 HIV Screening 1985 Hepatitis B Vaccines (1 of 3 - 3-dose 1986 series) Hepatitis C Screening 1985 Lipid (Cholesterol) Screening 1986 Pneumococcal vaccine (0-64 years) (1 1992 - PCV) Asthma Action Plan 05/04/2017 Asthma Control Test Questionnaire 05/04/2017 Depression Screening (Annual PHQ-2) 03/05/2021 COVID-19 Vaccine (4 - Booster for 04/08/2021 02/11/2021, , Pfizer series) 03/23/2020 Influenza Vaccine (#1) 2021 DTaP,Tdap,and Td Vaccines (2 - Td or 10/11/2031 10/10/2021, 04/21/2012 Tdap) Medical Devices Implanted Type Area Program Clerk Device Shelf Model / Identifier Expiration Serial / Date Lot Stent Sinus Propel Regular - [id number] Stent Other/Legacy - Int ersect Ent Implanted: Qty: 1 on 10/14/2015 Other [employer] Description Description: Device Program Clerk - Inter sect Ent. Body Location - Other. Left. Device Status Text - [id number]. Insurance Payer Benefit Plan Subscriber ID Effective Phone Address Typ e / Group Dates BLUE CROSS BCBS BLUE [id number] 2018-Prese ATTN: William gallardo HMO BLUE SHIELD PLUS HMO nt [employer] [facility] [employer] [address] [address] [place] [address]
--- OUTSIDE RECORDS SUMMARY | 2021-12-27 11:06 | XMS_ITS | Encounter Summary ---
:1985 Author Organization [facility] Address [address] [place] [address] Care Team Providers Name Role Phone Unavailable Primary Care Provider Unavailable Reason for Visit Auth/Cert Specialty Diagnoses / Procedures Referred By Contact Refer red To Contact Diagnoses Rhinosinusitis Chronic Rhinosinusitis Chronic [J32.8] Procedures AL ENDO NSL MAX ANTROST W RMV TIS AL NSL/SINS NDSC SPHN TISS RMVL AL NSL/SINS NDSC TOTAL AL ENDO NSL/SNS W ETHMDCTOMY PRTL AL STRTCTC COMP-ASSIST CRNL EXTRA AL SUBMUC RSECT TURB PRTL/COMPLT ENDOSCOPIC MAXILLARY ANTROST CHARLIE WITH TISSUE REMOVAL ENDOSCOPIC SPHENOIDOTOMY WITHOUT TISSUE REMOVAL SINUSOTOMY ENDOSCOPY FRONTAL -draft iib, possible draft iii ETHMOIDECTOMY ENDOSCOPY EXTRADURAL COMPUTER NAVIGATION - Proceed as indicated REDUCTION TURBINATE - middle turbinates , procee d as indicated Referral ID Status Reason Start Date Expiration Date Visits Requ ested Visits Authorized [id number] 1 1 Encounter Details Date Type Department Care Team Description 01/11/2021 Anesthesia Event RST ROMB MAIN OR Laz Young, [address] [place] [address] [place], [place] [address] [address] [place] [address] [place] [address] (Wo rk) Anesthesia Record Procedure Summary Procedure [...] h andoff to the receiving staff during [facility] we 1. Identified the patient 2. [...] APRN, Schaffer, Jordan A, (created via procedure STEM SIZER R.N. documentation); Mask Ventilation: Easy mask; Type: [...] M ikaela A, Catheter Size: 20 G; STEM SIZER R.NXavier Orientation: Left; Location: Hand; Technique: Transillumination; Removal Date: 01/11/21; Removal Time: 1705; Removal Reason: Patient discharged (RETIRED) Incision 01/11/21; 1446; No; Nose; 01/11/21 1446 by 1223 by Bilateral; FESS; 02/04/21 Rula Bradley, [facility] (removed by background R.N. d, Edwige [...] How often do you attend restorationism or cheondoism Never 02/18/2021 services? Do you [...] Notes Anesthesia Postprocedure Evaluation - David Barbosa, CHEMICAL MIXER, STEM SIZER, DNAP - 01/11/2021 3:22 PM CST Patient: Krystal Odonnell Procedure Summary Date: 01/11/21 Room / Location: [address] 01 [facility] / [facility] in [place], [place] Anesthesia Start: 1137 Anesthesia Stop: 1520 [...] Post Op nausea/vomiting: none Hydration status: euvolemic AURANT BARTENDER Anesthesia Procedure Notes - Sirena Montejo APRN, CRNA - 01/11/2021 12:30 PM RESTAURANT BARTENDER Associated Order(s): Airway Airway Date/Time: 01/11/2021 11:45 [...] successful Airway event: no complications ATTESTATION STATEMENT AURANT BARTENDER Anesthesia Preprocedure Evaluation - Laz Young M.D. [...] [J32.8] Pre-op diagnosis: Rhinosinusitis Chronic [J32.8]. Location: [address] / [facility] in [place], [place] Providers: Daphne Tatum M.D. Pertinent components [...] with patient /legal guardian or through an dragger out. The use of blood products not discussed Approval to Proceed: approved for anesthesia AURANT BARTENDER documented in this encounter Plan of Treatment Not on filedocumented as of this encounter Procedures Procedure Name Priority Date/Time Associated Comments Diagnosis LDA ANE ENDOTRACHEAL Routine 01/11/2021 11:45 Res ults for this AIRWAY AM RESTAURANT BARTENDER procedure are i n the results section. documented in this encounter Results LDA ANE ENDOTRACHEAL AIRWAY (01/11/2021 11:45 AM RESTAURANT BARTENDER) Narrative Sirena Montejo APRN, CRNA - 01/11/2021 11:45 AM RESTAURANT BARTENDER Sirena Montejo APRN, CRNA ? 01/11/2021 12:31 [...] Site acetaminophen injection Given 01/11/2021 2:16 PM RESTAURANT BARTENDER 1,000 mg intravenous, Administer over 15 Minutes, As needed, Starting on Sun01/11/21 at 1416, Anesthesia Intra-op ceFAZolin injection (ANCEF) Given 01/11/2021 12:21 PM RESTAURANT BARTENDER 2 g intravenous, As needed, Starting on Sun01/11/21 at 1221, Anesthesia Intra-op dexAMETHasone injection (DECADRON) Given 01/11/2021 11:49 AM RESTAURANT BARTENDER 10 mg intravenous, As needed, Starting on Sun01/11/21 at 1149, Anesthesia Intra-op fentaNYL injection (SUBLIMAZE) Given 01/11/2021 1:56 PM RESTAURANT BARTENDER 50 mcg intravenous, As needed, Starting on Sun01/11/21 at 1144, Anesthesia Intra-op Given 01/11/2021 1:41 PM RESTAURANT BARTENDER 50 mcg Given 01/11/2021 1:01 PM RESTAURANT BARTENDER 50 mcg labetalol injection (NORMODYNE,TRANDATE) Given 01/11/2021 2:27 PM RESTAURANT BARTENDER 5 mg intravenous, As needed, Starting on Sun01/11/21 at 1359, Anesthesia Intra-op Given 01/11/2021 2:02 PM RESTAURANT BARTENDER 5 mg Given 01/11/2021 1:59 PM RESTAURANT BARTENDER 5 mg lactated ringers New Bag 01/11/2021 11:37 AM RESTAURANT BARTENDER intravenous, Continuous Infusion: Per Instructions PRN, Starting on Sun01/11/21 at 1137, Anesthesia Intra-op lactated ringers New Bag 01/11/2021 11:47 AM RESTAURANT BARTENDER intravenous, Continuous Infusion: Per Instructions PRN, Starting on Sun01/11/21 at 1147, Anesthesia Intra-op lidocaine (PF) (cardiac) injection Given 01/11/2021 11:44 AM RESTAURANT BARTENDER 60 mg intravenous, As needed, Starting on Sun01/11/21 at 1144, Anesthesia Intra-op ondansetron (PF) injection (ZOFRAN) Given 01/11/2021 2:40 PM RESTAURANT BARTENDER 4 mg intravenous, As needed, Starting on Sun01/11/21 at 1440, Anesthesia Intra-op propofol 10 mg/mL infusion Rate/Dose 01/11/2021 2:43 110 mcg/kg/min 74.514 (DIPRIVAN) Change PM RESTAURANT BARTENDER mL/hr intravenous, Continuous Infusion: Per Instructions PRN, Starting on Sun01/11/21 at 1144, Anesthesia Intra-op Rate/Dose Change 01/11/2021 2:39 PM RESTAURANT BARTENDER 125 mcg/kg/min 84.675 mL/hr New Bag 01/11/2021 2:27 PM RESTAURANT BARTENDER 150 mcg/kg/min 101.61 mL/hr propofoL injection (DIPRIVAN) Given 01/11/2021 11:56 AM RESTAURANT BARTENDER 50 mg intravenous, As needed, Starting on Sun01/11/21 at 1144, Anesthesia Intra-op Given 01/11/2021 11:44 AM RESTAURANT BARTENDER 200 mg remifentaniL 20 mcg/mL in Rate/Dose 01/11/2021 2:10 0.1 mcg/kg/min 3 3.87 NaCl 0.9% 100 mL infusion Change PM RESTAURANT BARTENDER mL/hr (ULTIVA) intravenous, Continuous Infusion: Per Instructions PRN, Starting on Sun01/11/21 at 1144, Anesthesia Intra-op Rate/Dose Change 01/11/2021 1:53 PM RESTAURANT BARTENDER 0.1 mcg/kg/min 33.87 mL/hr Rate/Dose Change 01/11/2021 12:03 PM RESTAURANT BARTENDER 0.2 mcg/kg/min 67.74 mL/hr scopolamine base 1 mg over 3 days Given 01/11/2021 12:00 PM RESTAURANT BARTENDER 1 patch (TRANSDERM SCOP) transdermal, Administer over 72 Hours, As needed, Starting on Sun01/11/21 at 1200, Anesthesia Intra-op succinylcholine (PF) injection (ANECTINE ) Given 01/11/2021 11:44 AM RESTAURANT BARTENDER 100 mg intravenous, As needed, Starting on Sun01/11/21 at 1144, Anesthesia Intra-op documented in this encounter
--- OUTSIDE RECORDS SUMMARY | 2021-12-27 11:06 | XMS_ITS | Encounter Summary ---
:1985 Author Organization [facility] Address [address] [place] [address] Care Team Providers Name Role Phone Unavailable Primary Care Provider Unavailable Reason for Referral Outpatient (Routine) - Closed Specialty Diagnoses / Procedures Referred By Contact Refer red To Contact Otorhinolaryngology Daphne Tatum [place] M.D. [address] [place] [phone] Referral ID Status Reason Start Date Expiration Date Visits Requ ested Visits Authorized [id number] Closed 01/21/2021 01/21/2022 1 1 Scheduling Instructions - in afternoon, or 02/22 v ideo slot. MATIC DRILLING MACHINE OPERATOR Reason for Visit Outpatient (Routine) - Closed Specialty Diagnoses / Procedures Referred By Contact Refer red To Contact Otorhinolaryngology Daphne Tatum [place] M.D. [address] [place] [phone] Referral ID Status Reason Start Date Expiration Date Visits Requ ested Visits Authorized [id number] Closed 01/06/2021 01/06/2022 1 1 Encounter Details Date Type Department Care Team Description 01/21/2021 Office Visit Department of Paola Tatum on Otorhinolaryngology in Daphne Blair M.D. Nasal Polyps Asthma [place], [place] [address] [place] [address] (Primary Dx) [address] [place] [phone] [phone] Social History Tobacco Use Types Packs/Day Years [...] How often do you attend taoism or anabaptism Never 02/18/2021 services? Do you [...] Crusting Mild = 1 Mild = 1 Carole-Woody Endoscopy Score = 6 ASSESSMENT / PLAN [...] but she can stop the mupirocin. Procedures MATIC DRILLING MACHINE OPERATOR Associated attestation - Daphne Tatum M.D. - 01/21/2021 2:57 PM AUTOMATIC DRILLING MACHINE OPERATOR I saw and evaluated the patient, participating [...]
--- OUTSIDE RECORDS SUMMARY | 2021-12-27 11:06 | XMS_ITS | Encounter Summary ---
:1985 Author Organization [facility] Address [address] [place] [address] Care Team Providers Name Role Phone Unavailable Primary Care Provider Unavailable Reason for Visit Auth/Cert Specialty Diagnoses / Procedures Referred By Contact Refer red To Contact Diagnoses Rhinosinusitis Chronic Rhinosinusitis Chronic [J32.8] Procedures MS ENDO NSL MAX ANTROST W RMV TIS MS NSL/SINS NDSC SPHN TISS RMVL MS NSL/SINS NDSC TOTAL MS ENDO NSL/SNS W ETHMDCTOMY PRTL MS STRTCTC COMP-ASSIST CRNL EXTRA MS SUBMUC RSECT TURB PRTL/COMPLT ENDOSCOPIC MAXILLARY ANTROST CHARLIE WITH TISSUE REMOVAL ENDOSCOPIC SPHENOIDOTOMY WITHOUT TISSUE REMOVAL SINUSOTOMY ENDOSCOPY FRONTAL -draft iib, possible draft iii ETHMOIDECTOMY ENDOSCOPY EXTRADURAL COMPUTER NAVIGATION - Proceed as indicated REDUCTION TURBINATE - middle turbinates , procee d as indicated Referral ID Status Reason Start Date Expiration Date Visits Requ ested Visits Authorized [id number] 1 1 Encounter Details Date Type Department Care Team Description 01/11/2021 Surgery RST ROMB MAIN OR Daphne Tatum, ENDOSCOPIC MAXILLARY 1216 [facility] M.DXavier ANTROSTOMY, TISSUE [place], [place] 200 [facility] REMOVAL. [address] [place], [place] [phone] (Wo rk) Social History Tobacco Use Types [...] How often do you attend confucianism or zoroastrianism Never 02/18/2021 services? Do you [...] Comments Blood Pressure 124/85 01/11/2021 3:30 PM GASOLINE DRAGLINE OPERATOR Pulse 78 01/11/2021 3:55 PM GASOLINE DRAGLINE OPERATOR Temperature 36.8 ??C (98.2 ??F) 01/11/2021 3:20 PM GASOLINE DRAGLINE OPERATOR Respiratory Rate 14 01/11/2021 3:40 PM GASOLINE DRAGLINE OPERATOR Oxygen Saturation 95% 01/11/2021 3:55 PM GASOLINE DRAGLINE OPERATOR Inhaled Oxygen Concentration - - Weight 113 kg (248 lb 14.4 oz) 01/11/2021 10:10 AM GASOLINE DRAGLINE OPERATOR Height 167.6 cm (5' 6) 01/11/2021 10:10 AM GASOLINE DRAGLINE OPERATOR Body Mass Index 40.17 01/11/2021 10:10 AM GASOLINE DRAGLINE OPERATOR documented in this encounter Discharge Instructions [...] or pain not relieved by pain medication. LINE DRAGLINE OPERATOR documented in this encounter Medications at [...] PACU in stable condition. Mary Lema M.D. LINE DRAGLINE OPERATOR documented in this encounter Miscellaneous Notes Result Encounter Note - Daphne Tatum M.D. - 01/21/2021 8:27 AM GASOLINE DRAGLINE OPERATOR I have reviewed the final pathology report and the identified diagnosis is consistent with the patient's clinical presentation. LINE DRAGLINE OPERATOR Result Encounter Note - Mary Lema M.D. - 01/19/2021 10:38 PM CST I have reviewed the final pathology report and the identified diagnosis is consistent with the patient's clinical presentation. LINE DRAGLINE OPERATOR documented in this encounter Plan of Treatment Not on filedocumented as of this encounter Procedures Procedure Name Priority Date/Time Associated Diagnosis Comme nts SURGICAL PATHOLOGY, Routine 01/11/2021 12:45 Rhinosinusitis Ch ronic Results for this [facility] PM GASOLINE DRAGLINE OPERATOR procedure are i n the results section. EXTRADURAL COMPUTER 01/11/2021 11:15 Rhinosinusitis Ch ronic NAVIGATION AM GASOLINE DRAGLINE OPERATOR Case Notes DRIFTMAN 958 ETHMOIDECTOMY ENDOSCOPY 01/11/2021 11:15 AM GASOLINE DRAGLINE OPERATOR Rhinos inusitis Chronic Case Notes [facility] 958 SINUSOTOMY ENDOSCOPY FRONTAL 01/11/2021 11:15 AM GASOLINE DRAGLINE OPERATOR R hinosinusitis Chronic Case Notes [facility]IF[facility] 958 ENDOSCOPIC SPHENOIDOTOMY WITHOUT 01/11/2021 11:1 5 AM GASOLINE DRAGLINE OPERATOR Rhinosinusitis Chronic TISSUE REMOVAL Case Notes DRIFTMAN 958 ENDOSCOPIC MAXILLARY ANTROSTOMY 01/11/2021 11:15 AM CS T Rhinosinusitis Chronic WITH TISSUE REMOVAL Case Notes DRIFTM[facility] 958 documented in this encounter Results Surgical Pathology, Frozen Lab (01/11/2021 12:45 PM GASOLINE DRAGLINE OPERATOR) Component Value Ref Test Analysis Performed Pathologis t Range Method Time At Signature 01/18/2021 STMA 5:37 AM GASOLINE DRAGLINE OPERATOR Participated in Grant Jones 01/18/2021 Jen -Pathology 5:37 AM GASOLINE DRAGLINE OPERATOR Interpretation Resident Report Daniel Cuevas M.D. [id number] STMA electronically 5:37 AM GASOLINE DRAGLINE OPERATOR signed by I verify that I have examined all relevant slides/materials for the specimen(s) and rendered or confirmed the diagnosis. Gross Description A. ??Received fresh labeled left sinonasal vin nts is a 01/18/2021 STMA 7.4 x 5.1 x 0.9 cm aggregate of reed-red soft tissue. ??All 5:37 AM GASOLINE DRAGLINE OPERATOR submitted for permanent sections. ??Grossed by [...] A1 Left sinonasal contents 1 5:37 AM GASOLINE DRAGLINE OPERATOR A2 Left sinonasal contents 2 A3 [...] negative (Block 01/19/2021 STMA A3). 10:02 PM GASOLINE DRAGLINE OPERATOR Signed by Daniel Cuevas M.D. [id number] 01/19/2021 10:02 PM Comment: REVISED RESULTS Interpretation FINAL DIAGNOSIS 01/19/2021 10:02 PM GASOLINE DRAGLINE OPERATOR STMA A. ??Sinonasal contents, left, excision: [...] Volume Laterality Tissue (Nose) 01/11/2021 12:45 PM GASOLINE DRAGLINE OPERATOR Tissue (Nose) 01/11/2021 12:53 PM GASOLINE DRAGLINE OPERATOR Tissue (Nose) 01/11/2021 2:38 PM GASOLINE DRAGLINE OPERATOR Narrative This result has an attachment that is no t available. Daphne Tatum M.D. LAB SURG PATH ORDERABLES Performing Organization Address City/State/ZIP Code Phon e Number [facility] - [address] [place], [place] [address] [place] [address] [facility] [address] documented in this [...] 12:25 1 application Bilateral Nares solution PM GASOLINE DRAGLINE OPERATOR As needed, Starting on Sun01/11/21 at 1225, Intra-Op fentaNYL injection 25 mcg (SUBLIMAZE) Given 01/11/2021 3:28 PM GASOLINE DRAGLINE OPERATOR 25 mcg 25 mcg, intravenous, Every 2 min PRN, moderate pain or score 4-6 of 10, severe pain or score 7-10 of 10, Starting on Sun01/11/21 at 1031, PACU (only), Up to maximum total dose of 100 mcg Given 01/11/2021 3:22 PM GASOLINE DRAGLINE OPERATOR 25 mcg lidocaine-EPINEPHrine 1 Given 01/11/2021 12:24 PM 4 mL Bilateral Nares %-1:100,000 injection (XYLOCAINE GASOLINE DRAGLINE OPERATOR W/EPI) As needed, Starting on Sun01/11/21 at [...] 10 mg (ROXICODONE) Given 01/11/2021 3:37 PM GASOLINE DRAGLINE OPERATOR 10 mg 10 mg, oral, Every [...] 1 application Bilateral Nares nasal spray (AFRIN) GASOLINE DRAGLINE OPERATOR As needed, Starting on Sun01/11/21 at 1210, [...] may contain times in both CDT and GASOLINE DRAGLINE OPERATOR. Scheduled Medication Order 01/09/2021 01/10/2021 01/11/2021 [...] mcg (SUBLIMAZE) 1522 (Given - Provider: Tiffany Villalobos, RXavierN.)1528 (Given - Provider: Tiffany Villalobos R.N.) 25 [...]
--- OUTSIDE RECORDS SUMMARY | 2021-12-27 11:06 | XMS_ITS | Encounter Summary ---
:1985 Author Organization [facility] Address [address] [place] [address] Care Team Providers Name Role Phone Unavailable Primary Care Provider Unavailable Encounter Details Date Type Department Care Team Description 01/17/2021 Orders Only Department of [facility], Teresita Tena Otorhinolaryngology in [address] [place], [place] [address] [place] [address] [place] [address] [phone] Social History Tobacco Use Types Packs/Day Years [...] 02/18/2021 relatives? How often do you attend anglican or jewish Never 02/18/2021 services? Do you belong to any clubs or organizations such as No 02/18/2021 anglican groups, unions, fraternal or athletic groups, or [...]
--- OUTSIDE RECORDS SUMMARY | 2021-12-27 11:06 | XMS_ITS | Encounter Summary ---
:1985 Author Organization [facility] Address [address] [place] [address] Care Team Providers Name Role Phone Unavailable Primary Care Provider Unavailable Reason for Visit Reason Comments Reschedule Post Op Appointment Encounter Details Date Type Department Care Team Description 01/19/2021 Clinical Department of Bety Tatum Pos t Communication Otorhinolaryngology in [place], [place] Sung [address] [facility] [address] [place] [address] [place], [place] [phone] Social History Tobacco Use Types Packs/Day Years [...] How often do you attend christianity or holiness Never 02/18/2021 services? Do you [...] Sunday afternoon as he is driving her. CUTTING BLOCK REPAIRER Telephone Encounter - Xiomy Horner - 01/19/2021 12:22 PM CST Ms. Odonnell returned your call. You can reach her this afternoon at [phone]. CUTTING BLOCK REPAIRER Telephone Encounter - Maciel Watts - 01/19/2021 10:37 AM CST I called Ms. Odonnell today because Dr. Tatum has been called away unexpectedly. Dr. Tatum would like to see her on January 21 in the afternoon at the [facility] procedure room. Ms. Odonnell did not answer so I left a message for her to call me back. Thank you, Maciel CUTTING BLOCK REPAIRER documented in this encounter Plan of Treatment Not on filedocumented as of this encounter Visit Diagnoses Not on filedocumented in this encounter
--- OUTSIDE RECORDS SUMMARY | 2021-12-27 11:06 | XMS_ITS | Encounter Summary ---
:1985 Author Organization [facility] Address [address] [place] [address] Care Team Providers Name Role Phone Unavailable [...] How often do you attend latter-day or roman catholic Never 02/18/2021 services? Do [...]
--- OUTSIDE RECORDS SUMMARY | 2021-12-27 11:06 | XMS_ITS | Encounter Summary ---
:1985 Author Organization [facility] Address [address] [place] [address] Care Team Providers Name Role Phone Unavailable Primary Care Provider Unavailable Encounter Details Date Type Department Care Team Description 01/08/2021 Hospital Encounter Department of Daphne Tatum Cont act With And (Suspected) Exposure To COVID-19; Laboratory Medicine [place] Preprocedural Lab Exam in [place], [address] [place] [address] [place] [address] [place], [place] [phone] [phone] (Work) [phone] Social History Tobacco Use Types Packs/Day Years [...] How often do you attend yazdanism or adventism Never 02/18/2021 services? Do you [...] RNA, V Asymptomatic (01/08/2021 10:58 AM CDT) [facility] Method Time Signature SARS-CoV-2 Swab, [...] pe rformed using the Aptima SARS-CoV-2 assay ([employer] on the gokits tem under emergency use authorization (EUA) by the U.S. Food and Drug Administ ration. Fact sheets for this EUA assay can be fo und at the following links: For Healthcare Providers: https://www.M2TECH a.gov/media/247476/download For Patients: https://www.fda.gov/media/ 413831/download Specimen Anatomical Collection Method Collection Time Receive d Time (Source) Location / / Volume Laterality Varies 01/08/2021 10:58 01/08/2021 5:03 (Nasopharynx) AM CDT PM CDT Daphne Tatum M.D. LAB MICROBIOLOGY - GENERAL O RDERABLES Performing Organization Address City/State/ZIP Code Phon e Number [facility]- [address] [place] [phone] [place] [address] [place] [address] [address] documented in this encounter Visit Diagnoses Diagnosis Contact With And (Suspected) Exposure To COVID-19 Preprocedural Lab Exam documented in this encounter Additional Health Concerns Infection Onset Date Last Indicated Resolved Time COVID19 Pending 01/08/2021 01/08/2021 01/08/2021 11:18 PM CDT documented as of this encounter
--- OUTSIDE RECORDS SUMMARY | 2021-12-27 11:06 | XMS_ITS | Encounter Summary ---
:1985 Author Organization [facility] Address [address] [place] [address] Care Team Providers Name Role Phone Unavailable Primary Care Provider Unavailable Reason for Referral MRI/CAT/PET Scan (Routine) - Closed Specialty Diagnoses / Procedures Referred By Contact Refer red To Contact Radiology Diagnoses Aspirin Reaction Nasal Polyps Asthma Mary Lema M.D. [facility] Procedures CT Sinuses without IV Contrast 200 [place] [address] Referral ID Status Reason Start Date Expiration Date Visits Requ ested Visits Authorized [id number] Closed 12/13/2020 12/13/2021 1 1 Reason for Visit MRI/CAT/PET Scan (Routine) - Closed Specialty Diagnoses / Procedures Referred By Contact Refer red To Contact Radiology Diagnoses Aspirin Reaction Nasal Polyps Asthma Mary Lema M.D. [facility] Procedures CT Sinuses without IV Contrast 200 [place] [address] Referral ID Status Reason Start Date Expiration Date Visits Requ ested Visits Authorized [id number] Closed 12/13/2020 12/13/2021 1 1 Encounter Details Date Type Department Care Team Description 12/21/2020 Hospital Encounter Department of Mary Lema Aspirin Reaction RadiologyAndrade M.D. Nasal Polyps Asthma Building, in [address] [place] [address] 200 [facility] [address] [place], [place] [phone] (Work) [phone] Social History Tobacco Use Types Packs/Day Years [...] How often do you attend restoration or jehovah's witness Never 02/18/2021 services? Do [...]
--- OUTSIDE RECORDS SUMMARY | 2021-12-27 11:06 | XMS_ITS | Encounter Summary ---
:1985 Author Organization [facility] Address [address] [place] [address] Care Team Providers Name Role Phone Unavailable Primary Care Provider Unavailable Reason for Referral Outpatient (Routine) - Closed Specialty Diagnoses / Procedures Referred By Contact Refer red To Contact Otorhinolaryngology Daphne Tatum [place] M.D. [address] [place] [address] Referral ID Status Reason Start Date Expiration Date Visits Requ ested Visits Authorized [id number] Closed 01/06/2021 01/06/2022 1 1 Scheduling Instructions Oral covid same day, 930 override Reason for Visit Appointment Request (Routine) - Closed Specialty Diagnoses / Procedures Referred By Contact Refer sheri To Contact Otorhinolaryngology Diagnoses Polyp Nasal Referral ID Status Reason Start Date Expiration Date Visits Requ ested Visits Authorized [id number] Closed 12/12/2020 12/12/2021 1 1 Encounter Details Date Type Department Care Team Description 01/06/2021 Comprehensive Visit Department of Rebecca Tatumosi nusitis Chronic (Primary Dx); Otorhinolaryngology in Daphne Blair, Polyp Nasal; [place], [place] Sung Aspirin Reaction Nasal Polyps Asthma [address] [facility] [address] [place] [address] [place] [phone] Social History Tobacco Use Types Packs/Day Years [...] How often do you attend zoroastrianism or congregational Never 02/18/2021 services? Do you [...] therapy or repeat asa desensitization with an research laboratory technician as I am not optimistic that surgery [...]
--- OUTSIDE RECORDS SUMMARY | 2021-12-27 11:06 | XMS_ITS | Encounter Summary ---
:1985 Author Organization [facility] Address [address] [place] [address] Care Team Providers Name Role Phone Unavailable [...] How often do you attend caodaism or jainism Never 02/18/2021 services? Do you [...] 01/11/2021 12:10 Results for this EXAM AM LACROSSE PLAYER procedure are i n the results section. documented in this encounter Results AIRWAY-Otorhinolaryngology Image Exam (01/11/2021 12:10 AM LACROSSE PLAYER) Specimen (Source) Anatomical Location Collection Method / Collectio n Time Received Time / Laterality Volume Narrative IIMS - 01/11/2021 2:55 PM LACROSSE PLAYER This order has been created and auto-finalized [...]
--- OUTSIDE RECORDS SUMMARY | 2021-12-27 11:06 | XMS_ITS | Encounter Summary ---
:1985 Author Organization [facility] Address [address] [place] [address] Care Team Providers Name Role Phone Unavailable [...] Expiration Date Visits Requ ested Visits Authorized [id number] 1 1 Encounter Details Date Type Department Care Team Description 01/11/2021 Hospital Encounter RST ROMB MAIN OR Rc, Rhinosinusitis Chronic [address] [facility] Daphne Blair M.D. [place], [place] [address] [place] [phone] [place], [place] [phone] Social History Tobacco Use Types Packs/Day Years [...] How often do you attend sabianism or anabaptism Never 02/18/2021 services? Do you [...] Comments Blood Pressure 130/89 01/11/2021 5:00 PM CAREER SERVICES DIRECTOR Pulse 77 01/11/2021 5:05 PM CAREER SERVICES DIRECTOR Temperature 36.8 ??C (98.2 ??F) 01/11/2021 5:00 PM CAREER SERVICES DIRECTOR Respiratory Rate 16 01/11/2021 5:00 PM CAREER SERVICES DIRECTOR Oxygen Saturation 95% 01/11/2021 5:05 PM CAREER SERVICES DIRECTOR Inhaled Oxygen Concentration - - Weight 113 kg (248 lb 14.4 oz) 01/11/2021 10:10 AM CAREER SERVICES DIRECTOR Height 167.6 cm (5' 6) 01/11/2021 10:10 AM CAREER SERVICES DIRECTOR Body Mass Index 40.17 01/11/2021 10:10 AM CAREER SERVICES DIRECTOR documented in this encounter Discharge Instructions Discharge Tiffany Tay R.N. - 01/11/2021 3:33 PM CST Instructions After [...] or pain not relieved by pain medication. ER SERVICES DIRECTOR documented in this encounter Medications at Time [...] PACU in stable condition. Mary Lema M.D. ER SERVICES DIRECTOR documented in this encounter Miscellaneous Notes Result Encounter Note - Daphne Tatum M.D. - 01/21/2021 8:27 AM CAREER SERVICES DIRECTOR I have reviewed the final pathology report and the identified diagnosis is consistent with the patient's clinical presentation. ER SERVICES DIRECTOR Result Encounter Note - Mary Lema M.D. - 01/19/2021 10:38 PM CST I have reviewed the final pathology report and the identified diagnosis is consistent with the patient's clinical presentation. ER SERVICES DIRECTOR documented in this encounter Plan of Treatment Not on filedocumented as of this encounter Procedures Procedure Name Priority Date/Time Associated Diagnosis Comme nts SURGICAL PATHOLOGY, Routine 01/11/2021 12:45 Rhinosinusitis Ch ronic Results for this [facility] LAB PM CAREER SERVICES DIRECTOR procedure are i n the results section. EXTRADURAL COMPUTER 01/11/2021 11:15 Rhinosinusitis Ch ronic NAVIGATION AM CAREER SERVICES DIRECTOR Case Notes AFTER SCHOOL PROGRAM TEACHER 958 ETHMOIDECTOMY ENDOSCOPY 01/11/2021 11:15 AM CAREER SERVICES DIRECTOR Rhinos inusitis Chronic Case Notes AFTER SCHOOL PROGRAM TEACHER 958 SINUSOTOMY ENDOSCOPY FRONTAL 01/11/2021 11:15 AM CAREER SERVICES DIRECTOR R hinosinusitis Chronic Case Notes AFTER SCHOOL PROGRAM TEACHER 958 ENDOSCOPIC SPHENOIDOTOMY WITHOUT 01/11/2021 11:1 5 AM CAREER SERVICES DIRECTOR Rhinosinusitis Chronic TISSUE REMOVAL Case Notes AFTER SCHOOL PROGRAM TEACHER 958 ENDOSCOPIC MAXILLARY ANTROSTOMY 01/11/2021 11:15 AM CS T Rhinosinusitis Chronic WITH TISSUE REMOVAL Case Notes AFTER SCHOOL PROGRAM TEACHER 958 documented in this encounter Results Surgical Pathology, Frozen Lab (01/11/2021 12:45 PM CAREER SERVICES DIRECTOR) Component Value Ref Test Analysis Performed Pathologis t Range Method Time At [facility] 01/18/2021 ST[facility] 5:37 AM CAREER SERVICES DIRECTOR Participated in Grant Jones 01/18/2021 [facility] the M.D. -Pathology 5:37 AM CAREER SERVICES DIRECTOR Interpretation Resident Report Daniel Cuevas M.D. [phone] STMA electronically 5:37 AM CAREER SERVICES DIRECTOR signed by I verify that I have examined all relevant slides/materials for the specimen(s) and rendered or confirmed the diagnosis. Gross Description A. ??Received fresh labeled left sinonasal vin nts is a 01/18/2021 STMA 7.4 x 5.1 x 0.9 cm aggregate of reed-red soft tissue. ??All 5:37 AM CAREER SERVICES DIRECTOR submitted for permanent sections. ??Grossed by SSF. [...] A1 Left sinonasal contents 1 5:37 AM CAREER SERVICES DIRECTOR A2 Left sinonasal contents 2 A3 Left [...] negative (Block 01/19/2021 STMA A3). 10:02 PM CAREER SERVICES DIRECTOR Signed by Daniel Cuevas M.D. [phone] 01/19/2021 10:02 PM Comment: REVISED RESULTS Interpretation FINAL DIAGNOSIS 01/19/2021 10:02 PM CAREER SERVICES DIRECTOR STMA A. ??Sinonasal contents, left, excision: ??Sinonasal [...] Volume Laterality Tissue (Nose) 01/11/2021 12:45 PM CAREER SERVICES DIRECTOR Tissue (Nose) 01/11/2021 12:53 PM CAREER SERVICES DIRECTOR Tissue (Nose) 01/11/2021 2:38 PM CAREER SERVICES DIRECTOR Narrative This result has an attachment that is no t available. Daphne Tatum M.D. LAB SURG PATH ORDERABLES Performing Organization Address City/State/ZIP Code Phon e Number [facility] - [address] [place], [place] [address] [place] [address] [facility] [address] documented in this encounter Visit Diagnoses Diagnosis Rhinosinusitis Chronic - Primary documented in this encounter Admitting Diagnoses Diagnosis Rhinosinusitis Chronic documented in this encounter Administered Medications Inactive Administered Medications - up to 3 most recent administrations Medication Order MAR Action Action Date Dose Rate Site fentaNYL injection 25 mcg Given 01/11/2021 3:28 PM CAREER SERVICES DIRECTOR 25 mcg (SUBLIMAZE) 25 mcg, intravenous, Every 2 min PRN, moderate pain or score 4-6 of 10, severe pain or score 7-10 of 10, Starting on Sun01/11/21 at 1031, PACU (only), Up to maximum total dose of 100 mcg Given 01/11/2021 3:22 PM CAREER SERVICES DIRECTOR 25 mcg metoprolol tablet 12.5 mg (LOPRESSOR) [...] 10 mg (ROXICODONE) Given 01/11/2021 3:37 PM CAREER SERVICES DIRECTOR 10 mg 10 mg, oral, Every 4 [...] may contain times in both CDT and CAREER SERVICES DIRECTOR. Scheduled Medication Order 01/09/2021 01/10/2021 01/11/2021 acetaminophen [...] Villalobos RZander)1528 (Given - Provider: Tiffany Villalobos RZander) 25 mcg, intravenous, Every 2 min PRN, [...] If nausea and vomiting persists, move to graniste alicia. (order of antiemetic administration - ondansetron [...] oxyCODONE IR tablet 5 mg (ROXICODONE)Jump to [facility] 5 mg, oral, Every 4 hours PRN, [...]
--- OUTSIDE RECORDS SUMMARY | 2021-12-27 11:06 | XMS_ITS | Encounter Summary ---
:1985 Author Organization [facility] Address [address] [place] [address] Care Team Providers Name Role Phone Unavailable [...] How often do you attend uatsdin or congregation Never 02/18/2021 services? Do you [...] 01/21/2021 2:48 Results for this EXAM PM NURSE CHARGE RN procedure are i n the results section. documented in this encounter Results NASAL-Otorhinolaryngology Image Exam (01/21/2021 2:48 PM NURSE CHARGE RN) Specimen (Source) Anatomical Collection Method Collection Time Re ceived Time Location / / Volume Laterality 01/21/2021 4:08 PM NURSE CHARGE RN Narrative IIMS - 01/21/2021 2:48 PM NURSE CHARGE RN This order has been created and [...]
--- OUTSIDE RECORDS SUMMARY | 2021-12-27 11:06 | XMS_ITS | Encounter Summary ---
:1985 Author Organization [facility] Address [address] [place] [address] Care Team Providers Name Role Phone Unavailable [...] How often do you attend sabianism or rastafarian Never 02/18/2021 services? Do you [...] 02/18/2021 11:40 Results for this EXAM AM TOOL SHAPER SETUP OPERATOR procedure are i n the results section. documented in this encounter Results NOSE-Otorhinolaryngology Image Exam (02/18/2021 11:40 AM TOOL SHAPER SETUP OPERATOR) Specimen (Source) Anatomical Collection Method Collection Time Re ceived Time Location / / Volume Laterality 02/18/2021 11:36 AM TOOL SHAPER SETUP OPERATOR Narrative IIMS - 02/18/2021 11:40 AM TOOL SHAPER SETUP OPERATOR This order has been created and [...]
--- OUTSIDE RECORDS SUMMARY | 2021-12-27 11:06 | XMS_ITS | Encounter Summary ---
:1985 Author Organization [facility] Address [address] [place] [address] Care Team Providers Name Role Phone Unavailable Primary Care Provider Unavailable Reason for Visit Outpatient (Routine) - Closed Specialty Diagnoses / Procedures Referred By Contact Refer red To Contact Otorhinolaryngology Daphne Tatum [place] M.D. [address] [place] [address] Referral ID Status Reason Start Date Expiration Date Visits Requ ested Visits Authorized [id number] Closed 01/21/2021 01/21/2022 1 1 Encounter Details Date Type Department Care Team Description 02/18/2021 Office Visit Department of Rc, Rhinosinusitis Chronic (Primary Dx); Otorhinolaryngology in Daphne Blair, Polyp Nasal; [place], [place] Sung Aspirin Reaction Nasal Polyps Asthma [address] [facility] [address] [place] [address] [place], [place] [phone] Social History Tobacco Use Types Packs/Day Years [...] How often do you attend jainism or latter-day Never 02/18/2021 services? Do you [...] procedure well and there were no complications. Carole-Woody Endoscopic Scoring System Right Side Left Side Polyp Absent = 0 Absent = 0 Edema Mild = 1 Mild = 1 Discharge Absent = 0 Absent = 0 Scarring Absent = 0 Absent = 0 Crusting Absent = 0 Absent = 0 [place]-Woody Endoscopy Score = 2 ASSESSMENT / PLAN It was a pleasure to see Ms. Odonnell for follow up today. She has continued to do well with improvement of her smell. She reports recently putting a real tree up for Bg and has noticed increasing nasal congestion. On [...] become . Sanjeev Thakur APRN, C.N.P., M.S.N. LE THERAPIST Associated attestation - Daphne Tatum M.D. - 02/20/2021 5:37 PM MOBILE THERAPIST I saw the patient with Sanjeev Thakur C.N.P. and agree with her findings, assessment, and plan. Daphne Tatum M.D. documented in this encounter Plan of Treatment Not on filedocumented as of this encounter Visit Diagnoses Diagnosis Rhinosinusitis Chronic - Primary Polyp Nasal Aspirin Reaction Nasal Polyps Asthma documented in this encounter
--- OUTSIDE RECORDS SUMMARY | 2021-12-27 11:07 | XMS_ITS | Encounter Summary ---
:1985 Author Organization [facility] Address [address] [place] [address] Care Team Providers Name Role Phone Unavailable Primary Care Provider Unavailable Encounter Details Date Type Department Care Team Description 06/28/2017 Orders Only Department of Ashley Victor Otorhinolaryngology in [place], BACKSHOE PERSON, Nasal Polyps Asthma [place], [place] C.N.P., M.S.N. (Primary Dx) [address] [place] [address] [place] [address] [place], [place] [phone] Social History Tobacco Use Types Packs/Day Years [...] How often do you attend mormonism or jehovah's witness Never 02/18/2021 services? Do [...]
--- OUTSIDE RECORDS SUMMARY | 2021-12-27 11:07 | XMS_ITS | Encounter Summary ---
:1985 Author Organization [facility] Address [address] [place] [address] Care Team Providers Name Role Phone Unavailable Primary Care Provider Unavailable Encounter Details Date Type Department Care Team Description 12/04/2017 Orders Only Department of Ashley Victor, Otorhinolaryngology in [facility], C.N.P.[place], [place] M.S.N. [address] [place] [address] [address] [place] [address] [place], [place] [phone] Social History Tobacco Use Types Packs/Day Years [...] How often do you attend restoration or pentecostalism Never 02/18/2021 services? Do you [...]
--- OUTSIDE RECORDS SUMMARY | 2021-12-27 11:07 | XMS_ITS | Encounter Summary ---
:1985 Author Organization [facility] Address [address] [place] [address] Care Team Providers Name Role Phone Unavailable [...] 02/18/2021 relatives? How often do you attend methodist or christianity Never 02/18/2021 services? Do you belong to any clubs or organizations such as No 02/18/2021 methodist groups, unions, fraternal or athletic groups, or [...]
--- OUTSIDE RECORDS SUMMARY | 2021-12-27 11:07 | XMS_ITS | Encounter Summary ---
:1985 Author Organization [facility] Address [address] [place] [address] Care Team Providers Name Role Phone Unavailable [...] How often do you attend judaism or muslim Never 02/18/2021 services? Do you [...]
--- OUTSIDE RECORDS SUMMARY | 2021-12-27 11:07 | XMS_ITS | Encounter Summary ---
:1985 Author Organization [facility] Address [address] [place] [address] Care Team Providers Name Role Phone Unavailable Primary Care Provider Unavailable Encounter Details Date Type Department Care Team Description 12/13/2020 Clinical Department of Romulo, Communication Otorhinolaryngology in [place], [place] [phone] [address] [facility] (Work) [place] [phone] Social History Tobacco Use Types Packs/Day [...] How often do you attend confucianist or samaritan Never 02/18/2021 services? 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
--- OUTSIDE RECORDS SUMMARY | 2021-12-27 11:07 | XMS_ITS | Encounter Summary ---
:1985 Author Organization [facility] Address [address] [place] [address] Care Team Providers Name Role Phone Unavailable Primary Care Provider Unavailable Reason for Referral MRI/CAT/PET Scan (Routine) - Closed Specialty Diagnoses / Procedures Referred By Contact Refer red To Contact Radiology Diagnoses Aspirin Reaction Nasal Polyps Asthma Mary Lema M.D. [facility] Procedures CT Sinuses without IV Contrast [address] [place] [address] Referral ID Status Reason Start Date Expiration Date Visits Requ ested Visits Authorized [id number] Closed 12/13/2020 12/13/2021 1 1 Encounter Details Date Type Department Care Team Description 12/13/2020 Orders Only Department of Mary Lema Aspirin React ion Otorhinolaryngology in Sung Nasal Polyps Asthma [place], [place] [address] [facility] (Primary Dx) [address] [place] [phone] Social History Tobacco Use Types Packs/Day Years [...] How often do you attend quaker or muslim Never 02/18/2021 services? Do you [...] Neuroradiology ARZ LOS, Neuroradiology T omography [facility] Specimen (Source) Anatomical Collection Method Collection Time [...]
--- OUTSIDE RECORDS SUMMARY | 2021-12-27 11:07 | XMS_ITS | Encounter Summary ---
:1985 Author Organization [facility] Address [address] [place] [address] Care Team Providers Name Role Phone Unavailable [...] How often do you attend moravian or anabaptism Never 02/18/2021 services? Do you [...]
--- OUTSIDE RECORDS SUMMARY | 2021-12-27 11:07 | XMS_ITS | Encounter Summary ---
:1985 Author Organization [facility] Address [address] [place] [address] Care Team Providers Name Role Phone Unavailable Primary Care Provider Unavailable Encounter Details Date Type Department Care Team Description 06/22/2017 Orders Only Department of Ashley Victor, Otorhinolaryngology in [facility], C.N.P.[place], [place] M.S.N. [address] [place] [address] [address] [place] [address] [place], [place] [phone] Social History Tobacco Use Types Packs/Day Years [...] How often do you attend confucianist or hoahaoism Never 02/18/2021 services? Do you belong to [...]
--- OUTSIDE RECORDS SUMMARY | 2021-12-27 11:07 | XMS_ITS | Encounter Summary ---
:[address] [facility] Address [address] [place] [address] Care Team Providers Name Role Phone Unavailable [...] How often do you attend episcopalian or confucianism Never 02/18/2021 services? Do you [...] P athologist Signature Tryptase, S 3.0 <11.5 [facility] NG/ML [facility] Specimen Anatomical Collection Method Collection Time Receive d Time (Source) Location / / Volume Laterality 10/15/2015 4:26 AM 6 4:26 CDT AM CDT Onofre Brown M.D. LAB BLOOD ADD-ON Performing Organization Address City/State/ZIP Code Phon e Number [facility] - 200 [place], [place] [address] [facility] Hx general Pathology Report (10/14/2015 8:06 PM CDT) Specimen Anatomical Collection Method Collection Time Receive d Time (Source) Location / / Volume Laterality 10/14/2015 8:06 PM 6 8:06 CDT PM CDT Narrative [facility] - 10/14/2015 8:06 PM CDT ??10/14/2015 General Biopsy ? ([id number]) ? Requested By: Daphne Tatum M.D. ??[phone] ? SLIDE DISPOSITION: ? DIAGNOSIS: ?? A. Sinonasal cavity, bilateral contents , excision: Respiratory mucosa with chronic inflammation and nu merous eosinophils. ?? Participated in interpretation: Dr. Newberry. Pager: [phone]. ?? As the signing pathologist, I verify th at I have examined all relevant slides/materials for the speci men(s) and rendered or confirmed the diagnosis. ? 10/19/2015 11:59 Interpreted by: Darcy Steen M.D. [phone] Report electronically signed by Darcy Steen M.D. Transcribed by: [facility] 10/18/2015 16:09:23 ? TISSUE DESCRIPTION: [id number] A. ??Received fresh labeled bilateral sinus contents is an 8 x 7 x 2.5 cm aggregate of red soft tissue and cartilage. ??All soft tissue is submitted. ??Fur Grader sections are submitted for permanent sections only. ??Grossed by CDP. ? Part A: ??Bilateral sinus contents ?1 Bilateral sinus contents 1 ?2 Bilateral sinus contents 2 ?3 Bilateral sinus contents 3 ?4 Bilateral sinus contents 4 ?5 Bilateral sinus contents 5 ?6 Bilateral sinus contents 6 ?? XRSR Path ? Procedure Note 05/26/2017 10/14/2015 General Biopsy ([id number]) Requested By: Daphne Tatum M.D. [phone] SLIDE DISPOSITION: DIAGNOSIS: A. Sinonasal cavity, bilateral contents , excision: Respiratory mucosa with chronic inflammation and nu merous eosinophils. Participated in interpretation: Dr. Newberry. Pager: [phone]. As the signing pathologist, I verify th at I have examined all relevant slides/materials for the speci men(s) and rendered or confirmed the diagnosis. 10/19/2015 11:59 Interpreted by: Darcy Steen M.D. [phone] Report electronically signed by Darcy Steen M.D. Transcribed by: [facility] [place] 10/18/2015 16:09:23 TISSUE DESCRIPTION: [id number] A. Received fresh labeled bilateral si nus contents is an 8 x 7 x 2.5 cm aggregate of red soft tissue and cartilage. All soft tissue is submitted. Fur Grader sections a re submitted for permanent sections only. Grossed by CDP. Part A: Bilateral sinus contents 1 Bilateral sinus contents 1 2 Bilateral sinus contents 2 3 Bilateral sinus contents 3 4 Bilateral sinus contents 4 5 Bilateral sinus contents 5 6 Bilateral sinus contents 6 XRSR Path Daphne Tatum M.D. LAB PATHOLOGY/CYTOLOGY ORDER MIGUEL Performing Organization Address City/State/ZIP Code Phon e Number [facility] - [address] [place], [place] [address] [facility] (ABNORMAL) Leukotriene E4, Urine (10/14/2015 10:00 AM CDT) [facility] gist Method Time Signature Leukotriene E4, 281 (H) <=104 [facility] U PG/MG CR LABORATORIES - [facility] Comment: Mailed In Specimen ? [...] 10/14/2015 AM CDT 10:00 AM CDT Narrative [facility] - 10/20/2015 9:04 AM CDT Mailed In Specimen Alber Chapa M.D., Ph.D. LAB URINE ORDERABLES Performing Organization Address City/State/ZIP Code Phon e Number [facility] - [address] [place], [place] [address] [facility] documented in this encounter Visit Diagnoses Not on filedocumented in this encounter
--- OUTSIDE RECORDS SUMMARY | 2021-12-27 11:07 | XMS_ITS | Encounter Summary ---
:1985 Author Organization [facility] Address [address] [place] [address] Care Team Providers Name Role Phone Unavailable Primary Care Provider Unavailable Reason for Visit Reason Comments Med Refill Encounter Details Date Type Department Care Team Description 12/03/2017 Refill Department of Otorhinolaryngology Ashley Victor, Med Refill in [facility] jorge HOFFMAN C.N.P., M.S.N. [address] [place] [address] [address] [place] [address] [place], [place] [phone] (Wo rk) Social History Tobacco Use Types [...] How often do you attend rastafarian or gnosticism Never 02/18/2021 services? Do you [...]
--- OUTSIDE RECORDS SUMMARY | 2021-12-27 11:07 | XMS_ITS | Encounter Summary ---
:1985 Author Organization [facility] Address [address] [place] [address] Care Team Providers Name Role Phone Unavailable [...] How often do you attend lutheran or pentecostalism Never 02/18/2021 services? Do you [...]
== END 2021-12-21 10:21 | disposition home or self-care (01) ==
LOC: NFLDREF 12-27 10:27
PROVIDERS: Visit Provider Obstetrics & Gynecology
DX: R30.0 Dysuria (principal)
CPT/HCPCS: 87086

== ENCOUNTER 2022-03-21 11:09 | Outpatient (CLI) | payer BC, SELFPAY | END 2022-03-21 11:10 | disposition home or self-care (01) | LOC: NFLDREF 11:10 | PROVIDERS: Visit Provider Registered Nurse | DX: R30.0 Dysuria (principal); N89.8 Other specified noninflammatory disorders of vagina | CPT/HCPCS: 87086 ==

== ENCOUNTER 2022-05-16 08:47 | Outpatient (CLI) | payer BC, SELFPAY | END 2022-05-16 08:48 | disposition home or self-care (01) | LOC: NFLDREF 08:48 | PROVIDERS: PCP Registered Nurse; Visit Provider Internal Medicine | DX: E66.9 Obesity, unspecified (principal); I10 Essential (primary) hypertension; Z13.6 Encounter for screening for cardiovascular disorders | CPT/HCPCS: 80061 ==

== ENCOUNTER 2022-08-21 07:34 | Day surgery (SDC) | payer BC, SELFPAY ==
[2022-08-21] VITALS (14 sets, daily range): BP systolic 114–138; BP diastolic 75–98; PULSE 63–83; RESP 12–16; TEMP 36.3–36.9; O2SAT 93–97; BMI 35.4
[2022-08-21] MEDS: LACTATED RINGERS 1000 ML 1,000 ML 100 ML IV (07:15)
[2022-08-21] MEDS: SODIUM CHLORIDE 0.9 % (FLUSH) 10 ML SYRINGE IVF (07:54)
[2022-08-21 08:01] LABS: HCG Qualitative* Negative (Negative)
[2022-08-21] MEDS: CEFAZOLIN 2 GM INJ IVP (09:20)
[2022-08-21] MEDS: BUPIVACAINE 0.5% 30 ML INJECTION (10:45)
--- NOTE | 2022-08-21 11:03 | P.GSOP_ITS ---
Operative Note Date of procedure: 08/21/22 Pre-op diagnosis: Right inguinal hernia Post-op diagnosis: Same Type of Procedure: Open right inguinal hernia repair with mesh Indications: The patient is a 37-year-old female who noted a right groin bulge. She saw her primary care physician who was able to reduce a large hernia. She was then referred to surgery clinic. She was found to have a large bowel containing inguinal hernia. This again was reducible however very uncomfortable for her and would recur immediately. Because of this repair was recommended. She agreed to proceed after discussion of risks and benefits. Procedure Description: After discussing the risks and benefits of the procedure, the patient signed informed consent.? The operative site was marked and the patient was brought to the operating room and placed on the operating table in supine position.? Care was taken to pad the patient's pressure points.?? The patient was then intubated by anesthesia.?? The operative site was then prepped and draped in the usual sterile fashion.? A time-out was then performed. Local anesthetic was injected into the skin and subcutaneous tissue overlying the inguinal canal. An oblique incision was made over the external ring over the inguinal canal. Dissection was carried down into the subcutaneous tissue using cautery until the external oblique fascia was encountered. This was cleared off. The external ring was identified and after injection of more local anesthetic, the external oblique was incised using a knife. This was extended using the Metzenbaum scissors with care to dissect the underlying structures away from the fascia before cutting. The hernia tissue was cleared from the in side of the inguinal canal and the external oblique retracted away. A large hernia sac was encountered. This was carefully dissected free from the surrounding tissue. Initially it appeared as though this was a a direct hernia, however once it was completely dissected it was clearly an indirect hernia. The round ligament was dissected free and ligated and divided. Preperitoneal fat which was adherent to the sac was dissected free and also ligated and divided. The hernia sac which was fairly large was then opened to ensure there were no bowel contents contained within. There were none, however the patient did have some fatty thickening of the peritoneum inferiorly. This was palpated and not appear to be a sliding hernia containing bladder, however, the sac was ligated above this area and oversewn with 3-0 Vicryl, avoiding it altogether. This was then reduced into the abdomen. Because of the large internal ring, I then oversewed this with a running 3-0 Vicryl to keep intra-abdominal contents reduced and thereby help facilitate mesh placement. A piece of polypropylene mesh was obtained and cut to size. This was secured to the pubic tubercle using to 0 Prolene on a double-armed suture. The Prolene was run along the inguinal ligament inferiorly and along the transversalis fascia superiorly, the abdominal wall was somewhat thin superiorly and laterally, however I was able to palpate the edge of the internal ring and did secure the mesh beyond this. Of note, I did not identify the ilioinguinal nerve in my dissection. The external oblique fascia was then reapproximated with absorbable suture. The wound was then closed in layers including Nick's fascia and the dermis with absorbable suture. The skin was then closed with a running subcuticular suture. Sterile dressings were applied. Instrument, sponge, and needle counts were correct at the end of the case. The patient was woken and taken to the PACU in stable condition. ? The patient tolerated the procedure well. Findings: Large indirect right inguinal hernia. Implants: Bard soft mesh Anesthesia: GETA Surgeon: Nolvia Latham MD Estimated blood loss (mL): 5 Condition: stable Disposition: PACU
--- NOTE | 2022-08-21 11:13 | W.ANESCHARGE ---
Anesthesia Charges Start Date/Time Anesthesia Start Date: 08/21/22 Anesthesia Start Time: 09:11 Stop Date/Time Anesthesia Stop Date: 08/21/22 Anesthesia Stop Time: 11:13
[2022-08-21] MEDS: fentaNYL 100 MCG/2 ML inj 50 MCG IVP ×3 (11:34→12:17)
[2022-08-21] MEDS: HYDROCODONE-ACETAMIN 5-325 MG 1 TAB PO (12:17)
[2022-08-21] MEDS: LACTATED RINGERS 1000 ML 1,000 ML 50 ML IV (12:20)
== END 2022-08-21 13:35 | disposition home or self-care (01) ==
PROVIDERS: Nurse Anesthetist, Certified Registered; PCP Internal Medicine; Visit Provider Surgery
PROC: (CPT 49505; principal; 2022-08-21 08:45)
DX: K40.90 Unilateral inguinal hernia, without obstruction or gangrene, not specified as recurrent (principal)
CPT/HCPCS: 49505; 00830; 84703; A9270; C1781; J0330; J0690; J1100; J2250; J2405; J2704; J3010; J3490; J7120

== ENCOUNTER 2022-11-28 08:40 | Outpatient (CLI) | payer BC, SELFPAY | END 2022-11-28 08:41 | disposition home or self-care (01) | LOC: NFLDREF 08:42 | PROVIDERS: PCP Internal Medicine; Visit Provider Obstetrics & Gynecology | DX: O20.9 Hemorrhage in early pregnancy, unspecified (principal) | CPT/HCPCS: 84702 ==

== ENCOUNTER 2022-11-30 10:09 | Outpatient (CLI) | payer BC, SELFPAY | END 2022-11-30 10:10 | disposition home or self-care (01) | PROVIDERS: PCP Internal Medicine; Referring Provider Internal Medicine; Visit Provider Obstetrics & Gynecology | DX: O20.9 Hemorrhage in early pregnancy, unspecified (principal) | CPT/HCPCS: 84702 ==

== ENCOUNTER 2022-12-02 14:44 | Emergency (ER) | payer BC, SELFPAY ==
[2022-12-02 15:00] VITALS: BP 156/87; PULSE 78; RESP 18; TEMP 37.2; O2SAT 99; BMI 29.1
--- NOTE | 2022-12-02 16:55 | CRLHL7_ITS ---
For Patients: As a result of the Century Cures Act, medical imaging exams and procedure reports are released immediately into your electronic medical record. You may view this report before your referring provider. If you have questions, please contact your health care provider. Indication: Bleeding in the setting of early . Technique: Sonography of the pelvis was performed. The study was performed transvaginally. Color and Doppler evaluation was also performed Comparison: There are no prior studies available for comparison Findings: There is a single live intrauterine noted. A yolk sac is noted which appears normal measuring about 3 millimeters. A pole is also identified. This averages about 1 centimeter which corresponds to 7 weeks and 0 days. This yields an estimated date of delivery of 07/21/2023. heart rate is 134 beats per minute which is normal. The ovaries are identified and appear normal. The right ovary measures 4.2 x 2.9 x 3.4 centimeters and the left ovary measures 3.8 x 2.0 x 3.3 centimeters. A small to moderate amount of heterogeneous thickening is noted in the lower uterine segment and upper endocervical canal which probably represents hemorrhage. However, there is no discrete measurable subchorionic hemorrhage identified on this exam. There is a left adnexal mass that is probably tubal in origin. This is solid, vascular and has a small to moderate amount of surrounding complex fluid. This mass measures about 6 centimeters in greatest dimension. This could be tubal adnexal inflammatory disease. However, this could represent an unusual case of a concomitant left adnexal ectopic with an IUP. Gynecologic consultation is advised for further evaluation. I discussed this case with Dr. Maguire at 6:25 p.m. on December 02, 2022 Impression: 1. There are findings of a living IUP at 7 weeks and 0 days with a normal heart rate of 134 beats per minute 2. A small to moderate amount of heterogeneous material is seen in the lower uterine segment and upper endocervical canal which probably represents hemorrhage. There is no discrete measurable subchorionic hemorrhage 3. Left adnexal mass measuring about 6 centimeters in greatest dimension probably tubal in origin with a small to moderate amount of surrounding complex fluid. This is hypervascular. This could be tubal adnexal inflammatory disease. This could also be a rare case of a concomitant IUP with an ectopic . 4. Gynecologic consultation is advised for further evaluation and potential treatment Dictated by Ray Valenzuela MD @ 12/02/2022 6:26:41 PM (Electronically Signed)
[2022-12-02] MEDS: ACETAMINOPHEN 500 MG TABLET 1000 MG PO (17:26)
--- NOTE | 2022-12-02 17:27 | ED.NURSE ---
pt reports changing an 1st OB pad that is saturated
[2022-12-02 17:31] LABS: Basophils Percent Auto 0.3 % (0.0-3.0); Eosinophils Percent Auto 3.1 % (0.0-7.0); Hemoglobin* 12.5 gm/dL (12.0-16.0); Immature Granulocytes Pct Auto 0.1 %; Lymphocytes Percent Auto 19.6 % (20-44); Mean Corpuscular HGB Conc 32 gm/dL (32-36); Mean Corpuscular Hemoglobin 27 pg (26-34); Mean Corpuscular Volume 85 fL (80-100); Monocytes Percent Auto 5.3 % (0.0-11.0); Neutrophils Percent Auto 71.6 % (42.0-72.0); Platelet Count* 324 K/uL (140-440); Red Blood Count 4.61 m/uL (4.00-5.20); White Blood Count* 11.06 K/uL (4.50-11.00)
[2022-12-02 17:33] LABS: Slide Review Reflex No
[2022-12-02 17:51] LABS: Albumin* 4.4 g/dL (3.3-5.0); Chloride* 105 mmol/L (96-114); Potassium* 4.5 mmol/L (3.6-5.1); Sodium* 138 mmol/L (135-149)
[2022-12-02 17:53] LABS: Anion Gap 11 mEq/L (7-15); Bilirubin Total* 0.4 mg/dL (0.1-1.5); Carbon Dioxide* 22 mmol/L (20-32); Creatinine* 0.5 mg/dL (0.5-1.5); Est. Creatinine Clearance* 145.61; Estimated Glomerular Filt Rate 125 ml/min
[2022-12-02 17:54] LABS: Alanine Aminotransferase* 30 U/L (4-35); Alkaline Phosphatase* 82 U/L (40-150); Aspartate Amino Transferase* 26 U/L (12-35); Blood Urea Nitrogen* 10 mg/dL (5-24); Glucose* 93 mg/dL (60-115); Total Protein* 7.3 g/dL (6.0-8.3)
--- NOTE | 2022-12-02 18:31 | ED.NURSE ---
Pt reports no relief in pain after Tylenol. Requesting pain meds. MD notified. Per Dr. Maguire, hold on additional pain meds until after phone consult with DIRECTOR OF TESTING. Pt informed.
[2022-12-02 18:32] LABS: Appearance Urine Clear (Clear); Color Urine Yellow (Yellow); Glucose Urine Negative (Negative)
[2022-12-02 18:33] LABS: Bilirubin Urine Negative (Negative); Blood Urine 3+ (Negative); Ketones Urine Negative (Negative); Leukocyte Esterase Urine Negative (Negative); Nitrite Urine Negative (Negative); Protein Urine Negative (Negative); RBC Urine 50-100 (0-2); Specific Gravity Urine 1.015 (1.000-1.030); Squamous Epithelial Cell Urine Few (None-Few); Urobilinogen Urine 0.2 (0.2-1.0); WBC Urine 0-2 (0-5)
[2022-12-02 18:34] LABS: Bacteria Urine Few
--- NOTE | 2022-12-02 18:48 | ED_ITS ---
HPI - General Adult General Date Seen: 12/02/22 Chief complaint: Vaginal Bleeding Stated complaint: 7 weeks , bleeding and pain Time Seen by Provider: 12/02/22 16:46 Source: patient Mode of arrival: ambulatory Limitations: no limitations History of Present Illness HPI narrative: Patient is a 37-year-old female presenting to the emergency department for left groin pain and vaginal bleeding. She states that roughly 14:20 she had sudden left lower abdominal pain and started to have some vaginal bleeding. In the past 2 hours she had to replace her pad once and does note it was a relatively small pad but it was saturated. She says the pain is better while she is sitting but is worse whenever she is moving around. She has no history of IVF. She believes she is about 7 weeks along. No issues with her previous pregnancies. Denies fevers, chills, nausea, vomiting, headache, lightheadedness, dizziness, chest pain. Denies any vaginal discharge or dysuria. Related Data Home Medications Medication Instructions Recorded Confirmed budesonide 0.5 mg/2 mL suspension 0.5 mg irrigation BID 09/19/21 08/21/22 for nebulization prenat.vits,stephanie,[id number] 1 tab PO QDAY 09/19/21 08/21/22 Previous Rx's Medication Instructions Recorded albuterol sulfate 90 mcg/actuation 2 - 4 puff inhalation Q4H PRN 05/16/22 aerosol inhaler (Ventolin HFA) bronchospasm #8.5 grams fluticasone furoate 200 1 inh inhalation DAILY #90 ea 05/16/22 mcg/actuation blister powder for inhalation (Arnuity Ellipta) labetalol 100 mg tablet 50 mg (1/2 x 100 mg) PO QDAY #90 05/16/22 tabs Allergies Allergy/AdvReac Type Severity Reaction Status Date / Time NSAIDS (Non-Steroidal Allergy Intermediate nasal Verified 09/06/22 10:02 Anti-Inflamma bleeding ibuprofen Allergy Mild Nasal Verified 09/06/22 10:02 issues Review of Systems Status of ROS: Reports: 10 or more systems reviewed and unremarkable except as noted in History and below [facility] Medical History (Updated 12/02/22 @ 18:50 by Geo Maguire DO) History of depression ?Z86.59 - Personal history of other mental and behavioral disorders (ICD-10) Surgical History (Updated 11/07/22 @ 08:42 by Kendra Hodges MD) History of right inguinal hernia repair ?Z98.890 - Other specified postprocedural states (ICD-10) ?Z87.19 - Personal history of other diseases of the digestive system (ICD-10) History of section ?Z98.891 - History of uterine scar from previous surgery (ICD-10) History of sinus surgery (04/07/10) ?Z98.890 - Other specified postprocedural states (ICD-10) Family History Mother High blood pressure Sister Leukemia Paternal Grandmother Diabetes Social History Narrative: She lives in [place] with and 2 kids, ages 16 and 14. She doesn't smoke, drink alcohol or use recreational drugs. Smoking Status: Former smoker How often do you have a drink containing alcohol: never AUDIT-C Alcohol total score: 0 Non-prescribed substance use: denies use Caffeine: No Little interest or pleasure in doing things: not at all Feeling down, depressed, or hopeless: not at all Are you using contraception or practicing any form of control: No Exam Narrative: Exam Narrative: Const: Well-nourished, Well-developed, in mild distress Eyes: PERRL, no conjunctival injection, and symmetrical lids HENT: Atraumatic external nose and ears. Moist mucous membranes. Neck: Symmetric, trachea midline, No thyromegaly. CVS: RRR, No murmurs or gallops. Peripheral pulses 2+ and equal in all extremities RESP: Unlabored respiratory effort. Clear to auscultation bilaterally. GI: Tenderness to palpation left lower groin Nondistended, No rebound or guarding. MSK:Extremities w/o deformity, Normal Active ROM Skin: Warm, Dry. No rashes or lesions. Neuro: Normal Muscle tone, No focal neurological deficits. Psych: Awake, Alert, & Oriented x3. Appropriate mood and affect. Const: Vital Signs, click to edit/add: Vital Signs - 24 hr 12/02/22 15:00 12/02/22 19:26 Temperature 99.0 F 99.0 F Pulse Rate [Right Pulse Oximeter] 78 78 Respiratory Rate 18 18 Blood Pressure [Ri ght Upper Arm] 156/87 H 156/87 H Pulse Oximetry 99 Oxygen Delivery Me thod Room Air Course Vital Signs Vital signs: Initial Vital Signs Temperature 99.0 F 12/02/22 15:00 Temperature Source Temporal Artery Scan 12/02/22 15:00 Pulse Rate 78 12/02/22 15:00 Respiratory Rate 18 12/02/22 15:00 Blood Pressure 156/87 H 12/02/22 15:00 Blood Pressure Mean 110 H 12/02/22 15:00 Blood Pressure Position Sitting 12/02/22 15:00 Pulse Oximetry 99 12/02/22 15:00 Oxygen Delivery Method Room Air 12/02/22 15:00 Vital Signs Temperature 99.0 F 12/02/22 15:00 Pulse Rate 78 12/02/22 15:00 Respiratory Rate 18 12/02/22 15:00 Blood Pressure 156/87 H 12/02/22 15:00 Pulse Oximetry 99 12/02/22 15:00 Oxygen Delivery Method Room Air 12/02/22 15:00 Temperature 99.0 F 12/02/22 19:26 Pulse Rate 78 12/02/22 19:26 Respiratory Rate 18 12/02/22 19:26 Blood Pressure 156/87 H 12/02/22 19:26 Pulse Oximetry 99 12/02/22 15:00 Oxygen Delivery Method Room Air 12/02/22 15:00 Medical Decision Making [facility] Narrative Medical decision making narrative: Patient is a 37-year-old female presenting to emergency department for left in guinal pain and vaginal bleeding. She has saturated 1 small pad in 2 hours. The pain started suddenly is worse whenever she moves around. She has not had an ultrasound yet so there is concern for an ectopic . Her blood type is already known and repeating it is not necessary. Cbc and CMP were ordered. HCG quant was ordered. Urinalysis is also ordered. We will do a vaginal ultrasound to better evaluate her symptoms. Patient was given Tylenol for pain with minimal improvement. She was given morphine for pain with improvement in her symptoms. Urinalysis shows blood in the urine but no signs of a UTI. Cbc and CMP showed no concerning abnormalities. The transvaginal ultrasound returned showing a mass in the left adnexal area. Cannot rule out ectopic at this time although there is a live intrauterine at this time. I spoke to Dr. Dutton and explained to him the findings. She states due to the size of the mass is very unlikely to be a ectopic specially considering she has no history of IVF. He believes it could be a hemorrhagic cyst in the could also be was causing her bleeding. He recommended she be discharged with close outpatient follow-up early this week. Patient is agreeable for discharge and will be discharged home with oxycodone for her pain. I informed use Tylenol 1st and only use the oxycodone if she cannot tolerate the pain. Lab Data Labs: Lab Results 12/02/22 12/02/22 Range/Units 17:23 18:15 WBC 11.06 H (4.50-11.00) K/uL RBC 4.61 (4.00-5.20) m/uL Hgb 12.5 (12.0-16.0) gm/dL Hct 39.0 (33.0-51.0) % MCV 85 (80-100) fL MCH 27 (26-34) pg MCHC 32 (32-36) gm/dL RDW Coeff of Gregorio 13.0 (11.5-15.5) % Plt Count 324 (140-440) K/uL Neut % (Auto) 71.6 (42.0-72.0) % Lymph % (Auto) 19.6 L (20-44) % [place] % (Auto) 5.3 (0.0-11.0) % Eos % (Auto) 3.1 (0.0-7.0) % Baso % (Auto) 0.3 (0.0-3.0) % Neut # (Auto) 7.90 H (1.7-7.0) K/uL Lymph # (Auto) 2.20 (0.90-2.90) K/uL [place] # (Auto) 0.60 (0.00-0.90) K/UL Eos # (Auto) 0.30 (0.00-0.50) K/uL Baso # (Auto) 0.00 (0.00-0.30) K/uL Abs Immat Gran (auto) 0.00 (0.00-0.30) K/uL Imm/Tot Granulo (auto) 0.1 % Sodium 138 (135-149) mmol/L Potassium 4.5 (3.6-5.1) mmol/L Chloride 105 (96-114) mmol/L Carbon Dioxide 22 (20-32) mmol/L Anion Gap 11 (7-15) mEq/L BUN 10 (5-24) mg/dL Creatinine 0.5 (0.5-1.5) mg/dL Estimated Creat Clear 145.61 Estimated GFR 125 ml/min Glucose 93 (60-115) mg/dL Calcium 10.0 (8.4-10.6) mg/dL Total Bilirubin 0.4 (0.1-1.5) mg/dL AST 26 (12-35) U/L ALT 30 (4-35) U/L Alkaline Phosphatase 82 (40-150) U/L Total Protein 7.3 (6.0-8.3) g/dL Albumin 4.4 (3.3-5.0) g/dL HCG, Quant 01860.00 mIU/mL Urine Color Yellow (Yellow) Urine Appearance Clear (Clear) Urine pH 6.0 (5.0-8.5) Ur Specific [place] 1.015 (1.000-1.030) Urine Protein Negative (Negative) Urine Glucose (UA) Negative (Negative) Urine Ketones Negative (Negative) Urine Blood 3+ A (Negative) Urine Nitrite Negative (Negative) Urine Bilirubin Negative (Negative) Urine Urobilinogen 0.2 (0.2-1.0) Ur Leukocyte Esterase Negative (Negative) Urine RBC 50-100 A (0-2) Urine WBC 0-2 (0-5) Urine WBC Clumps None (None) Ur Squamous Epith Cells Few (None-Few) Urine Bacteria Few A (None) Imaging Data Transvaginal ultrasound: Radiologist's impression: Indication: Bleeding in the setting of early . Technique: Sonography of the pelvis was performed. The study was performed transvaginally. Color and Doppler evaluation was also performed Comparison: There are no prior studies available for comparison Findings: There is a single live intrauterine noted. A yolk sac is noted which appears normal measuring about 3 millimeters. A pole is also identified. This averages about 1 centimeter which corresponds to 7 weeks and 0 days. This yields an estimated date of delivery of 07/21/2023. heart rate is 134 beats per minute which is normal. The ovaries are identified and appear normal. The right ovary measures 4.2 x 2.9 x 3.4 centimeters and the left ovary measures 3.8 x 2.0 x 3.3 centimeters. A small to moderate amount of heterogeneous thickening is noted in the lower uterine segment and upper endocervical canal which probably represents hemorrhage. However, there is no discrete measurable subchorionic hemorrhage identified on this exam. There is a left adnexal mass that is probably tubal in origin. This is solid, vascular and has a small to moderate amount of surrounding complex fluid. This mass measures about 6 centimeters in greatest dimension. This could be tubal adnexal inflammatory disease. However, this could represent an unusual case of a concomitant left adnexal ectopic with an IUP. Gynecologic consultation is advised for further evaluation. I discussed this case with Dr. Maguire at 6:25 p.m. on December 02, 2022 Impression: 1. There are findings of a living IUP at 7 weeks and 0 days with a normal heart rate of 134 beats per minute 2. A small to moderate amount of heterogeneous material is seen in the lower uterine segment and upper endocervical canal which probably represents hemorrhage. There is no discrete measurable subchorionic hemorrhage 3. Left adnexal mass measuring about 6 centimeters in greatest dimension probably tubal in origin with a small to moderate amount of surrounding complex fluid. This is hypervascular. This could be tubal adnexal inflammatory disease. This could also be a rare case of a concomitant IUP with an ectopic . 4. Gynecologic consultation is advised for further evaluation and potential treatment Dictated by Ray Valenzuela MD @ 12/02/2022 6:26:41 PM Discharge Plan Discharge Clinical Impression: Threatened , Adnexal mass Patient Disposition: Home, Self-Care Condition: Stable Instructions: Threatened Miscarriage (ED) Additional Instructions: Follow-up with OB on Sunday morning. Call their office. Take Tylenol for pain and if that is not helping, you can take the oxycodone. Return for new or worsening symptoms. Prescriptions: No Action budesonide 0.5 mg/2 mL suspension for nebulization 0.5 mg irrigation BID prenat.vits,stephanie,[id number] Tablet 1 tab PO QDAY Arnuity Ellipta 200 mcg/actuation blister with device 1 inh inhalation DAILY Qty: 90 3RF albuterol sulfate [Ventolin HFA] 90 mcg/actuation HFA aerosol inhaler 2 - 4 puff inhalation Q4H PRN (Reason: bronchospasm) Qty: 8.5 8RF labetalol 100 mg tablet 50 mg PO QDAY Qty: 90 3RF Follow Up/Referrals: Kendra Hodges MD [Primary Care Provider] - Stand Alone Forms: Rico Info Instructions
[2022-12-02] MEDS: MORPHINE 4 MG/ML INJ IM (18:55)
[2022-12-02 19:26] VITALS: BP 156/87; PULSE 78; RESP 18; TEMP 37.2
== END 2022-12-02 18:57 | disposition home or self-care (01) ==
PROVIDERS: Emergency Provider Student in an Organized Health Care Education/Training Program; PCP Internal Medicine
DX: O20.0 Threatened abortion (principal); E27.9 Disorder of adrenal gland, unspecified
CPT/HCPCS: 36415; 76817; 80053; 81001; 84702; 85025; 87086; 96372; 96374; 99283; 99284; A9270; J2270

== ENCOUNTER 2022-12-05 08:39 | Outpatient (CLI) | payer BC, SELFPAY ==
--- NOTE | 2022-12-05 08:45 | CRLHL7_ITS ---
For Patients: As a result of the Cures Act, medical imaging exams and procedure reports are released immediately into your electronic medical record. You may view this report before your referring provider. If you have questions, please contact your health care provider. INDICATION: Follow-up viability, possible adnexal mass. COMPARISON: None. TECHNIQUE: Real-time degroot-scale imaging of the pelvis was performed. FINDINGS: Sonographic imaging demonstrates a single living intrauterine gestation. The embryo demonstrates a regular cardiac rate measuring 154 beats per minute. The embryo`s crown-rump length measurement of 1.2 cm corresponds to a gestational age of 7 weeks 3 days with a sonographic due date of 07/21/2023. There is a normal-appearing yolk sac. There are no gross abnormalities noted within the embryo at this early state of development. The gestational sac has a normal appearance. There is a right fundal perigestational hemorrhage measuring 3.4 x 0.8 x 2.2 cm. The amount of fluid within the sac appears appropriate for gestational age. The cervix is closed. The myometrium appears normal. The ovaries are of normal size. Corpus luteal cyst right ovary. There are no suspicious fluid collections noted in the cul-de-sac. Normal patency of vessels within the left adnexa. No adnexal mass. IMPRESSION: Single living intrauterine with sonographic gestational age 7 weeks 3 days and sonographic due date 07/21/2023. Right fundal subchorionic hemorrhage measuring 3.4 x 0.8 x 2.2 cm. No adnexal mass. Dictated by Chago Gallardo MD @ 12/05/2022 10:14:56 AM (Electronically Signed)
== END 2022-12-05 08:40 | disposition home or self-care (01) ==
LOC: US 08:40
PROVIDERS: PCP Internal Medicine; Visit Provider Obstetrics & Gynecology
DX: Z34.91 Encounter for supervision of normal pregnancy, unspecified, first trimester (principal); O20.9 Hemorrhage in early pregnancy, unspecified; Z3A.01 Less than 8 weeks gestation of pregnancy
CPT/HCPCS: 76817

== ENCOUNTER 2022-12-27 08:10 | Outpatient (CLI) | payer BC, SELFPAY ==
--- NOTE | 2022-12-27 08:15 | CRLHL7_ITS ---
For Patients: As a result of the Century Cures Act, medical imaging exams and procedure reports are released immediately into your electronic medical record. You may view this report before your referring provider. If you have questions, please contact your health care provider. INDICATION: Follow-up viability COMPARISON: 12/05/2022, 12/02/2022 TECHNIQUE: Real-time degroot-scale imaging of the pelvis was performed. FINDINGS: Sonographic imaging demonstrates a single living intrauterine gestation. The embryo demonstrates a regular cardiac rate measuring 176 beats per minute. The embryo`s crown-rump length measurement of 3.6 cm corresponds to a gestational age of 10 weeks 3 days with a sonographic due date of 07/22/2023. There is a normal-appearing yolk sac. There are no gross abnormalities noted within the embryo at this early state of development. The gestational sac has a normal appearance. There is no evidence of a perigestational hemorrhage. The amount of fluid within the sac appears appropriate for gestational age. Incidental cyst in the posterior placenta measuring 7 x 7 x 6 millimeters. Corpus luteal cyst right ovary. Left ovary not visualized. Transvaginal sonogram of the cervix demonstrates the cervical length at 2.8 cm. Fluid is present within the cervical canal and the external cervical os is open. The internal cervical os is closed. IMPRESSION: Open external cervical os with fluid in the endocervical canal. The internal cervical os is closed. The cervix measures 2.8 cm. The referring clinician was made available the findings immediately following the study by the registered phlebotomist part time. Resolution of previously noted subchorionic hemorrhage. No blood noted on the endocervical probe. Single living intrauterine with sonographic gestational age 10 weeks 3 days and sonographic due date of 07/22/23. Dictated by Chago Gallardo MD @ 12/27/2022 9:43:38 AM (Electronically Signed)
== END 2022-12-27 08:11 | disposition home or self-care (01) ==
LOC: US 08:10
PROVIDERS: PCP Internal Medicine; Visit Provider Registered Nurse
DX: Z34.91 Encounter for supervision of normal pregnancy, unspecified, first trimester (principal); Z3A.10 10 weeks gestation of pregnancy
CPT/HCPCS: 76817; 82565; 82570; 84156; 84450; 84460; 84520; 86703; 86706; 86803; 86850; 86900; 86901; 87086; 87340

== ENCOUNTER 2022-12-27 09:53 | Outpatient (CLI) | payer BC, SELFPAY | END 2022-12-27 09:54 | disposition home or self-care (01) | PROVIDERS: PCP Internal Medicine; Visit Provider Registered Nurse | DX: Z34.91 Encounter for supervision of normal pregnancy, unspecified, first trimester (principal); Z3A.10 10 weeks gestation of pregnancy | CPT/HCPCS: 82565; 82570; 84156; 84450; 84460; 84520; 86592; 86703; 86704; 86706; 86762; 86787; 86803; 86850; 86900; 86901; 87086; 87340; 87491; 87591 ==

== ENCOUNTER 2023-01-05 14:52 | Outpatient (CLI) | payer BC, SELFPAY | END 2023-01-05 14:53 | disposition home or self-care (01) | LOC: NFLDREF 01-08 09:46 | PROVIDERS: PCP Internal Medicine; Referring Provider Internal Medicine; Visit Provider Registered Nurse | DX: Z34.90 Encounter for supervision of normal pregnancy, unspecified, unspecified trimester (principal) | CPT/HCPCS: 82570; 84156 ==

== ENCOUNTER 2023-02-22 09:28 | Outpatient (CLI) | payer BC, SELFPAY ==
--- NOTE | 2023-02-22 09:15 | CRLHL7_ITS ---
For Patients: As a result of the Cures Act, medical imaging exams and procedure reports are released immediately into your electronic medical record. You may view this report before your referring provider. If you have questions, please contact your health care provider. INDICATION: No heart tones at provider examination, confirm demise TECHNIQUE: Ultrasound OB pelvis transabdominal. Real-time degroot-scale imaging of the fetus was performed as well as color Doppler and spectral Doppler analysis of the umbilical artery. COMPARISON: Obstetric ultrasound 01/31/2023 FINDINGS: Clinical Age: 18 weeks 2 days Sonographic imaging demonstrates a single intrauterine gestation. No cardiac activity on M-mode imaging and color Doppler imaging. Fetus has a transverse orientation. The placenta lies fundal without evidence of placenta previa. Amniotic fluid volume appears normal. Cervix is not well seen although appears to be significantly shortened or open. Gestational sac centered at the lower uterine segment/cervix. The following biometric measurements were obtained: Biparietal diameter: 3.5 centimeters corresponding to 16 weeks 5 days. Head circumference: 13.2 centimeters corresponding to 16 weeks 5 days. Abdominal circumference: 11.6 centimeters corresponding to 17 weeks 2 days. Femur length: 2.3 centimeters corresponding to 16 weeks 5 days. The weight is estimated at 178 grams, the less than 3rd percentile. IMPRESSION.: Intrauterine gestation with a clinical age of 18 weeks 2 days without cardiac activity consistent with demise. Dictated by Michael Mojica MD @ 02/22/2023 11:48:26 AM (Electronically Signed)
== END 2023-02-22 09:29 | disposition home or self-care (01) ==
LOC: US 09:29
PROVIDERS: PCP Internal Medicine; Visit Provider Obstetrics & Gynecology
DX: O36.8320 Maternal care for abnormalities of the fetal heart rate or rhythm, second trimester, not applicable or unspecified (principal); O02.1 Missed abortion
CPT/HCPCS: 76815

== ENCOUNTER 2023-02-22 11:31 | Inpatient (IN) | payer BC, SELFPAY ==
[2023-02-22] VITALS (47 sets, daily range): BP systolic 97–160; BP diastolic 56–98; PULSE 58–101; RESP 18–20; TEMP 36.9; O2SAT 89–100; BMI 36.1
--- NOTE | 2023-02-22 11:45 | P.LDBA_ITS ---
Subjective History of Present Illness Time Seen by Provider: 11:45 Date Seen: 02/22/23 Narrative: Patient is being admitted to Labor and Delivery for induction of labor due to intrauterine demise at 18 weeks 2 days gestation by dates, 16 weeks 6 days gestation by ultrasound. She is a 37 year old at 18 weeks 2 days gestation. Her intrauterine demise was diagnosed the office this morning. She was given the option for dilation and evacuation or induction of labor after reviewing both procedures including risks and benefits the patient opted for labor induction. We will be inducing labor with Cytotec 400 mg every 3 hours maximum of 5 doses. Specific Issues/Plans G 5 P 3013 S.O.: Garrison Fernandez. Children: Gian (17yo), Marika (15yo), Sae (1yo). Baby: Girl! 1. Advanced Maternal Age NIPT testing desired. No increased risk for aneuploidy, female. Level 2 US recommended at 20 weeks 2. x3. Desires repeat. Considering sterilization 3. Closely spaced pregnancies. Delivery 12/12/21 4. Chronic hypertension. Managed on Labetalol 50mg BID. (Prescribed by Dr Hodges) baseline pre E labs: all normal except P/C ration 0.3. 24 hour protein: 115 Recommended baby aspirin starting at 12 weeks. Cannot take NSAIDs due to nasal polyps. Monthly EFW and weekly BPP starting at 32 weeks. 5. Declined chlam/gc screening at first OB. Discussed risks. Patient verbalized understanding and is comfortable declining test. 6. First OB US showed dilated external cervical os, fluid within cervix, and cervical length of 2.8mm. * Referral placed to Perinatology: Normal anatomy for gestational age with gut herniation (appropriate for gestational age.). Small placental cyst measuring [id number]. Cervix normal length and closed. No evidence of funneling. * Recommend f/u in 4 weeks to assess for resolution of gut herniation. Comprehensive FAS at 18 weeks including cervical length. * 01-31-23: Normal appearance to abdominal wall 7. Initial BMI: 34.8 * HgbA1C: 5.4% flu: never gets flu vaccine; declined covid: completed and boosted 02/2022 OB - Problem Based A/P Additional Plan (1) IUFD at less than 20 weeks of gestation: Status: Acute Plan 1. Admit to the center for induction of labor using Cytotec 400 mg vaginally every 3 hours, 5 doses maximum. 2. Patient can have an epidural if she desires. 3. Multiple labs for attempt to identify reason for IUFD were ordered. 4. The patient would like a sample sent for chromosome analysis after delivery. 5. Cultures of the placenta will be done after delivery. 6. Patient understands that she has a chance of requiring a dilation and curettage procedure after delivery for retained placenta. OB Exam Physical Exam Vital signs: GENERAL APPEARANCE: Pleasant, , well-groomed woman who is anxious and tearful VITAL SIGNS: as noted in nursing notes HEAD: Normocephalic, atraumatic. THYROID: no masses, nodularity, tenderness or enlargement. LUNGS: Clear to auscultation bilaterally without wheezes, rales or rhonchi. HEART: Regular rate and rhythm with normal S1 and S2. No gallop, rub or murmur. ABDOMEN: Gravid. Soft, nontender, nondistended, with normal bowels sounds throughout. PRESENTATION: Vertex by ultrasound SVE: Deferred EXTREMITIES: No cyanosis, clubbing, or edema. No varicosities. NEUROLOGIC: Normal gait and balance. Normal deep tendon reflexes at bilateral patella 2+/2, equal without clonus. PSYCHIATRIC: alert and oriented x3. Normal speech pattern, eye contact and affect. SKIN: Warm, dry, and well perfused. Good turgor. No lesions, nodules or rashes.
[2023-02-22] MEDS: LORazepam 1 MG TABLET PO ×2 (12:21→21:45)
[2023-02-22] MEDS: miSOPROStoL 800 MCG/4 TABLET 400 MCG VAGINAL ×3 (12:50→20:33)
[2023-02-22 13:22] LABS: Basophils Percent Auto 0.2 % (0.0-3.0); Eosinophils Percent Auto 2.1 % (0.0-7.0); Hematocrit 35.2 % (33.0-51.0); Hemoglobin* 11.2 gm/dL (12.0-16.0); Immature Granulocytes Pct Auto 0.7 %; Lymphocytes Percent Auto 26.1 % (20-44); Mean Corpuscular HGB Conc 32 gm/dL (32-36); Mean Corpuscular Hemoglobin 27 pg (26-34); Mean Corpuscular Volume 86 fL (80-100); Monocytes Percent Auto 5.1 % (0.0-11.0); Neutrophils Percent Auto 65.8 % (42.0-72.0); Platelet Count* 308 K/uL (140-440); RDW Coefficient of Variation % 13.2 % (11.5-15.5); Red Blood Count 4.11 m/uL (4.00-5.20); White Blood Count* 11.87 K/uL (4.50-11.00)
[2023-02-22 13:25] LABS: Slide Review Reflex No
[2023-02-22 13:43] LABS: Glucose* 93 mg/dL (60-115)
[2023-02-22 14:07] LABS: INR 0.85 (0.91-1.10); Prothrombin Time 12.1 Seconds
[2023-02-22 14:08] LABS: Partial Thromboplastin Time* 27 Seconds (23-33)
[2023-02-22 14:09] LABS: Fibrinogen* 309 mg/dL (200-450)
[2023-02-22 14:10] LABS: Amphetamine Screen Urine Negative (Negative); Barbiturate Screen Urine Negative (Negative); Benzodiazepines Screen Urine Negative (Negative); Cannabinoid Screen Urine Negative (Negative); Cocaine Screen Urine Negative (Negative); Methadone Screen Urine Negative (Negative); Methamphetamines Screen Urine Negative (Negative); Opiate Screen Urine Negative (Negative); Oxycodone Screen Urine Negative (Negative); Phencyclidine Screen Urine Negative (Negative); Tricyclic Antidepressant Urine Negative (Negative)
[2023-02-22] MEDS: fentaNYL 100 MCG/2 ML inj IVP ×3 (17:28→18:35)
[2023-02-22] MEDS: LACTATED RINGERS 1000 ML 1,000 ML 1200 ML IV (19:06)
[2023-02-22] MEDS: LIDOCAINE 2% (PF) 5 ML VIAL EPIDURAL ×2 (19:43→22:30)
[2023-02-22] MEDS: ROPIVACAINE 0.2% 100 ml 100 ML 12 MG EPIDURAL (19:46)
--- NOTE | 2023-02-22 20:00 | P.ANBPRC_ITS ---
[facility] Medical History (Updated 02/22/23 @ 10:18 by Edie Lopes MD) Nasal polyps ?J33.9 - Nasal polyp, unspecified (ICD-10) Generalized anxiety disorder (12/11/08) ?F41.1 - Generalized anxiety disorder (ICD-10) ?Z34.90 - Encounter for supervision of normal , unspecified, unsp ecified trimester (ICD-10) History of depression ?Z86.59 - Personal history of other mental and behavioral disorders (ICD-10) Surgical History (Updated 01/24/23 @ 09:39 by Edie Lopes MD) History of right inguinal hernia repair ?Z98.890 - Other specified postprocedural states (ICD-10) ?Z87.19 - Personal history of other diseases of the digestive system (ICD-10) History of section ?Z98.891 - History of uterine scar from previous surgery (ICD-10) History of sinus surgery (04/07/10) ?Z98.890 - Other specified postprocedural states (ICD-10) Family History Mother High blood pressure Sister Leukemia Paternal Grandmother Diabetes Social History Narrative: She lives in [place] with and 2 kids, ages 16 and 14. She doesn't smoke, drink alcohol or use recreational drugs. What is your current living situation?: I presently have a place to live Problems where you live: no known problems In the past 12 months, utilities in danger of being shut off: no In past 12 months, lack of transportation kept you from medical appts, meetings, work, or getting things needed for daily living: no In the past 12 mos, have been you worried that your food would run out before you had money to buy more?: never true In the past 12 mos, the food you bought just didn't last and you didn't have money to buy more?: never true Smoking Status: Former smoker How often do you have a drink containing alcohol: never AUDIT-C Alcohol total score: 0 Non-prescribed substance use: denies use Caffeine: No How often does anyone, including family, friends and others, physically hurt you : never How often does anyone, including family, friends and others, insult or talk down to you: never How often does anyone, including family, friends and others, threaten you with harm: never How often does anyone, including family, friends and others, scream or curse at you: never Little interest or pleasure in doing things: not at all Feeling down, depressed, or hopeless: not at all Are you using contraception or practicing any form of control: No Meds Home Medications and Allergies Home Medications Medication Instructions Recorded Confirmed Type prenat.vits,stephanie,[id number] 1 tab PO QDAY 09/19/21 02/22/23 History labetalol 100 mg tablet 50 mg PO BID 12/27/22 02/22/23 History Allergies Allergy/AdvReac Type Severity Reaction Status Date / Time NSAIDS (Non-Steroidal Allergy Intermediate nasal Verified 02/22/23 13:29 Anti-Inflamma bleeding ibuprofen Allergy Mild Nasal Verified 02/22/23 13:29 issues Results Labs Labs: Laboratory Results - last 24 hr 02/22/23 02/22/23 13:06 Unknown WBC 11.87 H RBC 4.11 Hgb 11.2 L Hct 35.2 MCV 86 MCH 27 MCHC 32 RDW Coeff of Gregorio 13.2 Plt Count 308 Neut % (Auto) 65.8 Lymph % (Auto) 26.1 [place] % (Auto) 5.1 Eos % (Auto) 2.1 Baso % (Auto) 0.2 Neut # (Auto) 7.80 H Lymph # (Auto) 3.10 H [place] # (Auto) 0.60 Eos # (Auto) 0.20 Baso # (Auto) 0.00 Abs Immat Gran (auto) 0.10 Imm/Tot Granulo (auto) 0.7 INR 0.85 L APTT 27 Fibrinogen 309 Glucose 93 TSH 3.720 Free T4 1.00 Urine Opiates Screen Negative Ur Oxycodone Screen Negative Urine Methadone Screen Negative Ur Propoxyphene Screen Not Reportable Ur Barbiturates Screen Negative U Tricyclic Antidepress Negative Ur Phencyclidine Scrn Negative Ur Amphetamines Screen Negative U Methamphetamines Scrn Negative U Benzodiazepines Scrn Negative Urine Cocaine Screen Negative U Marijuana (THC) Screen Negative Blood Type A Positive Antibody Screen NEGATIVE Vital Signs Vital Signs: Last Vital Signs Temp 98.4 F 02/22/23 12:45 Pulse 70 02/22/23 19:56 Resp 20 02/22/23 12:45 BP 127/57 L 02/22/23 19:56 Pulse Ox 98 02/22/23 19:58 Weight: 101.4 kg Height: 167.64 cm Anesthesia Procedures Epidural Insertion Patient Location: OB Start Time: 19:14 Stop Time: 20:14 Start Date: 02/22/23 Stop Date: 02/22/23 Reason for Block: procedure for pain Patient Position: sitting Performed By: Idalia Salomon Preanesthetic Checklist: IV checked, risks and benefits discussed, monitors and equipment checked, pre-op evaluation, timeout performed and anesthesia consent Prep: chlorhexidine gluconate Monitoring: blood pressure monitoring, continuous pulse oximetry and heart rate Approach: midline Vertebral Space: lumbar (1-5) Epidural Technique: REBECA saline Needle Type: Tuohy needle Injection Technique: continuous catheter (continuous catheter) Needle gauge: 17 Needle Length (cm): 10 cm Needle Insertion Depth (cm): 7 Catheter Gauge: 19 Catheter Type: multi-orifice Catheter at skin depth (cm): 15 Test Dose Result: negative and lidocaine 1.5% with epinephrine 1 to 200,000
[2023-02-22] MEDS: LACTATED RINGERS 1000 ML 1,000 ML 125 ML IV (20:21)
--- NOTE | 2023-02-22 20:46 | PM.OBPNL ---
Subjective Time Seen by Provider: 20:46 Date Seen: 02/22/23 Narrative: Subjective: The patient is comfortable with an epidural. I placed her 3rd dose of Cytotec at approximately 8:30 p.m. This was an hour and half late which the nurse stated was because they were getting her comfortable with an epidural Vital signs: Per electronic medical record. [place]: No contractions identified on monitor SVE: 1 cm/50 %/-2. Assessment: 37-year-old 4 para 3003 at 18 weeks 2 days gestation undergoing induction for intrauterine demise measuring 16 weeks 6 days ultrasound Plan: 1. Continue Cytotec per induction protocol: 400 mg vaginally every 3 hours 2. Maximum of 5 doses 3. She remains undelivered after 5 doses then would change to high-dose Pitocin Objective Vital Signs: Last Vital Signs Temp 98.5 F 02/22/23 20:18 Pulse 74 02/22/23 20:39 Resp 18 02/22/23 20:18 BP 119/56 L 02/22/23 20:39 Pulse Ox 100 02/22/23 20:43
--- NOTE | 2023-02-22 22:06 | PC.NURSE ---
Patient reports pain of 7/[address] Anesthesia notified to assess. Patient using bolus button.
[2023-02-22] MEDS: fentaNYL 100 MCG/2 ML inj EPIDURAL (22:29)
[2023-02-23] VITALS (34 sets, daily range): BP systolic 86–120; BP diastolic 52–76; PULSE 63–93; RESP 16; TEMP 36.9–37.2; O2SAT 92–100
[2023-02-23] MEDS: miSOPROStoL 800 MCG/4 TABLET PR (00:09)
--- NOTE | 2023-02-23 00:19 | W.PM.VAGDEL1 ---
Procedure Delivery date: 02/22/23 Procedure Done: Global Procedure Details: Krystal is a 37-year-old 4 para 3 003 now para 3013 after an of stillborn approximately 17 week size fetus. She received 3 doses of Cytotec 400 mg vaginally. She received 800 mg Cytotec rectally after delivery to promote delivery of the placenta. Patient is having significant problems with anxiety and has received Ativan 1 mg p.o. twice as well as 25 mg of Benadryl x1 IV. Events: Chronic Hypertension and Other (IUFD at 18w2d.) Intrapartal Events: Labor Induction Delivery monitor: none Route of delivery: Laceration description: None Estimated blood loss (mL): 200 Anesthesia type: Epidural Complications: Awaiting delivery of the placenta. Possible manual extraction verses suction D&C.
[2023-02-23] MEDS: LORazepam 1 MG TABLET PO (00:38)
[2023-02-23] MEDS: ePHEDrine sulfate 5 MG/ML inj 10 MG IVP (01:09)
[2023-02-23] MEDS: PHENYLEPHRINE 100 MCG/ML SYRINGE IVP (01:09)
[2023-02-23] MEDS: ACETAMINOPHEN 500 MG TABLET 1000 MG PO (06:44)
--- NOTE | 2023-02-23 07:58 | PM.OBPNVD1 ---
OB - PN:Subj Subjective Date Seen: 02/23/23 Narrative: Ms. Odonnell is a 37yo s/p vaginal delivery in the setting of IUFD at 18 weeks. course complicated by prior x2, AMA, chronic HTN, asthma and obesity. Delivery occurred just prior to midnight, placenta delivered with manual extraction. Physically, she is feeling well. Denies any excess vaginal bleeding, abdominal or pelvic pain. She is tolerating PO intake, no nausea/vomiting. Passing flatus, voids spotanenously. Emotionally, she is []. Feels well supported by []. [] history of mood disorder - []. Examination of the fetus prompted concern for cord accident by delivering provider - where there is note of a tight umbilical cord coil. Bleeding has been appropriate since delivery, VS WNL. Physically, Krystal is feeling []. She is coping appropriately. OB - PN: Obj Exam Physical Exam: Vital signs: Temp Pulse Resp BP Pulse Ox O2 Del Method 98.4 F 87 16 120/76 98 Room Air 02/23/23 06:45 02/23/23 06:41 02/23/23 06:45 02/23/23 06:41 02/23/23 01:02 02/23/23 06:45 Urinary Catheter Management: Urethral: Cath placed during this visit: yes, but has since been removed by the nurse Reason for continuing: decision to DC catheter Insertion date: 02/22/23 Insertion time: 21:32 Removal date: 02/23/23 Removal time: 01:15 OB - PN: Obj Data Labs Labs: Laboratory Results - last 24 hr 02/22/23 02/22/23 13:06 Unknown WBC 11.87 H RBC 4.11 Hgb 11.2 L Hct 35.2 MCV 86 MCH 27 MCHC 32 RDW Coeff of Gregorio 13.2 Plt Count 308 Neut % (Auto) 65.8 Lymph % (Auto) 26.1 [place] % (Auto) 5.1 Eos % (Auto) 2.1 Baso % (Auto) 0.2 Neut # (Auto) 7.80 H Lymph # (Auto) 3.10 H [place] # (Auto) 0.60 Eos # (Auto) 0.20 Baso # (Auto) 0.00 Abs Immat Gran (auto) 0.10 Imm/Tot Granulo (auto) 0.7 INR 0.85 L APTT 27 Fibrinogen 309 Glucose 93 TSH 3.720 Free T4 1.00 Urine Opiates Screen Negative Ur Oxycodone Screen Negative Urine Methadone Screen Negative Ur Propoxyphene Screen Not Reportable Ur Barbiturates Screen Negative U Tricyclic Antidepress Negative Ur Phencyclidine Scrn Negative Ur Amphetamines Screen Negative U Methamphetamines Scrn Negative U Benzodiazepines Scrn Negative Urine Cocaine Screen Negative U Marijuana (THC) Screen Negative Blood Type A Positive Antibody Screen NEGATIVE OB - PN: A/P Delivery Assessment and Plan (1) IUFD at less than 20 weeks of gestation: Status: Acute Plan Ms. Odonnell is a 37yo s/p vaginal delivery in the setting of IUFD. course complicated by prior x2, AMA, chronic HTN, asthma and obesity. Delivery occurred just prior to midnight, placenta delivered with manual extraction. Bleeding has been appropriate since delivery, VS WNL. Physically, Krystal is feeling []. She is coping appropriately. - Discussed workup of IUFD, potential role of cord accident [] - Bereavement support provided, plan close follow up visit in 1-2 weeks for mood check - Discussed suppression via compression, ibuprofen and cold cabbage leaves if lactogenesis occurs - Contraception plan [] - Return precautions reinforced
--- NOTE | 2023-02-23 10:06 | P.DS_ITS ---
DS: Providers Provider Time Seen by Provider: 08:45 Date Seen: 02/23/23 Date of admission: 02/22/23 11:31 Primary care physician: Kendra Hodges MD Admitting Clinician: Edie oLpes MD Attending Physician on discharge: Edie Lopes MD DS: Diagnosis Discharge Diagnosis (1) IUFD at less than 20 weeks of gestation: Status: Acute (2) , delivered: Status: Acute Problem details: 16w6d fetus after IUFD. PULLER OVER-Discharge Summary Hospital Course Hospital Course Narrative: Ms. Odonnell is a 37yo s/p vaginal delivery in the setting of IUFD at 18 weeks, measuring 16w6d. course complicated by prior x2, AMA, chronic HTN, asthma and obesity. Delivery occurred just prior to midnight, placenta delivered with manual extraction. Physically, she is feeling well. Denies any excess vaginal bleeding, abdominal or pelvic pain. She is tolerating PO intake, no nausea/vomiting. Passing flatus, voids spontaneously. Emotionally, she is having a hard time. She is worried about having to face reality when she leaves the hospital but knows she has to face reality. Support provided. She denies any excessively low mood/worry of thoughts of hurting herself/others. She does have a history of anxiety after her sister years ago, took lorazepam PRN at that time for sleep/anxiety and this was very helpful. She does not have any current mood disorder, nor does she utilize medications for this. She feels well supported by her , her parents and in laws. Recommend initiation of SSRI, she politely declines. She wants to try to conceive soon and is worried about harm to her fetus in the setting of this loss. Certainly this is understandable, desires something for situational anxiety/sleep where a small prescription for ativan can be provided. We additionally discussed the finding of a tight, hyper-coiled cord near the insertion on fetus as a potential nidus for cord accident and loss. Offered to show patient/partner, politely declined. Remainder of her evaluation is pending. ASSESSMENT/PLAN: Ms. Odonnell is a 37yo s/p vaginal delivery in the setting of IUFD at 18 weeks, measuring 16w6d. course complicated by prior x2, AMA, chronic HTN, asthma and obesity. Delivery occurred just prior to midnight, placenta delivered with manual extraction. Bleeding has been appropriate since delivery, VS WNL. Physically, Krystal is feeling well with no issues. She is grieving appropriately with no SI, good support. - Discussed workup of IUFD, potential role of cord accident as above. Remainder of her workup pending. - Bereavement support provided, plan close follow up visit in 1-2 weeks for mood check - Discussed suppression via compression, ibuprofen and cold cabbage leaves if lactogenesis occurs - Contraception plan: NA, desires to conceive again in near future - Follow up visit in 1 week for mood check - 0.5mg ativan x10 tablets provided for panic attacks and/or sleep - Return precautions reinforced Time Spent with Patient Time attestation: Total time spent providing and/or coordinating discharge services: Time spent: Less than 30 minutes PULLER OVER - Exam Physical Exam: Vital signs: Temp Pulse Resp BP Pulse Ox O2 Del Method 98.4 F 87 16 120/76 98 Room Air 02/23/23 06:45 02/23/23 06:41 02/23/23 06:45 02/23/23 06:41 02/23/23 01:02 02/23/23 06:45 Narrative: General: Alert and oriented in no acute distress Psych: Tearful throughout conversation, appropriate thought content and speech patterns. Full affect. No suicidal ideation. Benign abdominal exam/normal pelvic exam per RN. PULLER OVER - DS: Data Data Completed and Pending Completed studies during hospitalization: Procedures Extraction of Products of Conception, Low, Open Approach (12/12/21) Labs on day of discharge: Labs from last 24 hours 02/23/23 02/22/23 02/22/23 02:14 Unknown 13:23 WBC RBC Hgb Hct MCV MCH MCHC RDW Coeff of Gregorio Plt Count Neut % (Auto) Lymph % (Auto) [place] % (Auto) Eos % (Auto) Baso % (Auto) Neut # (Auto) Lymph # (Auto) [place] # (Auto) Eos # (Auto) Baso # (Auto) Abs Immat Gran (auto) Imm/Tot Granulo (auto) PT (Anticoag Therapy) Pending INR APTT PTT Heparin Neutraliz Pending Thrombin w/out Calcium Pending Reptilase Time Pending Fibrinogen Plt Neutral PTT w Plts Pending PTT-D 1:1 Mix Pending LA PTT Screen Pending dRVVT Scr Ratio (Bleed) Pending dRVVT Confirm Interp Pending LA dRVVT Mix Ratio Pending Hexagon Phase Phos Conf Pending Lupus Anticoag Interp Pending Factor V Spec Type Pending Factor V Leiden Mutat Pending Glucose TSH Free T4 Urine Opiates Screen Negative Ur Oxycodone Screen Negative Urine Methadone Screen Negative Ur Propoxyphene Screen Not Reportable Ur Barbiturates Screen Negative U Tricyclic Antidepress Negative Ur Phencyclidine Scrn Negative Ur Amphetamines Screen Negative U Methamphetamines Scrn Negative U Benzodiazepines Scrn Negative Urine Cocaine Screen Negative U Marijuana (THC) Screen Negative b-2 Glycopr IgG FEIA c/o 6.9 Pending b-2 Glycopr IgM FEIA c/o 6.9 Pending Anti-Cardiolipin IgG Ab Pending Anti-Cardiolipin IgA Ab Pending Anti-Cardiolipin IgM Ab Pending RPR Screen Pending CMV IgG Ab Pending CMV IgM Ab Pending Parvovirus B19 IgG Ab Pending Parvovirus B19 IgM Ab Pending Toxopl gondii IgG & IgM Pending Blood Chromosome Analys Pending CVS Chromosome Analys Pending Blood Type Antibody Screen KB Hemoglobin 02/22/23 13:06 WBC 11.87 H RBC 4.11 Hgb 11.2 L Hct 35.2 MCV 86 MCH 27 MCHC 32 RDW Coeff of Gregorio 13.2 Plt Count 308 Neut % (Auto) 65.8 Lymph % (Auto) 26.1 [place] % (Auto) 5.1 Eos % (Auto) 2.1 Baso % (Auto) 0.2 Neut # (Auto) 7.80 H Lymph # (Auto) 3.10 H [place] # (Auto) 0.60 Eos # (Auto) 0.20 Baso # (Auto) 0.00 Abs Immat Gran (auto) 0.10 Imm/Tot Granulo (auto) 0.7 PT (Anticoag Therapy) INR 0.85 L APTT 27 PTT Heparin Neutraliz Thrombin w/out Calcium Reptilase Time Fibrinogen 309 Plt Neutral PTT w Plts PTT-D 1:1 Mix LA PTT Screen dRVVT Scr Ratio (Bleed) dRVVT Confirm Interp LA dRVVT Mix Ratio Hexagon Phase Phos Conf Lupus Anticoag Interp Factor V Spec Type Factor V Leiden Mutat Glucose 93 TSH 3.720 Free T4 1.00 Urine Opiates Screen Ur Oxycodone Screen Urine Methadone Screen Ur Propoxyphene Screen Ur Barbiturates Screen U Tricyclic Antidepress Ur Phencyclidine Scrn Ur Amphetamines Screen U Methamphetamines Scrn U Benzodiazepines Scrn Urine Cocaine Screen U Marijuana (THC) Screen b-2 Glycopr IgG FEIA c/o 6.9 b-2 Glycopr IgM FEIA c/o 6.9 Anti-Cardiolipin IgG Ab Anti-Cardiolipin IgA Ab Anti-Cardiolipin IgM Ab RPR Screen CMV IgG Ab CMV IgM Ab Parvovirus B19 IgG Ab Parvovirus B19 IgM Ab Toxopl gondii IgG & IgM Blood Chromosome Analys CVS Chromosome Analys Blood Type A Positive Antibody Screen NEGATIVE KB Hemoglobin Pending Preliminary micro results at discharge 02/23/23 02:00 Placental Culture - Preliminary Placenta Maternal Culture in Progress 02/23/23 02:00 Placental Culture - Preliminary Placenta Culture in Progress Discharge Plan Discharge Disposition: Home, Self-Care Date of Admission: 02/22/23 11:31 Attending Provider on Discharge: Bertha May Primary Care Provider: Kendra Hodges Condition: Stable Anticipated Discharge Date/Time: 02/23/23 10:03 Discharge Medications: Continued labetalol 100 mg tablet 50 mg PO BID prenat.vits,stephanie,[id number] Tablet 1 tab PO QDAY Arnuity Ellipta 200 mcg/actuation blister with device 1 inh inhalation DAILY Qty: 90 3RF albuterol sulfate [Ventolin HFA] 90 mcg/actuation HFA aerosol inhaler 2 - 4 puff inhalation Q4H PRN (Reason: bronchospasm) Qty: 8.5 3RF prednisone 10 mg tablet 10 mg PO DIRECTED Qty: 5 0RF Rx Instructions: see taper instructions Discharge Orders: Discharge Order (Routine); Ordered 02/23/23 Ordered By: Bertha May Patient Education: OB Loss Additional Instructions: Discharge instructions were reviewed with the patient including signs and symptoms of infection and home going medications Nothing vaginally for 6 weeks: no tampons or intercourse Do not drive while taking narcotic pain medication(s) Off Work or School for 8 weeks Symptoms to report to doctor: * Bleeding that saturates more than one pad per hour * Passing clots larger than the size of a golf ball * Pain not relieved by prescribed medication * Fever above 100.4 degrees Fahrenheit * A foul vaginal odor * Difficulty in emotions, mood, and functions * Thoughts of hurting yourself and/or others * Painful, reddened area in your breast * Any drainage, redness, or tenderness in your IV/epidural site * Severe headache that doesn't improve after taking medications * Changes in vision, including temporary loss of vision, blurred vision, and/or light sensitivity * Upper abdominal pain (usually under ribs on the right side) * Decrease in urination or painful, frequent urinating * Chest pain * Shortness of breath * Tenderness or pain with redness and/swelling in the calf(s) of your leg Recommend 1 week follow up for mood check. Activity Level: Activity as Tolerated Discharge Diet: Regular Follow Up Appointments: Kendra Hodges MD [Primary Care Provider] - Forms: Datum[employer] Info Instructions
--- NOTE | 2023-02-23 13:40 | PM.ANPOST ---
Post Anesthesia Note Post Anesthesia Note Patient seen: Inpatient Respiratory Status: adequate Cardiovascular Status: adequate Mental Status: baseline Pain: adequate Temp: baseline Anesthetic awareness: N/A Complications: none Follow care: none
[2023-02-23 18:01] LABS: CMV Antibody IgM <8.0 AU/mL (<=29.9)
[2023-02-23 18:05] LABS: Toxoplasma gondii Ab, IgM <3.0 AU/mL (<=7.9)
[2023-02-23 18:07] LABS: Toxoplasma gondii Ab, IgG <3.0 IU/mL (<=8.8)
[2023-02-23 23:54] LABS: B2Glycoprotein 1, IgG Antibody <10 SGU (<=20); B2Glycoprotein 1, IgM Antibody <10 SMU (<=20)
[2023-02-24 00:52] LABS: Rapid Plasma Reagin (RPR) Non Reactive (Non Reactive)
[2023-02-24 08:59] LABS: Cardiolipin Antibody IgA <10 APL (<=11); Cardiolipin Antibody IgG <10 GPL (<=14); Cardiolipin Antibody IgM <10 MPL (<=12)
[2023-02-24 22:50] LABS: Prothrombin Time 11.3 sec (12.0-15.5); dRVVT Screen 25 sec (33-44)
[2023-02-27 10:16] LABS: Parvovirus B19 Antibody IgG 2.62 IV (<=0.90); Parvovirus B19 Antibody IgM 0.24 IV (<=0.90)
[2023-02-27 15:14] LABS: FACV Specimen Whole Blood; Factor V Leiden (F5) Mutation Negative
== END 2023-02-23 10:26 | disposition home or self-care (01) | DRG 564 ==
PROVIDERS: Admitting Provider Obstetrics & Gynecology; PCP Internal Medicine; Visit Provider Obstetrics & Gynecology
DX: O02.1 Missed abortion (principal); Z3A.18 18 weeks gestation of pregnancy; Z37.1 Single stillbirth; O10.912 Unspecified pre-existing hypertension complicating pregnancy, second trimester; O99.342 Other mental disorders complicating pregnancy, second trimester; F41.1 Generalized anxiety disorder; O26.892 Other specified pregnancy related conditions, second trimester; E66.9 Obesity, unspecified; J45.909 Unspecified asthma, uncomplicated; Z98.891 History of uterine scar from previous surgery
CPT/HCPCS: 01967; 36415; 51701; 59200; 80306; 81241; 82947; 84439; 84443; 85025; 85384; 85460; 85610; 85613; 85730; 86146; 86147; 86317; 86592; 86644; 86645; 86747; 86778; 86850; 86900; 86901; 87070; 87077; 87186; 88184; 88233; 88262; 88305; A9270; J2371; J2795; J3010; J7120

== ENCOUNTER 2023-07-10 08:58 | Outpatient (CLI) | payer BC, SELFPAY | END 2023-07-10 08:59 | disposition home or self-care (01) | LOC: NFLDREF 08:59 | PROVIDERS: PCP Internal Medicine; Visit Provider Obstetrics & Gynecology | DX: R35.0 Frequency of micturition (principal) | CPT/HCPCS: 87086 ==

== ENCOUNTER 2023-07-24 12:06 | Outpatient (CLI) | payer BC, SELFPAY ==
--- OUTSIDE RECORDS SUMMARY | 2023-07-24 12:08 | XMS_ITS | Referral Summary ---
Author Name Unknown Organization [place] Address [address] [place] [address]. [place] [address] Care Team Providers Care Side Panel Padder Name Role Phone No Ref-Primary, Physician Primary Care Provider Allergies No known active allergies Medications Medication Sig Dispensed Refills Start Date End Date Status MUCINEX 600 MG OR TBCRIndications:Acute upper respiratory infections of unspecified site 1 TABLET EVERY 12 HOURS NEEDED 0 0 03/09/2008 Active Active Problems Problem Noted Date Diagnosed Date Depressive disorder, not elsewhere classified Impulse control disorder 05/09/2004 Overview: Problem list name updated by automated process. Provider to review Tobacco use disorder 05/09/2004 Estimated Date of Delivery Comme nts Yes 07/24/2023 Based on last me nstrual period of 10/17/2022 Social History Tobacco Use Types Packs/Day Years Used Date Smoking Tobacco: Former Cigarettes 0.5 5 Comments:6-7 cigs per day Alcohol Use Standard Drinks/Week Comments No 0 (1 standard drink = 0.6 oz pur e alcohol) none recent Adolescent Education Answer Date Record ed Getting School Help Needed Not on file 12/28 Estimated Date of Delivery Comme nts Yes 07/24/2023 Based on last me nstrual period of 10/17/2022 Sex and Gender Information Value Date Recorded Sex Assigned at Not on file Gender Identity Not on file Sexual Orientation Not on file Last Filed Vital Signs Vital Sign Reading Time Taken Comments Blood Pressure 128/86 03/09/2008 12:15 PM SEO ANALYST Pulse 76 03/09/2008 12:15 PM SEO ANALYST Temperature 36.8 ??C (98.2 ??F) 03/09/2008 12:[address] Respiratory Rate 12 03/09/2008 12:15 PM SEO ANALYST Oxygen Saturation 100% 05/09/2004 10:30 AM SEO ANALYST Inhaled Oxygen Concentration - - Weight 78 kg (172 lb) 03/09/2008 12:15 PM SEO ANALYST Height 165.1 cm (5' 5) 03/09/2008 12:15 PM SEO ANALYST Body Mass Index 28.62 03/09/2008 12:15 PM SEO ANALYST Plan of Treatment Not on file Procedures Procedure Name Priority Date/Time Associated Diagnosis Comments CL AFF GLUCOSE HEMOCCUE Routine 05/09/2004 10:53 AM SEO ANALYST Fever Other Malaise And Fatigue from Last 3 Months or Most Recently Relevant to Health Maintenance Results * (ABNORMAL) GLUCOSE HEMOCCUE (05/09/2004 10:53 AM SEO ANALYST) Glucose 127(H) 60 - 110 mg/dL [facility] 05/09/2004 10:5 3 AM SEO ANALYST 05/09/2004 10:54 AM SEO ANALYST Hudson Berman MD LABORATORY [facility] from Last 3 Months or Most Recently Relevant to Health Maintenance Care Teams Side Panel Padder Relationship Specialty Start Date End Date No Ref-Primary, Physician PCP - General 12/29/22
--- OUTSIDE RECORDS SUMMARY | 2023-07-24 12:08 | XMS_ITS | Clinical Summary ---
Author Name Unknown Organization [place] Address [facility] [place] [address] Care Team Providers Care Cleaning Staff Supervisor Name Role Phone No Ref-Primary, Physician Primary [...] on last me nstrual period of 10/17/2022 Family History Medical History Relation Comments Cerebrovascular Disease Maternal Grandmother bir th mother Hypertension Mother Diabetes Paternal Grandmother Hypertension Paternal Grandmother Cancer Sister sarcoma/leukemia Relation Status Comments Maternal Grandmother Mother Paternal Grandmother Sister Social History Tobacco Use Types Packs/Day Years [...] Comments Blood Pressure 128/86 03/09/2008 12:15 PM ASSOCIATE PROFESSOR Pulse 76 03/09/2008 12:15 PM ASSOCIATE PROFESSOR Temperature 36.8 ??C (98.2 ??F) 03/09/2008 12:[address] Respiratory Rate 12 03/09/2008 12:15 PM ASSOCIATE PROFESSOR Oxygen Saturation 100% 05/09/2004 10:30 AM ASSOCIATE PROFESSOR Inhaled Oxygen Concentration - - Weight 78 kg (172 lb) 03/09/2008 12:15 PM ASSOCIATE PROFESSOR Height 165.1 cm (5' 5) 03/09/2008 12:15 PM ASSOCIATE PROFESSOR Body Mass Index 28.62 03/09/2008 12:15 PM ASSOCIATE PROFESSOR Plan of Treatment Health Maintenance Due Date Last Done Comments ADVANCE CARE PLANNING 1985 ANNUAL REVIEW OF HM ORDERS 1986 YEARLY PREVENTIVE VISIT 1986 HIV SCREENING 2001 HEPATITIS C SCREENING 2004 HEPATITIS B IMMUNIZATION (1 of 3 - 19+ 3-dose series) 2005 GLUCOSE 05/10/2007 05/09/2004 PAP 06/17/2007 HPV IMMUNIZATION (2 - 3-dose series) 10/05/2008 09/07/2008, 09/07/2008 COVID-19 Vaccine ( season) 2022 06/06/2022, 02/11/2021, 04/13/2020, Additional history exists MATERNAL SCREENING DISCUSSION 12/26/2022 PHQ-2 (once per calendar year) 2023 OBGCT (OB) 04/03/2023 GROUP B STREP SCREENING 06/26/2023 INFLUENZA VACCINE (Season Ended) 2023 DTAP/TDAP/TD IMMUNIZATION (2 - Td or Tdap) 10/11/2031 10/10/2021, 04/21/2012, 04/21/2012 IPV IMMUNIZATION Aged Out No longer e ligible based on patient's age to complete this topic MENINGITIS IMMUNIZATION Aged Out No l onger eligible based on patient's age to complete this topic Pneumococcal Vaccine: Pediatrics (0 to 5 Years) and At-Risk Patients (6 to 64 Years) Aged Out No longer eligible based on patient's age to complete this topic RSV MONOCLONAL ANTIBODY Aged Out No l onger eligible based on patient's age to complete this topic RSV VACCINE ( & 60+) (No Doses Required) Completed Procedures Procedure Name Priority Date/Time Associated Diagnosis Comments CL AFF GLUCOSE HEMOCCUE Routine 05/09/2004 10:53 AM ASSOCIATE PROFESSOR Fever Other Malaise And Fatigue from Last 3 Months or Most Recently Relevant to Health Maintenance Results * (ABNORMAL) GLUCOSE HEMOCCUE (05/09/2004 10:53 AM ASSOCIATE PROFESSOR) Glucose 127(H) 60 - 110 mg/dL [facility] 05/09/2004 10:5 3 AM ASSOCIATE PROFESSOR 05/09/2004 10:54 AM ASSOCIATE PROFESSOR Hudson Berman MD LABORATORY [facility] from Last 3 Months or Most Recently Relevant to Health Maintenance Care Teams Cleaning Staff Supervisor Relationship Specialty Start Date End Date No Ref-Primary, Physician PCP - General 12/29/22
--- NOTE | 2023-07-24 12:15 | US_ITS ---
Patient: RAQUEL MENA Facility:?[facility] Patient ID:?[id number] Site Patient ID:?[id number]. Site :?1985 Study:?US-OB Pelvis OB TV-07/24/2023 8:52:13 AM Ordering Physician:?ILSA ALBERTO CNP Final Report: INDICATION: First trimester scan, establish dates. COMPARISON: None. TECHNIQUE: Real-time degroot-scale imaging of the pelvis was performed. FINDINGS: Sonographic imaging demonstrates a twin living intrauterine gestation. Shared placenta suspected, i.e., monochorionic-diamniotic. Twin A: The embryo demonstrates a regular cardiac rate measuring 173 beats per minute. The embryo`s crown-rump length measurement of 2.9 cm corresponds to a gestational age of 9 weeks 5 days with a sonographic due date of 02/21/2024. There is a normal-appearing yolk sac. There are no gross abnormalities noted within the embryo at this early state of development. The gestational sac has a normal appearance. There is no evidence of a perigestational hemorrhage. The amount of fluid within the sac appears appropriate for gestational age. Twin B: The embryo demonstrates a regular cardiac rate measuring 176 beats per minute. The embryo`s crown-rump length measurement of 2.9 cm corresponds to a gestational age of 9 weeks 5 days with a sonographic due date of 02/21/2024. There is a normal-appearing yolk sac. There are no gross abnormalities noted within the embryo at this early state of development. The gestational sac has a normal appearance. There is no evidence of a perigestational hemorrhage. The amount of fluid within the sac appears appropriate for gestational age. The cervix is closed. The myometrium appears normal. The ovaries are of normal size. Simple left ovarian cysts measuring up to 2.0 x 2.7 x 3.0 cm. There are no suspicious fluid collections noted in the cul-de-sac. IMPRESSION: Dichorionic diamniotic twin gestation. Twin A: Gestational age calculated at 9 weeks 5 days with a sonographic due date of 02/21/2024. Twin B: Gestational age calculated at 9 weeks 5 days with a sonographic due date of 02/21/2024. Please note that the measurements for both twins are identical. Dictated by Chago Gallardo MD @ 07/31/2023 9:15:05 AM Signed by:?Chago Gallardo MD @07/31/2023 9:15:05 AM (Electronic Signature)
== END 2023-07-24 12:07 | disposition home or self-care (01) ==
LOC: US 12:06
PROVIDERS: PCP Internal Medicine; Visit Provider Registered Nurse
DX: Z34.91 Encounter for supervision of normal pregnancy, unspecified, first trimester (principal); O30.041 Twin pregnancy, dichorionic/diamniotic, first trimester; Z3A.09 9 weeks gestation of pregnancy
CPT/HCPCS: 76817; 82565; 82570; 82728; 83540; 83550; 84156; 84450; 84460; 84520; 84550; 86703; 86706; 86803; 86850; 86900; 86901; 87086; 87340

== ENCOUNTER 2023-07-24 13:49 | Outpatient (CLI) | payer BC, SELFPAY ==
--- OUTSIDE RECORDS SUMMARY | 2023-07-24 13:53 | XMS_ITS | Clinical Summary ---
Author Name Unknown Organization [place] Address [facility] [address] Care Team Providers Care Scrap Handler Name Role Phone No Ref-Primary, Physician Primary [...] Comments Blood Pressure 128/86 03/09/2008 12:15 PM STATION WORKER Pulse 76 03/09/2008 12:15 PM STATION WORKER Temperature 36.8 ??C (98.2 ??F) 03/09/2008 12:[address] Respiratory Rate 12 03/09/2008 12:15 PM STATION WORKER Oxygen Saturation 100% 05/09/2004 10:30 AM STATION WORKER Inhaled Oxygen Concentration - - Weight 78 kg (172 lb) 03/09/2008 12:15 PM STATION WORKER Height 165.1 cm (5' 5) 03/09/2008 12:15 PM STATION WORKER Body Mass Index 28.62 03/09/2008 12:15 PM STATION WORKER Plan of Treatment Health Maintenance Due Date [...] AFF GLUCOSE HEMOCCUE Routine 05/09/2004 10:53 AM STATION WORKER Fever Other Malaise And Fatigue from Last 3 Months or Most Recently Relevant to Health Maintenance Results * (ABNORMAL) GLUCOSE HEMOCCUE (05/09/2004 10:53 AM STATION WORKER) Glucose 127(H) 60 - 110 mg/dL [facility] 05/09/2004 10:5 3 AM STATION WORKER 05/09/2004 10:54 AM STATION WORKER Hudson Berman MD LABORATORY [facility] from Last 3 Months or Most Recently Relevant to Health Maintenance Care Teams Scrap Handler Relationship Specialty Start Date End Date No Ref-Primary, Physician PCP - General 12/29/22
--- OUTSIDE RECORDS SUMMARY | 2023-07-24 13:53 | XMS_ITS | Referral Summary ---
Author Name Unknown Organization [place] Address [address] [place] [address]. [place] [address] Care Team Providers Care Steam Crane Operator Name Role Phone No Ref-Primary, Physician Primary [...] Comments Blood Pressure 128/86 03/09/2008 12:15 PM SODA DRIER FEEDER Pulse 76 03/09/2008 12:15 PM SODA DRIER FEEDER Temperature 36.8 ??C (98.2 ??F) 03/09/2008 12:[address] Respiratory Rate 12 03/09/2008 12:15 PM SODA DRIER FEEDER Oxygen Saturation 100% 05/09/2004 10:30 AM SODA DRIER FEEDER Inhaled Oxygen Concentration - - Weight 78 kg (172 lb) 03/09/2008 12:15 PM SODA DRIER FEEDER Height 165.1 cm (5' 5) 03/09/2008 12:15 PM SODA DRIER FEEDER Body Mass Index 28.62 03/09/2008 12:15 PM SODA DRIER FEEDER Plan of Treatment Not on file Procedures Procedure Name Priority Date/Time Associated Diagnosis Comments CL AFF GLUCOSE HEMOCCUE Routine 05/09/2004 10:53 AM SODA DRIER FEEDER Fever Other Malaise And Fatigue from Last 3 Months or Most Recently Relevant to Health Maintenance Results * (ABNORMAL) GLUCOSE HEMOCCUE (05/09/2004 10:53 AM SODA DRIER FEEDER) Glucose 127(H) 60 - 110 mg/dL [facility] 05/09/2004 10:5 3 AM SODA DRIER FEEDER 05/09/2004 10:54 AM SODA DRIER FEEDER Hudson Berman MD LABORATORY [facility] from Last 3 Months or Most Recently Relevant to Health Maintenance Care Teams Steam Crane Operator Relationship Specialty Start Date End Date No Ref-Primary, Physician PCP - General 12/29/22
== END 2023-07-24 13:50 | disposition home or self-care (01) ==
PROVIDERS: PCP Internal Medicine; Visit Provider Registered Nurse
DX: O30.041 Twin pregnancy, dichorionic/diamniotic, first trimester (principal); Z3A.09 9 weeks gestation of pregnancy
CPT/HCPCS: 82565; 82570; 82728; 83540; 83550; 84156; 84450; 84460; 84520; 84550; 86592; 86703; 86704; 86706; 86762; 86787; 86803; 86850; 86900; 86901; 87086; 87340

== ENCOUNTER 2023-08-02 11:50 | Outpatient (CLI) | payer BC, SELFPAY ==
--- OUTSIDE RECORDS SUMMARY | 2023-08-22 05:48 | XMS_ITS | Encounter Summary ---
Author Organization [place] Address [address] [place] [address] Care Team Providers Care Fruit Tester Name Role Phone No Ref-Primary, Physician Primary Care Provider Riley Recinos MD Unavailable + [phone] Reason for Referral * Consultation (Routine: Next available opening) - Pending Review Specialty Diagnoses / Procedures Referred By Sandra valera Referred To Contact Diagnoses related condition, antepartum Edie Rasheed [facility] [address] [place] [address] [facility]aternal [facility] [address] [facility] [address] [place] [address] Referral ID Status Reason Start Date Expiration Date V isits Requested Visits Authorized [id number] Pending Review 08/20/2023 08/19/2024 1 1 Question Answer Preferred Location: [facility] 02/23/2024 Ultrasound Comprehensive US (>than 18 weeks GA) US PROC NONE MFM Issue OTHER (enter details in Comments) - twin LEANN ROBERT Consultation (unrelated to Ultrasound findings): No Inflammatory Bowel Disease Clinic: Joint MFM and GI Consultation: No Chronic Kidney Disease: Joint MFM and Nephrology Consultation No Genetic Counseling Consultation: No fax [facility] - Edie Lopes - Comments There is no height or weight on file to calculate BMI. >> Patient may proceed with recommendations for further testing as directed by the Maternal Medicine Specialist >> >> If requesting Echo: MFM will determine appropriate location for exam due to indication. Please be aware that coverage of these services is subject to the terms and limitations of your health insurance plan. Call member services at your health plan with any benefit or coverage questions. Encounter Details Date Type Department Care Team (Latest Contact Info) Description 08/20/2023 Transcribe Orders [facility] [place] [address] [facility] [address] [place] [phone] Edie Rasheed [facility] [address] [place] [address] related condition, antepartum (Primary Dx) Social History Tobacco Use Types Packs/Day Years Used Date Smoking Tobacco: Former Cigarettes 0.5 5 Smokeless Tobacco: Former Comments:6-7 cigs per day Alcohol Use Standard Drinks/Week Comments No 0 (1 standard drink = 0.6 oz pur e alcohol) none recent PHQ-2 Answer Date Recorded PHQ-2 Score 0 08/16/2023 Adolescent Education Answer Date Record ed Getting School Help Needed Not on file 12/28 Estimated Date of Delivery Comme nts Yes 02/23/2024 Based on last me nstrual period of 05/19/2023 Sex and Gender Information Value Date Recorded Sex Assigned at Not on file Gender Identity Not on file Sexual Orientation Not on file documented as of this encounter Plan of Treatment Upcoming Encounters Date Type Department Care Team (Late st Contact Info) Description 09/20/2023 3:15 PM CDT Office Visit [facility] [place] [address] [place] [address] Ashley Oneill MD [address] [place] [address] 09/25/2023 10:15 AM CDT Appointment [facility] Maternal Medicine [facility] [address] [facility] [address] [place] [address] Mercedes Milner MD [address] [place] [address] 09/25/2023 11:30 AM CDT Office Visit [facility] [place] [address] [place] [phone] Mercedes Milner MD [address] [place] [address] 10/19/2023 8:45 AM CDT Office Visit [facility] [place] [address] [place] [phone] Ashley Oneill MD [address] [place] [address] Scheduled Referrals Name Type Priority Associated Diagnoses Orde r Schedule [facility] Med Ctr Referral - Referral Routine: Next available opening related condition, antepartum Expected: 08/20/2023 (Approximate), Expires: 02/16/2024 documented as of this encounter Visit Diagnoses Diagnosis related condition, antepartum- Primary documented in this encounter Care Teams Fruit Tester Relationship Specialty Start Date End Date No Ref-Primary, Physician PCP - General 12/29/22 Riley Recinos MD [address] [place] [address] Physician watershed tender 08/10/23 documented as of this encounter
--- OUTSIDE RECORDS SUMMARY | 2023-08-22 05:48 | XMS_ITS | Encounter Summary ---
Author Organization [place] Address [address] [place] [address]. [place] [address] Care Team Providers Care Leather Stamper Name Role Phone No Ref-Primary, Physician Primary Care Provider Encounter Details Date Type Department Care Team (Late st Contact Info) Description 07/24/2023 Medical Correspondence [facility] [address] [place] [phone] Scan, Non-Provider Social History Tobacco Use Types Packs/Day Years Used Date Smoking Tobacco: Former Cigarettes 0.5 5 Comments:6-7 cigs per day Alcohol Use Standard Drinks/Week Comments No 0 (1 standard drink = 0.6 oz pur e alcohol) none recent Adolescent Education Answer Date Record ed Getting School Help Needed Not on file 12/28 Comments Yes Sex and Gender Information Value Date Recorded Sex Assigned at Not on file Gender Identity Not on file Sexual Orientation Not on file documented as of this encounter Plan of Treatment Upcoming Encounters Date Type Department Care Team (Late Contact Info) Description 09/20/2023 3:15 PM CDT Office Visit [facility] [place] [address] [place] [address] Ashley Oneill MD [address] [place], [place] [address] 09/25/2023 10:15 AM CDT Appointment [facility] [place] [address] [place] [address] Mercedes Milner MD [address] [place] [address] 09/25/2023 11:30 AM CDT Office Visit [facility] [place] [address] [place] [phone] Mercedes Milner MD [address] [place] [address] 10/19/2023 8:45 AM CDT Office Visit [facility] [place] [address] [place] [phone] Ashley Oneill MD [address] [place] [address] documented as of this encounter Visit Diagnoses Not on filedocumented in this encounter Care Teams Leather Stamper Relationship Specialty Start Date End Date No Ref-Primary, Physician PCP - General 12/29/22 documented as of this encounter
--- OUTSIDE RECORDS SUMMARY | 2023-08-22 05:48 | XMS_ITS | Encounter Summary ---
Author Organization [place] Address [address] [place] [address]. [place] [address] Care Team Providers Care Um Rn Name Role Phone No Ref-Primary, Physician Primary Care Provider Reason for Referral * Diagnostic Imaging Ultrasound (Routine) - Pending Review Specialty Diagnoses / Procedures Referred By Sandra valera Referred To Contact Radiology. Diagnoses Dichorionic diamniotic twin in second trimester Multigravida of advanced maternal age in second trimester Chronic hypertension affecting Procedures MFM Twins Comprehensive Mercedes Milner MD [address] [place] [address] Referral ID Status Reason Start Date Expiration Date V isits Requested Visits Authorized [id number] Pending Review 08/07/2023 08/06/2024 1 1 Reason for Visit * Reason Comments Ultrasound 1st tri complete-twi ns-chorionicity/amnionicity, CHTN, AMA, hx 18 week IUFD Genetic Counseling AMA, CHTN, twins, hx 18 week IUFD Encounter Details Date Type Department Care Team (Late st Contact Info) Description 08/07/2023 12:15 PM CDT Office Visit [facility] [place] [address] [facility] [address] [place] [phone] Mercedes Milner MD [address] [place] [address] Dichorionic diamniotic twin in second trimester (Primary Dx); Multigravida of advanced maternal age in second trimester; Chronic hypertension affecting Social History Tobacco Use Types Packs/Day Years [...] on file documented as of this encounter Progress Notes * Mercedes Milner MD - 08/07/2023 12:15 PM CDT Please see Imaging tab under Chart Review for details of today's visit. Mercedes Milner documented in this encounter Plan of Treatment Upcoming Encounters Date Type Department Care Team (Late st Contact Info) Description 09/20/2023 3:15 PM CDT Office Visit [facility] [place] [address] [place] [phone] Ashley Oneill MD [address] [place] [address] 09/25/2023 10:15 AM CDT Appointment [facility] Maternal Medicine [facility] [address] [place] [phone] Mercedes Milner MD [address] [place] [phone] 09/25/2023 11:30 AM CDT Office Visit [facility] Maternal Medicine [facility] [address] [place] [phone] Mercedes Milner MD [address] [facility] [address] [place] [address] 10/19/2023 8:45 AM CDT Office Visit [facility] [address] [place] [phone] Ashley Oneill MD [address] [place], [place] [phone] Scheduled Orders Name Type Priority Associated Diagnoses Orde r Schedule MFM Twins US Comprehensive Imaging Routine Dichorionic diamniotic twin in second trimester Multigravida of advanced maternal age in second trimester Chronic hypertension affecting Expected: 09/25/2023 (Approximate), Expires: 06/06/2024 documented as of this encounter Visit Diagnoses Diagnosis Dichorionic diamniotic twin in second trimester- Primary Twin , antepartum Multigravida of advanced maternal age in second trimester Chronic hypertension affecting documented in this encounter Care Teams Um Rn Relationship Specialty Start Date End Date No Ref-Primary, Physician PCP - General 12/29/22 documented as of this encounter
--- OUTSIDE RECORDS SUMMARY | 2023-08-22 05:48 | XMS_ITS | Encounter Summary ---
Author Organization [facility] Address [address] [place] [address] Care Team Providers Care Curriculum And Instruction Specialist Name Role Phone No Ref-Primary, Physician Primary Care Provider Reason for Visit * Reason Comments Genetic Counseling Advanced maternal ag e, twin * Consultation (Routine: Next available opening) - Pending Review Specialty Diagnoses / Procedures Referred By Sandra valera Referred To Contact Diagnoses related condition, antepartum Lucia Ramos APRN [facility] [address] [place] [address] Referral ID Status Reason Start Date Expiration Date V isits Requested Visits Authorized [id number] Pending Review 07/26/2023 07/25/2024 1 1 Encounter Details Date Type Department Care Team (Late st Contact Info) Description 08/07/2023 11:00 AM CDT Office Visit [facility] [place] [address] [place] [phone] Lucia Ramos APRN [facility] [address] [place] [address] Mercedes Milner MD [address] [facility] [address] [place] [address] Mira Yang GC [address] [place] [address] Multigravida of advanced maternal age in first trimester (Primary Dx); related condition, antepartum; Encounter for procreative genetic counseling Social History Tobacco Use Types Packs/Day Years [...] as of this encounter Progress Notes * Mira Yang, - 08/07/2023 11:00 AM CDT [facility] Genetic Counseling Consult Patient: Krystal Odonnell Preferred Name: Krystal Date of : 1985 Date of Service: 08/07/23 Krystal was seen at the [facility] for genetic consultation. The indication for genetic counseling is advanced maternal age. The patient was accompanied to this visitby their partner, Garrison. The session was conducted in [place]. IMPRESSION/ PLAN 1. Krystal had genetic screening earlier in this . Their non-invasive test was screen negative or low risk for screened conditions 2. During today's [facility] visit, Krystal had a genetic counseling session only. Krystal has already had genetic testing in this . Additional screening and diagnostic testing was discussed for the gestational age and declined. 3. Since the patient chose aneuploidy screening via NIPT, quad screen is NOT recommended in the second trimester. If the patient desires screening for open neural tube defects, maternal serum AFP only is recommended, ideally between 16- 18 weeks gestation. 4. Krystal had a first trimester complete ultrasound today. Please see the ultrasound report for further details. 5. Further recommendations include a anatomy level II ultrasound with [facility]. The upcoming ultrasound has been scheduled for 09/25/2023. HISTORY /Parity: Krystal's history is significant for: A son (17y) born via section in 09/2005 with her current partner A daughter (15y) born via section in 12/2007 with her current partner A son (20m) born via section in 12/2021 with her current partner A SAB at 18w2d in 02/2023 with her current partner. Per patient report, the SAB had normal chromosome analysis and suspected CMV CURRENT Current Age: [age] year old Age at Delivery: 38 year old JEYSON: 02/23/2024, by Last Menstrual Period Gestational Age: 11w3d This is a dichorionic diamniotic twin gestation. Twin pregnancies are described by the number of placentas (-chorionic) and amniotic sacs (-amniotic). In addition, twin pregnancies are also characterized by the number (mono- or di-) of zygotes (fertilized egg) the developed from. This is a dichorionic diamniotic twin which means the babies have separate placentas and separate amniotic sacs. Due to being dichorionic, there is a 20-30% chance the twins are monozygotic, or genetically identical and a 70-80% chance the twins are dizygotic, or NOT geneticallyidentical. If the twins arediscordant in sex (one male, one female) they are most likely dizygotic. If they are the same sex, the zygosity is unclear. There is a screening option called cell-free DNA that can determine zygosity with certain technology. Krystal denies bleeding, complications, illnesses, fevers, and exposure concerns. She reports she is taking Labetalol, iron supplement, and vitamins. MEDICAL HISTORY Krystal???s reported medical history is not expected to impact management or risks to development. FAMILY HISTORY A three-generation pedigree was obtained today and is scanned under the Media tab in [employer]. The family history was reported by Krystal and their partner. The following significant findings were reported today: Krystal's sister at 25-year-old from leukemia with a prior history of a sarcoma. Krystal's mother was adopted, so there is unknown family history from her mother's side of the family. We discussed thefamily history of cancer briefly. Cancer most often occurs by chance; however, some families seem to develop cancer more frequently than expected. Everyone has a risk to develop cancer, but individuals may be at an increased risk to develop cancer based on their family history. Cancer family history, even without genetic testing, can change cancer screening recommendations for family members and aid in insurance coverage for access to them as well. The most informative individuals to complete cancer genetic counseling and genetic testing are those with a personal history of cancer or those closely related to the affected individuals. This may be Krystal. If the family wants more information they can contact the [facility] Cancer Risk Management Program ( ). Krystal's paternal aunt and uncle have substance use disorder. The couple's son (17y) has had two bowel obstructions and is following with a GI doctor. They were encouraged to update us if a diagnosis is given to revisit recurrence risk information. Garrison's sister's son (10y) has a feeding issue where he has had a gastronomy tube. The couple was unsure of the name of his condition, but if more information is learned this history can be revisited. Garrison's paternal uncle has a unilateral kidney. For most families with a suspected familial predisposition to variations in kidney/ureter/bladder structure, the exact genetic risk factors are not known. There are a series of genes that have been reported to be associated with familial variations in kidney/ureter/bladder structure (which are referred to collectively as the CAKUT genes: Congenital anomalies of the kidney and urinary tract). Genetic testing for these genes can sometimes identify variants that might be associated with the familial urinary tract findings; however, because thereis still a lot not known about the penetrance and expressivity of variants in several of these genes, the exact interpretation of these test results and what they mean for family members can be challenging. Otherwise, the reported family history is unremarkable for multiple miscarriages, stillbirths, defects, intellectual disabilities, known genetic conditions, and consanguinity. RISK ASSESSMENT FOR INHERITED CONDITIONS AND CARRIER SCREENING OPTIONS Expanded carrier screening is available to screen for autosomal recessive conditions and X-linked conditions in a large list of genes. Carrier screening does not test the but gives a risk assessment for the and future pregnancies to have the condition. Expanded carrier screeningis designed to identify carrier status for conditions that are primarily childhood or adolescent onset. Expanded carrier screening does not evaluate for adult-onset conditions such as hereditary cancer syndromes, dementia/ Alzheimer's disease, or cardiovascular disease risk factors. Additionally, expanded carrier screening is not comprehensive for all known genetic diseases or inherited conditions. Carrier screening does not test for all genetic and health conditions or risk factors. Autosomal recessive conditions happen when a mutation has been inherited from the egg and sperm andinclude conditions like cystic fibrosis, thalassemia, hearing loss, spinal muscular atrophy, and more. We reviewed that when both biological parents carry a harmful genetic change in a gene associated with autosomal recessive inheritance, each of their pregnancies has a 1 in 4 (25%) chance to be affected by that condition. X-linked conditions happen when a mutation has been inherited from the eggand include conditions like fragile X syndrome.With x-linked conditions, the specific risk generally depends on the chromosomal sex of the fetus, with XY individuals (generally male) being most severely affected. screening was reviewed. About [place] Screening The patient does NOT have a family history of known inherited conditions. This does NOT mean the patient and/or their partner is not a carrier of a condition. Approximately 90% of couples at an increased reproductive risk for an inherited condition have no family history of that condition. The patient nor their partner have had carrier screening previously. The patient declined the carrier screening options. They are aware the option will remain, and theycan contact us if they would like to pursue screening. She requested CPT codes which were provided along with my contact card today. RISK ASSESSMENT FOR CHROMOSOME CONDITIONS We explained that the risk for chromosome abnormalities increases with maternal age. We discussed specific features of common chromosome abnormalities, including trisomy 21 (Down syndrome), trisomy 13, trisomy 18, and sex chromosome trisomies. At age 38 at midtrimester, in a twin the risk for one or both babies to have Down syndrome is 1 in 84. At age 38 at midtrimester, in a twin the risk for one or both babies to have any chromosome abnormality is 1 in 45. Krystal had genetic screening earlier in this . Their non-invasive test was screen negative or low risk for screened conditions Of note, we do not have records of the patient's NIPT. The patient provided a copy of her report for review during the appointment. Non-invasive testing (NIPT) results Maternal plasma cell-free DNA testing Screens for trisomy 21, trisomy 13, trisomy 18, and sex chromosome aneuploidy Krystal had a [id number] test earlier in ; we reviewed the results today, which are low risk. The NIPT did not include sex chromosome aneuploidies. No Y chromosome was detected which is consistent with predicted female sex of babies Given the accuracy of this test, these results greatly decrease the chance for certain chromosome abnormalities We discussed the limitations of normal NIPT results Maternal serum AFP only to screen for open neural tube defects (after 15 weeks) is not yet available due to early gestation but could be done after 15 weeks. GENETIC TESTING OPTIONS Genetic testing during a includes screening and diagnostic procedures. Screening tests are non-invasive which means no risk to the and includes ultrasounds and blood work. The benefits and limitations of screening were reviewed. Screening tests provide a risk assessment (chance) specific to the for certain chromosome abnormalities but cannot definitively diagnose or exclude a chromosome abnormality. Follow-up genetic counseling and consideration of diagnostic testing is recommended with any abnormal screening result. Diagnostic testing during a is more certain and can test for more conditions. However, the tests do have a risk of miscarriage that requires careful consideration. These tests can detect chromosome ab normalities with greater than 99% certainty. Results can be compromised by maternal cell contamination or mosaicism and are limited by the resolution of current genetic testing technology. There is no screening or diagnostic test that detects all forms of defects or intellectual disability. We discussed the following screening options: Non-invasive testing (NIPT) Also called cell-free DNA screening because it detects chromosomes from the placenta in the person's blood Can be done any time after 10 weeks gestation Standard recommendation for NIPT screens for trisomy 21, trisomy 18, trisomy 13, with the option ofadding sex chromosome aneuploidies, without or without predicted sex Cannot screen for open neural tube defects, maternal serum AFP after 15 weeks is recommended New NIPT options include screening for other trisomies, microdeletion syndromes, and in some cases blood antigens. Guidelines do not recommend these conditions are included in standard screening. These options have limitations and should be discussed with a genetic counselor. However, current (2022) ACMG guidelines do recommend that screening for one microdeletion syndrome,called 22q11.2 deletion syndrome be offered to all patients. 22q11.2 deletion syndrome hasan estimated prevalence of 1 in 990 to 1 in 2148 (0.05-0.1%). Risk is not thought to increase with maternal age. Clinical features are variable but include congenital heart defects, cleft palate, developmental delays, immune system deficiencies, and hearing loss. Approximately 90% of cases are de juan carlos (a sporadic new change in a ). Cell-free DNA screening for 22q11.2 deletion syndrome isavailable with the inclusion of other microdeletion syndromes. There is less data about the performance of cell-free DNA screening for more rare microdeletions and the chance for false positives or negative may be increased. We discussed the limitations of cell-free DNA screening in detecting microdeletions and the possiblity of false positives and false negatives. Microdeletion screening was included in patient's NIPT and was negative which was reviewed today We discussed the following ultrasound options: Nuchal translucency (NT) ultrasound Ultrasound between [id number] that includes nuchal translucency measurement and nasal bone assessments Nuchal translucency refers to the space at the back of the neck where fluid builds up. All babies at this stage have fluid and there is only concern if there is too much fluid Nasal bone refers to the small bone in the nose. There is concern for conditions like Down syndromeif the bone cannot be seen at all This ultrasound can be done as part of first trimester screening, at the same time as another screen (NIPT), at the same time as a CVS, or if the patients does not want genetic screening. Markers on ultrasound detects about 70% of pregnancies with aneuploidy Abnormalities on NT ultrasound can also increase the risk for a defect, like a heart defect Comprehensive level II ultrasound ( Anatomy Ultrasound) Ultrasound done between 18-20 weeks gestation Screens for major defects and markers for aneuploidy (like trisomy 21 and trisomy 18) Includes looking at the fetus/baby's growth, heart, organs (stomach, kidneys), placenta, and amniotic fluid We discussed the following diagnostic options: Chorionic villus sampling (CVS) Invasive diagnostic procedure done between 10w0d and 13w6d The procedure collects a small sample from the placenta for the purpose of chromosomal testing and/or other genetic testing Diagnostic result; more than 99% sensitivity for chromosome abnormalities Cannot screen for open neural tube defects, maternal serum AFP after 15 weeks is recommended Amniocentesis Invasive diagnostic procedure done after 15 weeks gestation The procedure collects a small sample of amniotic fluid for the purpose of chromosomal testing and/or other genetic testing Diagnostic result; more than 99% sensitivity for chromosome abnormalities Testing for AFP in the amniotic fluid can test for open neural tube defects It was a pleasure to be involved with Krystal???s care. [id number] time of the meeting was 40 minutes. Mira Yang GC, MS, [facility] Board Certified and [place] Licensed Genetic Counselor [facility] M[facility] Medicine Office: [facility]: [phone] [facility] documented in this encounter Plan of Treatment Upcoming Encounters Date Type Department Care Team (Late st Contact Info) Description 09/20/2023 3:15 PM CDT Office Visit [facility] [address] [place] [phone] Ashley Oneill MD [address] [place] [address] 09/25/2023 10:15 AM CDT Appointment [facility] Maternal Medicine [facility] [address] [place] [phone] Mercedes Milner MD [address] [place], [place] [address] 09/25/2023 11:30 AM CDT Office Visit [facility] [address] [place] [phone] Mercedes Milner MD [address] [place], [place] [address] 10/19/2023 8:45 AM CDT Office Visit [facility] [address] [place] [phone] Ashley Oneill MD [address] [place] [address] documented as of this encounter Visit Diagnoses Diagnosis Multigravida of advanced maternal age in first trimester- Primary related condition, antepartum Encounter for procreative genetic counseling documented in this encounter Care Teams Curriculum And Instruction Specialist Relationship Specialty Start Date End Date No Ref-Primary, Physician PCP - General 12/29/22 documented as of this encounter
--- OUTSIDE RECORDS SUMMARY | 2023-08-22 05:48 | XMS_ITS | Encounter Summary ---
Author Organization [facility] Address [address] [place] [address] Care Team Providers Care Perforator Operator Name Role Phone No Ref-Primary, Physician Primary Care Provider Riley Recinos MD Unavailable [phone] Reason for Visit * Reason Onset Date Comments Appointment 08/10/2023 Encounter Details Date Type Department Care Team (Late st Contact Info) Description 08/10/2023 Telephone [facility] [place] [address] [place] [address] Riley Recinos MD [address], [facility] [address] [place], [place] [address] Appointment Social History Tobacco Use Types Packs/Day Years [...] on file documented as of this encounter Miscellaneous Notes * Telephone Encounter - Daria Mckeon RN - 08/10/2023 2:12 PM CDT Call to pt, advised pt to keep Rose appt at her [facility] then BRITTANY to us in September. Pt is having records sent to us. Pt does not need lab or US appts as she had these done already, rescheduled OB appt to female provider as preferred by pt. Daria, RN * Telephone Encounter - Anahi Beal - 08/10/2023 1:46 PM CDT [facility] Phone Message May a detailed message be left on voicemail: yes Reason for Call: Other: Pt is 12 weeks with twins and scheduled first initial visits. This is a BRITTANY, pt has had 3 c sections also. Pt had OB care at [facility] in [place], [place]. First provider visit not available till 09/16. Please advise Action Taken: Message routed to: Other: [facility] Travel Screening: Not Applicable documented in this encounter Plan of Treatment Upcoming Encounters Date Type Department Care Team (Late st Contact Info) Description 09/20/2023 3:15 PM CDT Office Visit [facility] [address] [place] [phone] Ashley Oneill MD [address] [place], [place] [address] 09/25/2023 10:15 AM CDT Appointment [facility] Maternal Medicine [facility] [address] [place] [phone] Mercedes Milner MD [address] [place] [phone] 09/25/2023 11:30 AM CDT Office Visit [facility] Medicine [facility] [address] [place] [phone] Mercedes Milner MD [address] [facility] [address] [place], [place] [address] 10/19/2023 8:45 AM CDT Office Visit [facility] [address] [place] [address] Ashley Oneill MD [address] [place] [address] documented as of this encounter Visit Diagnoses Not on filedocumented in this encounter Care Teams Perforator Operator Relationship Specialty Start Date End Date No Ref-Primary, Physician PCP - General 12/29/22 Riley Recinos MD [address], [facility] [address] [place] [address] Physician asset protection detective 08/10/23 documented as of this encounter
--- OUTSIDE RECORDS SUMMARY | 2023-08-22 05:48 | XMS_ITS | Encounter Summary ---
Author Organization [facility] Address [address] [place] [address] Care Team Providers Care Wellness Instructor Name Role Phone No Ref-Primary, Physician Primary Care Provider Reason for Visit * Reason Comments Genetic Counseling AMA Ultrasound 1st tri complete twi ns-chorionicity/amnionicity Encounter Details Date Type Department Care Team (Late Contact Info) Description 07/31/2023 PRE VISIT [facility] [place] [address] [place] [address] Rachael Danielle, CANDICE Genetic Counseling (AMA); Ultrasound (1st tri complete twins-chorionicity/amni onicity) Social History Tobacco Use Types Packs/Day Years Used Date Smoking Tobacco: Former Cigarettes 0.5 5 Tobacco Cessation:Counseling Given: Not Answered Comments:6-7 cigs per day Alcohol Use Standard [...] Description 09/20/2023 3:15 PM CDT Office Visit [facility] [place] [address] [place] [address] Ashley Oneill MD [address] [place] [address] 09/25/2023 10:15 AM CDT Appointment [facility] Maternal Medicine [facility] [address] [place] [phone] Mercedes Milner MD [address] [place] [address] 09/25/2023 11:30 AM CDT Office Visit [facility] [address] [place] [phone] Mercedes Milner MD [address] [place], [place] [address] 10/19/2023 8:45 AM CDT Office Visit [facility] [place] [address] [place] [phone] Ashley Oneill MD [address] [place] [address] documented as of this encounter Visit Diagnoses Not on filedocumented in this encounter Care Teams Wellness Instructor Relationship Specialty Start Date End Date No Ref-Primary, Physician PCP - General 12/29/22 documented as of this encounter
--- OUTSIDE RECORDS SUMMARY | 2023-08-22 05:48 | XMS_ITS | Encounter Summary ---
Author Organization [facility] Address [address] [place] [address]. [place] [address] Care Team Providers Care Jury Consultant Name Role Phone No Ref-Primary, Physician Primary Care Provider Encounter Details Date Type Department Care Team (Latest Contact Info) Description 08/07/2023 Travel Social History Tobacco Use Types Packs/Day Years [...] Description 09/20/2023 3:15 PM CDT Office Visit [facility] [place] [address] [place] [phone] Ashley Oneill MD [address] [place], [place] [address] 09/25/2023 10:15 AM CDT Appointment [facility] [place] [address] [place] [address] Mercedes Milner MD [address] [place] [address] 09/25/2023 11:30 AM CDT Office Visit [facility] [place] [address] [place] [phone] Mercedes Milner MD [address] [place] [address] 10/19/2023 8:45 AM CDT Office Visit [facility] [place] [address] [place] [address] Ashley Oneill MD [address] [place] [address] documented as of this encounter Visit Diagnoses Not on filedocumented in this encounter Care Teams Jury Consultant Relationship Specialty Start Date End Date No Ref-Primary, Physician PCP - General 12/29/22 documented as of this encounter
--- OUTSIDE RECORDS SUMMARY | 2023-08-22 05:48 | XMS_ITS | Encounter Summary ---
Author Organization [facility] Address [address] [place] [address] Care Team Providers Care 1St [employer] On [employer] Press Name Role Phone No Ref-Primary, Physician Primary Care Provider Reason for Referral * Diagnostic Imaging Ultrasound (Routine) - Pending Review Specialty Diagnoses / Procedures Referred By Contac t Referred To Contact Radiology. Diagnoses related condition, antepartum Procedures MFM Twins US OB Complete 1st Tri Lucia Ramos APRN CNP [facility] [address] [place] [address] Referral ID Status Reason Start Date Expiration Date V isits Requested Visits Authorized [id number] Pending Review 07/26/2023 07/25/2024 1 1 * Consultation (Routine: Next available opening) - Pending Review Specialty Diagnoses / Procedures Referred By Contac t Referred To Contact Diagnoses related condition, antepartum Lucia Ramos APRN CNP [facility] [address] [place] [address] Referral ID Status Reason Start Date Expiration Date V isits Requested Visits Authorized [id number] Pending Review 07/26/2023 07/25/2024 1 1 * Consultation (Routine: Next available opening) - Pending Review Specialty Diagnoses / Procedures Referred By Contac t Referred To Contact Diagnoses related condition, antepartum Lucia Ramos APRN CNP [facility] [address] [place] [address] Maternal Med [address] [place] [address] Referral ID Status Reason Start Date Expiration Date V isits Requested Visits Authorized [id number] Pending Review 07/26/2023 07/25/2024 1 1 Question Answer Preferred Location: [facility] [place] 02/23/2024 Ultrasound First Trimester Complete (up to 13.6 weeks GA) US PROC NONE MFM Issue OTHER (enter details in Comments) - twin preg, assess chronicity and amnionicity MFM MD Consultation (unrelated to Ultrasound findings): No Inflammatory Bowel Disease Clinic: Joint MFM and GI Consultation: No Chronic Kidney Disease: Joint MFM and Nephrology Consultation No Genetic Counseling Consultation: No [phone] Comments twin preg, assess chronicity and amnionicity Encounter Details Date Type Department Care Team (Late st Contact Info) Description 07/26/2023 Transcribe Orders [facility] M[facility] [place] [address] [place] [address] Lucia Ramos APRN CNP [facility] [address] [place] [address] related condition, antepartum (Primary Dx) Social History [...] Description 09/20/2023 3:15 PM CDT Office Visit [facility] [address] [place] [address] Ashley Oneill MD [address] [place] [address] 09/25/2023 10:15 AM CDT Appointment [facility] Maternal Medicine [facility] [address] [facility] [address] [place] [address] Mercedes Milner MD [address] [place], [place] [address] 09/25/2023 11:30 AM CDT Office Visit [facility] Maternal Medicine [facility] [address] [facility] [address] [place] [address] Mercedes Milner MD [address] [place], [place] [id number] 10/19/2023 8:45 AM CDT Office Visit [facility] [address] [place] [address] Ashley Oneill MD [address] [place] [address] Scheduled Referrals Name Type Priority Associated Diagnoses Orde r Schedule Mat Med Ctr Referral - Referral Routine: Next available opening related condition, antepartum Expected: 07/26/2023 (Approximate), Expires: 01/22/2024 [facility] Genetic Counseling Referral Routine: Next available opening related condition, antepartum Expected: 07/26/2023 (Approximate), Expires: 07/25/2024 documented as of this encounter Results * MFM Twins US OB Complete 1st Tri (08/07/2023 12:29 PM CDT) Anatomical Region Laterality Modality Ultrasound 08/07/2023 11:5 3 AM CDT Impressions 08/07/2023 1:21 PM CDT IMPRESSION ----- 1. Dichorionic diamniotic twins at 11w 3d gestational age. 2. There are separate placentas with a thick intertwin membrane consistent with a dichorionic diamniotic twin . 3. Sonographic biometry agrees with gestational age predicted by assigned JEYSON for both fetuses. 4. Visualized anatomy appears normal for early gestational age. Narrative 08/07/2023 1:21 PM CDT ?1st Trim ----- Pat. Name: KRYSTAL ODONNELL ? Study Date: ??08/07/2023 11:53am Pat. NO: ??[id number] ?Referring ??: LUCIA RAMOS Site: ??[facility] ? Slime Plant Operator: Agatha Garcias RDMS : ??1985 ?Age: ?? 38 ----- INDICATION ----- Twin gestation. Check chorionicity. BMI 36. METHOD ----- Transabdominal ultrasound examination. View: Sufficient ----- Twin . Dichorionic-diamniotic. Number of fetuses: 2 DATING ----- ? Date ?Details ?Gest. age ?[facility] LMP ?05/19/2023 ?Cycle: regular cycle ?11 w + 3 d ?02/23/2024 Prior assessment ? 07/24/2023 ? GA: 9 w + 5 d ?11 w + 5 d ? 02/21/2024 U/S Fetus 1 ? 08/07/2023 ?based upon CRL ? 12 w + 0 d ? 02/19/2024 U/S Fetus 2 ?based upon CRL ? 12 w + 0 d ? 02/19/2024 Assigned dating ?Dating performed on 08/07/2023, based on the LMP ?11 w + 3 d ? 02/23/2024 Fetus 1: GENERAL EVALUATION ----- Cardiac activity present. Placenta thick dividing membrane, posterior, twin peak sign. Cord vessels normal insertion. Amniotic fluid normal amount. Fetus 2: GENERAL EVALUATION ----- Cardiac activity present. Placenta thick dividing membrane, posterior, twin peak sign. Cord vessels normal insertion. Amniotic fluid normal amount. Fetus 1: BIOMETRY ----- FHR ?161 ? bpm CRL ? 53.6 ? mm ? 12w 0d ? [place] Fetus 2: BIOMETRY ----- FHR ?173 ? bpm CRL ? 54.0 ? mm ? 12w 0d ? [place] Fetus 1: ANATOMY ----- The following structures appear normal: Cranium. Face. Abdominal wall. Stomach. Bladder. Arms. Legs. Gender: female Fetus 2: ANATOMY ----- The following structures appear normal: Cranium. Face. Abdominal wall. Stomach. Bladder. Arms. Legs. MATERNAL STRUCTURES ----- Cervix ?Visualized ? Appearance: Appears Closed ? Approach - Transabdominal Right Ovary ?Visualized Left Ovary ?Visualized ? Cyst(s) ? 1. ?Size 25 mm x 23 mm x 22 mm. Mean 23.3 mm. Vol 6.624 cm?. Simple cyst ? 2. ?Size 20 mm x 15 mm x 14 mm. Mean 16.3 mm. Vol 2.199 cm?. Simple cyst RECOMMENDATION ----- Thank-you for referring your patient for an early anatomic ultrasound to assess chorionicity. She had low risk cell free DNA for genetic screening this . I discussed the findings on today's ultrasound with the patient. We discussed that today's ultrasound is consistent with a dichorionic diamniotic twin gestation. Recommend comprehensive surveys at 28-20 weeks with MFM. Consider MFM consultation given DCDA twin gestation, AMA, history of IUFD, chronic hypertension on medications. Return to primary provider for continued care. If you have questions regarding today's evaluation or if we can be of further service, please contact the Maternal- Medicine Center. anomalies may be present but not detected I spent a total of 15 minutes on the date of this encounter including preparing to see the patient (reviewing medical records/tests), in direct ssws-sp-gcab contact with the patient during her visit with the majority spent counseling and discussing the plan of care and documenting the visit in the electronic medical record. Please see note for details. Procedure Note Mercedes Milner MD - 08/07/2023 1st Trim ----- Pat. Name: KRYSTAL ODONNELL Study Date: 08/07/2023 11:53am Pat. NO: [id number] Referring MD: LUCIA RAMOS Site: [facility] Slime Plant Operator: Agatha Garcias RDMS : 1985 Age: 38 ----- INDICATION ----- Twin gestation. Check chorionicity. BMI 36. METHOD ----- Transabdominal ultrasound examination. View: Sufficient ----- Twin . Dichorionic-diamniotic. Number of fetuses: 2 DATING ----- DateDetailsGest. age JEYSON LMP 05/19/2023ycle: regular cycle11 w + 3 d 02/23/2024 Prior assessment 07/24/2023 GA: 9 w +5 d11 w + 5 d 02/21/2024 U/S Fetus 1 08/07/2023 basedupon CRL12 w + 0 d 02/19/2024 U/S Fetus 2based upon CRL12 w + 0 d 02/19/2024 Assigned dating Dating performed on 08/07/2023, based onthe LMP 11 w+ 3 d 02/23/2024 Fetus 1: GENERAL EVALUATION ----- Cardiac activity present. Placenta thick dividing membrane, posterior, twin peak sign. Cord vessels normal insertion. Amniotic fluid normal amount. Fetus 2: GENERAL EVALUATION ----- Cardiac activity present. Placenta thick dividing membrane, posterior, twin peak sign. Cord vessels normal insertion. Amniotic fluid normal amount. Fetus 1: BIOMETRY ----- FHR 161 bpm CRL 53.6 mm12w 0d [place] Fetus 2: BIOMETRY ----- FHR 173 bpm CRL 54.0 mm12w 0d [place] Fetus 1: ANATOMY ----- The following structures appear normal: Cranium. Face. Abdominal wall. Stomach. Bladder. Arms. Legs. Gender: female Fetus 2: ANATOMY ----- The following structures appear normal: Cranium. Face. Abdominal wall. Stomach. Bladder. Arms. Legs. MATERNAL STRUCTURES ----- Cervix Visualized Appearance: Appears Closed Approach - Transabdominal Right Ovary Visualized Left Ovary Visualized Cyst(s) 1. Size 25 mm x 23 mm x22 mm. Mean 23.3 mm. Vol 6.624 cm?. Simple cyst 2. Size 20 mm x 15 mm x14 mm. Mean 16.3 mm. Vol 2.199 cm?. Simple cyst RECOMMENDATION ----- Thank-you for referring your patient for an early anatomic ultrasound toassess chorionicity. She had low risk cell free DNA for geneticscreening this . I discussed the findings on today's ultrasound with the patient. Wediscussed that today's ultrasound is consistent with a dichorionicdiamniotic twin gestation. Recommend comprehensive surveys at 28-20 weeks with [facility]. [facility] consultation given DCDA twin gestation, AMA, history of IUFD, chronichypertension on medications. Return to primary provider for continued care. If you have questions regarding today's evaluation or if we can be offurther service, please contact the Maternal- Medicine Center. anomalies may be present but not detected I spent a total of 15 minutes on the date of this encounter includingpreparing to see the patient (reviewing medical records/tests), in rkiuclyple-qp-hlut contact with the patient during her visit with the majority spent counseling and discussingthe plan of care and documenting the visit in the electronic medicalrecord. Please see note for details. IMPRESSION ----- 1. Dichorionic diamniotic twins at 11w 3d gestational age. 2. There are separate placentas with a thick intertwin membrane consistentwith a dichorionic diamniotic twin . 3. Sonographic biometry agrees with gestational age predicted by assignedEDD for both fetuses. 4. Visualized anatomy appears normal for early gestational age. Lucia Ramos APRN, CNP [facility] ORDERABLES documented in this encounter Visit Diagnoses Diagnosis related condition, antepartum- Primary related condition, antepartum documented in this encounter Care Teams 1St [employer] Relationship Specialty Start Date End Date No Ref-Primary, Physician PCP - General 12/29/22 documented as of this encounter
--- OUTSIDE RECORDS SUMMARY | 2023-08-22 05:48 | XMS_ITS | Encounter Summary ---
Author Organization [place] [facility] Address [address] [place] [address] Care Team Providers Care Batting Machine Operator Name Role Phone No Ref-Primary, Physician Primary Care Provider Riley Recinos MD Unavailable [phone] Reason for Visit * Reason Comments Care Encounter Details Date Type Department Care Team ([facility] st Contact Info) Description 08/16/2023 8:30 AM CDT Virtual Visit [facility] [address] [place] [address] High-risk , elderly multigravida, unspecified trimester (Primary Dx) Social History Tobacco Use Types Packs/Day Years Used Date Smoking Tobacco: Former Cigarettes 0.5 5 Smokeless Tobacco: Former Tobacco Cessation:Counseling Given: Not Answered Comments:6-7 cigs [...] as of this encounter Progress Notes * Mabel Wilkins RN - 08/16/2023 8:30 AM CDT NPN nurse visit done over the phone. documented in this encounter Nursing Notes * Mabel Wilkins RN - 08/16/2023 8:30 AM CDT NPN nurse visit done over the phone. Pt will be given NPN folder and book at her upcoming appt. Discussed optional screening available to assess chromosomal anomalies. Questions answered. Pt advised to call the clinic if she has any questions or concerns related to her . labs will be obtained at her upcoming appt. New visit scheduled on 09/[address] Oneill. Pt is transferring care from [facility]. She has signed a release to have her records sent to us. Di/di twins. Has been seeing M and is scheduled for her anatomy scan with them. 12w5d Menstrual cycles: regular Last pap: 05/19/23 Patient supplied answers from flow sheet for: OB Questionnaire. Past Medical History Have you ever recieved care for your mental health? : No Have you ever been in a major accident or suffered serious trauma?: No Within the last year, has anyone hit, slapped, kicked or otherwise hurt you?: No In the last year, has anyone forced you to have sex when you didn't want to?: No Past Medical History 2 Have you ever received a blood transfusion?: No Would you accept a blood transfusion if was medically recommended?: Yes Does anyone in your home smoke?: No Is your blood type Rh negative?: No Have you ever breastfed?: (!) Yes Have you been hospitalized for a nonsurgical reason excluding normal delivery?: No Have you ever had an abnormal pap smear?: No Past Medical History (Continued) Do you have a history of abnormalities of the uterus?: No Did your mother take CARMENCITA or any other hormones when she was with you?: No Do you have any other problems we have not asked about which you feel may be important to this ?: No Mabel Soares RN documented in this encounter Plan of Treatment Upcoming Encounters Date Type Department Care Team (Late st Contact Info) Description 09/20/2023 3:15 PM CDT Office Visit [facility] [address] [place] [address] Ashley Oneill MD [address] [place] [address] 09/25/2023 10:15 AM CDT Appointment [facility] [address] [place] [address] Mercedes Milner MD [address] [place], [place] [id number] 09/25/2023 11:30 AM CDT Office Visit [facility] [address] [place] [address] Mercedes Milner MD [address] [place], [place] [address] 10/19/2023 8:45 AM CDT Office Visit [facility] [address] [place] [address] Ashley Oneill MD [address] [place] [address] documented as of this encounter Visit Diagnoses Diagnosis High-risk , elderly multigravida, unspecified trimester- Primary documented in this encounter Care Teams Batting Machine Operator Relationship Specialty Start Date End Date No Ref-Primary, Physician PCP - General 12/29/22 Riley Recinos MD [address] [place] [address] Physician fruit and vegetable parer 08/10/23 documented as of this encounter
--- OUTSIDE RECORDS SUMMARY | 2023-08-22 05:48 | XMS_ITS | Referral Summary ---
Author Organization [facility] Address [address] [place] [address] Care Team Providers Care Supervisor Printing And Stamping Name Role Phone No Ref-Primary, Physician Primary Care Provider Riley Recinos MD Unavailable [phone] Encounters Date Type Department Care Team Description 08/20/2023 Transcribe Orders [facility] [address] [place] [phone] Edie Rasheed A related condition, antepartum (Primary Dx) 08/16/2023 8:30 AM CDT Virtual Visit [facility] [address] [place] [phone] High-risk , elderly multigravida, unspecified trimester (Primary Dx) 08/13/2023 MyC Medical Advice [facility] [address] [place] [phone] Jennifer, Leonela Blair RN 08/10/2023 Telephone [facility] [address] [place] [phone] Riley Recinos MD Appointment 08/07/2023 Travel 08/07/2023 12:15 PM CDT Office Visit [facility] [address] [place] [phone] Mercedes Milner MD Dichorionic diamniotic twin in second trimester (Primary Dx); Multigravida of advanced maternal age in second trimester; Chronic hypertension affecting 08/07/2023 11:01 AM CDT - 08/07/2023 11:59 PM CDT Hospital Encounter [facility] [place] [address] [place] [address] Mercedes Milner MD related condition, antepartum Discharge Disposition: Home or Self Care 08/07/2023 11:00 AM CDT Office Visit [place] [address] [facility] [address] [place] [phone] Ilsa Ramos APRN CNP Burn, Martina, MD Stoner, Natalie E, GC Multigravida of advanced maternal age in first trimester (Primary Dx); related condition, antepartum; Encounter for procreative genetic counseling 07/31/2023 PRE VISIT [facility] [place] [address] [facility] [address] [place] [address] Rachael Danielle RN Genetic Counseling ([place]); Ultrasound (1st tri complete twins-chorionicity/ amnionicity) 07/26/2023 Transcribe Orders [place] [address] [facility] [address] [place] [phone] Ilsa Ramos APRN CNP related condition, antepartum (Primary Dx) 07/24/2023 Medical Correspondence [facility] [address] [facility] [place] [address] Scan, Non-Provider from Last 3 Months Allergies Active Allergy Reactions Criticality Noted Date Comments Ibuprofen Low 12/27/2022 Other Reaction(s): Nasal issues Nsaids High 12/27/2022 Other Reaction(s): nasal bleeding Medications Medication Sig Dispensed Refills Start Date End Date Status labetalol (NORMODYNE) 100 MG tablet Take 50 mg by mouth 2 times daily Active fluticasone (ARNUITY ELLIPTA) 100 MCG/ACT inhaler Inhale 1 puff into the lungs daily Active Vit-Fe Fumarate-FA ( VITAMIN) 27-0.8 MG TABS Active Ferrous Sulfate 324 (65 Fe) MG TBEC Active MUCINEX 600 MG OR TBCRIndications:Ac igiugig upper respiratory infections of unspecified site 1 TABLET EVERY 12 HOURS NEEDED 0 0 03/09/2008 08/16/2023 Discontinued(S topped by Patient (No AVS)) Active Problems Problem Noted Date Diagnosed Date Depressive disorder, not elsewhere classified Impulse control disorder 05/09/2004 Overview: Problem list name updated by automated process. Provider to review Tobacco use disorder 05/09/2004 Estimated Date of Delivery Comme nts Yes 02/23/2024 Based on last me nstrual period of 05/19/2023 Social History Tobacco Use Types Packs/Day Years [...] Comments Blood Pressure 128/86 03/09/2008 12:15 PM PLANT UTILITY PERSON Pulse 76 03/09/2008 12:15 PM PLANT UTILITY PERSON Temperature 36.8 ??C (98.2 ??F) 03/09/2008 12:[address] Respiratory Rate 12 03/09/2008 12:15 PM PLANT UTILITY PERSON Oxygen Saturation 100% 05/09/2004 10:30 AM PLANT UTILITY PERSON Inhaled Oxygen Concentration - - Weight 78 kg (172 lb) 03/09/2008 12:15 PM PLANT UTILITY PERSON Height 165.1 cm (5' 5) 03/09/2008 12:15 PM PLANT UTILITY PERSON Body Mass Index 28.62 03/09/2008 12:15 PM PLANT UTILITY PERSON Plan of Treatment Upcoming Encounters Date Type Department Care Team (Late st Contact Info) Description 09/20/2023 3:15 PM CDT Office Visit [facility] [address] [facility] [address] [place] [address] Ashley Oneill MD [address] [place] [address] 09/25/2023 10:15 AM CDT Appointment [facility] [address] [facility] [address] [place] [address] Mercedes Milner MD [address] [place], [place] [address] 09/25/2023 11:30 AM CDT Office Visit [facility] [address] [facility] [address] [place] [address] Mercedes Milner MD [address] [place], [place] [phone] 10/19/2023 8:45 AM CDT Office Visit [facility] [address] [facility] [address] [place] [address] Ashley Oneill MD [address] [place] [address] Procedures Procedure Name Priority Date/Time Associated Diagnosis Comments MFM TWINS US OB COMPLETE 1ST TRI Routine 08/07/2023 12:29 PM CDT related condition, antepartum LAB RESULT - HIM SCAN 07/24/2023 12:00 AM CDT NON-STRESS TEST - HIM SCAN 07/24/2023 12:00 AM CDT CL AFF GLUCOSE HEMOCCUE Routine 05/09/2004 10:53 AM PLANT UTILITY PERSON Fever Other Malaise And Fatigue from Last 3 Months or Most Recently Relevant to Health Maintenance Results * MFM Twins US OB Complete [...] PM CDT ?1st Trim ----- Pat. Name: RAQUEL ODONNELL ? Study Date: ??08/07/2023 11:53am Pat. NO: ??[id number] ?Referring ??MD: ILSA RAMOS Site: [facility] ? Progress Worker: Agatha Garcias RDMS : ??1985 ?Age: ?? [...] the patient (reviewing medical records/tests), in direct jmnf-sx-zhag contact with the patient during her visit with the majority spent counseling and discussing the plan of care and documenting the visit in the electronic medical record. Please see note for details. Procedure Note Mercedes Milner MD - 08/07/2023 1st Trim ----- Pat. Name: RAQUEL ODONNELL Study Date: 08/07/2023 11:53am Pat. NO: [id number] Referring MD: ILSA RAMOS Site: [facility] Progress Worker: Agatha Garcias RDMS : 1985 Age: 38 [...] Recommend comprehensive surveys at 28-20 weeks with [facility] consultation given DCDA twin gestation, AMA, history [...] see the patient (reviewing medical records/tests), in apdwacnsyo-ak-ztmg contact with the patient during her visit [...] anatomy appears normal for early gestational age. Ilsa Ramos APRN INTERVENTIONAL NURSE IMG [facility] US ORDERABLES * Non-Stress Test - HIM Scan (07/24/2023 12:00 AM CDT) 07/24/2023 Provider Outside PROCEDURES * Lab Result - HIM Scan (07/24/2023 12:00 AM CDT) 07/24/2023 Provider Outside MH NON-BEAKER LAB TE STING * (ABNORMAL) GLUCOSE HEMOCCUE (05/09/2004 10:53 AM PLANT UTILITY PERSON) Glucose 127(H) 60 - 110 mg/dL [facility] 05/09/2004 10:5 3 AM PLANT UTILITY PERSON 05/09/2004 10:54 AM PLANT UTILITY PERSON Hudson Berman MD LABORATORY [facility] from Last 3 Months or Most Recently Relevant to Health Maintenance Care Teams Supervisor Printing And Stamping Relationship Specialty Start Date End Date No Ref-Primary, Physician PCP - General 12/29/22 Riley Recinos MD [address] [facility] [facility] [address] [place] [address] Physician nuisance wildlife trapper 08/10/23
--- OUTSIDE RECORDS SUMMARY | 2023-08-22 05:48 | XMS_ITS | Clinical Summary ---
Author Organization [facility] Address [address] [place], [place] [address]. [place] [address] Care Team Providers Care Life Skills Worker Name Role Phone No Ref-Primary, Physician Primary Care Provider Riley Recinos MD Unavailable + [phone] Allergies Active Allergy Reactions Criticality Noted Date [...] TBEC Active MUCINEX 600 MG OR TBCRIndications:Ac ursula upper respiratory infections of unspecified site 1 [...] on last me nstrual period of 05/19/2023 Encounters Date Type Department Care Team Description 08/20/2023 Transcribe Orders [facility] [place] [address] [place] [address] Edie Rasheed related condition, antepartum (Primary Dx) 08/16/2023 8:30 AM CDT Virtual Visit [place] [address] [place] [address] High-risk , elderly multigravida, unspecified trimester (Primary Dx) 08/13/2023 MyC Medical Advice [place] [address] [place] [address] Leonela Rodriguez RN 08/10/2023 Telephone [facility] [address] [place] [address] Riley Recinos MD Appointment 08/07/2023 12:15 PM CDT Office Visit [facility] [place] [address] [place] [address] Mercedes Milner MD Dichorionic diamniotic twin in second trimester (Primary Dx); Multigravida of advanced maternal age in second trimester; Chronic hypertension affecting 08/07/2023 11:01 AM CDT - 08/07/2023 11:59 PM CDT Hospital Encounter [facility] [place] [address] [place] [address] Mercedes Milner MD related condition, antepartum Discharge Disposition: Home or Self Care 08/07/2023 11:00 AM CDT Office Visit [facility] M[facility] Medicine [facility] [address] [place] [address] Ilsa Ramos, ELEVATOR STARTER Mercedes Easton MD Stoner, Natalie E, GC Multigravida of advanced maternal age in first trimester (Primary Dx); related condition, antepartum; Encounter for procreative genetic counseling 08/07/2023 Travel 07/31/2023 PRE VISIT [facility] M[facility] Medicine [facility] [address] [place] [phone] Rachael Danielle RN Genetic Counseling (AMA); Ultrasound (1st tri complete twins-chorionicity/ amnionicity) 07/26/2023 Transcribe Orders [facility] M[facility] [address] [place] [address] Ilsa Ramos, ELEVATOR STARTER HONING MACHINE SET UP OPERATOR TOOL related condition, antepartum (Primary Dx) 07/24/2023 Medical Correspondence [facility] Mg[facility] [address] [place] [address] Scan, Non-Provider from Last 3 Months Family History Medical History Relation Comments Cerebrovascular Disease Maternal Grandmother bir th mother Hypertension Mother Diabetes Paternal Grandmother Hypertension Paternal Grandmother Cancer Sister sarcoma/leukemia Relation Status Comments Father Alive Maternal Grandfather Maternal Grandmother Mother Alive Paternal Grandfather Paternal Grandmother Sister Social History Tobacco Use [...] Comments Blood Pressure 128/86 03/09/2008 12:15 PM FIELD UNDERWRITER Pulse 76 03/09/2008 12:15 PM FIELD UNDERWRITER Temperature 36.8 ??C (98.2 ??F) 03/09/2008 12:[address] Respiratory Rate 12 03/09/2008 12:15 PM FIELD UNDERWRITER Oxygen Saturation 100% 05/09/2004 10:30 AM FIELD UNDERWRITER Inhaled Oxygen Concentration - - Weight 78 kg (172 lb) 03/09/2008 12:15 PM FIELD UNDERWRITER Height 165.1 cm (5' 5) 03/09/2008 12:15 PM FIELD UNDERWRITER Body Mass Index 28.62 03/09/2008 12:15 PM FIELD UNDERWRITER Plan of Treatment Upcoming Encounters Date Type Department Care Team (Late st Contact Info) Description 09/20/2023 3:15 PM CDT Office Visit [facility] [address] [place] [address] Ashley Oneill MD [address] [place] [address] 09/25/2023 10:15 AM CDT Appointment [facility] Maternal Medicine [facility] [address] [place] [address] Mercedes Milner MD [address] [place] [address] 09/25/2023 11:30 AM CDT Office Visit [facility] Maternal Medicine [facility] [address] [facility] [address] [place] [address] Mercedes Milner MD [address] [place] [address] 10/19/2023 8:45 AM CDT Office Visit [facility] [address] [place] [address] Ashley Oneill MD [address] [place] [address] Health Maintenance Due Date Last Done Comments ADVANCE CARE PLANNING 1985 ANNUAL REVIEW OF HM ORDERS 1985 YEARLY PREVENTIVE VISIT 1985 HIV SCREENING 2001 HEPATITIS C SCREENING 2004 HEPATITIS B IMMUNIZATION (1 of 3 - 19+ 3-dose series) 2005 GLUCOSE 05/10/2007 05/09/2004 PAP 06/17/2007 HPV IMMUNIZATION (2 - 3-dose series) 10/05/2008 09/07/2008 COVID-19 Vaccine ( - 2022- season) 2022 06/06/2022, 02/11/2021, 04/13/2020, Additional history exists MATERNAL SCREENING DISCUSSION 07/28/2023 INFLUENZA VACCINE (Season Ended) 2023 RSV VACCINE ( & 60+) (1 - Risk 1-dose series) 12/29/2023 DTAP/TDAP/TD IMMUNIZATION (2 - Td or Tdap) 10/11/2031 10/10/2021, 04/21/2012 PHQ-2 (once per calendar year) Completed 08/16/2023, 08/14/2023, 08/13/2023 IPV IMMUNIZATION Aged Out No longer e [...] on patient's age to complete this topic Procedures Procedure Name Priority Date/Time Associated Diagnosis Comments MFM TWINS US OB COMPLETE 1ST TRI Routine 08/07/2023 12:29 PM CDT related condition, antepartum LAB RESULT - HIM SCAN 07/24/2023 12:00 AM CDT NON-STRESS TEST - HIM SCAN 07/24/2023 12:00 AM CDT CL AFF GLUCOSE HEMOCCUE Routine 05/09/2004 10:53 AM FIELD UNDERWRITER Fever Other Malaise And Fatigue from Last [...] PM CDT ?1st Trim ----- Pat. Name: TYSHAWN ODONNELLA ? Study Date: ??08/07/2023 11:53am Pat. NO: ??[id number] ?Referring ??MD: ILSA RAMOS Site: [facility] ? Manager Orange: Agatha Garcias RDMS : ??1985 ?Age: ?? [...] the patient (reviewing medical records/tests), in direct uqhd-yi-bocv contact with the patient during her visit with the majority spent counseling and discussing the plan of care and documenting the visit in the electronic medical record. Please see note for details. Procedure Note Mercedes Milner MD - 08/07/2023 1st Trim ----- Pat. Name: RAQUEL ODONNELL Study Date: 08/07/2023 11:53am Pat. NO: [id number] Referring MD: ILSA RAMOS Site: [facility] Manager Orange: Agatha GarciasJANETTE : 1985 Age: 38 ----- INDICATION ----- [...] comprehensive surveys at 28-20 weeks with M. ConsiderFM consultation given DCDA twin gestation, AMA, history [...] see the patient (reviewing medical records/tests), in ycqkoodjtw-sz-mlpt contact with the patient during her visit [...] for early gestational age. Ilsa Ramos APRN HONING MACHINE SET UP OPERATOR TOOL IMG [facility] US ORDERABLES * Non-Stress Test - HIM Scan (07/24/2023 12:00 AM CDT) 07/24/2023 Provider Outside PROCEDURES * Lab Result - HIM Scan (07/24/2023 12:00 AM CDT) 07/24/2023 Provider Outside MH NON-BEAKER LAB TE STING * (ABNORMAL) GLUCOSE HEMOCCUE (05/09/2004 10:53 AM FIELD UNDERWRITER) Glucose 127(H) 60 - 110 mg/dL [facility] 05/09/2004 10:5 3 AM FIELD UNDERWRITER 05/09/2004 10:54 AM FIELD UNDERWRITER [place] Riley Bershow MD LABORATORY [facility] from Last 3 Months or Most Recently Relevant to Health Maintenance Care Teams Life Skills Worker Relationship Specialty Start Date End Date No Ref-Primary, Physician PCP - General 12/29/22 Riley Recinos MD [address] [place] [address] Physician teacher assistant 08/10/23
--- OUTSIDE RECORDS SUMMARY | 2023-08-22 05:48 | XMS_ITS | Encounter Summary ---
Author Organization [facility] Address [address] [place] [address] Care Team Providers Care Laborer Steel Handling Name Role Phone No Ref-Primary, Physician Primary Care Provider Reason for Referral * Diagnostic Imaging Ultrasound (Routine) - Pending Review Specialty Diagnoses / Procedures Referred By Contac t Referred To Contact Radiology. Diagnoses related condition, antepartum Procedures MFM Twins US OB Complete 1st Tri Lucia Ramos APRN CNP [facility] [address] [place] [address] Referral ID Status Reason Start Date Expiration Date V isits Requested Visits Authorized [id number] Pending Review 07/26/2023 07/25/2024 1 1 Reason for Visit * Diagnostic Imaging Ultrasound (Routine) - Pending Review Specialty Diagnoses / Procedures Referred By Contac t Referred To Contact Radiology. Diagnoses related condition, antepartum Procedures MFM Twins US OB Complete 1st Tri Lucia Ramos APRN CNP [facility] [address] [place] [address] Referral ID Status Reason Start Date Expiration Date V isits Requested Visits Authorized [id number] Pending Review 07/26/2023 07/25/2024 1 1 Encounter Details Date Type Department Care Team (Latest Contact Info) Description 08/07/2023 11:01 AM CDT - 08/07/2023 11:59 PM CDT Hospital Encounter [facility] [place] [address] [facility] [address] [place] [phone] Mercedes Milner MD [address] [place], [place] [phone] related condition, antepartum Discharge Disposition: Home or Self Care Social History Tobacco Use Types Packs/Day Years [...] on file documented as of this encounter Medications at Time of Discharge Medication Sig Dispensed Refills Start Date End Date MUCINEX 600 MG OR TBCRIndications:Acute upper respiratory infections of unspecified site 1 TABLET EVERY 12 HOURS NEEDED 0 0 03/09/2008 08/16/2023 documented as of this encounter Plan of Treatment Upcoming Encounters Date Type Department Care Team (Late st Contact Info) Description 09/20/2023 3:15 PM CDT Office Visit [facility] [address] [facility] [address] [place] [phone] Ashley Oneill MD [address] [place] [address] 09/25/2023 10:15 AM CDT Appointment [facility] [address] [facility] [address] [place] [phone] Mercedes Milner MD [address] [place], [place] [address] 09/25/2023 11:30 AM CDT [facility] Visit [facility] [place] [address] [place] [address] Mercedes Milner MD [address] [address] [place] [address] 10/19/2023 8:45 AM CDT Office Visit [facility] [address] [place] [address] Ashley Oneill MD [address] [place] [address] documented as of this encounter Procedures Procedure Name Priority Date/Time Associated Diagnosis Comments MFM TWINS US OB COMPLETE 1ST TRI Routine 08/07/2023 12:29 PM CDT related condition, antepartum documented in this encounter Results * MFM Twins US [...] ? Study Date: ??08/07/2023 11:53am Pat. NO: ??[id number] ?Referring ??MD: LUCIA RAMOS Site: ??[facility] ? Dye House Helper: Agatha Garcias RDMS : ??1985 ?Age: ?? [...] the patient (reviewing medical records/tests), in direct wzcv-ye-zkbi contact with the patient during her visit with the majority spent counseling and discussing the plan of care and documenting the visit in the electronic medical record. Please see note for details. Procedure Note Mercedes Milner MD - 08/07/2023 1st Trim ----- Pat. Name: KRYSTAL ODONNELL Study Date: 08/07/2023 11:53am Pat. NO: [id number] Referring MD: LUCIA RAMOS Site: [facility] Dye House Helper: Agatha Garcias RDMS : 1985 Age: 38 [...] mm x22 mm. Mean 23.3 mm. Vol 6.590 cm?. Simple cyst 2. Size 20 mm [...] comprehensive surveys at 28-20 weeks with MFM. ConsiderFM consultation given DCDA twin gestation, AMA, history of IUFD, chronichypertension on medications. Return to primary provider for continued care. If you have questions regarding today's evaluation or if [facility], please contact the [facility]. anomalies may be present but not detected I spent a total of 15 minutes on the date of this encounter includingpreparing to see the patient (reviewing medical records/tests), in sdjgbkxudw-ck-xrxj contact with the patient during her visit [...] normal for early gestational age. Lucia Ramos APRN DIESEL ENGINE PIPE FITTER IMG M US ORDERABLES documented in this encounter Visit Diagnoses Diagnosis related condition, antepartum documented in this encounter Care Teams Laborer Steel Handling Relationship Specialty Start Date End Date No Ref-Primary, Physician PCP - General 12/29/22 documented as of this encounter
--- OUTSIDE RECORDS SUMMARY | 2023-08-22 05:48 | XMS_ITS | Encounter Summary ---
Author Organization [facility] Address [address] [place] [address]. [place] [address] Care Team Providers Care Sign Out Clerk Name Role Phone No Ref-Primary, Physician Primary Care Provider Riley Recinos MD Unavailable [phone] Encounter Details Date Type Department Care Team (Late Contact Info) Description 08/13/2023 MyC Medical Advice [facility] [address] [place] [address] Persons, Leonela Blair RN Social History Tobacco Use Types Packs/Day Years [...] Description 09/20/2023 3:15 PM CDT Office Visit [facility] [address] [place] [address] Ashley Oneill MD [address] [facility] [place] [address] 09/25/2023 10:15 AM CDT Appointment [facility] Maternal Medicine [facility] [address] [place] [phone] Mercedes Milner MD [address] [place], [place] [address] 09/25/2023 11:30 AM CDT Office Visit [facility] [address] [place] [phone] Mercedes Milner MD [address] [place] [address] 10/19/2023 8:45 AM CDT Office Visit [facility] [place] [address] [place] [address] Ashley Oneill MD [address] [place] [address] documented as of this encounter Visit Diagnoses Not on filedocumented in this encounter Care Teams Sign Out Clerk Relationship Specialty Start Date End Date No Ref-Primary, Physician PCP - General 12/29/22 Riley Recinos MD [address] [place] [address] Physician weight calculator 08/10/23 documented as of this encounter
== END 2023-08-02 11:51 | disposition home or self-care (01) ==
LOC: NFLDREF 08-22 05:47
PROVIDERS: PCP Internal Medicine; Referring Provider Internal Medicine; Visit Provider Registered Nurse
DX: I10 Essential (primary) hypertension (principal)
CPT/HCPCS: 82570; 84156